=== PATIENT | male | born 1940 | race Caucasian/White ===

== ENCOUNTER 2018-09-23 03:11 | Emergency (ER) | payer MEDICARE, BC, SELFPAY ==
[2018-09-23 03:12] VITALS: BP 170/86; BP 198/80; PULSE 71; RESP 16; TEMP 36.6; O2SAT 97; BMI 26.3
--- NOTE | 2018-09-23 03:28 | ED.DCSUM_ITS ---
- ER Visit Summary Date of Service: 09/23/18 Chief Complaint: [] Right lower rib injury History of Present Illness: The patient is a 78 M stated he injured his right lower ribs 5 days ago when he fell and he tripped on a rug. He is having some pain in his right lower ribs. He is using Aleve. Comes in for further evaluation. Current severity is moderate Physical Examination: [] Vital signs reviewed General: Well-nourished well-developed Head: Normocephalic atraumatic Eyes: Pupils equal round and reactive to light extraocular movements intact ENT: TMs clear no hemotympanum no trauma Neck: Nontender full range of motion Cardiovascular: Regular rate rhythm no murmurs normal S1-S2 Respiratory: No distress clear to auscultation bilaterally chest nontender Abdomen: Soft nontender nondistended normal bowel sounds no masses Back: Spinal tenderness. No CVA tenderness. Tenderness in his right posterior lateral rib. No crepitus or deformity. Positive right flank contusion Extremities: Nontender active range of motion ?4 extremities no trauma Skin: Normal color no trauma Neuro alert oriented cranial nerves II through XII intact normal strength sensation reflexes Test Results: [] Emergency Department Course and Treatment: [] Patient does not want to x-ray. 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 He may have a bruised or broken rib. Given a dose of morphine. Will be given Vicodin for home. Treatment Plan: [] Disposition: [] Impression: [] Right posterior rib injury status post fall This note was generated with [employer] dictation software. It may contain incorrect words, spelling, and punctuation that were not noted in review of the chart prior to signing ED Disposition - Plan for ED Patient: Chief Complaint: Fall Referrals: Alan Ruth MD [Primary Care Provider] -
--- NOTE | 2018-09-23 03:28 | ED.DEP ---
ED Disposition - Plan for ED Patient: Disposition: Home or Assisted Living Chief Complaint: Fall Instructions: ED Contusion Vs Minor Fx Rib Prescriptions: Hydrocodone Bitart/Apap 5-325 [[place] 5MG-325MG] 1 tab PO Q4H PRN PRN 2 Days #10 tab PRN Reason: Pain Referrals: Alan Ruth MD [Primary Care Provider] -
[2018-09-23] MEDS: Morphine 4 MG/ML Syringe IM (03:36)
[2018-09-23 04:18] VITALS: RESP 16
== END 2018-09-23 04:18 | disposition home or self-care (01) ==
LOC: ED 03:37
PROVIDERS: Emergency Provider Emergency Medicine; Family Provider Family Medicine; PCP Family Medicine
DX: S29.9XXA Unspecified injury of thorax, initial encounter (principal); W01.0XXA Fall on same level from slipping, tripping and stumbling without subsequent striking against object, initial encounter
CPT/HCPCS: 99282

== ENCOUNTER 2020-12-03 11:58 | Outpatient (RCR) | payer MEDICARE, BC, SELFPAY | END 2020-12-03 23:59 | LOC: IMMUN 11:58 | PROVIDERS: PCP Family Medicine; Referring Provider Family Medicine; Visit Provider Family Medicine | DX: Z23 Encounter for immunization (principal) | CPT/HCPCS: 0011A; 0012A ==

== ENCOUNTER 2021-10-11 05:59 | Emergency (ER) | payer MEDICARE, BC, SELFPAY ==
[2021-10-11 05:59] VITALS: BP 163/100; PULSE 81; RESP 20; TEMP 36.3; O2SAT 93; BMI 27.3
[2021-10-11 06:02] VITALS: BP 163/100; PULSE 78; RESP 20; TEMP 36.3; O2SAT 94
--- NOTE | 2021-10-11 06:07 | EKG12_ITS ---
Test Reason : WEAKNESS Blood Pressure : / mmHG Vent. Rate : 076 BPM Atrial Rate : 076 BPM P-R Int : 216 ms QRS Dur : 140 ms QT Int : 418 ms P-R-T Axes : 038 -82 -01 degrees QTc Int : 470 ms Sinus rhythm with 1st degree A-V block Left axis deviation Right bundle branch block Inferior infarct , age undetermined Abnormal ECG Confirmed by SUSAN WYNN, JOEL ([id number]), acquisition editor ANGEL NGUYỄN ([id number]) on 10/12/2021 12:15:34 PM Referred By: PANFILO Confirmed By:JOEL DAVIS MD
--- NOTE | 2021-10-11 06:07 | RAD_ITS ---
STUDY: X-RAY CHEST REASON FOR EXAM: Male, 81 years old. Cough TECHNIQUE: Single AP portable view of the chest. COMPARISON: None. FINDINGS: There is minimal lower lobe atelectasis. There is no demonstrated pleural abnormality. There is mild cardiac enlargement. Normal mediastinum and filipe. Normal visualized pulmonary arteries. There is atherosclerotic calcification of the aortic arch with tortuosity. There are diffuse degenerative changes of the visualized thoracic spine. There is degenerative osteoarthritis of the bilateral shoulders. There is no demonstrated abnormality of the visualized soft tissue structures of the upper abdomen. RAD/Chest 1 View (Portable) IMPRESSION: Degenerative changes, as described above. No demonstrated acute cardiopulmonary process. Electronically Signed: Mandi Correa MD at 6:38 EST Tel , Service support ,
--- NOTE | 2021-10-11 06:20 | ED.VIS.DYS ---
HPI History of Present Illness Chief Complaint: Weakness Narrative Narrative: 81-year-old male presenting with cough and he admits to some shortness of breath. Patient states he feels like he has a fever but has not had 1. He does complain of body aches and chills. No loss of taste or smell. Patient states he has been sick for about a week and a half. He states he had a test last week which was positive for COVID-19. He states he was vaccinated. He states he was not referred for monoclonal antibody treatment. He denies any chest pain. [facility] Medical History Benign essential tremor Drug-induced erectile dysfunction Gout Hyperlipidemia Hypertension Pseudophakia PVD (peripheral vascular disease) Tremor Type II diabetes mellitus Home Medications atorvastatin 20 mg PO QHS 10/11/14 [History Last Taken Unknown] lisinopril 40 mg PO DAILY 10/11/14 [History Last Taken Unknown] Levemir FlexTouch U-100 Insuln 10 units SQ QHS 09/23/18 [History Last Taken Unknown] allopurinol 300 mg PO DAILY 09/23/18 [History Last Taken Unknown] metformin 2 tab PO DAILY 09/23/18 [History Last Taken Unknown] propranolol 120 mg PO DAILY 09/23/18 [History Last Taken Unknown] cetirizine 10 mg PO DAILY 10/11/21 [History Last Taken Unknown] colchicine 0.6 mg PO PRN PRN 10/11/21 [History Last Taken Unknown] dexamethasone 6 mg PO DAILY #7 tab 10/11/21 [Rx Last Taken Unknown] hydrochlorothiazide 12.5 mg PO DAILY 10/11/21 [History Last Taken Unknown] naproxen sodium [Aleve] 220 mg PO DAILY 10/11/21 [History Last Taken Unknown] promethazine-DM 5 ml PO Q6H PRN #118 ml 10/11/21 [Rx Last Taken Unknown] propranolol 20 mg PO DAILY PRN PRN 10/11/21 [History Last Taken Unknown] sildenafil (pulm.hypertension) 30 mg PO PRN PRN 10/11/21 [History Last Taken Unknown] Allergy/AdvReac Type Severity Reaction Status Date / Time No Known Allergies Allergy Verified 10/11/21 06:08 Surgical History History of back surgery History of hip surgery Hx of knee surgery Social History Smoking Status: Never smoker ROS ROS ED Constitutional Constitutional ED: Reports chills and other Details: Subjective fevers Eyes Eyes: Denies blurry vision or diplopia ENT ENT ED: Denies rhinorrhea or sore throat Cardiovascular Cardiovascular: Denies chest pain or palpitations Respiratory/Chest Respiratory/Chest: Reports cough and dyspnea Gastrointestinal Gastrointestinal: Denies abdominal pain, nausea or vomiting Genitourinary Genitourinary ED: Denies dysuria or hematuria Musculoskeletal Musculoskeletal: Reports myalgias; Denies arthralgias or neck pain Integumentary Denies Abrasions or rash Neurologic Neurologic: Denies headache(s) or paresthesias EXAM Physical Exam Const Vital Signs: 10/11/21 05:59 10/11/21 06:02 10/11/21 06:23 Temperature 97.4 F L 97.4 F L Temperature Source Oral Oral Pulse Rate 81 78 Respiratory Rate 20 H 20 H Respiratory Effort Short of Breath Blood Pressure 163/100 H 163/100 H Blood Pressure Mean 121 121 Pulse Ox 93 94 Oxygen Delivery Method Room Air Room Air 10/11/21 07:10 Temperature 97 F L Temperature Source Temporal Pulse Rate 68 Respiratory Rate 20 H Respiratory Effort Blood Pressure 156/75 H Blood Pressure Mean 102 Pulse Ox 98 Oxygen Delivery Method Room Air Positive well nourished General Appearance ED: NAD; Negative for pallor HEENT Reports moist mucous membranes atraumatic Eyes PERRL and EOMs intact bilaterally General Eye ED: Negative for pale conjunctiva or scleral icterus Resp normal respiratory effort and clear to auscultation bilaterally Cardio regular rate and regular rhythm Neuro oriented x3 and CN's II-XII intact bilaterally Sensorium / Orientation: alert Psych mental status grossly normal Skin General Skin Exam: Negative for jaundice or pallor Lesions: no lesions Rashes: no rashes MDM MDM MDM Narrative Medical decision making narrative: Community physician. Feel patient likely will be discharged either way because he does not have significant pain and is not hypoxic.Patient presenting with cough and shortness of breath. He states he has not had a fever at home that he could tell when he has been checking with the monitor. He states he was tested for Covid and had been sick for about a week and a half. He states he was tested at his primary care's office. I reviewed the medical record and he was tested positive on the eighth. Per the note from the nurse practitioner his symptoms started 3 days prior to that which would be the fifth. That would make patient day 9 of COVID-19. Patient is denying any chest pain. He does not have nausea, vomiting, diarrhea. His pulse ox is currently 94% his respiratory rate is 20 but he is nonlabored and speaking in full sentences. He has clear lungs bilaterally. EKG on my interpretation is a sinus rhythm with a ventricular rate of 76 bpm with a first-degree AV block. Right bundle branch block noted. On his CBC his white blood cell count is 9.1, hemoglobin 12.9, platelets 263. CMP shows a creatinine of 1.56 and his creatinine from 05/13/2021 was 1.63 so it is actually improved. Alkaline phosphatase is slightly elevated at 133. His other LFTs are normal. Electrolytes normal. Chest x-ray on my interpretation shows no acute cardiopulmonary process and the radiologist does agree. High-sensitivity troponin is 6. Patient was ambulated with out oxygen and is starting pulse ox was 94% and is finishing pulse ox was 98%. Patient's D-dimer was elevated at greater than 7. He will have a CTA of the chest. Impression: 1. COVID-19 pneumonitis Lab Data Labs: Laboratory Results - last 24 hr 10/11/21 10/11/21 10/11/21 06:15 06:15 06:15 WBC 9.1 RBC 4.20 L Hgb 12.9 L Hct 39.8 L MCV 94.8 H MCH 30.7 MCHC 32.4 RDW Std Deviation 46.0 H RDW Coeff of Sakina 13.4 Plt Count 263 MPV 10.6 Immature Gran % (Auto) 0.400 Neut % (Auto) 71.3 H Lymph % (Auto) 15.1 L [place] % (Auto) 11.6 H Eos % (Auto) 1.3 Baso % (Auto) 0.3 Absolute Neuts (auto) 6.5 Absolute Lymphs (auto) 1.38 Nucleated RBC % 0 D-Dimer Quant (PE/DVT) 7.64 H* Sodium 142 Potassium 3.9 Chloride 106 Carbon Dioxide 31.0 Anion Gap 5 BUN 44 H Creatinine 1.56 H Estim Creat Clear Calc 40.76 Est GFR (MDRD) Af Amer 55 L Est GFR (MDRD) Non-Af 46 L BUN/Creatinine Ratio 28.2 H Glucose 165 H Calcium 9.7 Total Bilirubin 0.70 AST 21 ALT 57 Alkaline Phosphatase 133 H Troponin I High Sens 6 B-Natriuretic Peptide Total Protein 7.4 Albumin 3.0 L Globulin 4.4 H Albumin/Globulin Ratio 0.7 L 10/11/21 06:15 WBC RBC Hgb Hct MCV MCH MCHC RDW Std Deviation RDW Coeff of Sakina Plt Count MPV Immature Gran % (Auto) Neut % (Auto) Lymph % (Auto) [place] % (Auto) Eos % (Auto) Baso % (Auto) Absolute Neuts (auto) Absolute Lymphs (auto) Nucleated RBC % D-Dimer Quant (PE/DVT) Sodium Potassium Chloride Carbon Dioxide Anion Gap BUN Creatinine Estim Creat Clear Calc Est GFR (MDRD) Af Amer Est GFR (MDRD) Non-Af BUN/Creatinine Ratio Glucose Calcium Total Bilirubin AST ALT Alkaline Phosphatase Troponin I High Sens B-Natriuretic Peptide 55.4 Total Protein Albumin Globulin Albumin/Globulin Ratio Radiography Diagnostic Testing: Clinical Impression(s) from Imaging Studies Chest X-Ray 10/11/21 06:07 IMPRESSION: Degenerative changes, as described above. No demonstrated acute cardiopulmonary process. Electronically Signed: Mandi Correa MD at 6:38 EST Tel , Service support , Discharge Plan Triage Chief Complaint: Weakness ED Provider: Flakito Doran Dx/Rx/DC Orders Instructions: Coronavirus Disease 2019 (COVID-19): Caring for Yourself or Others Prescriptions: New promethazine-DM 6.25-15 mg/5 mL syrup 5 ml PO Q6H PRN (Reason: cough) Qty: 118 RF: 0 dexamethasone 6 mg tablet 6 mg PO DAILY Qty: 7 RF: 0 No Action atorvastatin 10 MG tablet 20 mg PO QHS RF: 0 lisinopril 10 MG tablet 40 mg PO DAILY RF: 0 propranolol 60 MG capsule,extended release 24 hr 120 mg PO DAILY RF: 0 allopurinol 300 MG tablet 300 mg PO DAILY RF: 0 metformin 500 MG tablet 2 tab PO DAILY RF: 0 Levemir FlexTouch U-100 Insuln 100 UNITS/ML insulin pen 10 units SQ QHS RF: 0 cetirizine 10 mg Tablet 10 mg PO DAILY RF: 0 hydrochlorothiazide 12.5 mg Capsule 12.5 mg PO DAILY RF: 0 propranolol 20 mg Tablet 20 mg PO DAILY PRN PRN (Reason: Tremor(S)) RF: 0 sildenafil (pulm.hypertension) 20 mg Tablet 30 mg PO PRN PRN (Reason: Erectile Dysfunction) RF: 0 naproxen sodium [Aleve] 220 mg Capsule 220 mg PO DAILY RF: 0 colchicine 0.6 mg Capsule 0.6 mg PO PRN PRN (Reason: gout) RF: 0 Other Ambulatory Orders: COVID Outpatient Monoclonal Antibody Referral (Routine) Timeframe: 1 Day Facility: [facility] - Location: [facility] Ordered By: Dr. Flakito Doran Primary Care Provider: Alan Ruth Referrals: Alan Ruth MD [Primary Care Provider] - Disposition Disposition: Home, Self Care
[2021-10-11 06:27] LABS: Absolute Lymphocyte Count 1.38 X10^3/uL (0.83-4.51); Absolute Neutrophil Count 6.5 X10^3/uL (2.0-7.7); Basophil# 0.03 X10^3/uL; Basophil% 0.3 % (0-1); Eosinophil# 0.12 X10^3/uL; Eosinophils% 1.3 % (0-5); Hematocrit 39.8 % (40-54); Hemoglobin 12.9 g/dL (13.0-16.5); Lymphocyte # 1.38 X10^3/ul (0.83-4.51); Lymphocyte % 15.1 % (19-41); Mean Corp Hgb Conc 32.4 g/dL (32-36); Mean Corpuscular Hgb 30.7 pg (27.0-32.0); Mean Corpuscular Volume 94.8 fL (80-94); Mean Platelet Vol. 10.6 fl (6.2-12.0); Monocyte# 1.06 X10^3/uL; Monocyte% 11.6 % (0-10); NRBC Flagged by Analyzer 0 % (0-5); Neutrophil # 6.49 X10^3/uL (2.7-7.7); Neutrophil % 71.3 % (47-70); Platelet Count 263 K/mm3 (150-450); RBC Distribution Width CV 13.4 % (11.6-14.6); White Blood Count 9.1 K/mm3 (4.4-11.0)
[2021-10-11 06:44] LABS: ALB/GLOB Ratio 0.7 RATIO (0.9-2.4); AST(SGOT) 21 U/L (15-37); Alanine Aminotransfer ALT/SGPT 57 U/L (16-61); Alkaline Phosphatase 133 U/L (45-117); Anion Gap 5 (5-15); BUN 44 mg/dL (7-18); BUN/Creat Ratio 28.2 RATIO (10-20); Calcium,Total 9.7 mg/dL (8.5-10.1); Chloride 106 mmol/L (98-107); Creatinine, Serum 1.56 mg/dL (0.70-1.30); EST Glomerular Filtration Rate 46 mL/min (>60); Est Glom Filt Rate - Afr Amer 55 mL/min (>60); Estimated Creatinine Clearance 40.76 ml/min; Globulin 4.4 g/dL (2.2-4.2); Glucose 165 mg/dL (74-106); Potassium 3.9 mmol/L (3.5-5.1); Protein, Total 7.4 g/dL (6.4-8.2); Sodium Level 142 mmol/L (136-145); Troponin-I HS 6 pg/mL (3.0-78.0)
[2021-10-11 07:10] VITALS: BP 156/75; PULSE 68; RESP 20; TEMP 36.1; O2SAT 94; O2SAT 98
[2021-10-11 07:11] LABS: D-Dimer Quantitative (DVT/PE) 7.64 FEU/ug/m (0.27-0.49)
--- NOTE | 2021-10-11 07:12 | CT_ITS ---
STUDY: CTA CHEST REASON FOR EXAM: Male, 81 years old. Dyspnea RADIATION DOSAGE (If Supplied By Facility): CTDIvol = ( 13.04 ) mGy, DLP = ( 449.82 ) mGycm TECHNIQUE: The examination was performed with the intravenous administration of IV 100mL Isovue-370. Post-processing of the angiographic images was performed, with multiplanar reformation and 3D reconstruction. Individualized dose optimization techniques were used for this CT. COMPARISON: October 11, 2021 chest x-ray FINDINGS: Normal enhancement of the main pulmonary artery and right and left pulmonary arteries. Normal enhancement of the bilateral peripheral pulmonary arteries. There is no demonstrated pulmonary embolism. There is atherosclerotic calcification of the aortic arch with tortuosity. There is no demonstrated aortic dissection. There is mild cardiac enlargement there are coronary calcifications. Normal mediastinum. Normal hilar regions. Normal visualized trachea and bronchi. There is no focal consolidation pleural effusion or pulmonary edema. There is minimal left lingular lower lobe atelectasis. Normal pulmonary parenchyma. Normal pleura. Normal chest wall structures. There are degenerative changes of thoracic spine. The liver is fatty infiltrated. There is moderate stool in the colon. There is a minimal hiatal hernia. CT/CTA Chest W/WO Contrast IMPRESSION: Minimal left lower lobe and lingular atelectasis. Mild cardiac enlargement coronary artery calcification. No pulmonary embolism or aortic dissection. Electronically Signed: Mandi Correa MD at 7:54 EST Tel , Service support ,
[2021-10-11 07:28] LABS: BNP,B-Type NATRIURETIC PEPTIDE 55.4 pg/mL (0-100)
[2021-10-11 08:17] VITALS: BP 142/82; PULSE 78; RESP 16; O2SAT 98
== END 2021-10-11 08:18 | disposition home or self-care (01) ==
PROVIDERS: Emergency Provider Student in an Organized Health Care Education/Training Program; PCP Family Medicine
DX: U07.1 COVID-19 (principal); J12.82 Pneumonia due to coronavirus disease 2019; E11.51 Type 2 diabetes mellitus with diabetic peripheral angiopathy without gangrene; I10 Essential (primary) hypertension; R06.02 Shortness of breath; E78.5 Hyperlipidemia, unspecified; R25.1 Tremor, unspecified; M10.9 Gout, unspecified; Z79.4 Long term (current) use of insulin; Z79.52 Long term (current) use of systemic steroids; Z79.899 Other long term (current) drug therapy; Z96.1 Presence of intraocular lens
CPT/HCPCS: 71045; 71275; 80053; 83880; 84484; 85025; 85379; 93005; 99285; J7050; M0243; Q9967; A4216; Q0244

== ENCOUNTER 2021-10-11 15:15 | Outpatient (CLI) | payer MEDICARE, BC, SELFPAY ==
[2021-10-11 15:42] VITALS: BP 133/78; PULSE 80; RESP 18; TEMP 37.1; O2SAT 99; BMI 26.2
[2021-10-11] MEDS: 0.9% Saline Lock 10 ML Syringe IV (15:44)
[2021-10-11 16:06] VITALS: BP 116/73; PULSE 88; RESP 16; TEMP 36.7; O2SAT 96
[2021-10-11 16:53] VITALS: BP 113/57; PULSE 75; RESP 16; TEMP 36.7; O2SAT 94
== END 2021-10-11 17:06 | disposition home or self-care (01) ==
LOC: MS3OUT 15:15 → MS3 15:16
PROVIDERS: PCP Family Medicine; Referring Provider Nurse Practitioner Adult Health; Visit Provider Nurse Practitioner Adult Health
DX: Z23 Encounter for immunization (principal); U07.1 COVID-19
CPT/HCPCS: J7050; M0243; A4216; Q0244

== ENCOUNTER 2021-10-20 08:31 | Emergency (ER) | payer MEDICARE, BC, SELFPAY ==
[2021-10-20 08:32] VITALS: BP 109/85; PULSE 81; RESP 16; TEMP 36.4; O2SAT 97; BMI 26.5
--- NOTE | 2021-10-20 08:46 | EKG12_ITS ---
Test Reason : SOB Blood Pressure : / mmHG Vent. Rate : 079 BPM Atrial Rate : 079 BPM P-R Int : 208 ms QRS Dur : 138 ms QT Int : 412 ms P-R-T Axes : 040 265 019 degrees QTc Int : 472 ms Normal sinus rhythm Right bundle branch block Inferior infarct , age undetermined Abnormal ECG Confirmed by JON WYNN, JENNIFER ([id number]), online editor ANGEL NGUYỄN ([id number]) on 10/25/2021 9:31:09 AM Referred By: PAWEL Confirmed By:JENNIFER WEBB MD
--- NOTE | 2021-10-20 08:46 | RAD_ITS ---
STUDY: X-RAY CHEST REASON FOR EXAM: Male, 81 years old. Cough. History of recent Covid positive. TECHNIQUE: Single AP portable view of the chest. COMPARISON: Comparison is made with prior study dated 10/11/2021. FINDINGS: EKG electrodes are seen. The lungs are clear and expanded. There is no demonstrated pleural abnormality. Normal size heart. Normal mediastinum and filipe. Normal visualized pulmonary arteries. Normal visualized aortic arch and descending thoracic aorta. There are diffuse degenerative changes of the visualized thoracic spine. There is degenerative osteoarthritis of the bilateral shoulders. There is no demonstrated abnormality of the visualized soft tissue structures of the upper abdomen. RAD/Chest 1 View (Portable) IMPRESSION: No acute abnormality is seen. Electronically Signed: Dave Whitt MD at 9:32 EST , Service support ,
--- NOTE | 2021-10-20 08:47 | EDS_ITS ---
HPI History of Present Illness Chief Complaint: Cough Informant: patient Onset/Context/Timing Onset: Weeks Context: Gradual Onset Timing: Waxes and wanes Current Severity: Mild Maximum Severity: Moderate Narrative Narrative: Patient presents with continued cough and wheezing. He reports feeling lightheaded and weak. He developed symptoms of Covid on October 02 and tested positive on the . He did receive monoclonal antibodies last week. Patient states in spite of this he still feels quite ill. He has not had fever or chills. He is coughing up dark yellow sputum and feels like he is wheezing. He denies underlying lung disease. [facility] Medical History Benign essential tremor Drug-induced erectile dysfunction Gout Hyperlipidemia Hypertension Pseudophakia PVD (peripheral vascular disease) Tremor Type II diabetes mellitus Home Medications atorvastatin 20 mg PO QHS 10/11/14 [History Last Taken Unknown] lisinopril 40 mg PO DAILY 10/11/14 [History Last Taken Unknown] Levemir FlexTouch U-100 Insuln 10 units SQ QHS 09/23/18 [History Last Taken Unknown] allopurinol 300 mg PO DAILY 09/23/18 [History Last Taken Unknown] metformin 2 tab PO DAILY 09/23/18 [History Last Taken Unknown] propranolol 120 mg PO DAILY 09/23/18 [History Last Taken Unknown] cetirizine 10 mg PO DAILY 10/11/21 [History Last Taken Unknown] colchicine 0.6 mg PO PRN PRN 10/11/21 [History Last Taken Unknown] dexamethasone 6 mg PO DAILY #7 tab 10/11/21 [Rx Last Taken Unknown] hydrochlorothiazide 12.5 mg PO DAILY 10/11/21 [History Last Taken Unknown] naproxen sodium [Aleve] 220 mg PO DAILY 10/11/21 [History Last Taken Unknown] promethazine-DM 5 ml PO Q6H PRN #118 ml 10/11/21 [Rx Last Taken Unknown] propranolol 20 mg PO DAILY PRN PRN 10/11/21 [History Last Taken Unknown] sildenafil (pulm.hypertension) 30 mg PO PRN PRN 10/11/21 [History Last Taken Unknown] albuterol sulfate [Ventolin HFA] 1 - 2 puff INHALATION Q4H PRN PRN #1 inhaler 10/20/21 [Rx Last Taken Unknown] guaifenesin [Mucinex] 600 mg PO Q12H PRN #10 tab 10/20/21 [Rx Last Taken Unknown] levofloxacin 750 mg PO DAILY #4 tab 10/20/21 [Rx Last Taken Unknown] Allergy/AdvReac Type Severity Reaction Status Date / Time No Known Allergies Allergy Verified 10/20/21 08:34 Surgical History History of back surgery History of hip surgery Hx of knee surgery Social History Smoking Status: Never smoker ROS ROS ED Constitutional Constitutional ED: Denies chills or fever(s) Eyes Eyes: Denies change in vision ENT ENT ED: Denies sore throat Cardiovascular Cardiovascular: Denies chest pain Respiratory/Chest Respiratory/Chest: Reports cough, dyspnea and sputum Gastrointestinal Gastrointestinal: Denies abdominal pain, diarrhea, nausea or vomiting Genitourinary Genitourinary ED: Denies dysuria Musculoskeletal Musculoskeletal: Denies back pain Integumentary Denies rash Neurologic Neurologic: Reports weakness; Denies headache(s) Allergic/Immunologic Allergic/Immunologic ED: Denies urticaria EXAM Physical Exam Const Vital Signs: 10/20/21 08:32 10/20/21 08:58 10/20/21 09:01 Temperature 97.5 F L Temperature Source Temporal Pulse Rate 81 76 Respiratory Rate 16 20 H Respiratory Effort Normal Respiratory Depth Normal Respiratory Pattern Normal Blood Pressure 109/85 H 114/68 Blood Pressure Mean 93 83 Pulse Ox 97 96 Oxygen Delivery Method Room Air Room Air Room Air 10/20/21 09:19 Temperature Temperature Source Pulse Rate 83 Respiratory Rate 18 Respiratory Effort Respiratory Depth Respiratory Pattern Blood Pressure Blood Pressure Mean Pulse Ox Oxygen Delivery Method Positive well nourished and well developed General Appearance ED: well developed HEENT Reports moist mucous membranes Eyes PERRL and EOMs intact bilaterally Neck supple Chest Wall inspection of chest normal and palpation of chest normal Resp normal respiratory effort Resp Narrative: Mildly diminished lung sounds right base. GI normal to inspection, nondistended, normoactive bowel sounds and non-tender Palpation: soft Extremity normal to inspection Neuro oriented x3 Sensorium / Orientation: alert Psych mental status grossly normal Skin no rashes or lesions noted MDM MDM MDM Narrative Medical decision making narrative: Patient given a DuoNeb treatment. EKG, chest x-ray, lab work obtained. Lab Data Attestation: I reviewed the patient's lab results. Labs: Laboratory Results - last 24 hr 10/20/21 10/20/21 09:00 09:00 WBC 13.8 H RBC 4.66 Hgb 14.3 Hct 44.0 MCV 94.4 H MCH 30.7 MCHC 32.5 RDW Std Deviation 46.4 H RDW Coeff of Sakina 13.5 Plt Count 306 MPV 11.0 Immature Gran % (Auto) 1.200 H Neut % (Auto) 77.1 H Lymph % (Auto) 13.4 L [place] % (Auto) 7.0 Eos % (Auto) 1.0 Baso % (Auto) 0.3 Absolute Neuts (auto) 10.7 H Absolute Lymphs (auto) 1.85 Nucleated RBC % 0 Sodium 136 Potassium 4.0 Chloride 100 Carbon Dioxide 30.0 Anion Gap 6 BUN 48 H Creatinine 1.65 H Estim Creat Clear Calc 36.25 Est GFR (MDRD) Af Amer 52 L Est GFR (MDRD) Non-Af 43 L BUN/Creatinine Ratio 29.1 H Glucose 214 H Calcium 9.5 Radiography Chest X-Ray - ED: 1 View, Read by ED Physician and Chronic Changes Diagnostic Testing: Clinical Impression(s) from Imaging Studies Chest X-Ray 10/20/21 08:46 IMPRESSION: No acute abnormality is seen. Electronically Signed: Dave Whitt MD at 9:32 EST , Service support , EKG Initial EKG: Attestation: I personally reviewed and interpreted this EKG as follows: Interpretation: Sinus Rhythm (Sinus at 79 bpm. Right bundle branch block noted. No acute ischemia.) Treatment and Re-Evaluation Comments:: Is breathing better after DuoNeb treatment. Chest x-ray reveals no infiltrate, however white count is not elevated at 13.8. I am concerned that he is getting a secondary bacterial infection. We will treat him with Levaquin, Mucinex, albuterol inhaler. Discharge Plan Triage Chief Complaint: Cough ED Provider: Shae Moya Dx/Rx/DC Orders Clinical Impression: Bronchitis Instructions: ED Bronchitis with Wheezing (Adult) Prescriptions: New levofloxacin 750 mg tablet 750 mg PO DAILY Qty: 4 RF: 0 guaifenesin [Mucinex] 600 mg tablet extended release 12hr 600 mg PO Q12H PRN (Reason: congestion) Qty: 10 RF: 0 albuterol sulfate [Ventolin HFA] 1 INHALER inhaler 1 - 2 puff inhalation Q4H PRN PRN (Reason: Wheezing) Qty: 1 RF: 0 No Action atorvastatin 10 MG tablet 20 mg PO QHS RF: 0 lisinopril 10 MG tablet 40 mg PO DAILY RF: 0 propranolol 60 MG capsule,extended release 24 hr 120 mg PO DAILY RF: 0 allopurinol 300 MG tablet 300 mg PO DAILY RF: 0 metformin 500 MG tablet 2 tab PO DAILY RF: 0 Levemir FlexTouch U-100 Insuln 100 UNITS/ML insulin pen 10 units SQ QHS RF: 0 cetirizine 10 mg Tablet 10 mg PO DAILY RF: 0 hydrochlorothiazide 12.5 mg Capsule 12.5 mg PO DAILY RF: 0 propranolol 20 mg Tablet 20 mg PO DAILY PRN PRN (Reason: Tremor(S)) RF: 0 sildenafil (pulm.hypertension) 20 mg Tablet 30 mg PO PRN PRN (Reason: Erectile Dysfunction) RF: 0 naproxen sodium [Aleve] 220 mg Capsule 220 mg PO DAILY RF: 0 colchicine 0.6 mg Capsule 0.6 mg PO PRN PRN (Reason: gout) RF: 0 promethazine-DM 6.25-15 mg/5 mL syrup 5 ml PO Q6H PRN (Reason: cough) Qty: 118 RF: 0 dexamethasone 6 mg tablet 6 mg PO DAILY Qty: 7 RF: 0 Primary Care Provider: Alan Ruth Referrals: Alan Ruth MD [Primary Care Provider] - 1 Week if not improving Disposition Disposition: Home, Self Care
[2021-10-20 08:58] VITALS: BP 114/68; PULSE 76; RESP 20; O2SAT 96
[2021-10-20 09:13] LABS: Absolute Lymphocyte Count 1.85 X10^3/uL (0.83-4.51); Absolute Neutrophil Count 10.7 X10^3/uL (2.0-7.7); Basophil# 0.04 X10^3/uL; Basophil% 0.3 % (0-1); Eosinophil# 0.14 X10^3/uL; Hemoglobin 14.3 g/dL (13.0-16.5); Lymphocyte # 1.85 X10^3/ul (0.83-4.51); Lymphocyte % 13.4 % (19-41); Mean Corp Hgb Conc 32.5 g/dL (32-36); Mean Corpuscular Hgb 30.7 pg (27.0-32.0); Mean Corpuscular Volume 94.4 fL (80-94); Monocyte# 0.96 X10^3/uL; NRBC Flagged by Analyzer 0 % (0-5); Neutrophil # 10.66 X10^3/uL (2.7-7.7); Neutrophil % 77.1 % (47-70); Platelet Count 306 K/mm3 (150-450); RBC Distribution Width CV 13.5 % (11.6-14.6); RBC Distribution Width SD 46.4 fl (35.1-43.9); Red Blood Count 4.66 M/mm3 (4.6-6.2); White Blood Count 13.8 K/mm3 (4.4-11.0)
[2021-10-20] MEDS: Ipratropium/Albuterol Sulfate 3 ML AMPUL.NEB INHALATION (09:15)
[2021-10-20 09:19] VITALS: PULSE 83; RESP 18
[2021-10-20 09:27] LABS: Anion Gap 6 (5-15); BUN 48 mg/dL (7-18); BUN/Creat Ratio 29.1 RATIO (10-20); Calcium,Total 9.5 mg/dL (8.5-10.1); Chloride 100 mmol/L (98-107); Creatinine, Serum 1.65 mg/dL (0.70-1.30); EST Glomerular Filtration Rate 43 mL/min (>60); Est Glom Filt Rate - Afr Amer 52 mL/min (>60); Estimated Creatinine Clearance 36.25 ml/min; Glucose 214 mg/dL (74-106); Sodium Level 136 mmol/L (136-145)
[2021-10-20 10:42] VITALS: BP 121/71; PULSE 76; RESP 21; O2SAT 95
== END 2021-10-20 10:45 | disposition home or self-care (01) ==
PROVIDERS: Emergency Provider Emergency Medicine; PCP Family Medicine
DX: J40 Bronchitis, not specified as acute or chronic (principal); I10 Essential (primary) hypertension; E78.5 Hyperlipidemia, unspecified; E11.51 Type 2 diabetes mellitus with diabetic peripheral angiopathy without gangrene; M10.9 Gout, unspecified; Z79.4 Long term (current) use of insulin; Z79.84 Long term (current) use of oral hypoglycemic drugs; Z79.52 Long term (current) use of systemic steroids; Z79.899 Other long term (current) drug therapy; Z86.16 Personal history of COVID-19
CPT/HCPCS: 36415; 71045; 80048; 85025; 87040; 93005; 94640; 99285; A4216

== ENCOUNTER 2022-07-28 08:56 | Observation (INO) | payer MEDICARE, SELFPAY ==
[2022-07-28] VITALS (11 sets, daily range): BP systolic 119–181; BP diastolic 69–96; PULSE 70–109; RESP 15–18; TEMP 36.6–36.9; O2SAT 96–98; BMI 27.6; BMI 25.4
--- NOTE | 2022-07-28 09:21 | RAD_ITS ---
EXAM: XR CHEST, 1 VIEW CLINICAL INDICATION: chest pain TECHNIQUE: Frontal view of the chest. This report was created using [employer] report generation technology. COMPARISON: XR Chest dated 10/20/2021 FINDINGS: LUNGS AND PLEURAL SPACES: Normal. No consolidation or edema. No pneumothorax. No effusion. HEART: Normal heart size. MEDIASTINUM: No mediastinal or hilar mass. BONES/JOINTS: Degenerative changes of the shoulders again seen. SOFT TISSUES: Normal. RAD/Chest 1 View (Portable) IMPRESSION: No acute cardiopulmonary abnormality. No interval change. Electronically Signed: Timothy Torres MD at 9:39 EDT ,
--- NOTE | 2022-07-28 09:21 | EKG12_ITS ---
Test Reason : CP Blood Pressure : / mmHG Vent. Rate : 070 BPM Atrial Rate : 070 BPM P-R Int : 230 ms QRS Dur : 144 ms QT Int : 404 ms P-R-T Axes : 041 268 009 degrees QTc Int : 436 ms Sinus rhythm with 1st degree A-V block Right bundle branch block Abnormal ECG Confirmed by JON WYNN, JENNIFER ([id number]), greeting card editor ANGEL NGUYỄN ([id number]) on 07/31/2022 9:43:20 AM Referred By: CHIARA Confirmed By:JENNIFER WEBB MD
[2022-07-28 09:27] LABS: Absolute Lymphocyte Count 1.23 X10^3/uL (0.83-4.51); Absolute Neutrophil Count 5.1 X10^3/uL (2.0-7.7); Basophil# 0.03 X10^3/uL; Basophil% 0.4 % (0-1); Eosinophil# 0.12 X10^3/uL; Eosinophils% 1.7 % (0-5); Hematocrit 41.1 % (40-54); Hemoglobin 13.3 g/dL (13.0-16.5); Lymphocyte # 1.23 X10^3/ul (0.83-4.51); Lymphocyte % 17.3 % (19-41); Mean Corp Hgb Conc 32.4 g/dL (32-36); Mean Corpuscular Hgb 31.5 pg (27.0-32.0); Mean Corpuscular Volume 97.4 fL (80-94); Mean Platelet Vol. 10.8 fl (6.2-12.0); Monocyte# 0.59 X10^3/uL; Monocyte% 8.3 % (0-10); NRBC Flagged by Analyzer 0 % (0-5); Neutrophil % 71.9 % (47-70); Platelet Count 198 K/mm3 (150-450); RBC Distribution Width CV 13.5 % (11.6-14.6); RBC Distribution Width SD 48.9 fl (35.1-43.9); Red Blood Count 4.22 M/mm3 (4.6-6.2); White Blood Count 7.1 K/mm3 (4.4-11.0)
[2022-07-28] MEDS: Aspirin 81 MG TAB.CHEW 324 MG PO (09:27)
--- NOTE | 2022-07-28 09:28 | EDS_ITS ---
HPI History of Present Illness Chief Complaint: Chest Pain Detail of Chief Complaint: Left-sided chest pain for his left shoulder and down his left arm. Informant: patient Onset/Context/Timing Onset: Today and Hours Activity at onset: gradual Timing: Continuous Quality: Positive for Aching and Heaviness Location: Left Chest Current Severity: Moderate Maximum Severity: Moderate Worsened By: Nothing Relieved By: Nothing Associated Symptoms: Positive for Nausea; Negative for Vomiting, Diaphoresis, Dyspnea, Cough, Fever, Lightheadedness, Acid Reflux or Palpitations Narrative Narrative: 82-year-old male history of hypertension diabetes. States this morning around 630 while getting up and getting around this morning he developed left-sided chest discomfort radiating to his left shoulder down his left arm. Denies any shortness of breath. Mild nausea. No vomiting or diarrhea. No fever or chills. No recent falls or chest trauma. States he typically does not get c hest pain. He has had no recent exertional chest pain or exertional dyspnea. He has had no history of cardiac disease. No history of DVT or PE. No recent travel, surgery or immobilization. No leg pain or swelling. No hemoptysis. The pain is not pleuritic. Prior Similar Symptoms: No Recent Illness/Hospitalization: No CVD Risk Factors: Positive for Hypertension and Diabetes; Negative for Family History 1' </=55 or Smoking PE Risk Factors: Negative for Recent Travel/Surgery, Recent Immobilization, Prior DVT or PE, Cancer or OCP + Smoking + >/=35 TAD Risk Factors: Negative for Marfan's Syndrome [facility] Medical History Benign essential tremor Drug-induced erectile dysfunction Gout Hyperlipidemia Hypertension Pseudophakia PVD (peripheral vascular disease) Tremor Type II diabetes mellitus Home Medications atorvastatin 10 mg tablet 20 mg PO QHS 10/11/14 [History Last Taken Unknown] lisinopril 10 mg tablet 40 mg PO DAILY 10/11/14 [History Last Taken Unknown] allopurinol 300 mg tablet 300 mg PO DAILY 09/23/18 [History Last Taken Unknown] insulin detemir U-100 100 unit/mL (3 mL) subcutaneous pen (Levemir FlexTouch U- 100 Insulin) 10 units SQ QHS 09/23/18 [History Last Taken Unknown] metformin 500 mg tablet,extended release 24 hr 2 tab PO DAILY 09/23/18 [History Last Taken Unknown] propranolol 60 mg capsule,24 hr,extended release 120 mg PO DAILY 09/23/18 [History Last Taken Unknown] cetirizine 10 mg tablet 10 mg PO DAILY 10/11/21 [History Last Taken Unknown] colchicine 0.6 mg capsule 0.6 mg PO PRN PRN gout 10/11/21 [History Last Taken Unknown] dexamethasone 6 mg tablet 6 mg PO DAILY #7 tabs 10/11/21 [Rx Last Taken Unknown] hydrochlorothiazide 12.5 mg capsule 12.5 mg PO DAILY 10/11/21 [History Last Taken Unknown] naproxen sodium 220 mg capsule (Aleve) 220 mg PO DAILY 10/11/21 [History Last Taken Unknown] promethazine-DM 6.25 mg-15 mg/5 mL oral syrup 5 ml PO Q6H PRN cough #118 mL 10/11/21 [Rx Last Taken Unknown] propranolol 20 mg tablet 20 mg PO DAILY PRN PRN Tremor(S) 10/11/21 [History Last Taken Unknown] sildenafil (pulm.hypertension) 20 mg tablet 30 mg PO PRN PRN Erectile Dysfunction 10/11/21 [History Last Taken Unknown] albuterol sulfate 90 mcg/actuation aerosol inhaler (Ventolin HFA) 1 - 2 puff inhalation Q4H PRN PRN Wheezing ##1 10/20/21 [Rx Last Taken Unknown] guaifenesin 600 mg tablet, extended release 12 hr (Mucinex) 600 mg PO Q12H PRN congestion #10 tabs 10/20/21 [Rx Last Taken Unknown] levofloxacin 750 mg tablet 750 mg PO DAILY #4 tabs 10/20/21 [Rx Last Taken Unknown] Allergy/AdvReac Type Severity Reaction Status Date / Time No Known Allergies Allergy Verified 07/28/22 08:59 Surgical History History of back surgery History of hip surgery Hx of knee surgery Social History Smoking Status: Never smoker ROS ROS ED ROS Narrative Denies recent illness. Review of Systems ROS Unobtainable: Denies due to encephalopathy Constitutional Constitutional ED: Denies chills or fever(s) Eyes Eyes: Reports none ENT ENT ED: Denies ear pain Cardiovascular Cardiovascular: Reports as per HPI and chest pain; Denies palpitations or racing heartbeat Respiratory/Chest Respiratory/Chest: Denies cough or dyspnea Gastrointestinal Gastrointestinal: Reports nausea; Denies abdominal pain, constipation, diarrhea, melena or vomiting Genitourinary Genitourinary ED: Denies dysuria Musculoskeletal Musculoskeletal: Denies arthralgias Integumentary Denies abscess Neurologic Neurologic: Denies headache(s) Psychiatric Psychiatric: Denies anxiety Endocrine Endocrinology: Denies cold intolerance Hematologic/Lymphatic Hematologic/Lymphatic: Denies easy bleeding Allergic/Immunologic Allergic/Immunologic ED: Denies mouth swelling or tongue swelling EXAM Physical Exam Narrative Exam Narrative: 8-year-old male no acute distress. Sitting upright in bed. at bedside. Pulse ox 90% on room air no signs hypoxia. H EENT exam unremarkable. Neck nontender no JVD no lymphadenopathy. Lungs clear to auscultation bilaterally. Heart regular rate and rhythm rate about 70 no murmur. Chest wall nontender. Abdomen soft nontender normal bowel sounds no peritoneal signs. Moving all 4 extremities. Neurovascular intact. Calves nontender without edema or cords. Equal symmetrical water regulator and valve repairer strength. Bilateral equal symmetrical radial pulses. Plantarflexion intact. Back nontender. Neurologically is awake alert with no focal motor deficits. Const Vital Signs: 07/28/22 08:59 07/28/22 09:06 07/28/22 09:21 Temperature 97.8 F Temperature Source Temporal Pulse Rate 71 Respiratory Rate 18 Respiratory Effort Normal Non-Labored Blood Pressure 179/83 H Blood Pressure Mean 115 Pulse Ox 98 Oxygen Delivery Method Room Air Room Air 07/28/22 09:35 07/28/22 10:00 Temperature Temperature Source Pulse Rate 71 70 Respiratory Rate 17 Respiratory Effort Blood Pressure 170/83 H 160/69 H Blood Pressure Mean 99 Pulse Ox 98 Oxygen Delivery Method Room Air Positive well nourished and well developed; Negative for obese, cachectic, contractures or unkempt General Appearance ED: well developed and NAD; Negative for unkempt, cachectic, contractures or pallor Nutritional Appearance: Negative for cachectic or obese HEENT Reports moist mucous membranes normocephalic and atraumatic; Negative for trauma or tenderness Eyes PERRL and EOMs intact bilaterally General Eye ED: Negative for pale conjunctiva or scleral icterus Neck no lymphadenopathy, supple and no JVD General: Negative for tenderness Chest Wall inspection of chest normal and palpation of chest normal Resp normal respiratory effort and clear to auscultation bilaterally Effort and Inspection: Negative for respiratory distress or pain with movement Auscultation: Negative for rales, rhonchi or wheezes Cardio regular rate, regular rhythm, S1 normal heart sound, S2 normal heart sound and no murmurs Rate: Negative for bradycardia Rhythm: Negative for abnormal rhythm Peripheral Pulses: pulses 2+ throughout GI normal to inspection, nondistended, normoactive bowel sounds, soft to palpation, non-tender, non-distended and no masses; Negative for hepatosplenomegaly Auscultation: Negative for hyperactive bowel sounds Palpation: Negative for splenomegaly Back/Spine no CVA tenderness and no thoracic nor lumbar tenderness General Back: Negative for CVA tenderness Cervical Spine: Negative for cervical spine tenderness Extremity normal to inspection General Extremety ED: Negative for edema, pulses abnormal or tenderness General Extremity: Negative for edema or pulses abnormal Neuro oriented x3, CN's II-XII intact bilaterally and no sensory deficits noted Sensorium / Orientation: awake, alert, oriented to person, oriented to place and oriented to time; Negative for confused, lethargic or stuporous Motor Exam: strength 5/5 throughout Psych mental status grossly normal Appearance: Negative for unkempt Attitude: No agitated Mood & Affect: Negative for depressed Skin no rashes or lesions noted and no wounds General Skin Exam: Negative for jaundice or pallor Rashes: No rashes noted Trauma: Negative for abrasion or laceration MDM MDM MDM Narrative Medical decision making narrative: 82-year-old male with left chest pain radiating down right shoulder and left arm. Not reproducible. He has no known cardiac history and has never had a cardiac work-up that he can remember. Exam benign. No ongoing cardiac work-up. Received aspirin. Topical nitroglycerin reassess. Most likely he will need to be admitted for evaluation for chest pain. He has no DVT or PE history or risk factors. Repeat exam at 10:17 AM. Patient doing well. Chest pain resolving with nitro paste. I will speak to the hospitalist to have been admitted. He will be given some Tylenol for the headache most likely caused by his Nitropaste. Lab Data Attestation: I reviewed the patient's lab results. Lab results narrative: CBC normal white count of 7.1. H&H 13.3 and 41. Electrolytes unremarkable gap of 5. BUN and creatinine 27 1.39. Glucose 156. First troponin is 5. Chest x-ray unremarkable. Labs: Laboratory Results - last 24 hr 07/28/22 07/28/22 09:05 09:05 WBC 7.1 RBC 4.22 L Hgb 13.3 Hct 41.1 MCV 97.4 H MCH 31.5 MCHC 32.4 RDW Std Deviation 48.9 H RDW Coeff of Sakina 13.5 Plt Count 198 MPV 10.8 Immature Gran % (Auto) 0.400 Neut % (Auto) 71.9 H Lymph % (Auto) 17.3 L Clarke % (Auto) 8.3 Eos % (Auto) 1.7 Baso % (Auto) 0.4 Absolute Neuts (auto) 5.1 Absolute Lymphs (auto) 1.23 Nucleated RBC % 0 Sodium 142 Potassium 4.3 Chloride 107 Carbon Dioxide 30.0 Anion Gap 5 BUN 27 H Creatinine 1.39 H Estim Creat Clear Calc 42.31 Est GFR (MDRD) Af Amer 63 Est GFR (MDRD) Non-Af 52 L BUN/Creatinine Ratio 19.4 Glucose 156 H Calcium 10.1 Troponin I High Sens 5 Radiography Chest X-Ray - ED: 1 View, Read by ED Physician, Heart, Lungs, Mediastinum, Bony Structures, No Acute Disease and Chronic Changes Diagnostic Testing: Clinical Impression(s) from Imaging Studies Chest X-Ray 07/28/22 09:21 IMPRESSION: No acute cardiopulmonary abnormality. No interval change. Electronically Signed: Timothy Torres MD at 9:39 EDT , Chest x-ray, portable, single view interpreted by myself shows no acute abnormality. Normal cardiac silhouette. Normal mediastinum. No infiltrates. No pneumothoraces. Rhythm Strip Rhythm Strip: Sinus Rhythm Rate: 70 Ectopy: None EKG Initial EKG: Attestation: I personally reviewed and interpreted this EKG as follows: Interpretation: Sinus Rhythm, No Acute Injury Pattern and RBBB Comments: Normal sinus rhythm rate of 70 no acute signs of DE or ischemia. First-degree AV block with MN interval 230. Right bundle branch block. Discharge Plan Triage Chief Complaint: Chest Pain ED Provider: Ryan Vieyra Dx/Rx/DC Orders Clinical Impression: Chest pain, History of hypertension, History of diabetes mellitus Prescriptions: No Action atorvastatin 10 MG tablet 20 mg PO QHS lisinopril 10 MG tablet 40 mg PO DAILY propranolol 60 MG capsule,extended release 24 hr 120 mg PO DAILY allopurinol 300 MG tablet 300 mg PO DAILY metformin 500 MG tablet 2 tab PO DAILY Levemir FlexTouch U-100 Insuln 100 UNITS/ML insulin pen 10 units SQ QHS cetirizine 10 mg Tablet 10 mg PO DAILY hydrochlorothiazide 12.5 mg Capsule 12.5 mg PO DAILY propranolol 20 mg Tablet 20 mg PO DAILY PRN PRN (Reason: Tremor(S)) Rx Instructions: ADD TO DAILY FOR BREAKTHROUGH TREMOR sildenafil (pulm.hypertension) 20 mg Tablet 30 mg PO PRN PRN (Reason: Erectile Dysfunction) naproxen sodium [Aleve] 220 mg Capsule 220 mg PO DAILY colchicine 0.6 mg Capsule 0.6 mg PO PRN PRN (Reason: gout) promethazine-DM 6.25-15 mg/5 mL syrup 5 ml PO Q6H PRN (Reason: cough) Qty: 118 0RF dexamethasone 6 mg tablet 6 mg PO DAILY Qty: 7 0RF levofloxacin 750 mg tablet 750 mg PO DAILY Qty: 4 0RF guaifenesin [Mucinex] 600 mg tablet extended release 12hr 600 mg PO Q12H PRN (Reason: congestion) Qty: 10 0RF albuterol sulfate [Ventolin HFA] 1 INHALER inhaler 1 - 2 puff inhalation Q4H PRN PRN (Reason: Wheezing) Qty: 1 0RF Primary Care Provider: Alan Ruth Referrals: Alan Ruth MD [Primary Care Provider] - Disposition Disposition: Acute Care Hospital [facility]
[2022-07-28] MEDS: Nitroglycerin Oint 1 INCH PACKET TD (09:35)
[2022-07-28 09:43] LABS: Anion Gap 5 (5-15); BUN 27 mg/dL (7-18); BUN/Creat Ratio 19.4 RATIO (10-20); Calcium,Total 10.1 mg/dL (8.5-10.1); Chloride 107 mmol/L (98-107); Creatinine, Serum 1.39 mg/dL (0.70-1.30); EST Glomerular Filtration Rate 52 mL/min (>60); Est Glom Filt Rate - Afr Amer 63 mL/min (>60); Estimated Creatinine Clearance 42.31 ml/min; Glucose 156 mg/dL (74-106); Potassium 4.3 mmol/L (3.5-5.1); Sodium Level 142 mmol/L (136-145); Troponin-I HS (w/2H Reflex) 5 pg/mL (3.0-78.0)
--- NOTE | 2022-07-28 10:58 | EKG12_ITS ---
Test Reason : REPEAT Blood Pressure : / mmHG Vent. Rate : 074 BPM Atrial Rate : 074 BPM P-R Int : 240 ms QRS Dur : 142 ms QT Int : 422 ms P-R-T Axes : 031 168 008 degrees QTc Int : 468 ms Sinus rhythm with 1st degree A-V block with Premature supraventricular complexes Indeterminate axis Right bundle branch block Abnormal ECG Confirmed by JON WYNN, JENNIFER ([id number]), material expeditor ANGEL NGUYỄN ([id number]) on 07/31/2022 9:43:45 AM Referred By: SARAI Confirmed By:JENNIFER WEBB MD
[2022-07-28 11:25] LABS: Reflex Troponin-HS? (from REC) Y
[2022-07-28 11:58] LABS: Troponin-I HS 5 pg/mL (3.0-78.0)
--- NOTE | 2022-07-28 14:53 | EKG12_ITS ---
Test Reason : CP Blood Pressure : / mmHG Vent. Rate : 089 BPM Atrial Rate : 089 BPM P-R Int : 250 ms QRS Dur : 144 ms QT Int : 398 ms P-R-T Axes : 044 139 033 degrees QTc Int : 484 ms Sinus rhythm with 1st degree A-V block with Premature atrial complexes Right bundle branch block Left posterior fascicular block Bifascicular block Abnormal ECG When compared with ECG of 28-JUL-2022 14:44, MANUAL COMPARISON REQUIRED, DATA IS UNCONFIRMED Confirmed by JON WYNN, JENNIFER ([id number]), editor trade journal ANGEL NGUYỄN ([id number]) on 08/01/2022 12:44:45 PM Referred By: Confirmed By:JENNIFER WEBB MD
[2022-07-28 15:35] LABS: Troponin-I HS 8 pg/mL (3.0-78.0)
[2022-07-28] MEDS: Insulin Lispro 100 UNIT/ML INSULN.PEN SC ×2 (16:05→21:54)
[2022-07-28] MEDS: Lisinopril 40 MG Tablet PO (16:21)
[2022-07-28] MEDS: Propranolol LA 60 MG Capsule PO (16:21)
[2022-07-28] MEDS: LINAGLIPTIN 5 MG TABLET PO (16:21)
[2022-07-28] MEDS: hydroCHLOROthiazide 12.5mg 12.5 MG PO (16:22)
[2022-07-28 16:35] LABS: Bedside Glucose 216 mg/dL (74-106)
--- NOTE | 2022-07-28 18:56 | HP.PCM.HOS_ITS ---
HPI - General General Date of Admission: 07/28/22 Date of Service: 07/28/22 Chief Complaint: Chest pain HPI Narrative HAILEY LUJAN, is a 82 M who presents to the emergency room at [facility] with a chief complaint of substernal chest pain, he states that his dull in nature and radiates into his mid upper back area, he is also had some radiation down his left arm to his elbow. Patient states the chest pain began this morning, it started in the left upper chest area and spread across the chest. Patient states that at the time of my examination after his placement into observation status on PCU, patient still has chest pain but it is only a 2 out of 10 in severity. Patient was given nitroglycerin in the emergency room which helped with his chest discomfort. Work-up in the emergency room included chest x-ray which showed no active chest disease, EKG showed right bundle branch block with no acute ischemic changes, patient's troponin was unremarkable. Patient was placed in observation status on PCU for chest pain, rule out acute coronary syndrome, cardiac enzymes will be cycled, patient will undergo resting nuclear stress test tomorrow-patient has severe arthritis in the left knee and is unable to walk on a treadmill. [facility] Medical History Benign essential tremor Drug-induced erectile dysfunction Gout Hyperlipidemia Hypertension Pseudophakia PVD (peripheral vascular disease) Tremor Type II diabetes mellitus Home Medications atorvastatin 10 mg tablet 20 mg PO QHS 10/11/14 [History Last Taken Unknown] lisinopril 10 mg tablet 40 mg PO DAILY 10/11/14 [History Last Taken Unknown] allopurinol 300 mg tablet 300 mg PO DAILY 09/23/18 [History Last Taken Unknown] insulin detemir U-100 100 unit/mL (3 mL) subcutaneous pen (Levemir FlexTouch U- 100 Insulin) 10 units SQ QHS 09/23/18 [History Last Taken Unknown] propranolol 60 mg capsule,24 hr,extended release 60 mg PO DAILY 09/23/18 [History Last Taken Unknown] hydrochlorothiazide 12.5 mg capsule 12.5 mg PO DAILY 10/11/21 [History Last Taken Unknown] propranolol 20 mg tablet 20 mg PO DAILY PRN PRN Tremor(S) 10/11/21 [History Last Taken Unknown] sitagliptin 50 mg tablet (Januvia) 50 mg PO DAILY 07/28/22 [History Last Taken Unknown] Allergy/AdvReac Type Severity Reaction Status Date / Time No Known Allergies Allergy Verified 07/28/22 08:59 Surgical History History of back surgery History of hip surgery Hx of knee surgery Social History Smoking Status: Never smoker ROS Constitutional Constitutional: Denies anorexia, change in weight, fever(s), night sweats or weakness Eyes Eyes: Denies blurry vision, change in vision, discharge from eye(s) or eye pain Cardiovascular Cardiovascular: Reports chest pain; Denies claudication, edema or palpitations Respiratory/Chest Respiratory/Chest: Denies cough, dyspnea, excessive phlegm production, hemoptysis, productive cough, shortness of breath at rest or shortness of breath with exertion Gastrointestinal Gastrointestinal: Denies abdominal pain, constipation, diarrhea, hematemesis, hematochezia, melena, nausea or vomiting Genitourinary Genitourinary: Denies dysuria, hematuria, urinary frequency, urinary hesitancy, urinary incontinence or urinary urgency Musculoskeletal Musculoskeletal: Reports arthralgias, joint pain and joint swelling; Denies back pain, joint stiffness, myalgias or neck pain Neurologic Neurologic: Denies abnormal gait, abnormal speech, dizziness, focal weakness, headache(s), loss of vision, numbness, other visual disturbances, paresthesias, syncope or tingling Psychiatric Psychiatric: Denies anxiety, cognitive impairment, depression, irritability, mood swings or suicidal ideation Endocrine Endocrinology: Denies change in body appearance, cold intolerance, excessive sweating, heat intolerance, polydipsia or polyuria Hematologic/Lymphatic Hematologic/Lymphatic: Denies none, anemia, easy bleeding, easy bruising or lymphadenopathy Allergic/Immunologic Allergic/Immunologic: Denies rhinitis, urticaria, eczemia or asthma Vital Signs Vital Signs Vital Signs: 07/28/22 08:59 07/28/22 09:06 07/28/22 09:21 Temperature 97.8 F Temperature Source Temporal Pulse Rate 71 Pulse Strength Respiratory Rate 18 Respiratory Effort Normal Non-Labored Respiratory Depth Respiratory Pattern Blood Pressure 179/83 H Blood Pressure [BP] Blood Pressure Mean 115 Blood Pressure Mean [BP] Blood Pressure Source Blood Pressure Source [BP] Blood Pressure Position Blood Pressure Position [BP] Blood Pressure Location Blood Pressure Location [BP] Pulse Ox 98 Oxygen Delivery Method Room Air Room Air 07/28/22 09:35 07/28/22 10:00 07/28/22 11:03 Temperature Temperature Source Pulse Rate 71 70 71 Pulse Strength Respiratory Rate 17 15 Respiratory Effort Respiratory Depth Respiratory Pattern Blood Pressure 170/83 H 160/69 H 154/78 H Blood Pressure [BP] Blood Pressure Mean 99 103 Blood Pressure Mean [BP] Blood Pressure Source Blood Pressure Source [BP] Blood Pressure Position Blood Pressure Position [BP] Blood Pressure Location Blood Pressure Location [BP] Pulse Ox 98 98 Oxygen Delivery Method Room Air Room Air 07/28/22 12:16 07/28/22 12:16 07/28/22 13:12 Temperature 98.5 F Temperature Source Temporal Pulse Rate 79 79 88 Pulse Strength Respiratory Rate 16 16 16 Respiratory Effort Respiratory Depth Respiratory Pattern Blood Pressure 165/93 H 165/93 H 176/96 H Blood Pressure [BP] Blood Pressure Mean 117 117 122 Blood Pressure Mean [BP] Blood Pressure Source Blood Pressure Source [BP] Blood Pressure Position Blood Pressure Position [BP] Blood Pressure Location Blood Pressure Location [BP] Pulse Ox 98 98 97 Oxygen Delivery Method Room Air Room Air Room Air 07/28/22 13:51 07/28/22 13:51 07/28/22 13:51 Temperature 97.9 F Temperature Source Oral Pulse Rate 93 96 Pulse Strength Normal (2+) Respiratory Rate 16 Respiratory Effort Respiratory Depth Respiratory Pattern Blood Pressure 181/78 H Blood Pressure [BP] Blood Pressure Mean 112 Blood Pressure Mean [BP] Blood Pressure Source Monitor Blood Pressure Source [BP] Blood Pressure Position Semi-Fowlers Blood Pressure Position [BP] Blood Pressure Location Right Arm Blood Pressure Location [BP] Pulse Ox 98 Oxygen Delivery Method Room Air 07/28/22 14:00 07/28/22 14:58 07/28/22 18:28 Temperature Temperature Source Pulse Rate Pulse Strength Respiratory Rate Respiratory Effort Normal Non-Labored Respiratory Depth Normal Respiratory Pattern Normal Blood Pressure Blood Pressure [BP] 133/74 H Blood Pressure Mean Blood Pressure Mean [BP] 93 Blood Pressure Source Blood Pressure Source [BP] Monitor Blood Pressure Position Blood Pressure Position [BP] Semi-Fowlers Blood Pressure Location Blood Pressure Location [BP] Right Arm Pulse Ox 96 Oxygen Delivery Method Room Air Room Air Weight Weight: 85.275 kg Body Mass Index (BMI) 25.4 Physical Exam Const alert, oriented x3, no apparent distress and healthy appearing General Appearance: cooperative, well kempt and well developed Orientation / Consciousness: awake, oriented to person, oriented to place and oriented to time HEENT normocephalic, head/scalp atraumatic, hearing grossly normal bilaterally and moist oral mucous membranes Eyes PERRL, EOMs intact bilaterally and conjunctivae normal Neck supple, no JVD, thyroid normal and no carotid bruits General: trachea midline Resp normal respiratory effort, no retractions, no use of accessory muscles and clear to auscultation bilaterally Auscultation: Negative for rales, rhonchi or wheezes Cardio regular rate, regular rhythm, S1 normal heart sound, S2 normal heart sound, no murmurs, no rub and no gallops GI normal to inspection, nondistended, normoactive bowel sounds, soft to palpation, non-tender and non-distended Extremity no clubbing, cyanosis or edema Skin no rashes or lesions noted General Skin Exam: no breakdown Neuro oriented x3, CN's II-XII intact bilaterally, no focal motor deficits and no sensory deficits noted Sensorium / Orientation: awake and alert Speech: speech normal Psych affect normal Results Lab / Micro Data Result Diagrams: 07/28/22 09:05 07/28/22 09:05 Labs: Laboratory Results - last 24 hr 07/28/22 09:05: WBC 7.1, RBC 4.22 L, Hgb 13.3, Hct 41.1, MCV 97.4 H, MCH 31.5, MCHC 32.4, RDW Std Deviation 48.9 H, RDW Coeff of Sakina 13.5, Plt Count 198, MPV 10.8, Immature Gran % (Auto) 0.400, Neut % (Auto) 71.9 H, Lymph % (Auto) 17.3 L, [place] % (Auto) 8.3, Eos % (Auto) 1.7, Baso % (Auto) 0.4, Absolute Neuts (auto) 5.1, Absolute Lymphs (auto) 1.23, Nucleated RBC % 0 07/28/22 09:05: Sodium 142, Potassium 4.3, Chloride 107, Carbon Dioxide 30.0, Anion Gap 5, BUN 27 H, Creatinine 1.39 H, Estim Creat Clear Calc 42.31, Est GFR (MDRD) Af Amer 63, Est GFR (MDRD) Non-Af 52 L, BUN/Creatinine Ratio 19.4, Glucose 156 H, Calcium 10.1, Troponin I High Sens 5 07/28/22 11:06: Troponin I High Sens 5 07/28/22 15:10: Troponin I High Sens 8 07/28/22 15:59: POC Glucose 216 H Rhythm Strip Rhythm Strip: Sinus Rhythm Rate: 70 Ectopy: None Radiology Impression Chest X-Ray 07/28/22 09:21 IMPRESSION: No acute cardiopulmonary abnormality. No interval change. Electronically Signed: Timothy Torres MD at 9:39 EDT , Assessment & Plan Assessment/Plan (1) History of hypertension: PLAN: Plan 1. Chest pain-etiology unclear, patient was placed in observation status on PCU, serial enzymes will be obtained, patient will undergo nuclear stress test tomorrow if the enzymes remain normal. #2 type 2 diabetes-blood sugars will be monitored, sliding scale insulin will be used #3 hyperlipidemia-patient is on a statin at bedtime #4 osteoarthritis-complicates care, management, recovery, and prognosis Charges/Coding Visit Charges OBSV E&M: [id number] Initial observation care L3
[2022-07-28] MEDS: Atorvastatin Calcium 20 MG Tablet PO (21:54)
[2022-07-28] MEDS: Insulin Glargine-YFGN 100 UNIT/ML Pen 10 UNIT SC (21:55)
[2022-07-28 22:30] LABS: Bedside Glucose 163 mg/dL (74-106)
[2022-07-29 03:00] VITALS: PULSE 86
[2022-07-29 04:00] VITALS: BP 122/85; PULSE 95; RESP 17; TEMP 36.6; O2SAT 98
--- NOTE | 2022-07-29 05:55 | EKG12_ITS ---
Test Reason : cp Blood Pressure : / mmHG Vent. Rate : 096 BPM Atrial Rate : 096 BPM P-R Int : 232 ms QRS Dur : 132 ms QT Int : 358 ms P-R-T Axes : 046 240 038 degrees QTc Int : 452 ms Sinus rhythm with 1st degree A-V block Right bundle branch block Abnormal ECG When compared with ECG of 28-JUL-2022 11:12, MANUAL COMPARISON REQUIRED, DATA IS UNCONFIRMED Confirmed by JON WYNN, JENNIFER ([id number]), staff editor ANGEL NGUYỄN ([id number]) on 08/01/2022 12:47:02 PM Referred By: Jesica Confirmed By:JENNIFER WEBB MD
[2022-07-29 07:00] VITALS: PULSE 90
[2022-07-29 07:20] LABS: Bedside Glucose 146 mg/dL (74-106)
[2022-07-29 07:30] VITALS: BP 106/63; PULSE 90; RESP 16; TEMP 36.6; O2SAT 93; O2SAT 95
[2022-07-29] MEDS: Lisinopril 40 MG Tablet PO (07:31)
--- NOTE | 2022-07-29 09:26 | STRESSREP_ITS ---
Stress Test Report Date: 07/29/2022 Procedure: Pharmacologic stress nuclear imaging study Indications: Chest pain Consent: Per the patient Procedure: The patient underwent pharmacologic (Regadenoson 0.4mg ) evaluation with a peak heart rate of 100 beats per minute (70 to %predicted maximal heart rate) and a peak blood pressure of 118/64 mmHg. The baseline ECG demonstrated normal sinus rhythm, first-degree AV block, right bundle branch block and frequent PACs. The peak pharmacologic ECG demonstrated no significant change. The patient was injected with 12.0 millicuries of technetium 99m Cardiolite and subsequently rest SPECT Cardiolite nuclear imaging was obtained in the horizontal long, vertical long, and short axis views. The patient underwent pharmacologic (Regadenoson) evaluation. The patient was injected with 36 point millicuries of technetium 99m Cardiolite and subsequently stress SPECT Cardiolite nuclear imaging was obtained in the horizontal long, vertical long, and short axis views. A gated Cardiolite study at peak stress was obtained. The examination was stopped secondary to completion of protocol. Rest and stress SPECT Cardiolite nuclear imaging status post realignment, normalization, and attenuation correction demonstrate uniform tracer uptake. There is end systolic thickening and brightening. The gated Cardiolite study demonstrates myocardial thickening and inward wall motion. The reported LVEF is 64%. Impression: 1. Pharmacologic (Regadenoson) evaluation 2. Peak pharmacologic ECG with no ischemic changes. 3. PACs noted at rest as well as post Lexiscan.. 5. No fixed or reversible defects suggestive of infarct and/or ischemia. 6. The gated Cardiolite study reports an LVEF of 64 per %. This note was generated with [employer] software. It may contain incorrect words, spelling, and punctuation that were not noted in checking the note before signing.
[2022-07-29 10:12] VITALS: BP 112/65; PULSE 84; RESP 16; TEMP 37.1; O2SAT 95
[2022-07-29] MEDS: hydroCHLOROthiazide 12.5mg 12.5 MG PO (10:19)
[2022-07-29] MEDS: Propranolol LA 60 MG Capsule PO (10:20)
[2022-07-29] MEDS: LINAGLIPTIN 5 MG TABLET PO (10:20)
--- NOTE | 2022-07-29 10:41 | DCINST_ITS ---
Discharge Instructions Diet Discharge Diet: 1800 Calorie Control Diet Activity Discharge Activity: No Restrictions Weight Bearing Status: Full weight bearing Follow Up Care Test Results: Test results from this visit will be discussed in further detail at your follow- up appointment, if applicable. Discharge Plan Admission Admit Date/Time: 07/28/22 11:59 Primary Reason for Your Visit: chest pain Attending Provider: Grant Mooney Primary Care Provider: Alan Ruth Discharge Orders/Prescriptions Prescriptions: Continued atorvastatin 10 MG tablet 20 mg PO QHS lisinopril 10 MG tablet 40 mg PO DAILY propranolol 60 MG capsule,extended release 24 hr 60 mg PO DAILY allopurinol 300 MG tablet 300 mg PO DAILY Levemir FlexTouch U-100 Insuln 100 UNITS/ML insulin pen 10 units SQ QHS hydrochlorothiazide 12.5 mg Capsule 12.5 mg PO DAILY propranolol 20 mg Tablet 20 mg PO DAILY PRN PRN (Reason: Tremor(S)) Rx Instructions: ADD TO DAILY FOR BREAKTHROUGH TREMOR Januvia 50 mg Tablet 50 mg PO DAILY Referrals / Follow Up: Alan Ruth MD [Primary Care Provider] - See Referral Note (at your next visit) Disposition Disposition (needs filled in before D/C Order can be placed): Home, Self Care
--- NOTE | 2022-07-29 10:45 | DS.PCM_ITS ---
Providers Date of Admission: 07/28/22 Date of Discharge: 07/29/22 Primary Care Physician: Dr. Alan Ruth MD Reason For Visit: chest pain Diagnosis Discharge Diagnosis (1) History of hypertension: Status: Acute Code(s): Z86.79 - Personal history of other diseases of the circulatory system Plan 1. Chest pain-musculoskeletal in nature #2 type 2 diabetes-blood sugars will be monitored, sliding scale insulin will be used #3 hyperlipidemia-patient is on a statin at bedtime #4 osteoarthritis-complicates care, management, recovery, and prognosis Medications at Discharge Home Medications atorvastatin 10 mg tablet 20 mg PO QHS cholesterol 10/11/14 lisinopril 10 mg tablet 40 mg PO DAILY blood pressure 10/11/14 allopurinol 300 mg tablet 300 mg PO DAILY gout 09/23/18 insulin detemir U-100 100 unit/mL (3 mL) subcutaneous pen (Levemir FlexTouch U- 100 Insulin) 10 units SQ QHS diabetes 09/23/18 propranolol 60 mg capsule,24 hr,extended release 60 mg PO DAILY blood pressure 09/23/18 hydrochlorothiazide 12.5 mg capsule 12.5 mg PO DAILY diuretic 10/11/21 propranolol 20 mg tablet 20 mg PO DAILY PRN PRN Tremor(S) 10/11/21 sitagliptin 50 mg tablet (Januvia) 50 mg PO DAILY diabetes 07/28/22 Hospital Course Operations None Procedures Nuclear stress test Summary of Care Provided Minutes Spent on Discharge: 31 Hospital Course: This 82-year-old white male was seen in the emergency room at [facility] with complaints of left upper chest pain radiating into his mid chest area and into his mid back area and also down his proximal left arm. EKG was obtained which showed no evidence of acute ischemic changes, patient was noted to be in normal sinus rhythm. Chest x-ray showed no abnormality, patient's cardiac enzymes were unremarkable. Patient was placed in observation status on PCU, cardiac enzymes were cycled and these remain normal. Patient underwent a resting nuclear stress test on 07/29/2022 which showed no evidence of reversible ischemia. On 07/29/2022, patient was seen and examined: On examination he appeared in good health and spirits. Vital signs as documented. Skin warm and dry and without overt rashes. Neck without JVD, neck was supple, trachea midline, thyroid was normal. Lungs clear bilaterally, normal air movement was noted. Heart exam notable for regular rhythm, normal sounds and absence of murmurs, rubs or gallops. Abdomen unremarkable and without evidence of organomegaly, masses, or abdominal aortic enlargement. Bowel sounds are present, abdomen is not distended. Extremities nonedematous, no cyanosis was noted, no clubbing was noted. Neuro: Cranial nerves II through XII are grossly intact, no focal motor deficits were noted, sensation to light touch and pinprick intact, motor exam 5/5 throughout. Psych: Patient is alert and oriented x3, he does not appear anxious or depressed, he does not appear agitated. Patient appears stable for discharge on 07/29/2022. Weight / BMI Weight Weight: 85.275 kg Body Mass Index (BMI) 25.4 ABG / Lab / Microbiology Data Result Diagrams: 07/28/22 09:05 07/28/22 09:05 Laboratory: Laboratory Results - last 24 hr 07/28/22 11:06: Troponin I High Sens 5 07/28/22 15:10: Troponin I High Sens 8 07/28/22 15:59: POC Glucose 216 H 07/28/22 21:50: POC Glucose 163 H 07/29/22 06:57: POC Glucose 146 H D/C Instructions Discharge Diet: 1800 Calorie Control Diet Weight Bearing Status: Full weight bearing Meaningful Use Info Meaningful Use Diagnoses (Choose all that apply): None applicable Discharge Plan Admission Admit Date/Time: 07/28/22 11:59 Primary Reason for Your Visit: chest pain Attending Provider: Grant Mooney Primary Care Provider: Alan Ruth Discharge Orders/Prescriptions Prescriptions: Continued atorvastatin 10 MG tablet 20 mg PO QHS lisinopril 10 MG tablet 40 mg PO DAILY propranolol 60 MG capsule,extended release 24 hr 60 mg PO DAILY allopurinol 300 MG tablet 300 mg PO DAILY Levemir FlexTouch U-100 Insuln 100 UNITS/ML insulin pen 10 units SQ QHS hydrochlorothiazide 12.5 mg Capsule 12.5 mg PO DAILY propranolol 20 mg Tablet 20 mg PO DAILY PRN PRN (Reason: Tremor(S)) Rx Instructions: ADD TO DAILY FOR BREAKTHROUGH TREMOR Januvia 50 mg Tablet 50 mg PO DAILY Referrals / Follow Up: Alan Ruth MD [Primary Care Provider] - See Referral Note (at your next visit) Disposition Disposition (needs filled in before D/C Order can be placed): Home, Self Care Charges/Coding Visit Charges OBSV E&M: 37877 Observation care discharge
--- NOTE | 2022-07-29 12:25 | NURSING ---
Charting reviewed with Jasiel Shaw RN
== END 2022-07-29 10:44 | disposition home or self-care (01) ==
LOC: ED 10:58 → PCU 12:30
PROVIDERS: Admitting Provider Internal Medicine; Emergency Provider Emergency Medicine; PCP Family Medicine; Visit Provider Internal Medicine
DX: R07.89 Other chest pain (principal); E11.51 Type 2 diabetes mellitus with diabetic peripheral angiopathy without gangrene; Z79.4 Long term (current) use of insulin; R11.0 Nausea; E78.5 Hyperlipidemia, unspecified; I45.10 Unspecified right bundle-branch block; I10 Essential (primary) hypertension; M25.512 Pain in left shoulder; Z79.899 Other long term (current) drug therapy; I44.0 Atrioventricular block, first degree; G25.0 Essential tremor; M10.9 Gout, unspecified; Z79.84 Long term (current) use of oral hypoglycemic drugs
CPT/HCPCS: 36415; 71045; 78452; 80048; 82962; 84484; 85025; 93005; 93017; 99218; 99285; A9500; A4216; G0378; J2785

== ENCOUNTER → 2023-05-08 | Outpatient (CLI) | payer MEDICARE, SELFPAY ==
[2023-05-08 17:43] LABS: Absolute Lymphocyte Count 1.29 X10^3/uL (0.83-4.51); Absolute Neutrophil Count 4.9 X10^3/uL (2.0-7.7); Basophil# 0.04 X10^3/uL; Basophil% 0.6 % (0-1); Eosinophil# 0.12 X10^3/uL; Eosinophils% 1.7 % (0-5); Hematocrit 40.9 % (40-54); Hemoglobin 13.4 g/dL (13.0-16.5); Lymphocyte # 1.29 X10^3/ul (0.83-4.51); Lymphocyte % 18.2 % (19-41); Mean Corp Hgb Conc 32.8 g/dL (32-36); Mean Corpuscular Hgb 31.1 pg (27.0-32.0); Mean Corpuscular Volume 94.9 fL (80-94); Mean Platelet Vol. 10.9 fl (6.2-12.0); Monocyte# 0.74 X10^3/uL; Monocyte% 10.4 % (0-10); NRBC Flagged by Analyzer 0 % (0-5); Neutrophil # 4.88 X10^3/uL (2.7-7.7); Neutrophil % 68.7 % (47-70); Platelet Count 230 K/mm3 (150-450); RBC Distribution Width CV 13.9 % (11.6-14.6); RBC Distribution Width SD 48.6 fl (35.1-43.9); Red Blood Count 4.31 M/mm3 (4.6-6.2); White Blood Count 7.1 K/mm3 (4.4-11.0)
[2023-05-08 18:26] LABS: Hepatitis C Antibody Non-Reactive (Nonreactive)
[2023-05-08 18:46] LABS: ALB/GLOB Ratio 0.9 RATIO (0.9-2.4); AST(SGOT) 13 U/L (15-37); Albumin, Serum 3.7 g/dL (3.2-5.0); Alkaline Phosphatase 91 U/L (45-117); Anion Gap 5 (5-15); BUN 38 mg/dL (7-18); BUN/Creat Ratio 22.5 RATIO (10-20); Calcium,Total 10.1 mg/dL (8.5-10.1); Chloride 109 mmol/L (98-107); Creatinine, Serum 1.69 mg/dL (0.70-1.30); EST Glomerular Filtration Rate 41 mL/min (>60); Est Glom Filt Rate - Afr Amer 50 mL/min (>60); Globulin 3.9 g/dL (2.2-4.2); Glucose 143 mg/dL (74-106); Potassium 4.5 mmol/L (3.5-5.1); Protein, Total 7.6 g/dL (6.4-8.2); Sodium Level 141 mmol/L (136-145); Thyroid Stim Hormone (TSH) 1.77 uIU/mL (0.358-3.74); Uric Acid 4.8 mg/dL (3.5-7.2)
[2023-05-08 19:18] LABS: Alanine Aminotransfer ALT/SGPT 22 U/L (16-61)
== END | disposition home or self-care (01) ==
PROVIDERS: PCP Family Medicine; Visit Provider Family Medicine Geriatric Medicine
DX: Z00.00 Encounter for general adult medical examination without abnormal findings (principal); E11.65 Type 2 diabetes mellitus with hyperglycemia; Z13.89 Encounter for screening for other disorder; E78.5 Hyperlipidemia, unspecified
CPT/HCPCS: 36415; 80053; 82306; 84443; 84550; 85025; 86803

== ENCOUNTER → 2023-05-23 | Outpatient (CLI) | payer MEDICARE, SELFPAY ==
--- NOTE | 2023-05-23 07:19 | US_ITS ---
STUDY: ABDOMINAL ULTRASOUND - RIGHT UPPER QUADRANT REASON FOR VISIT: Male, 83 years old . 7 with history of generalized abdominal pain. TECHNIQUE: Ultrasound evaluation of the right upper quadrant was performed with real-time and static hansen-scale imaging. TECHNICAL QUALITY: Limited. Examination limited by bowel gas. COMPARISON: None. FINDINGS: Liver: The liver measures 17.4 cm. There is increased echogenicity consistent with fatty infiltration. The bile ducts are within normal limits. There is hepatic color flow. The direction of portal flow is hepatopetal. There is no demonstrated mass lesion. Gallbladder: Normal distended gallbladder. The gallbladder wall measures 2.9 mm. There is a negative sonographic Barton''s sign. There is no pericholecystic fluid. There are no gallstones. Common Bile Duct (C.B.D.): The common bile duct measures 3.5 mm. Pancreas: There is nonvisualization of the pancreas due to overlying bowel gas. Right Kidney: Normal size of the right kidney. The right kidney measures 9.8 cm x 4.8 cm x 5.6 cm. Normal renal cortex. The right cortex measures 1.3 cm. There is no demonstrated renal mass or cyst. There is no right hydronephrosis. US/Abdomen Limited IMPRESSION: Borderline hepatomegaly. Fatty infiltration of the liver. Electronically Signed: Dave Whitt MD at 14:38 EDT ,
== END | disposition home or self-care (01) ==
LOC: US 07:18
PROVIDERS: PCP Family Medicine Geriatric Medicine; Referring Provider Family Medicine Geriatric Medicine; Visit Provider Family Medicine Geriatric Medicine
DX: R10.9 Unspecified abdominal pain (principal)
CPT/HCPCS: 76705

== ENCOUNTER → 2023-06-19 | Outpatient (CLI) | payer MEDICARE, SELFPAY ==
--- NOTE | 2023-06-19 07:27 | US_ITS ---
STUDY: ABDOMINAL ULTRASOUND - ELASTOGRAPHY REASON FOR VISIT: Male, 83 years old. Fatty infiltration of the liver. TECHNIQUE: Liver stiffness measurements were obtained on a [employer] RS 85 ultrasound machine using a CA 1-7 probe following the SRU guidelines. 3 measurements were obtained using a 2-D-SWE method. TheIQR/M was 23% suggesting a quality data set. TECHNICAL QUALITY: Adequate. COMPARISON: Comparison is made with prior study dated May 23, 2023. FINDINGS: Liver: There is no demonstrated mass lesion. Median liver stiffness measured 8.2 kPa. Abdomen: There is no demonstrated mass lesion. US/Elastography Parenchyma/Organ IMPRESSION: Liver stiffness measures 8.2 kPa compatible with F2-F3 (Mild to moderate liver fibrosis) Metavir score. Electronically Signed: Dave Whitt MD at 15:15 EDT ,
== END | disposition home or self-care (01) ==
LOC: US 07:25
PROVIDERS: PCP Family Medicine Geriatric Medicine; Referring Provider Family Medicine Geriatric Medicine; Visit Provider Family Medicine Geriatric Medicine
DX: K76.0 Fatty (change of) liver, not elsewhere classified (principal)
CPT/HCPCS: 76981

== ENCOUNTER → 2023-08-13 | Outpatient (CLI) | payer MEDICARE, SELFPAY ==
[2023-08-13 10:35] LABS: Absolute Lymphocyte Count 1.16 X10^3/uL (0.83-4.51); Absolute Neutrophil Count 5.9 X10^3/uL (2.0-7.7); Basophil# 0.04 X10^3/uL; Basophil% 0.5 % (0-1); Eosinophil# 0.14 X10^3/uL; Eosinophils% 1.8 % (0-5); Hematocrit 43.2 % (40-54); Hemoglobin 13.3 g/dL (13.0-16.5); Lymphocyte # 1.16 X10^3/ul (0.83-4.51); Lymphocyte % 14.6 % (19-41); Mean Corp Hgb Conc 30.8 g/dL (32-36); Mean Corpuscular Hgb 30.4 pg (27.0-32.0); Mean Corpuscular Volume 98.6 fL (80-94); Mean Platelet Vol. 10.5 fl (6.2-12.0); Monocyte# 0.63 X10^3/uL; Monocyte% 7.9 % (0-10); NRBC Flagged by Analyzer 0 % (0-5); Neutrophil # 5.93 X10^3/uL (2.7-7.7); Neutrophil % 74.7 % (47-70); Platelet Count 281 K/mm3 (150-450); RBC Distribution Width SD 50.5 fl (35.1-43.9); Red Blood Count 4.38 M/mm3 (4.6-6.2); White Blood Count 7.9 K/mm3 (4.4-11.0)
[2023-08-13 11:07] LABS: Vitamin D,25 Hydroxy 36.8 ng/mL
[2023-08-13 11:14] LABS: ALB/GLOB Ratio 0.9 RATIO (0.9-2.4); AST(SGOT) 20 U/L (15-37); Alanine Aminotransfer ALT/SGPT 32 U/L (16-61); Albumin, Serum 3.7 g/dL (3.2-5.0); Alkaline Phosphatase 148 U/L (45-117); Anion Gap 5 (5-15); BUN 23 mg/dL (7-18); BUN/Creat Ratio 17.4 RATIO (10-20); Calcium,Total 9.7 mg/dL (8.5-10.1); Chloride 108 mmol/L (98-107); Creatinine, Serum 1.32 mg/dL (0.70-1.30); EST Glomerular Filtration Rate 55 mL/min (>60); Est Glom Filt Rate - Afr Amer 67 mL/min (>60); Glucose 136 mg/dL (74-106); Potassium 4.8 mmol/L (3.5-5.1); Protein, Total 7.7 g/dL (6.4-8.2); Sodium Level 142 mmol/L (136-145); Thyroid Stim Hormone (TSH) 2.03 uIU/mL (0.358-3.74); Uric Acid 4.6 mg/dL (3.5-7.2)
== END | disposition home or self-care (01) ==
LOC: POLAB3 10:12
PROVIDERS: PCP Family Medicine Geriatric Medicine; Visit Provider Family Medicine Geriatric Medicine
DX: I10 Essential (primary) hypertension (principal); E11.65 Type 2 diabetes mellitus with hyperglycemia; M10.9 Gout, unspecified; E55.9 Vitamin D deficiency, unspecified
CPT/HCPCS: 36415; 80053; 82306; 84443; 84550; 85025

== ENCOUNTER → 2023-11-12 | Outpatient (CLI) | payer MEDICARE, SELFPAY ==
--- OUTSIDE RECORDS SUMMARY | 2023-11-12 11:04 | XMS RPT_ITS | CCD ---
Author Name Unknown Address [address] [place] [address] Organization [facility] Care Team Providers Care Business Development Officer Name Role Phone Ra Marte PA-C Unavailable Flory WYNN, Ab Elder Primary Care Provider Flory WYNN, Ab Elder Primary Care Provider Flory WYNN, Ab Elder Primary Care Provider Johny Pineda Unavailable Unavailable PROVIDER, UNKNOWN Referring Unavailable AB DUNHAM Primary Care Unavailable PROVIDER, UNKNOWN Attending Unavailable AB DUNHAM Primary Care Unavailable ROBERTH VICTOR Consulting Unavailable PROVIDER, UNKNOWN Admitting Unavailable Flory WYNN, Ab Elder Primary Care Provider RODGER ELENA Referring Unavailable RODGER ELENA Attending Unavailable AB DUNHAM R Primary Care Unavailable RODGER ELENA Referring Unavailable ZAIDTAAB Garza R Primary Care Unavailable JJ AVILA Attending Unavailable RODGER ELENA Referring Unavailable AB DUNHAM R Primary Care Unavailable AB DUNHAM R Primary Care Unavailable JJ AVILA Attending Unavailable RODGER ELENA Referring Unavailable ZAIDTAAB Garza R Primary Care Unavailable JJ AVILA Attending Unavailable RODGER ELENA Referring Unavailable RODGER ELENA Referring Unavailable ZAIDTAAB Garza R Primary Care Unavailable JJ AVILA Attending Unavailable RODGER ELENA Referring Unavailable ZAIDTAAB Garza R Primary Care Unavailable VETOVIEBONY, ROSIO Referring Unavailable ZAIDTAKayla, AB R Primary Care Unavailable VETOVITZ, ROSIO Referring Unavailable ZAIDTAKayla, AB R Primary Care Unavailable JJ AVILA Attending Unavailable VETOVITZ, ROSIO Referring Unavailable ZAIDTAAB Garza R Primary Care Unavailable VETOVITZ, ROSIO Referring Unavailable AB DUNHAM Primary Care Unavailable RODGER ELENA Referring Unavailable JJ AVILA Attending Unavailable AB DUNHAM Primary Care Unavailable AB DUNHAM Attending Unavailable AB DUNHAM Primary Care Unavailable Medications Current Medications Medication Drug Class(es) Dates Sig (Normalized) Sig (Original) cetirizine hydrochloride 10 mg oral tablet (11 sources) Histamine-1 Receptor Antagonist Start: 10-05-2021 End: 08-09-2022 take 1 tablet by mouth once daily cetirizine (ZYRTEC) 10 mg tablet Indications: Cough Take 1 tablet by mouth once daily. 30 tablet 0 10/05/2021 08/09/2022 Discontinued Completed/Discontinued Medications Medication Drug Class(es) Dates Sig (Normalized) Sig (Original) acetaminophen 500 mg oral tablet (20 sources) Start: 09-02-2022 take 2 tablets by mouth every eight hours as needed acetaminophen (TYLENOL) 500 mg tablet Take 2 tablets by mouth every 8 hours as needed for pain. 0 09/02/2022 Active Problems Active Problems Problem Classification Problem Date Documented Date Episodic/Chronic Cataract (20 sources) Bilateral pseudophakia; Translations: [Presence of intraocular lens] Onset: 06-25-2013 06-25-2013 Chronic Chronic kidney disease (20 sources) Chronic kidney disease; Translations: [Chronic kidney disease, unspecified] Onset: 08-09-2022 Chronic Complications of surgical procedures or medical care (1 source) Drug therapy finding; Translations: [Unspecified adverse effect of drug or medicament, initial encounter] Episodic Deficiency and other anemia (1 source) Anemia co-occurrent and due to chronic kidney disease stage 3; Translations: [Anemia, chronic renal failure, stage 3 (moderate) ([facility])] Chronic Diabetes mellitus with complications (6 sources) Type II diabetes mellitus uncontrolled; Translations: [Type 2 diabetes mellitus with hyperglycemia] Onset: 07-18-2017 09-04-2017 Chronic Diabetes mellitus without complication (20 sources) Type 2 diabetes mellitus without complication; Translations: [Type 2 diabetes mellitus without complications] Onset: 07-18-2017 Chronic Disorders of lipid metabolism (20 sources) Mixed hyperlipidemia; Translations: [Mixed hyperlipidemia] 02-14-2016 Chronic Essential hypertension (20 sources) Essential hypertension; Translations: [Essential (primary) hypertension] 02-14-2016 Chronic Gout and other crystal arthropathies (20 sources) Gout; Translations: [Gout, unspecified] Onset: 04-05-2011 04-05-2011 Chronic Nausea and vomiting (1 source) Nausea; Translations: [Nausea] Episodic Nonspecific chest pain (1 source) Chest wall pain; Translations: [Other chest pain] Episodic Osteoarthritis (20 sources) Osteoarthritis of hip; Translations: [Osteoarthritis of left knee joint] Onset: 07-23-2017 07-23-2017 Chronic Osteoarthritis (1 source) Osteoarthritis of left knee joint; Translations: [Unilateral primary osteoarthritis, left knee] Onset: 12-20-2017 12-20-2017 Other connective tissue disease (20 sources) History of total hip arthroplasty; Translations: [Presence of artificial hip joint, bilateral] Onset: 01-17-2018 01-17-2018 Chronic Other connective tissue disease (20 sources) History of right total knee replacement; Translations: [Presence of right artificial knee joint] Onset: 08-09-2022 Chronic Other connective tissue disease (2 sources) History of total knee arthroplasty; Translations: [Presence of left artificial knee joint] Chronic Other connective tissue disease (1 source) Presence of right artificial knee joint; Translations: [History of total right knee replacement] Onset: 08-09-2022 Chronic Other connective tissue disease (3 sources) History of total replacement of bilateral hip joints; Translations: [Presence of artificial hip joint, bilateral] Onset: 08-09-2022 08-09-2022 Chronic Other diseases of kidney and ureters (1 source) Renal impairment; Translations: [Disorder of kidney and ureter, unspecified] Episodic Other eye disorders (20 sources) Posterior vitreous detachment of right eye; Translations: [Vitreous degeneration, right eye] Onset: 06-25-2013 06-25-2013 Chronic Other eye disorders (20 sources) Bilateral posterior vitreous detachment; Translations: [Vitreous degeneration, bilateral] Onset: 07-18-2017 07-18-2017 Chronic Other hereditary and degenerative nervous system conditions (20 sources) Tremor; Translations: [Essential tremor] 01-18-2009 Chronic Other hereditary and degenerative nervous system conditions (20 sources) Essential tremor; Translations: [Essential tremor] Onset: 02-16-2011 02-16-2011 Chronic Other infections; including parasitic (1 source) Personal history of other infectious and parasitic diseases; Translations: [History of 2019 novel coronavirus disease (COVID-19)] Episodic Other male genital disorders (20 sources) Drug-induced erectile dysfunction; Translations: [Impotence of organic origin] Chronic Other nervous system disorders (1 source) Other chronic pain; Translations: [Chronic pain of left knee] Onset: 08-01-2022 Chronic Other non-traumatic joint disorders (2 sources) Pain in left knee; Translations: [Pain in joint, lower leg] Onset: 08-01-2022 Episodic Other nutritional; endocrine; and metabolic disorders (1 source) Hypercalcemia; Translations: [Hypercalcemia] Chronic Other screening for suspected conditions (not mental disorders or infectious disease) (1 source) Patient encounter status; Translations: [Encounter for screening for malignant neoplasm of prostate] Episodic Unclassified (1 source) History of repair of hip joint; Translations: [Presence of right artificial hip joint] Onset: 08-06-2017 08-06-2017 Past or Other Problems Problem Classification Problem Date Documented Da te Episodic/Chronic Unclassified (1 source) Problem Results Test Name Value Interpretation Reference Range Facil ity Vital Signs Date Time Vital Sign Value Performing Clinician Facility 02-09-2023 10:44-0400 Body height 182.9 cm bA Dunham MD Work Phone: [facility] 02-09-2023 10:44-0400 Body temperature 97 [degF] Ab Dunham MD Work Phone: [facility] 02-09-2023 10:44-0400 Body weight 87.05 kg Ab Dunham MD Work Phone: [facility] 02-09-2023 10:44-0400 Diastolic blood pressure 74 mm[Hg] Ab Dunham MD Work Phone: [facility] 02-09-2023 10:44-0400 Heart rate 74 /min Ab Dunham MD Work Phone: [facility] 02-09-2023 10:44-0400 Respiratory rate 16 /min Ab Dunham MD Work Phone: [facility] 02-09-2023 10:44-0400 SaO2% (BldA) [Mass fraction] 98 % Ab Dunham MD Work Phone: [facility] 02-09-2023 10:44-0400 Systolic blood pressure 139 mm[Hg] Ab Dunham MD Work Phone: [facility] 08-09-2022 07:59-0400 Body height 182.9 cm Pacc 1 Work Phone: [facility] 08-09-2022 07:59-0400 Body temperature 98.01 [degF] Pacc 1 Work Phone: [facility] 08-09-2022 07:59-0400 Body weight 85.28 kg Pacc 1 Work Phone: [facility] 08-09-2022 07:59-0400 Diastolic blood pressure 72 mm[Hg] Pacc 1 Work Phone: [facility] 08-09-2022 07:59-0400 Heart rate 69 /min Pacc 1 Work Phone: [facility] 08-09-2022 07:59-0400 Respiratory rate 16 /min Pacc 1 Work Phone: [facility] 08-09-2022 07:59-0400 SaO2% (BldA) [Mass fraction] 99 % Pacc 1 Work Phone: [facility] 08-09-2022 07:59-0400 Systolic blood pressure 126 mm[Hg] Pacc 1 Work Phone: [facility] 06-08-2022 09:43-0400 Diastolic blood pressure 72 mm[Hg] Ab Dunham MD Work Phone: [facility] 06-08-2022 09:43-0400 Systolic blood pressure 142 mm[Hg] Ab Dunham MD Work Phone: [facility] 06-08-2022 09:28-0400 Body height 182.9 cm Ab Dunham MD Work Phone: [facility] 06-08-2022 09:28-0400 Body weight 86.18 kg Ab Dunham MD Work Phone: [facility] 06-08-2022 09:28-0400 Heart rate 63 /min Ab Dunham MD Work Phone: [facility] 06-08-2022 09:28-0400 SaO2% (BldA) [Mass fraction] 99 % Ab Dunham MD Work Phone: [facility] NEGATED: Highlighted [id number] 17:55-0400 BMI (Body Mass Index) 28.39 kg/m2 Shanice Pablo AT [facility] Work Phone: NEGATED: Highlighted [id number] 17:55-0400 Body weight 90.72 kg Shanice Pablo AT [facility] Work Phone: NEGATED: Highlighted [id number] 17:55-0400 Body weight 91 kg Shancie Pablo AT [facility] Work Phone: NEGATED: Highlighted [id number] 17:55-0400 Height 179.07 cm Shanice Pablo AT [facility] Work Phone: NEGATED: Highlighted [id number] 17:55-0400 Height 179 cm Shanice Pablo AT [facility] Work Phone: Encounters Encounter Date Encounter Type Care Provider Facility Start: 10-10-2023 ambulatory Jeannette Rodrigues MA [facility] Procedures Date Procedure Procedure Detail Performing Clinician Start: 02-09-2023 Blood count complete automated Ab Dunham MD Work Phone: Start: 02-09-2023 Lipid panel Ab Dunham MD Work Phone: Start: 04-28-2020 End: 04-28-2020 Arthrocentesis aspir&/inj major jt/bursa w/o Ra Marte PA-C Work Phone: Start: 04-28-2020 End: 04-30-2020 Blood pressure screening not performed - reason not given Ra Dumontzina PA-C Work Phone: Start: 04-28-2020 End: 04-30-2020 BMI documented as above normal parameters - follow-up documented Ra Liang Sudzina PA-C Work Phone: Start: 04-28-2020 End: 04-30-2020 Documentation of current medications Ra Garth Sudzina PA-C Work Phone: Start: 04-28-2020 End: 04-30-2020 Fall plan of care docd Ra Gordonn a PA-C Work Phone: Start: 04-28-2020 End: 04-30-2020 Fall risk assessment docd Ra Liang Julia soy PA-C Work Phone: Start: 04-28-2020 End: 04-28-2020 Injection - triamcinolone acetonide 10 mg Ra Garth Sudzina PA-C Work Phone: Start: 04-28-2020 End: 04-30-2020 Osteoarthritis assess Ra Garth Sudzina PA-C Work Phone: Start: 04-28-2020 End: 04-30-2020 Pain assessment documented as positive - no follow-up/reason not given Ra Liang Sudzina PA-C Work Phone: Start: 04-28-2020 End: 04-30-2020 Ptfalls assess-docd ge2>/yr Ra Garth Sudzina PA-C Work Phone: Start: 04-28-2020 End: 04-28-2020 Radiologic exam knee complete 4/more views Ra Garth Sudzina PA-C Work Phone: Start: 04-28-2020 End: 04-30-2020 Tobacco non-user Ra Garth Sudzina PA-C Work Phone: NEGATED: Highlighted rowStart: 04-28-2020 End: 04-28-2020 Documentation of current medications Shanice Pablo AT Plan of Treatment Date Care Activity Detail Author Start: 05-23-2033 Urine microalbumin profile DTa P,Tdap,Td Vaccine (2 - Td or Tdap) [facility] Start: 02-10-2024 Hepatitis B surface antibody level LDL CHOLESTEROL [facility] Start: 09-26-2023 Glaucoma screening Dilated Retinal E xam [facility] Start: 09-26-2023 Hepatitis C antibody , confirmatory test DILATED RETINAL EXAM [facility] Start: 06-29-2023 Covid-19 Vaccine () Covid-19 Vaccine () [facility] Start: 06-29-2023 Influenza vaccination C [facility] Start: 06-08-2023 Urine microalbumin profile DTAP,TDAP ,TD (1 - Tdap) [facility] Immunizations Immunization Date Immunization Notes Care Provider Jasmin wang 07-10-2023 respiratory syncytia l virus (RSV) vaccine, adjuvanted (AREXVY) Jeannette Rodrigues MA [facility] 05-23-2023 pneumococcal (PCV20) vaccine, 20 valent (PREVNAR 20) Jeannette Rodrigues MA [facility] 05-23-2023 tetanus toxoid, redu mickie diphtheria toxoid, and acellular pertussis vaccine, adsorbed Jeannette Rodrigues MA [facility] 08-11-2022 influenza, high-dose , quadrivalent vaccine (FLUZONE HIGH DOSE QUADRIVALENT) Rodger VIRGEN Work Phone: [facility] 08-11-2022 influenza virus vacc ine, unspecified formulation Jeannette Rodrigues MA [facility] 09-07-2021 influenza, high-dose , quadrivalent vaccine (FLUZONE HIGH DOSE QUADRIVALENT) Ab Dunham MD Work Phone: [facility] 02-03-2021 zoster vaccine recombinant Ab Dunham MD Work Phone: [facility] 12-31-2020 COVID-19 vaccine, fu ll dose (MODERNA) Ab Dunham MD Work Phone: [facility] 12-03-2020 COVID-19 vaccine, fu ll dose (MODERNA) Ab Dunham MD Work Phone: [facility] 10-07-2020 zoster vaccine recombinant Ab Dunham MD Work Phone: [facility] 08-09-2020 influenza, high-dose , quadrivalent vaccine (FLUZONE HIGH DOSE QUADRIVALENT) Ab Dunham MD Work Phone: [facility] 08-13-2019 influenza, high dose seasonal, preservative-free Ab Dunham MD Work Phone: [facility] 07-18-2018 influenza, high dose seasonal, preservative-free Ab Dunham MD Work Phone: [facility] 07-27-2017 influenza, high dose seasonal, preservative-free Ab Dunham MD Work Phone: [facility] 08-23-2016 influenza, high dose seasonal, preservative-free Ab Dunham MD Work Phone: [facility] 11-02-2015 pneumococcal conjuga te vaccine, 13 valent Ab Dunham MD Work Phone: [facility] Work Phone: 09-11-2015 influenza, high dose seasonal, preservative-free Ab Dunham MD Work Phone: [facility] 08-19-2013 influenza virus vacc ine, unspecified formulation Ab Dunham MD Work Phone: [facility] 08-30-2012 influenza virus vacc ine, whole virus Ab Dunham MD Work Phone: [facility] 07-10-2011 influenza virus vacc ine, unspecified formulation Ab Dunham MD Work Phone: [facility] Work Phone: 01-18-2009 zoster vaccine, live Ab Dunham MD Work Phone: [facility] 01-27-2007 pneumococcal polysaccharide vaccine, 23 valent Ab Dunham MD Work Phone: [facility] Payers Date Payer Category Payer Unknown [facility] AQUILINO RAZA O [id number] 2021-[facility] [phone] [address] [place] [address] O [id number] 2021 Unknown ANTHEM BLUE CROS S AND BLUE SHIELD ANTHEM MEDIBLUE HMO [id number] 2021-Present [phone] [address] [place] [address] O [id number] 2021 Unknown [id number] 2016 Unknown ANTHEM ROMAEM ME DICARE SUPPLEMENT [id number] 2016-Present [phone] [address] [place] [address] Indemnity [id number] 2005 Medicare MEDICARE MEDICAR E A AND B [id number] 2005-Present [phone] [place] [address] Medicare [id number] Social History Date Type Detail Facility Start: 04-30-2020 End: 04-30-2020 Assertion Unknown if ever smoked [facility] Work Phone: Start: 02-09-2015 End: 06-08-2022 Tobacco smoking status NHIS Never smoked tobacco [facility] Work Phone: Start: 10-05-2021 End: 02-09-2023 Alcohol intake Current drinker of alcohol (finding) [facility] Start: 1940 Sex Assigned At Not on file C [facility] Start: 02-09-2015 End: 06-08-2022 Tobacco use and exposure Smokeless tobacco non-user [facility] Start: 05-29-2022 End: 09-11-2022 Exposure to SARS-CoV-2 (event) Not sure [facility] Start: 11-14-2022 End: 02-09-2023 History of Social function [facility] Work Phone: Start: 11-14-2022 End: 02-09-2023 Tobacco use panel [facility] Work Phone: Adult Depression Screening Assessment 0 [facility] Work Phone: NEGATED: Highlighted rowStart: 04-28-2020 End: 04-28-2020 Employment detail Employment detail [facility] Work Phone: Medical Equipment Procedure Code Equipment Code Equipment Origin al Text Equipment Identifier Dates Start: 09-06-2017 End: 04-12-2022 Clinical Notes 02-09-2015 to 10-10-2023 Evelyn Lazo - 10/10/2023 3:40 PM Jeannette Romano MA - 10/10/2023 9:56 AM Jeannette Romano MA - 08/09/2023 8:42 AM EDTTelephone Encounter - [facility] - 02/12/2023 3:24 PM EDT Note Date & Type Note Facility 10-10-2023 Note HNO ID: [id number] Author: Evelyn Lazo Service: ? Author Type: ? Type: Progress Notes Filed: 10/10/2023 3:40 PM Note Text: POPULATION HEALTH NAVIGATION OUTREACH Action/FYI Letter received and sent to be mailed Evelyn Lazo October 10, 2023 3:40 PM [facility] 10-10-2023 History of Present illness Narrative POPULATION HEALTH NAVIGATION OUTREACH Action/FYI Letter received and sent to be mailed Evelyn Lazo October 10, 2023 3:40 PM POPULATION HEALTH NAVIGATION OUTREACH Action/FYI NO ANSWER NO MYCHART LETTER MAILED ANNUAL MEDICARE WELLNESS Advance Directive Discussion Never done HbA1C due on 05/11/2023 Influenza Vaccine(1) due on 06/29/2023 Patient Identified by Name and : NO Outreach Outcome/Action Unable to reach patient: Phone number not valid / voicemail full Letter mailed Did you use a PCP flex slot to schedule this appointment? N/A Reason for Outreach Care Gap or Scheduling/Wellness visits Payer: Payor: AQUILINO [employer] [facility] / Plan: AQUILINO RAZA HMO / Product Type: HMO / Care Gap Reviewed:: Annual Wellness visit HBA1C Flu Vaccine Reminder: Reminder note to check Health Maintenance for items below Health Maintenance items due: Diabetic Foot Exam due on 08/13/2020 Advance Directive Discussion Never done Depression Assessment due on 10/29/2022 HbA1C due on 05/11/2023 Urine Albumin:Creatinine Ratio due on 05/24/2023 Influenza Vaccine(1) due on 06/29/2023 Covid-19 Vaccine( season) due on 06/29/2023 Dilated Retinal Exam due on 09/26/2023 Navigation Signature: Jeannette Rodrigues MA October 10, 2023 9:56 AM documented in this encounter [facility] 10-10-2023 Note Patient Outreach (NE TNAV) BRENDAN FLORES ([id number]) 1940 [facility] Date Time Provider Department 10/10/23 JEANNETTE RODRIGUES NETNAV During your visit today, we recorded the following information about you: Jeannette Rodrigues MA 10/10/2023 2:46 PM Signed POPULATION HEALTH NAVIGATION OUTREACH Action/ NO ANSWER NO MYCHART LETTER MAILED ANNUAL MEDICARE WELLNESS Advance Directive Discussion Never done HbA1C due on 05/11/2023 Influenza Vaccine(1) due on 06/29/2023 Patient Identified by Name and : NO Outreach Outcome/Action Unable to reach patient: Phone number not valid / voicemail full Letter mailed Did you use a PCP flex slot to schedule this appointment? N/A Reason for Outreach Care Gap or Scheduling/Wellness visits Payer: Payor: AQUILINO [employer] [facility] / Plan: AQUILINO RAZA HMO / Product Type: HMO / Care Gap Reviewed:: Annual Wellness visit HBA1C Flu Vaccine Reminder: Reminder note to check Health Maintenance for items below Health Maintenance items due: Diabetic Foot Exam due on 08/13/2020 Advance Directive Discussion Never done Depression Assessment due on 10/29/2022 HbA1C due on 05/11/2023 Urine Albumin:Creatinine Ratio due on 05/24/2023 Influenza Vaccine(1) due on 06/29/2023 Covid-19 Vaccine( season) due on 06/29/2023 Dilated Retinal Exam due on 09/26/2023 Navigation Signature: Jeannette Rodrigues MA October 10, 2023 9:56 AM Evelyn Lazo 10/10/2023 3:40 PM Signed POPULATION HEALTH NAVIGATION OUTREACH Action/FYI Letter received and sent to be mailed Evelyn Lazo October 10, 2023 3:40 PM Allergies As of Date: 10/10/2023 (No Known Allergies) Date Reviewed: 02/09/2023 Reviewed by: Luke Wray - Fully Assessed Reason for Visit: Population Health Navigation Outreach [3910] Cmt: ACO CARE GAP Prescriptions as of 10/10/2023 - atorvastatin (LIPITOR) 20 mg tablet take 1 tablet by mouth once daily at bedtime - metFORMIN (GLUCOPHAGE) 500 mg tablet Take 1 tablet by mouth daily with breakfast. - insulin detemir U-100 (LEVEMIR FLEXTOUCH U-100 INSULIN) 100 unit/mL (3 mL) injection pen Inject 14 Units subcutaneously daily at bedtime. - lisinopril (ZESTRIL) 40 mg tablet Take 1 tablet by mouth once daily. - propranolol (INDERAL) 20 mg tablet Take 1 tablet by mouth once daily as needed. Breakthrough tremor - propranolol ER (INDERAL LA) 120 mg 24 hr capsule Take 1 capsule by mouth once daily. - ascorbic acid, vitamin C, (VITAMIN C) 500 mg tablet Take 1 tablet by mouth twice daily with meals for 27 doses. - aspirin, enteric coated (ASPIRIN, ENTERIC COATED) 81 mg EC tablet Take 1 tablet by mouth twice daily for 28 days. - acetaminophen (TYLENOL) 500 mg tablet Take 2 tablets by mouth every 8 hours as needed for pain. - allopurinol (ZYLOPRIM) 300 mg tablet Take 1 tablet by mouth once daily. For gout. - amLODIPine (NORVASC) 5 mg tablet Take 1 tablet by mouth once daily. For blood pressure - Insulin Waddy, Disposable, (BD ULTRA-FINE VIMAL PEN NEEDLE) 32 gauge x 5/32 USE ONCE DAILY - blood sugar diagnostic (ONETOUCH ULTRA TEST) test strip Test blood sugar(s) 3 times daily. Dx: Type 2 DM - Uncontrolled E11.65 Insulin: Yes - Blood-Glucose Meter (ONETOUCH ULTRA2) monitoring kit 1 Each as needed. One Touch Meter Kit Diagnosis: Type 2 DM - Uncontrolled E11.65 - Lancets (ONETOUCH ULTRASOFT LANCETS) lancets Test blood sugar(s) 3 times daily. Dx: Type 2 DM - Uncontrolled E11.65 , Insulin: Yes Problem List As Of Date 10/10/2023 Noted Resolved Essential hypertension [I10] Mixed hyperlipidemia [E78.2] Drug-induced erectile dysfunction [N52.2] TREMOR NEC [G25.0, G25.2] Patient Left without Being Seen 10/09/2009 02/16/2011 Benign essential tremor [G25.0] 02/16/2011 Gout [M10.9] 04/05/2011 PVD (posterior vitreous detachment), right eye *06/25/2013 Pseudophakia, both eyes [Z96.1] 06/25/2013 DM2 (diabetes mellitus, type 2) (HCC) [E11.9] 02/09/2015 09/05/2021 Type 2 diabetes mellitus without complication, *07/18/2017 PVD (posterior vitreous detachment), both eyes *07/18/2017 CKD (chronic kidney disease) [N18.9] 08/09/2022 History of total replacement of both hip joints*08/09/2022 History of total right knee replacement [Z96.65*08/09/2022 Primary osteoarthritis of left knee [M17.12] 09/28/2022 Letter Text Encounter Status:Closed by JEANNETTE RODRIGUES on 10/10/23 [facility] 10-10-2023 Note HNO ID: [id number] Author: Jeannette Rodrigues MA Service: ? Author Type: Artificial Candy Maker Type: Progress Notes Filed: 10/10/2023 2:46 PM Note Text: POPULATION HEALTH NAVIGATION OUTREACH Action/FYI NO ANSWER NO MYCHART LETTER MAILED ANNUAL MEDICARE WELLNESS Advance Directive Discussion Never done HbA1C due on 05/11/2023 Influenza Vaccine(1) due on 06/29/2023 Patient Identified by Name and : NO Outreach Outcome/Action Unable to reach patient: Phone number not valid / voicemail full Letter mailed Did you use a PCP flex slot to schedule this appointment? N/A Reason for Outreach Care Gap or Scheduling/Wellness visits Payer: Payor: [id number] / Plan: [employer] HMO / Product Type: HMO / Care Gap Reviewed:: Annual Wellness visit HBA1C Flu Vaccine Reminder: Reminder note to check Health Maintenance for items below Health Maintenance items due: Diabetic Foot Exam due on 08/13/2020 Advance Directive Discussion Never done Depression Assessment due on 10/29/2022 HbA1C due on 05/11/2023 Urine Albumin:Creatinine Ratio due on 05/24/2023 Influenza Vaccine(1) due on 06/29/2023 Covid-19 Vaccine(2022- season) due on 06/29/2023 Dilated Retinal Exam due on 09/26/2023 Navigation Signature: Jeannette Rodrigues MA October 10, 2023 9:56 AM [facility] 08-09-2023 Note Patient Outreach (DIDIER TNAV) BRENDAN FLORES ([id number]) [address] [place] [address] Date Time Provider Department 08/09/23 JEANNETTE RODRIGUES During your visit today, we recorded the following information about you: Jeannette Rodrigues MA 08/09/2023 1:44 PM Signed POPULATION HEALTH NAVIGATION OUTREACH Action/FYI LVM NO MYCHART [facility] Annual medicare wellness Advance Directive Discussion Never done HbA1C due on 05/11/2023 Influenza Vaccine(1) due on 06/29/2023 Patient Identified by Name and : NO Outreach Outcome/Action Unable to reach patient: Left message Did you use a PCP flex slot to schedule this appointment? No Reason for Outreach Care Gap or Scheduling/Wellness visits Payer: Payor: AQUILINO Share0 AND [employer]ist / Plan: AQUILINO YANIQUEGILMA HMO / Product Type: HMO / Care Gap Reviewed:: HBA1C Flu Vaccine Reminder: Reminder note to check Health Maintenance for items below Health Maintenance items due: Hepatitis B Vaccine(1 of 3 - Risk 3-dose series) Never done Diabetic Foot Exam due on 08/13/2020 Advance Directive Discussion Never done Depression Assessment due on 10/29/2022 HbA1C due on 05/11/2023 Urine Albumin:Creatinine Ratio due on 05/24/2023 Influenza Vaccine(1) due on 06/29/2023 Covid-19 Vaccine( season) due on 06/29/2023 Navigation Signature: Jeannette Rodrigues MA August 09, 2023 8:42 AM Allergies As of Date: 08/09/2023 (No Known Allergies) Date Reviewed: 02/09/2023 Reviewed by: Luke Wray - Fully Assessed Reason for Visit: Population Health Navigation Outreach [3910] Cmt: ACO CARE GAP Prescriptions as of 08/09/2023 - acetaminophen (TYLENOL) 500 mg tablet Take 2 tablets by mouth every 8 hours as needed for pain. - allopurinol (ZYLOPRIM) 300 mg tablet Take 1 tablet by mouth once daily. For gout. - amLODIPine (NORVASC) 5 mg tablet Take 1 tablet by mouth once daily. For blood pressure - ascorbic acid, vitamin C, (VITAMIN C) 500 mg tablet Take 1 tablet by mouth twice daily with meals for 27 doses. - aspirin, enteric coated (ASPIRIN, ENTERIC COATED) 81 mg EC tablet Take 1 tablet by mouth twice daily for 28 days. - atorvastatin (LIPITOR) 20 mg tablet Take 1 tablet by mouth daily at bedtime. - blood sugar diagnostic (ONETOUCH ULTRA TEST) test strip Test blood sugar(s) 3 times daily. Dx: Type 2 DM - Uncontrolled E11.65 Insulin: Yes - Blood-Glucose Meter (ONETOUCH ULTRA2) monitoring kit 1 Each as needed. One Touch Meter Kit Diagnosis: Type 2 DM - Uncontrolled E11.65 - insulin detemir U-100 (LEVEMIR FLEXTOUCH U-100 INSULIN) 100 unit/mL (3 mL) injection pen Inject 14 Units subcutaneously daily at bedtime. - Insulin Waddy, Disposable, (BD ULTRA-FINE VIMAL PEN NEEDLE) 32 gauge x 5/32 USE ONCE DAILY - Lancets (OpenSignalTOUCH ULTRASOFT LANCETS) lancets Test blood sugar(s) 3 times daily. Dx: Type 2 DM - Uncontrolled E11.65 , Insulin: Yes - lisinopril (ZESTRIL) 40 mg tablet Take 1 tablet by mouth once daily. - metFORMIN (GLUCOPHAGE) 500 mg tablet Take 1 tablet by mouth daily with breakfast. - propranolol (INDERAL) 20 mg tablet Take 1 tablet by mouth once daily as needed. Breakthrough tremor - propranolol ER (INDERAL LA) 120 mg 24 hr capsule Take 1 capsule by mouth once daily. 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] TREMOR NEC [G25.0, G25.2] Patient Left without Being Seen 10/09/2009 02/16/2011 Benign essential tremor [G25.0] 02/16/2011 Gout [M10.9] 04/05/2011 PVD (posterior vitreous detachment), right eye *06/25/2013 Pseudophakia, both eyes [Z96.1] 06/25/2013 DM2 (diabetes mellitus, type 2) (HCC) [E11.9] 02/09/2015 09/05/2021 Type 2 diabetes mellitus without complication, *07/18/2017 PVD (posterior vitreous detachment), both eyes *07/18/2017 CKD (chronic kidney disease) [N18.9] 08/09/2022 History of total replacement of both hip joints*08/09/2022 History of total right knee replacement [Z96.65*08/09/2022 Primary osteoarthritis of left knee [M17.12] 09/28/2022 Encounter Status:Closed by JEANNETTE RODRIGUES on 08/09/23 [facility] 08-09-2023 Note HNO ID: [id number] Author: Jeannette Rodrigues MA Service: ? Author Type: Artificial Candy Maker Type: Progress Notes Filed: 08/09/2023 1:44 PM Note Text: POPULATION HEALTH NAVIGATION OUTREACH Action/FYI LVM NO MYCHART [facility] Annual medicare wellness Advance Directive Discussion Never done HbA1C due on 05/11/2023 Influenza Vaccine(1) due on 06/29/2023 Patient Identified by Name and : NO Outreach Outcome/Action Unable to reach patient: Left message Did you use a PCP flex slot to schedule this appointment? No Reason for Outreach Care Gap or Scheduling/Wellness visits Payer: Payor: AQUILINO Share0 AND [employer]ist / Plan: ANTHEM MEDIBLUE HMO / Product Type: HMO / Care Gap Reviewed:: HBA1C Flu Vaccine Reminder: Reminder note to check Health Maintenance for items below Health Maintenance items due: Hepatitis B Vaccine(1 of 3 - Risk 3-dose series) Never done Diabetic Foot Exam due on 08/13/2020 Advance Directive Discussion Never done Depression Assessment due on 10/29/2022 HbA1C due on 05/11/2023 Urine Albumin:Creatinine Ratio due on 05/24/2023 Influenza Vaccine(1) due on 06/29/2023 Covid-19 Vaccine( season) due on 06/29/2023 Navigation Signature: Jeannette Rodrigues MA August 09, 2023 8:42 AM [facility] 08-09-2023 History of Present illness Narrative POPULATION HEALTH NAVIGATION OUTREACH Action/FYI LVM NO MYCKANGT [facility] Annual medicare wellness Advance Directive Discussion Never done HbA1C due on 05/11/2023 Influenza Vaccine(1) due on 06/29/2023 Patient Identified by Name and : NO Outreach Outcome/Action Unable to reach patient: Left message Did you use a PCP flex slot to schedule this appointment? No Reason for Outreach Care Gap or Scheduling/Wellness visits Payer: Payor: AQUILINO DILLARD [employer]ELD / Plan: ANTHEM MEDIBLUE HMO / Product Type: HMO / Care Gap Reviewed:: HBA1C Flu Vaccine Reminder: Reminder note to check Health Maintenance for items below Health Maintenance items due: Hepatitis B Vaccine(1 of 3 - Risk 3-dose series) Never done Diabetic Foot Exam due on 08/13/2020 Advance Directive Discussion Never done Depression Assessment due on 10/29/2022 HbA1C due on 05/11/2023 Urine Albumin:Creatinine Ratio due on 05/24/2023 Influenza Vaccine(1) due on 06/29/2023 Covid-19 Vaccine( season) due on 06/29/2023 Navigation Signature: Jeannette Rodrigues MA August 09, 2023 8:42 AM documented in this encounter [facility] 05-09-2023 Miscellaneous Notes Received cbc, vit d, hep c results from [facility]. Placed in provider's inbox for review. Route to [place] scanning. documented in this encounter [facility] 02-12-2023 Miscellaneous Notes Called and informed pt of lab results and pcp recommendation. Pt indicated understandable and is agreeable to plan. Diabetes control much worse. We could try metformin 500 mg just 1 pill a day and report glucose readings. Kidney function got worse on 2 pills a day. Kidney function stable Blood count is normal. Lipid well controlled. Increase the insulin up to 14 units daily Report glucose readings after a few weeks. The following approved medication requests have been transmitted electronically. Requested Prescriptions Signed Prescriptions Disp Refills metFORMIN (GLUCOPHAGE) 500 mg tablet 30 tablet 5 Sig: Take 1 tablet by mouth daily with breakfast. Authorizing Provider: AB DUNHAM insulin detemir U-100 (LEVEMIR FLEXTOUCH U-100 INSULIN) 100 unit/mL (3 mL) injection pen Sig: Inject 14 Units subcutaneously daily at bedtime. Authorizing Provider: AB DUNHAM MD documented in this encounter [facility] 02-09-2023 Note HNO ID: [id number] Author: Ab Dunham MD Service: ? Author Type: Physician Type: Progress Notes Filed: 02/09/2023 5:33 PM Note Text: CHIEF COMPLAINT Patient presents with: Diabetes HISTORY OF PRESENT ILLNESS Brendan Flores is a 82 year old male who presents here today for diabetes. I last saw this patient on 08/11/2022. Chest wall pain - Oxycodone caused constipation. He is moving his bowels fine now - The pain is now above the rib Diabetes Mellitus - Insulin one shot daily - Pt notes he checks his sugars at home receiving readings around 150. He did not tolerate Januvia due to nausea Tremor - Pt is on propranolol 20 mg BP - Pt is on lisinopril 40 mg Cholesterol - Pt is on atorvastatin 20 mg Health Maintenance Labs reviewed. Past medical history, appointments, medications, allergies reviewed. REVIEW OF SYSTEMS Pertinent positives/ negatives: General: Feels well, no fever, no chills, +weight 189 lbs. HEENT: No sinus congestion, earache, sore throat. Cardiac: No chest pain, palpitations Resp: No cough, wheeze, shortness of breath GI: No reflux symptoms, food intolerance, bowel changes. : No urinary frequency, dysuria. MS: No pain or joint complaints. 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 General: Alert, well developed, well nourished, no distress, pleasant and cooperative. Obese. Heart: Regular rate and rhythm. Normal S1 and S2. No murmurs, rubs, or gallops. Lungs: Clear to auscultation bilaterally. No respiratory distress. No wheezes, rales, or rhonchi. Abdomen: Soft, non-tender, no distention. Extremities: Feet/ankles without edema, posterior tibial pulses full and symmetrical. Data Reviewed Component Latest Ref Rng AND Units 06/22/2014 09/01/2021 08/04/2022 08/09/2022 09/02/2022 WBC 3.70 - 11.00 k/uL 8.38 7.22 RBC 4.20 - 6.00 m/uL 4.21 3.38 (L) Hemoglobin 13.0 - 17.0 g/dL 13.2 10.4 (L) Hematocrit 39.0 - 51.0 % 40.7 32.2 (L) MCV 80.0 - 100.0 fL 96.7 95.3 MCH 26.0 - 34.0 pg 31.4 30.8 MCHC 30.5 - 36.0 g/dL 32.4 32.3 RDW-CV 11.5 - 15.0 % 13.2 13.0 Platelet Count 150 - 400 k/uL 278 234 MPV 9.0 - 12.7 fL 10.6 10.6 Neut% % 73.8 Abs Neut (ANC) 1.45 - 7.50 k/uL 6.18 Lymph% % 15.0 Abs Lymph 1.00 - 4.00 k/uL 1.26 Grundy% % 7.6 Abs Grundy <0.87 k/uL 0.64 Eosin% % 2.7 Abs Eosin <0.46 k/uL 0.23 Baso% % 0.5 Abs Baso <0.11 k/uL 0.04 Immature Gran % % 0.4 IMMATURE GRANS (ABS) <0.10 k/uL 0.03 NRBC /100 WBC 0.0 Absolute nRBC <0.01 k/uL <0.01 <0.01 DTYPE Auto Protein, Total 6.3 - 8.0 g/dL 7.2 Albumin 3.9 - 4.9 g/dL 4.4 Calcium 8.5 - 10.2 mg/dL 10.6 (H) 8.9 Bilirubin, Total 0.2 - 1.3 mg/dL 0.5 Alkaline Phosphatase 38 - 113 U/L 75 AST 14 - 40 U/L 20 Glucose 74 - 99 mg/dL 122 (H) 153 (H) BUN 9 - 24 mg/dL 26 (H) 24 Creatinine 0.73 - 1.22 mg/dL 1.24 (H) 1.35 (H) Sodium 136 - 144 mmol/L 143 140 Potassium 3.7 - 5.1 mmol/L 4.2 4.0 Chloride 97 - 105 mmol/L 103 104 CO2 22 - 30 mmol/L 29 29 Anion Gap 9 - 18 mmol/L 11 7 (L) ALT 10 - 54 U/L 17 eGFR- >60 eGFR-All Other Races . 56 eGFR >=60 mL/min/1.73mA? 52 (L) Cholesterol, Total <200 mg/dL 179 Triglyceride <150 mg/dL 111 HDL Cholesterol >39 mg/dL 49 LDL Cholesterol <100 mg/dL 108 (H) Non HDL Cholesterol <130 mg/dL 130 (H) Fasting Time hrs 12 VLDL Cholesterol <30 mg/dL 22 TC:HDL Ratio <5.10 3.65 LDL:HDL Ratio <2.54 2.20 Hemoglobin A1C 4.3 - 5.6 % 7.3 (H) Estimated Average Glucose mg/dL 163 TSH 0.400 - 5.500 uU/mL 1.720 Glucose, Point of Care 74 - 99 mg/dL 287 (A) Assessment/Plan (R11.0) Nausea (T88.7XXA) Medication side effect (primary encounter diagnosis) Comment: he stopped Januvia Check lab and will advise. (E11.21, Z79.4) Type 2 diabetes mellitus with diabetic nephropathy, with long-term current use of insulin ([facility]) Comment: Patient does one insulin shot daily Plan: continue the insuilin, consider dose change/ addition of other med. (N18.31) Stage 3a chronic kidney disease ([facility]) Comment: Creatinine: 1.35 Plan: Continue to monitor (N18.30, D63.1) Anemia, chronic renal failure, stage 3 (moderate) ([facility]) Comment: RBC: 3.38 Plan:Continue to monitor (R07.89) Chest wall pain Comment: relates to abd straining some weeks back. Plan: observe this. (I10) Essential hypertension Comment: BP: repeat bp better. Plan: continue o (more content not included)... [facility] 02-09-2023 History of Present illness Narrative CHIEF COMPLAINT Patient presents with: Diabetes HISTORY OF PRESENT ILLNESS Brendan Flores is a 82 year old male who presents here today for diabetes. I last saw this patient on 08/11/2022. Chest wall pain - Oxycodone caused constipation. He is moving his bowels fine now - The pain is now above the rib Diabetes Mellitus - Insulin one shot daily - Pt notes he checks his sugars at home receiving readings around 150. He did not tolerate Januvia due to nausea Tremor - Pt is on propranolol 20 mg BP - Pt is on lisinopril 40 mg Cholesterol - Pt is on atorvastatin 20 mg Health Maintenance Labs reviewed. Past medical history, appointments, medications, allergies reviewed. REVIEW OF SYSTEMS Pertinent positives/ negatives: General: Feels well, no fever, no chills, +weight 189 lbs. HEENT: No sinus congestion, earache, sore throat. Cardiac: No chest pain, palpitations Resp: No cough, wheeze, shortness of breath GI: No reflux symptoms, food intolerance, bowel changes. : No urinary frequency, dysuria. MS: No pain or joint complaints. 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 Obese. Heart: Regular rate and rhythm. Normal S1 and S2. No murmurs, rubs, or gallops. Lungs: Clear to auscultation bilaterally. No respiratory distress. No wheezes, rales, or rhonchi. Abdomen: Soft, non-tender, no distention. Extremities: Feet/ankles without edema, posterior tibial pulses full and symmetrical. Data Reviewed Component Latest Ref Rng & Units 06/22/2014 09/01/2021 08/04/2022 08/09/2022 09/02/2022 WBC 3.70 - 11.00 k/uL 8.38 7.22 RBC 4.20 - 6.00 m/uL 4.21 3.38 (L) Hemoglobin 13.0 - 17.0 g/dL 13.2 10.4 (L) Hematocrit 39.0 - 51.0 % 40.7 32.2 (L) MCV 80.0 - 100.0 fL 96.7 95.3 MCH 26.0 - 34.0 pg 31.4 30.8 MCHC 30.5 - 36.0 g/dL 32.4 32.3 RDW-CV 11.5 - 15.0 % 13.2 13.0 Platelet Count 150 - 400 k/uL 278 234 MPV 9.0 - 12.7 fL 10.6 10.6 Neut% % 73.8 Abs Neut (ANC) 1.45 - 7.50 k/uL 6.18 Lymph% % 15.0 Abs Lymph 1.00 - 4.00 k/uL 1.26 Grundy% % 7.6 Abs Grundy <0.87 k/uL 0.64 Eosin% % 2.7 Abs Eosin <0.46 k/uL 0.23 Baso% % 0.5 Abs Baso <0.11 k/uL 0.04 Immature Gran % % 0.4 IMMATURE GRANS (ABS) <0.10 k/uL 0.03 NRBC /100 WBC 0.0 Absolute nRBC <0.01 k/uL <0.01 <0.01 DTYPE Auto Protein, Total 6.3 - 8.0 g/dL 7.2 Albumin 3.9 - 4.9 g/dL 4.4 Calcium 8.5 - 10.2 mg/dL 10.6 (H) 8.9 Bilirubin, Total 0.2 - 1.3 mg/dL 0.5 Alkaline Phosphatase 38 - 113 U/L 75 AST 14 - 40 U/L 20 Glucose 74 - 99 mg/dL 122 (H) 153 (H) BUN 9 - 24 mg/dL 26 (H) 24 Creatinine 0.73 - 1.22 mg/dL 1.24 (H) 1.35 (H) Sodium 136 - 144 mmol/L 143 140 Potassium 3.7 - 5.1 mmol/L 4.2 4.0 Chloride 97 - 105 mmol/L 103 104 CO2 22 - 30 mmol/L 29 29 Anion Gap 9 - 18 mmol/L 11 7 (L) ALT 10 - 54 U/L 17 eGFR- >60 eGFR-All Other Races . 56 eGFR >=60 mL/min/1.73m 52 (L) Cholesterol, Total <200 mg/dL 179 Triglyceride <150 mg/dL 111 HDL Cholesterol >39 mg/dL 49 LDL Cholesterol <100 mg/dL 108 (H) Non HDL Cholesterol <130 mg/dL 130 (H) Fasting Time hrs 12 VLDL Cholesterol <30 mg/dL 22 TC:HDL Ratio <5.10 3.65 LDL:HDL Ratio <2.54 2.20 Hemoglobin A1C 4.3 - 5.6 % 7.3 (H) Estimated Average Glucose mg/dL 163 TSH 0.400 - 5.500 uU/mL 1.720 Glucose, Point of Care 74 - 99 mg/dL 287 (A) Assessment/Plan (R11.0) Nausea (T88.7XXA) Medication side effect (primary encounter diagnosis) Comment: he stopped Januvia Check lab and will advise. (E11.21, Z79.4) Type 2 diabetes mellitus with diabetic nephropathy, with long-term current use of insulin ([facility]) Comment: Patient does one insulin shot daily Plan: continue the insuilin, consider dose change/ addition of other med. (N18.31) Stage 3a chronic kidney disease ([facility]) Comment: Creatinine: 1.35 Plan: Continue to monitor (N18.30, D63.1) Anemia, chronic renal failure, stage 3 (moderate) ([facility]) Comment: RBC: 3.38 Plan:Continue to monitor (R07.89) Chest wall pain Comment: relates to abd straining some weeks back. Plan: observe this. (I10) Essential hypertension Comment: BP: repeat bp better. Plan: continue on current regimen (G25.0) Essential tremor Comment: Pt is on propranolol 20 mg Plan: continue on current regimen RTO: 6 mos if feeling well. Scribe Attestation: By signing my name below, IDebbi, attest that this documentation has been prepared under the direction and in the presence of Alan Dunham M.D. Electronically Signed: Fuentes Byrd. February 09, 2023 10:33 AM Provider Attestation: Ab Watson MD, personally performed the services described in this documentation. All medical record entries made by the scribe were at my direction and in my presence. I have reviewed the chart and discharge instructions (if applicable) and agree that the record reflects my personal performance and is accurate and complete. Electronically Signed: Ab Dunham MD February 09, 2023 5:31 PM documented in this encounter [facility] 02-01-2023 Miscellaneous Notes The following approved medication requests have been transmitted electronically. Requested Prescriptions Signed Prescriptions Disp Refills lisinopril (ZESTRIL) 40 mg tablet 90 tablet 2 Sig: Take 1 tablet by mouth once daily. Authorizing Provider: AB DUNHAM propranolol (INDERAL) 20 mg tablet 30 tablet 5 Sig: Take 1 tablet by mouth once daily as needed. Breakthrough tremor Authorizing Provider: AB DUNHAM propranolol ER (INDERAL LA) 120 mg 24 hr capsule 90 capsule 2 Sig: Take 1 capsule by mouth once daily. Authorizing Provider: AB DUNHAM MD Pharmacy verified in Epic Requested Prescriptions Pending Prescriptions Disp Refills lisinopril (ZESTRIL) 40 mg tablet 90 tablet 3 Sig: Take 1 tablet by mouth once daily. propranolol (INDERAL) 20 mg tablet 30 tablet 5 Sig: Take 1 tablet by mouth once daily as needed. Breakthrough tremor propranolol ER (INDERAL LA) 120 mg 24 hr capsule 90 capsule 3 Sig: Take 1 capsule by mouth once daily. Date of last office visit : 08/11/22 Date of next office visit : 02/09/23 Last 2 Encounter Wt Readings: Date: Wt: 08/11/2022 85.7 kg (189 lb) 08/09/2022 85.3 kg (188 lb) Blood Pressure: BUN (mg/dL) Date Value 09/02/2022 24 09/01/2021 26 Creatinine (mg/dL) Date Value 09/02/2022 1.35 09/01/2021 1.24 Sodium (mmol/L) Date Value 09/02/2022 140 09/01/2021 143 Potassium (mmol/L) Date Value 09/02/2022 4.0 09/01/2021 4.2 Last 1 Encounter BP Readings: Date: BP: 09/01/2022 120/68 Please advise. Ninoska Hensley RN Patient has been identified by name and date of : Yes Requested Prescriptions Pending Prescriptions Disp Refills lisinopril (ZESTRIL) 40 mg tablet 90 tablet 3 Sig: Take 1 tablet by mouth once daily. propranolol (INDERAL) 20 mg tablet 30 tablet 5 Sig: Take 1 tablet by mouth once daily as needed. Breakthrough tremor propranolol ER (INDERAL LA) 120 mg 24 hr capsule 90 capsule 3 Sig: Take 1 capsule by mouth once daily. RX INSTRUCTIONS: Patient aware RX will be sent to pharmacy. No need to notify patient. Shanel Dale Pss documented in this encounter [facility] 11-21-2022 Note HNO ID: [id number] Author: Jj Avila PT Service: ? Author Type: Physical Therapist Type: Progress Notes Filed: 11/21/2022 10:42 AM Note Text: Episode Visit Count: 16 Therapist That Will Accept/Oversee The Plan Of Care: Jj Avila Start of Care Date: 09/27/22 Onset Date: 09/01/22 Plan of Care Certification Date: 09/27/22 Next Certification Due Date: 12/26/22 REHABILITATION AND SPORTS THERAPY PHYSICAL THERAPY TREATMENT NOTE ASSESSMENT: Brendan Flores tolerated the session with decreased symptoms and no issues. He demonstrated improvements in knee range of motion following manual therapy. The patient will continue to benefit from ongoing skilled physical therapy to progress toward set goals and to continue with post-operative protocol . PLAN FOR NEXT VISIT: Continue exercise progression per tolerance SUBJECTIVE: Patient Reason for Visit: Pt doing well today. 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 Pain: Pain Pain Level: 0 Pain Location: Knee - Left OBJECTIVE MEASURES WITH LEVEL OF FUNCTION: LE AROM L Knee Extension: 0 Degrees L Knee Flexion: 115 Degrees (112 AROM, 115 with strap) TREATMENT: Therapeutic Exercise: 1: SciFit seat 14 x5 min 2: Heel slides with strap 2x10 3: Quad sets 2x10 Skilled Intervention: Patient was educated in proper exercise technique and purpose for exercises. Skilled judgment was provided in selection of appropriate interventions. Provided written instruction for home exercise program to facilitate proper performance and compliance. Correct performance of therapeutic exercises was facilitated with verbal cuing. Manual Therapy: 1: Superficial effleurage x10 min with legs elevated on 2 bolsters 2: STM and CFM to L rectus femoris with push to tolerance Skilled Intervention: Manual skills to improve joint mobility, ROM, and decrease pain. Utilized anatomy knowledge of the therapist, and assessment of patient's response to intervention. Billing Therapeutic Exercise Treatment Minutes: 15 Manual TherapyTreatment Minutes: 25 Total Treatment Time Minutes (timed/untimed): 40 Jj Avila, PT [facility] 11-21-2022 History of Present illness Narrative Episode Visit Count: 16 Therapist That Will Accept/Oversee The Plan Of Care: Jj Avila Start of Care Date: 09/27/22 Onset Date: 09/01/22 Plan of Care Certification Date: 09/27/22 Next Certification Due Date: 12/26/22 REHABILITATION AND SPORTS THERAPY PHYSICAL THERAPY TREATMENT NOTE ASSESSMENT: Brendan Flores tolerated the session with decreased symptoms and no issues. He demonstrated improvements in knee range of motion following manual therapy. The patient will continue to benefit from ongoing skilled physical therapy to progress toward set goals and to continue with post-operative protocol . PLAN FOR NEXT VISIT: Continue exercise progression per tolerance SUBJECTIVE: Patient Reason for Visit: Pt doing well today. 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 Pain: Pain Pain Level: 0 Pain Location: Knee - Left OBJECTIVE MEASURES WITH LEVEL OF FUNCTION: LE AROM L Knee Extension: 0 Degrees L Knee Flexion: 115 Degrees (112 AROM, 115 with strap) TREATMENT: Therapeutic Exercise: 1: SciFit seat 14 x5 min 2: Heel slides with strap 2x10 3: Quad sets 2x10 Skilled Intervention: Patient was educated in proper exercise technique and purpose for exercises. Skilled judgment was provided in selection of appropriate interventions. Provided written instruction for home exercise program to facilitate proper performance and compliance. Correct performance of therapeutic exercises was facilitated with verbal cuing. Manual Therapy: 1: Superficial effleurage x10 min with legs elevated on 2 bolsters 2: STM and CFM to L rectus femoris with push to tolerance Skilled Intervention: Manual skills to improve joint mobility, ROM, and decrease pain. Utilized anatomy knowledge of the therapist, and assessment of patient's response to intervention. Billing Therapeutic Exercise Treatment Minutes: 15 Manual TherapyTreatment Minutes: 25 Total Treatment Time Minutes (timed/untimed): 40 Jj Avila PT documented in this encounter [facility] 11-20-2022 Note HNO ID: [id number] Author: Rodger Elena MD Service: ? Author Type: Physician Type: Progress Notes Filed: 11/20/2022 9:49 AM Note Text: Ortho Knee Follow Up Note Narrative Referring Provider: Rodger Elena [address] [facility] [address] PCP: Ab Dunham MD IMPRESSION/PLAN: 82 year old s/p Left Total Knee Replacement completed on 09/01/2022. Patient presents with: Left Knee - Established Patient, Follow Up, Post Op 11 weeks 3 days s/p L knee Robotic TKA. Patient does not complain of any pain at this time. Carissa Crystal LPN Orthopaedic Surgeries 09/01/2022 (11w, 3d) ROBOTIC ASSISTED TOTAL KNEE ARTHROPLASTY; COMPUTER ASSIST MUSCULOSKETAL SURG NAVIGATION ORTHO PROCED W/IMAGE GUIDANCE BASED ON CT/MRI IMAGES (Left; Left) Rogder Elena MD - Posted PAIN EVALUATION No data found in the last 1 encounters. IMPRESSION: Excellent early outcome No complaints or limitations At normal post-operative stage of recovery. PLAN: Continue current conservative treatment. Patient Reassurance: Normal post-operative course discussed with patient. Progress appears to be with the normal speed of recovery. Patient reassured and supported. All questions answered. 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 Post-operative recovery was complicated by uneventful/none. Readmission(s) since surgery (90 days post)? No ED Visits AND Hospitalizations - Last 180 days 09/01/22 Rodger Elena MD, ME2E History of total right knee replacement ..., Admission (Discharged) Patient rates their condition as improving. Does the patient still experience pain? No Post Op discharge patient location: in home. Functional Assessment is as follows: completed home PT. Functional difficulties: Stair climbing and Walking. Pain Medication: None Current Opioids Analgesic Opioid Agonists Start End oxyCODONE IR (ROXICODONE) 5 mg immediate release tablet 09/02/2022 Sig - Route: Take 1 tablet by mouth every 6 hours as needed for pain. for pain. - ORAL Patient not taking: Reported on 11/20/2022 Earliest Fill Date: 09/02/2022 Currently Ambulating with: a cane Physical Therapy Data 11/09/2022 11/14/2022 11/16/2022 Surgical procedure - - - Surgical procedure date - - - AROM R knee extension - - - AROM R knee flexion - - - AROM L knee extension -1 0 0 AROM L knee flexion 109 112 115 Therapist that will oversee plan of care - - - Prognosis - - - Frequency - - - Duration - - - Total number of visits - - - Planned treatment interventions - - - Plan for next visit - - - EXAM: POST OP KNEE Left Post-Operative Knee Ambulates with a: limp favoring the left. SKIN: Incision well healed. Range of motion is 5 degrees in extension and 120 degrees of flexion. Extension La degrees Pain with ROM:No There is None effusion. Mal-alignment: No Tender to the palpation of None Neurovascular Status: Sensation Intact, Moves foot and ankle up AND down, and 2+ dorsalis pedis Stability:Anterior/Posterior- Yes, stable and Varus/Valgus- Yes, stable Quad strength: improving Imagin. Implants are well aligned. Implants are well fixed. Provider: Rodger Elena MD Completed by: Rodger Elena MD [facility] 11-20-2022 History of Present illness Narrative Images from the original note were not included. Ortho Knee Follow Up Note Narrative Referring Provider: Rodger Elena [address] [facility] [address] PCP: Ab Dunham MD IMPRESSION/PLAN: 82 year old s/p Left Total Knee Replacement completed on 09/01/2022. Patient presents with: Left Knee - Established Patient, Follow Up, Post Op 11 weeks 3 days s/p L knee Robotic TKA. Patient does not complain of any pain at this time. Carissa Crystal LPN Orthopaedic Surgeries 09/01/2022 (11w, 3d) ROBOTIC ASSISTED TOTAL KNEE ARTHROPLASTY; COMPUTER ASSIST MUSCULOSKETAL SURG NAVIGATION ORTHO PROCED W/IMAGE GUIDANCE BASED ON CT/MRI IMAGES (Left; Left) Rodger Elena MD - Posted PAIN EVALUATION No data found in the last 1 encounters. IMPRESSION: Excellent early outcome No complaints or limitations At normal post-operative stage of recovery. PLAN: Continue current conservative treatment. Patient Reassurance: Normal post-operative course discussed with patient. Progress appears to be with the normal speed of recovery. Patient reassured and supported. All questions answered. 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 Post-operative recovery was complicated by uneventful/none. Readmission(s) since surgery (90 days post)? No ED Visits & Hospitalizations - Last 180 days 09/01/22 Rodger Elena MD, ME2E History of total right knee replacement ..., Admission (Discharged) Patient rates their condition as improving. Does the patient still experience pain? No Post Op discharge patient location: in home. Functional Assessment is as follows: completed home PT. Functional difficulties: Stair climbing and Walking. Pain Medication: None Current Opioids Analgesic Opioid Agonists Start End oxyCODONE IR (ROXICODONE) 5 mg immediate release tablet 09/02/2022 Sig - Route: Take 1 tablet by mouth every 6 hours as needed for pain. for pain. - ORAL Patient not taking: Reported on 11/20/2022 Earliest Fill Date: 09/02/2022 Currently Ambulating with: a cane Physical Therapy Data 11/09/2022 11/14/2022 11/16/2022 Surgical procedure - - - Surgical procedure date - - - AROM R knee extension - - - AROM R knee flexion - - - AROM L knee extension -1 0 0 AROM L knee flexion 109 112 115 Therapist that will oversee plan of care - - - Prognosis - - - Frequency - - - Duration - - - Total number of visits - - - Planned treatment interventions - - - Plan for next visit - - - EXAM: POST OP KNEE Left Post-Operative Knee Ambulates with a: limp favoring the left. SKIN: Incision well healed. Range of motion is 5 degrees in extension and 120 degrees of flexion. Extension La degrees Pain with ROM:No There is None effusion. Mal-alignment: No Tender to the palpation of None Neurovascular Status: Sensation Intact, Moves foot and ankle up & down, and 2+ dorsalis pedis Stability:Anterior/Posterior- Yes, stable and Varus/Valgus- Yes, stable Quad strength: improving Imagin. Implants are well aligned. Implants are well fixed. Provider: Rodger Elena MD Completed by: Rodger Elena MD documented in this encounter [facility] 11-16-2022 Note HNO ID: [id number] Author: Jj Avila PT Service: ? Author Type: Physical Therapist Type: Progress Notes Filed: 11/16/2022 3:43 PM Note Text: Episode Visit Count: 15 Therapist That Will Accept/Oversee The Plan Of Care: Jj Avila Start of Care Date: 09/27/22 Onset Date: 09/01/22 Plan of Care Certification Date: 09/27/22 Next Certification Due Date: 12/26/22 Patient Identified by Name and Date of : Yes REHABILITATION AND SPORTS THERAPY PHYSICAL THERAPY TREATMENT NOTE ASSESSMENT: Brendan Flores tolerated the session with fatigue and no issues. He demonstrated improvements in L knee ROM. The patient will continue to benefit from ongoing skilled physical therapy to progress toward set goals. PLAN FOR NEXT VISIT: Continue per protocol SUBJECTIVE: Patient Reason for Visit: Pt states that his knee is feeling good today. Pt denies any soreness or pain in his left knee. Pain: Pain Pain Level: 0 Pain Location: Knee - Left Post Treatment Pain Post Treatment Pain Level: No Change Post Treatment Pain Location: Knee - Left OBJECTIVE MEASURES WITH LEVEL OF FUNCTION: LE AROM L Knee Extension: 0 Degrees L Knee Flexion: 115 Degrees (with strap, 112 AROM) TREATMENT: Therapeutic Exercise: 1: SciFit seat 14 x5 min (subjective collected) 2: Heel slides with strap 2x10 3: Quad sets 2x10 5: Standing HS curls 2x10 LLE 7: Standing hip abdcution 2x10 B 8: Lateral step ups on 1 blue step plus 1 green step 2x10 LLE 9: Step downs on blue step 2x10 LLE 10: Step ups on 1 blue plus 1 green step 2x10 LLE Skilled Intervention: Patient was educated in proper exercise technique and purpose for exercises. Skilled judgment was provided in selection of appropriate interventions. Correct performance of therapeutic exercises was facilitated with verbal and visual cuing. Billing Therapeutic Exercise Treatment Minutes: 41 Total Treatment Time Minutes (timed/untimed): 41 Maeve Gallegos, JORGE Avila PT [facility] 11-14-2022 Note HNO ID: [id number] Author: Jj Avila PT Service: ? Author Type: Physical Therapist Type: Progress Notes Filed: 11/14/2022 2:43 PM Note Text: Episode Visit Count: 14 Therapist That Will Accept/Oversee The Plan Of Care: Jj Avila Start of Care Date: 09/27/22 Onset Date: 09/01/22 Plan of Care Certification Date: 09/27/22 Next Certification Due Date: 12/26/22 Patient Identified by Name and Date of : Yes REHABILITATION AND SPORTS THERAPY PHYSICAL THERAPY TREATMENT NOTE ASSESSMENT: Brendan Flores tolerated the session with fatigue. He demonstrated improvements in L knee AROM flexion and extension. The patient will continue to benefit from ongoing skilled physical therapy to progress toward set goals. PLAN FOR NEXT VISIT: Continue per protocol SUBJECTIVE: Patient Reason for Visit: Pt states that he is doing well today, no complaints. Pain: Pain Pain Level: 0 Pain Location: Knee - Left Post Treatment Pain Post Treatment Pain Level: No Change Post Treatment Pain Location: Knee - Left OBJECTIVE MEASURES WITH LEVEL OF FUNCTION: LE AROM L Knee Extension: 0 Degrees L Knee Flexion: 112 Degrees TREATMENT: Therapeutic Exercise: 1: SciFit seat 14 x5 min 2: Quad sets 2x10 3: LLLD extension stretch 10# x5 min 4: heel slides with strap 3x10 with hold at end range, then try another slight pull 5: Standing HS curls 2x10 LLE 6: PROM with manual over pressure for extension from therapist [id number]: Standing hip abdcution x10 B 8: Standing hip extension x10 B 9: Step downs on blue step 2x10 LLE 10: Step ups on 1 blue plus 1 green step 2x10 LLE Skilled Intervention: Patient was educated in proper exercise technique and purpose for exercises. Skilled judgment was provided in selection of appropriate interventions. Correct performance of therapeutic exercises was facilitated with verbal and visual cuing. Billing Therapeutic Exercise Treatment Minutes: 45 Total Treatment Time Minutes (timed/untimed): 45 Maeve Gallegos, OFFICE MACHINE [employer] SUPER[employer] Jj Avila, PT [facility] 11-14-2022 History of Present illness Narrative Episode Visit Count: 14 Therapist That Will Accept/Oversee The Plan Of Care: Jj Avila Start of Care Date: 09/27/22 Onset Date: 09/01/22 Plan of Care Certification Date: 09/27/22 Next Certification Due Date: 12/26/22 Patient Identified by Name and Date of : Yes REHABILITATION AND SPORTS THERAPY PHYSICAL THERAPY TREATMENT NOTE ASSESSMENT: Brendan Flores tolerated the session with fatigue. He demonstrated improvements in L knee AROM flexion and extension. The patient will continue to benefit from ongoing skilled physical therapy to progress toward set goals. PLAN FOR NEXT VISIT: Continue per protocol SUBJECTIVE: Patient Reason for Visit: Pt states that he is doing well today, no complaints. Pain: Pain Pain Level: 0 Pain Location: Knee - Left Post Treatment Pain Post Treatment Pain Level: No Change Post Treatment Pain Location: Knee - Left OBJECTIVE MEASURES WITH LEVEL OF FUNCTION: LE AROM L Knee Extension: 0 Degrees L Knee Flexion: 112 Degrees TREATMENT: Therapeutic Exercise: 1: SciFit seat 14 x5 min 2: Quad sets 2x10 3: LLLD extension stretch 10# x5 min 4: heel slides with strap 3x10 with hold at end range, then try another slight pull 5: Standing HS curls 2x10 LLE 6: PROM with manual over pressure for extension from therapist [id number]: Standing hip abdcution x10 B 8: Standing hip extension x10 B 9: Step downs on blue step 2x10 LLE 10: Step ups on 1 blue plus 1 green step 2x10 LLE Skilled Intervention: Patient was educated in proper exercise technique and purpose for exercises. Skilled judgment was provided in selection of appropriate interventions. Correct performance of therapeutic exercises was facilitated with verbal and visual cuing. Billing Therapeutic Exercise Treatment Minutes: 45 Total Treatment Time Minutes (timed/untimed): 45 Maeve Gallegos, JORGE Avila PT documented in this encounter [facility] 11-09-2022 Note HNO ID: [id number] Author: Jj Avila PT Service: ? Author Type: Physical Therapist Type: Progress Notes Filed: 11/09/2022 12:55 PM Note Text: Episode Visit Count: 13 Therapist That Will Accept/Oversee The Plan Of Care: Jj Avila Start of Care Date: 09/27/22 Onset Date: 09/01/22 Plan of Care Certification Date: 09/27/22 Next Certification Due Date: 12/26/22 REHABILITATION AND SPORTS THERAPY PHYSICAL THERAPY TREATMENT NOTE ASSESSMENT: Brendan Flores tolerated the session with decreased symptoms and no issues. He demonstrated improvements in knee range of motion today. The patient will continue to benefit from ongoing skilled physical therapy to progress toward set goals and to continue with post-operative protocol . PLAN FOR NEXT VISIT: Continue aggressive stretching, progress strengthening per tolerance SUBJECTIVE: Patient Reason for Visit: Pt doing well today, notes a little stiffness, but not bad. He has been rolling out his thigh and this seems to help Pain: Pain Pain Level: 0 Pain Location: Knee - Left OBJECTIVE MEASURES WITH LEVEL OF FUNCTION: LE AROM L Knee Extension: -1 Degrees L Knee Flexion: 109 Degrees TREATMENT: Therapeutic Exercise: 1: SciFit seat 14 x5 min 2: Quad sets 2x10 3: LLLD extension stretch 10# x5 min 4: heel slides with strap 3x10 wiht hold at end range, then try another slight pull 5: Flexion step stretch 3x30 seconds 6: PROM with manual over pressure from therapist 3x1 min 7: Long sitting gastroc stretch with strap 3x30 sec Skilled Intervention: Patient was educated in proper exercise technique and purpose for exercises. Skilled judgment was provided in selection of appropriate interventions. Correct performance of therapeutic exercises was facilitated with verbal, visual, and tactile cuing. Manual Therapy: 1: STM and CFM manually to L biceps femoris and lateral gastroc with push to tolerance Skilled Intervention: Manual skills to improve joint mobility, ROM, and decrease pain. Utilized anatomy knowledge of the therapist, and assessment of patient's response to intervention. Billing Therapeutic Exercise Treatment Minutes: 30 Manual TherapyTreatment Minutes: 10 Total Treatment Time Minutes (timed/untimed): 40 Jj Avila, PT [facility] 11-09-2022 History of Present illness Narrative Episode Visit Count: 13 Therapist That Will Accept/Oversee The Plan Of Care: Jj Avila Start of Care Date: 09/27/22 Onset Date: 09/01/22 Plan of Care Certification Date: 09/27/22 Next Certification Due Date: 12/26/22 REHABILITATION AND SPORTS THERAPY PHYSICAL THERAPY TREATMENT NOTE ASSESSMENT: Brendan Flores tolerated the session with decreased symptoms and no issues. He demonstrated improvements in knee range of motion today. The patient will continue to benefit from ongoing skilled physical therapy to progress toward set goals and to continue with post-operative protocol . PLAN FOR NEXT VISIT: Continue aggressive stretching, progress strengthening per tolerance SUBJECTIVE: Patient Reason for Visit: Pt doing well today, notes a little stiffness, but not bad. He has been rolling out his thigh and this seems to help Pain: Pain Pain Level: 0 Pain Location: Knee - Left OBJECTIVE MEASURES WITH LEVEL OF FUNCTION: LE AROM L Knee Extension: -1 Degrees L Knee Flexion: 109 Degrees TREATMENT: Therapeutic Exercise: 1: SciFit seat 14 x5 min 2: Quad sets 2x10 3: LLLD extension stretch 10# x5 min 4: heel slides with strap 3x10 wiht hold at end range, then try another slight pull 5: Flexion step stretch 3x30 seconds 6: PROM with manual over pressure from therapist 3x1 min 7: Long sitting gastroc stretch with strap 3x30 sec Skilled Intervention: Patient was educated in proper exercise technique and purpose for exercises. Skilled judgment was provided in selection of appropriate interventions. Correct performance of therapeutic exercises was facilitated with verbal, visual, and tactile cuing. Manual Therapy: 1: STM and CFM manually to L biceps femoris and lateral gastroc with push to tolerance Skilled Intervention: Manual skills to improve joint mobility, ROM, and decrease pain. Utilized anatomy knowledge of the therapist, and assessment of patient's response to intervention. Billing Therapeutic Exercise Treatment Minutes: 30 Manual TherapyTreatment Minutes: 10 Total Treatment Time Minutes (timed/untimed): 40 Jj Avila PT documented in this encounter [facility] 11-07-2022 Note HNO ID: [id number] Author: Jj Avila PT Service: ? Author Type: Physical Therapist Type: Progress Notes Filed: 11/07/2022 10:38 AM Note Text: Episode Visit Count: 12 Therapist That Will Accept/Oversee The Plan Of Care: Jj Avila Start of Care Date: 09/27/22 Onset Date: 09/01/22 Plan of Care Certification Date: 09/27/22 Next Certification Due Date: 12/26/22 REHABILITATION AND SPORTS THERAPY PHYSICAL THERAPY TREATMENT NOTE ASSESSMENT: Brendan Flores tolerated the session with no issues. He demonstrated improvements in knee extension range of motion, with tightness in L HS and gastroc limiting further improvements. The patient will continue to benefit from ongoing skilled physical therapy to progress toward set goals and to continue with post-operative protocol . PLAN FOR NEXT VISIT: Continue with manual as needed to loosen up HS and gastroc, possibly therapist assisted stretching SUBJECTIVE: Patient Reason for Visit: Pt doing well, no issues. Finds he is using the cane less and less around the house. Pain: Pain Pain Level: 0 Pain Location: Knee - Left OBJECTIVE MEASURES WITH LEVEL OF FUNCTION: LE AROM L Knee Extension: -1 Degrees (after LLLD stretch plus manual) Tenderness and tightness noted at L gastroc and biceps femoris TREATMENT: Therapeutic Exercise: 1: SciFit seat 14 x5 min 2: Quad sets 2x10 3: LLLD extension stretch 10# x5 min 4: heel slides with strap 3x10 wiht hold at end range, then try another slight pull 5: Flexion step stretch 3x30 seconds 6: *Long sitting gastroc stretch with strap 3x30 sec 7: *Supine HS stretch 3x30 sec (showed pt how to better target biceps femoris) Skilled Intervention: Patient was educated in proper exercise technique and purpose for exercises. Skilled judgment was provided in selection of appropriate interventions. Provided written instruction for home exercise program to facilitate proper performance and compliance. Correct performance of therapeutic exercises was facilitated with verbal, visual, and tactile cuing. Manual Therapy: 1: STM and CFM manually to L biceps femoris and lateral gastroc with push to tolerance (showed pt how to roll out with a rolling pin at home) Skilled Intervention: Manual skills to improve joint mobility, ROM, and decrease pain. Utilized anatomy knowledge of the therapist, and assessment of patient's response to intervention. Billing Therapeutic Exercise Treatment Minutes: 25 Manual TherapyTreatment Minutes: 15 Total Treatment Time Minutes (timed/untimed): 40 Jj Avila PT [facility] 11-02-2022 Note HNO ID: [id number] Author: Jj Avila PT Service: ? Author Type: Physical Therapist Type: Progress Notes Filed: 11/02/2022 9:51 AM Note Text: Episode Visit Count: 11 Therapist That Will Accept/Oversee The Plan Of Care: Jj Avila Start of Care Date: 09/27/22 Onset Date: 09/01/22 Plan of Care Certification Date: 09/27/22 Next Certification Due Date: 12/26/22 Patient Identified by Name and Date of : Yes REHABILITATION AND SPORTS THERAPY PHYSICAL THERAPY TREATMENT NOTE ASSESSMENT: Brendan Flores tolerated the session with fatigue and expected muscle soreness. He demonstrated improvements in ROM of L knee. The patient will continue to benefit from ongoing skilled physical therapy to progress toward set goals. PLAN FOR NEXT VISIT: Continue working on ROM per tolerance, quad strengthening SUBJECTIVE: Patient Reason for Visit: Pt reports that his L knee is a little stiff this morning, but not bad. Pain: Pain Pain Level: 0 Pain Location: Knee - Left Post Treatment Pain Post Treatment Symptoms: Pt denied any pain throughout entire session or at the end, stated fatigue in quads. OBJECTIVE MEASURES WITH LEVEL OF FUNCTION: LE AROM L Knee Extension: -1 Degrees (after LLLD) L Knee Flexion: 109 Degrees (with strap, and after step stretch) TREATMENT: Therapeutic Exercise: 1: SciFit seat 14 x5 min 2: heel slides with strap 3x10 wiht hold at end range, then try another slight pull 3: LLLD extension stretch 6# x5 min 4: Flexion step stretch 3x30 seconds 5: Quad sets 2x10 6: SAQ 3 x10 7: Forward step ups on blue step 2x10 LLE 8: Lateral step ups on blue step 2x10 LLE 9: Step downs on blue step 2x10 LLE 10: Squats at parallel bars 2x10 11: Standing HS culrs x 10 LLE 12: Standing TKE with ball at wall 2x10 13: LAQ 2x10 LLE Skilled Intervention: Patient was educated in proper exercise technique and purpose for exercises. Reviewed and educated patient on additions/changes for home exercise program as above (*). Skilled judgment was provided in selection of appropriate interventions. Correct performance of therapeutic exercises was facilitated with verbal and visual cuing. Billing Therapeutic Exercise Treatment Minutes: 45 Total Treatment Time Minutes (timed/untimed): 45 Maeve Gallegos, OFFICE MACHINE REPA[employer] SUPERVISOR Jj Avila, PT [facility] 11-02-2022 History of Present illness Narrative Episode Visit Count: 11 Therapist That Will Accept/Oversee The Plan Of Care: Jj Avila Start of Care Date: 09/27/22 Onset Date: 09/01/22 Plan of Care Certification Date: 09/27/22 Next Certification Due Date: 12/26/22 Patient Identified by Name and Date of : Yes REHABILITATION AND SPORTS THERAPY PHYSICAL THERAPY TREATMENT NOTE ASSESSMENT: Brendan Flores tolerated the session with fatigue and expected muscle soreness. He demonstrated improvements in ROM of L knee. The patient will continue to benefit from ongoing skilled physical therapy to progress toward set goals. PLAN FOR NEXT VISIT: Continue working on ROM per tolerance, quad strengthening SUBJECTIVE: Patient Reason for Visit: Pt reports that his L knee is a little stiff this morning, but not bad. Pain: Pain Pain Level: 0 Pain Location: Knee - Left Post Treatment Pain Post Treatment Symptoms: Pt denied any pain throughout entire session or at the end, stated fatigue in quads. OBJECTIVE MEASURES WITH LEVEL OF FUNCTION: LE AROM L Knee Extension: -1 Degrees (after LLLD) L Knee Flexion: 109 Degrees (with strap, and after step stretch) TREATMENT: Therapeutic Exercise: 1: SciFit seat 14 x5 min 2: heel slides with strap 3x10 wiht hold at end range, then try another slight pull 3: LLLD extension stretch 6# x5 min 4: Flexion step stretch 3x30 seconds 5: Quad sets 2x10 6: SAQ 3 x10 7: Forward step ups on blue step 2x10 LLE 8: Lateral step ups on blue step 2x10 LLE 9: Step downs on blue step 2x10 LLE 10: Squats at parallel bars 2x10 11: Standing HS culrs x 10 LLE 12: Standing TKE with ball at wall 2x10 13: LAQ 2x10 LLE Skilled Intervention: Patient was educated in proper exercise technique and purpose for exercises. Reviewed and educated patient on additions/changes for home exercise program as above (*). Skilled judgment was provided in selection of appropriate interventions. Correct performance of therapeutic exercises was facilitated with verbal and visual cuing. Billing Therapeutic Exercise Treatment Minutes: 45 Total Treatment Time Minutes (timed/untimed): 45 Maeve Gallegos, JORGE Avila PT documented in this encounter [facility] 10-31-2022 Note HNO ID: [id number] Author: Jj Avila PT Service: ? Author Type: Physical Therapist Type: Progress Notes Filed: 10/31/2022 3:49 PM Note Text: Episode Visit Count: 10 Therapist That Will Accept/Oversee The Plan Of Care: Jj Avila Start of Care Date: 09/27/22 Onset Date: 09/01/22 Plan of Care Certification Date: 09/27/22 Next Certification Due Date: 12/26/22 REHABILITATION AND SPORTS THERAPY PHYSICAL THERAPY PROGRESS REPORT PLAN OF CARE UPDATE: Assessment: Brendan Flores demonstrates significant improvement in rising from a chair, standing, walking, and stair negotiation . He hasprogressed toward goals. Patient continues to present with impairments in ADL's, overall function, range of motion, strength , and symptom management that interfere with walking in the community;stair negotiation;bending;heavy exertion;working . Current prognosis is Excellent due to: current objective clinical presentation;good overall health status;acuteness of condition;positive past response to therapy;within-session changes . He will benefit from continued skilled therapy services to meet the updated goals for this plan of care as noted below. Goals updated on 10/31/2022. Goals for Episode of Care: created on 09/27/22 through 12/26/22 [place] in home exercise program. Met, continuing Patient will decrease pain rating by 2 points to meet minimal clinical important difference for numeric pain rating scale. Met Patient will increase active ROM of L knee to 0-110 degrees to allow pt to to improve postural alignment, to improve performance of ADLs, and to decrease falls risks . Progressing towards Patient will demonstrate increase in LLE strength to 4+ to 5/5 during manual muscle testing in order to improve function for basic self-care tasks, home management tasks, leisure / recreation skills, light functional tasks, moderate to heavy functional tasks, and prior functional Tasks. Progressing towards Perform standing, walking, and ADLs with decreased report of symptoms/pain in 6-8 weeks. Partially met Perform self care without pain. Met Patient will Improve Timed Up and Go to 11 seconds to demonstrate decreased risk of falling. Partially met Normal gait. Not met Reciprocal stair negotiation. Not met Planned Interventions, Frequency, and Duration: 2x/week, 8 weeks Total Number of Visits Planned: 12 Patient to be seen for Therapeutic exercise (33949);Neuromuscular re-education (76335);Manual therapy (65453);Therapeutic activities (77242);Self-fci management ([id number]);Patient/Family/Caregiver Education;Body Mechanics Training PLAN FOR NEXT VISIT: Continue working on ROM per tolerance, quad strengthening SUBJECTIVE: Patient Reason for Visit: Pt doing well overall. At home he does not use the cane and feels safe getting around. Stairs, walking around his home all going well. feels a catch every once in awhile, but doesn't linger. 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 Functional Limitations: walking in the community;stair negotiation;bending;heavy exertion;working Pain: Pain Pain Level: 0 Pain Location: Knee - Left PROMIS Scales T-scores: mean of general population = 50. 5 points is clinically meaningfully difference Percentiles provide an indication of how the patient's score ranks in relation to the general population. Higher percentile rankings indicate better function/quality of life. 50th percentile is the average of the general population and indicates half of respondents had a worse score. T-scores: mean of general population = 50. 5 points is clinically meaningfully difference Percentiles provide an indication of how the patient's score ranks in relation to the general population. Higher percentile rankings indicate better function/quality of life. 50th percentile is the average of the general population and indicates half of respondents had a worse score. OBJECTIVE MEASURES WITH LEVEL OF FUNCTION: LE AROM L Knee Extension: -3 Degrees L Knee Flexion: 105 Degrees Dynamometer Strength Right Quadriceps Strength (lbs): 58 Left Quadriceps Strength (lbs): 49.7 Quad Strength Limb Symmetry Index (%): 85.69 Right Hamstring Strength (lbs): 43 Left Hamstring Strength (lbs): 45.1 Hamstring Strength Limb Symmetry Index(%): 104.88 Functional Performance Test Results 30 Second Chair Stand Test: 8 reps Timed Up and Go (sec): 10.03 sec TREATMENT: Therapeutic Exercise: 1: SciFit seat 14 x5 min 2: heel slides with strap 3: LLLD extension stretch 5# x5 min 4: Quad sets 2x10 5: STS x10 6: Objective measures obtained 7: Reviewed HEP Skilled Intervention: Patient was educated in proper exercise technique and purpose for exercises. Skilled judgment was provided in selection of appropriate interventions. Provided written instruction for home exercise program (more content not included)... [facility] 10-31-2022 History of Present illness Narrative Episode Visit Count: 10 Therapist That Will Accept/Oversee The Plan Of Care: Jj Avila Start of Care Date: 09/27/22 Onset Date: 09/01/22 Plan of Care Certification Date: 09/27/22 Next Certification Due Date: 12/26/22 REHABILITATION AND SPORTS THERAPY PHYSICAL THERAPY PROGRESS REPORT PLAN OF CARE UPDATE: Assessment: Brendan Rasheed Flores demonstrates significant improvement in rising from a chair, standing, walking, and stair negotiation . He hasprogressed toward goals. Patient continues to present with impairments in ADL's, overall function, range of motion, strength , and symptom management that interfere with walking in the community;stair negotiation;bending;heavy exertion;working . Current prognosis is Excellent due to: current objective clinical presentation;good overall health status;acuteness of condition;positive past response to therapy;within-session changes . He will benefit from continued skilled therapy services to meet the updated goals for this plan of care as noted below. Goals updated on 10/31/2022. Goals for Episode of Care: created on 09/27/22 through 12/26/22 [place] in home exercise program. Met, continuing Patient will decrease pain rating by 2 points to meet minimal clinical important difference for numeric pain rating scale. Met Patient will increase active ROM of L knee to 0-110 degrees to allow pt to to improve postural alignment, to improve performance of ADLs, and to decrease falls risks . Progressing towards Patient will demonstrate increase in LLE strength to 4+ to 5/5 during manual muscle testing in order to improve function for basic self-care tasks, home management tasks, leisure / recreation skills, light functional tasks, moderate to heavy functional tasks, and prior functional Tasks. Progressing towards Perform standing, walking, and ADLs with decreased report of symptoms/pain in 6-8 weeks. Partially met Perform self care without pain. Met Patient will Improve Timed Up and Go to 11 seconds to demonstrate decreased risk of falling. Partially met Normal gait. Not met Reciprocal stair negotiation. Not met Planned Interventions, Frequency, and Duration: 2x/week, 8 weeks Total Number of Visits Planned: 12 Patient to be seen for Therapeutic exercise ([id number]);Neuromuscular re-education (30993);Manual therapy (32525);Therapeutic activities (99729);Self-fci management (58019);Patient/Family/Caregiver Education;Body Mechanics Training PLAN FOR NEXT VISIT: Continue working on ROM per tolerance, quad strengthening SUBJECTIVE: Patient Reason for Visit: Pt doing well overall. At home he does not use the cane and feels safe getting around. Stairs, walking around his home all going well. feels a catch every once in awhile, but doesn't linger. 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 Functional Limitations: walking in the community;stair negotiation;bending;heavy exertion;working Pain: Pain Pain Level: 0 Pain Location: Knee - Left PROMIS Scales T-scores: mean of general population = 50. 5 points is clinically meaningfully difference Percentiles provide an indication of how the patient's score ranks in relation to the general population. Higher percentile rankings indicate better function/quality of life. 50th percentile is the average of the general population and indicates half of respondents had a worse score. T-scores: mean of general population = 50. 5 points is clinically meaningfully difference Percentiles provide an indication of how the patient's score ranks in relation to the general population. Higher percentile rankings indicate better function/quality of life. 50th percentile is the average of the general population and indicates half of respondents had a worse score. OBJECTIVE MEASURES WITH LEVEL OF FUNCTION: LE AROM L Knee Extension: -3 Degrees L Knee Flexion: 105 Degrees Dynamometer Strength Right Quadriceps Strength (lbs): 58 Left Quadriceps Strength (lbs): 49.7 Quad Strength Limb Symmetry Index (%): 85.69 Right Hamstring Strength (lbs): 43 Left Hamstring Strength (lbs): 45.1 Hamstring Strength Limb Symmetry Index(%): 104.88 Functional Performance Test Results 30 Second Chair Stand Test: 8 reps Timed Up and Go (sec): 10.03 sec TREATMENT: Therapeutic Exercise: 1: SciFit seat 14 x5 min 2: heel slides with strap 3: LLLD extension stretch 5# x5 min 4: Quad sets 2x10 5: STS x10 6: Objective measures obtained 7: Reviewed HEP Skilled Intervention: Patient was educated in proper exercise technique and purpose for exercises. Skilled judgment was provided in selection of appropriate interventions. Provided written instruction for home exercise program to facilitate proper performance and compliance. Correct performance of therapeutic exercises was facilitated with verbal, visual, and tactile cuing. Billing Therapeutic Exercise Treatment Minutes: 39 Total Treatment Time Minutes (timed/untimed): 39 Jj Avila PT documented in this encounter [facility] 10-27-2022 Note HNO ID: [id number] Author: Reinaldo Ash PT Service: ? Author Type: Physical Therapist Type: Progress Notes Filed: 10/27/2022 2:53 PM Note Text: Episode Visit Count: 9 Therapist That Will Accept/Oversee The Plan Of Care: Jj Avila Start of Care Date: 09/27/22 Onset Date: 09/01/22 Plan of Care Certification Date: 09/27/22 Next Certification Due Date: 12/26/22 Patient Identified by Name and Date of : Yes REHABILITATION AND SPORTS THERAPY PHYSICAL THERAPY TREATMENT NOTE ASSESSMENT: Brendan Flores tolerated the session with fatigue and expected muscle soreness. He demonstrated improvements in technique with step ups. The patient will continue to benefit from ongoing skilled physical therapy to progress toward set goals. PLAN FOR NEXT VISIT: contine progressing strengthening as tolerated. SUBJECTIVE: Patient Reason for Visit: Pt states that his L knee was really sore after last session. Pt reports increased ease of getting into and ot of car. Pt states that his knee is no longer bothering him at night. Pain: Pain Pain Level: 0 Pain Location: Knee - Left Post Treatment Pain Post Treatment Pain Level: No Change Post Treatment Pain Location: Knee - Left OBJECTIVE MEASURES WITH LEVEL OF FUNCTION: LE AROM L Knee Extension: -3 Degrees L Knee Flexion: 108 Degrees (with strap) TREATMENT: Therapeutic Exercise: 1: SciFit seat 14 x5 min (subjective taken) 2: heel slides with strap 3: LLLD extension stretch 5# x5 min 4: Quad sets 2x10 5: LAQ 3x12 6: Standing TKE with GTB 2x10 7: *Step ups on blue step forward 2x10 L 8: Step downs on blue step 2x10 L 9: lateral step ups on blue step 2x10 L Skilled Intervention: Patient was educated in proper exercise technique and purpose for exercises. Skilled judgment was provided in selection of appropriate interventions. Correct performance of therapeutic exercises was facilitated with verbal and visual cuing. Billing Therapeutic Exercise Treatment Minutes: 40 Total Treatment Time Minutes (timed/untimed): 40 Maeve Gallegos, OFFICE MACHINE [employer] SUPERVISOR Reinaldo Ash, PT [facility] 10-27-2022 History of Present illness Narrative Episode Visit Count: 9 Therapist That Will Accept/Oversee The Plan Of Care: Jj Avila Start of Care Date: 09/27/22 Onset Date: 09/01/22 Plan of Care Certification Date: 09/27/22 Next Certification Due Date: 12/26/22 Patient Identified by Name and Date of : Yes REHABILITATION AND SPORTS THERAPY PHYSICAL THERAPY TREATMENT NOTE ASSESSMENT: Brendan Flores tolerated the session with fatigue and expected muscle soreness. He demonstrated improvements in technique with step ups. The patient will continue to benefit from ongoing skilled physical therapy to progress toward set goals. PLAN FOR NEXT VISIT: contine progressing strengthening as tolerated. SUBJECTIVE: Patient Reason for Visit: Pt states that his L knee was really sore after last session. Pt reports increased ease of getting into and ot of car. Pt states that his knee is no longer bothering him at night. Pain: Pain Pain Level: 0 Pain Location: Knee - Left Post Treatment Pain Post Treatment Pain Level: No Change Post Treatment Pain Location: Knee - Left OBJECTIVE MEASURES WITH LEVEL OF FUNCTION: LE AROM L Knee Extension: -3 Degrees L Knee Flexion: 108 Degrees (with strap) TREATMENT: Therapeutic Exercise: 1: SciFit seat 14 x5 min (subjective taken) 2: heel slides with strap 3: LLLD extension stretch 5# x5 min 4: Quad sets 2x10 5: LAQ 3x12 6: Standing TKE with GTB 2x10 7: *Step ups on blue step forward 2x10 L 8: Step downs on blue step 2x10 L 9: lateral step ups on blue step 2x10 L Skilled Intervention: Patient was educated in proper exercise technique and purpose for exercises. Skilled judgment was provided in selection of appropriate interventions. Correct performance of therapeutic exercises was facilitated with verbal and visual cuing. Billing Therapeutic Exercise Treatment Minutes: 40 Total Treatment Time Minutes (timed/untimed): 40 Maeve Gallegos, OFFICE MACHINE REPA[employer] SUPERVISOR Reinaldo Ash PT documented in this encounter [facility] 10-24-2022 Note HNO ID: [id number] Author: Reinaldo Ash PT Service: ? Author Type: Physical Therapist Type: Progress Notes Filed: 10/24/2022 12:13 PM Note Text: Episode Visit Count: 8 Therapist That Will Accept/Oversee The Plan Of Care: Jj Avila Start of Care Date: 09/27/22 Onset Date: 09/01/22 Plan of Care Certification Date: 09/27/22 Next Certification Due Date: 12/26/22 Patient Identified by Name and Date of : Yes REHABILITATION AND SPORTS THERAPY PHYSICAL THERAPY TREATMENT NOTE ASSESSMENT: Brendan Flores tolerated the session with fatigue and expected muscle soreness. He demonstrated improvements in standing tolerance with exercise. The patient will continue to benefit from ongoing skilled physical therapy to progress toward set goals. PLAN FOR NEXT VISIT: continue to progress extension, pissibly try standing exercise at next visit SUBJECTIVE: Patient Reason for Visit: Pt states his knee is stiff today. Pt reports using a bag of sugar at home to put across his knee to help with extension. Pain: Pain Pain Level: 0 Pain Location: Knee - Left Post Treatment Pain Post Treatment Pain Level: No Change Post Treatment Pain Location: Knee - Left OBJECTIVE MEASURES WITH LEVEL OF FUNCTION: LE AROM L Knee Extension: -3 Degrees TREATMENT: Therapeutic Exercise: 1: SciFit seat 14 x5 min (subjective taken) 2: Quad sets 3x10, 5 sec holds 3: LLLD extension stretch 5# x5 min 4: LAQ 2x12 5: SL hip abduction 3x10 6: Clamshells 3x20 7: Step ups on blue step forward 2x10 L 8: Step downs on blue step 2x10 L 9: lateral step ups on blue step 2x10 L Skilled Intervention: Patient was educated in proper exercise technique and purpose for exercises. Skilled judgment was provided in selection of appropriate interventions. Correct performance of therapeutic exercises was facilitated with verbal and visual cuing. Billing Therapeutic Exercise Treatment Minutes: 43 Total Treatment Time Minutes (timed/untimed): 43 Maeve Gallegos, JORGE Ash, PT [facility] 10-18-2022 Note HNO ID: [id number] Author: Jj Avila PT Service: ? Author Type: Physical Therapist Type: Progress Notes Filed: 10/18/2022 1:33 PM Note Text: Episode Visit Count: 7 Therapist That Will Accept/Oversee The Plan Of Care: Jj Avila Start of Care Date: 09/27/22 Onset Date: 09/01/22 Plan of Care Certification Date: 09/27/22 Next Certification Due Date: 12/26/22 REHABILITATION AND SPORTS THERAPY PHYSICAL THERAPY TREATMENT NOTE ASSESSMENT: Brendan Flores tolerated the session with fatigue and no issues. He demonstrated improvements in left quad tightness with foam roller STM today, which also improved his knee ROM. The patient will continue to benefit from ongoing skilled physical therapy to progress toward set goals and to continue with post-operative protocol . PLAN FOR NEXT VISIT: Continue with step ups, hip strengthening, maybe mini squats at // bars. Keep up with STM SUBJECTIVE: Patient Reason for Visit: Pt doing well today, walks in with a cane and a slight limp. Notes he doesn't use the cane inside his home, just out and about right now. Pain: Pain Pain Level: 0 Pain Location: Knee - Left OBJECTIVE MEASURES WITH LEVEL OF FUNCTION: LE AROM L Knee Extension: -4 Degrees L Knee Flexion: 105 Degrees TREATMENT: Therapeutic Exercise: 1: SciFit seat 14 x5 min 2: Quad sets 3x10, 5 sec holds 3: LLLD extension stretch 5# x5 min 4: SLR x20 (pt states easy, progressed) 5: *SL hip abduction 3x10 6: *Clamshells 3x20 Skilled Intervention: Patient was educated in proper exercise technique and purpose for exercises. Skilled judgment was provided in selection of appropriate interventions. Provided written instruction for home exercise program to facilitate proper performance and compliance. Correct performance of therapeutic exercises was facilitated with verbal, visual, and tactile cuing. Manual Therapy: 1: STM with foam roller to L quads with push to tolerance Skilled Intervention: Manual skills to improve joint mobility, ROM, and decrease pain. Utilized anatomy knowledge of the therapist, and assessment of patient's response to intervention. Billing Therapeutic Exercise Treatment Minutes: 34 Manual TherapyTreatment Minutes: 6 Total Treatment Time Minutes (timed/untimed): 40 Jj Avila, PT [facility] 10-18-2022 History of Present illness Narrative Episode Visit Count: 7 Therapist That Will Accept/Oversee The Plan Of Care: Jj Avila Start of Care Date: 09/27/22 Onset Date: 09/01/22 Plan of Care Certification Date: 09/27/22 Next Certification Due Date: 12/26/22 REHABILITATION AND SPORTS THERAPY PHYSICAL THERAPY TREATMENT NOTE ASSESSMENT: Brnedan Flores tolerated the session with fatigue and no issues. He demonstrated improvements in left quad tightness with foam roller STM today, which also improved his knee ROM. The patient will continue to benefit from ongoing skilled physical therapy to progress toward set goals and to continue with post-operative protocol . PLAN FOR NEXT VISIT: Continue with step ups, hip strengthening, maybe mini squats at // bars. Keep up with STM SUBJECTIVE: Patient Reason for Visit: Pt doing well today, walks in with a cane and a slight limp. Notes he doesn't use the cane inside his home, just out and about right now. Pain: Pain Pain Level: 0 Pain Location: Knee - Left OBJECTIVE MEASURES WITH LEVEL OF FUNCTION: LE AROM L Knee Extension: -4 Degrees L Knee Flexion: 105 Degrees TREATMENT: Therapeutic Exercise: 1: SciFit seat 14 x5 min 2: Quad sets 3x10, 5 sec holds 3: LLLD extension stretch 5# x5 min 4: SLR x20 (pt states easy, progressed) 5: *SL hip abduction 3x10 6: *Clamshells 3x20 Skilled Intervention: Patient was educated in proper exercise technique and purpose for exercises. Skilled judgment was provided in selection of appropriate interventions. Provided written instruction for home exercise program to facilitate proper performance and compliance. Correct performance of therapeutic exercises was facilitated with verbal, visual, and tactile cuing. Manual Therapy: 1: STM with foam roller to L quads with push to tolerance Skilled Intervention: Manual skills to improve joint mobility, ROM, and decrease pain. Utilized anatomy knowledge of the therapist, and assessment of patient's response to intervention. Billing Therapeutic Exercise Treatment Minutes: 34 Manual TherapyTreatment Minutes: 6 Total Treatment Time Minutes (timed/untimed): 40 Jj Avila PT documented in this encounter [facility] 10-16-2022 Note HNO ID: [id number] Author: Jj Avila PT Service: ? Author Type: Physical Therapist Type: Progress Notes Filed: 10/16/2022 3:13 PM Note Text: Episode Visit Count: 6 Therapist That Will Accept/Oversee The Plan Of Care: Jj Avila Start of Care Date: 09/27/22 Onset Date: 09/01/22 Plan of Care Certification Date: 09/27/22 Next Certification Due Date: 12/26/22 Patient Identified by Name and Date of : Yes REHABILITATION AND SPORTS THERAPY PHYSICAL THERAPY TREATMENT NOTE ASSESSMENT: Brendan Flores tolerated the session with fatigue and expected muscle soreness. He demonstrated improvements in L knee AROM. The patient will continue to benefit from ongoing skilled physical therapy to progress toward set goals. PLAN FOR NEXT VISIT: continue to progress extension, pissibly try standing exercise at next visit SUBJECTIVE: Patient Reason for Visit: Pt reports that he is no longer using his walker. Uses the cane mostly out in [facility] community, not using the cane at home. Pain: Pain Pain Level: 0 Pain Location: Knee - Left Post Treatment Pain Post Treatment Pain Level: 0 Post Treatment Pain Location: Knee - Left OBJECTIVE MEASURES WITH LEVEL OF FUNCTION: LE AROM L Knee Extension: -5 Degrees L Knee Flexion: 108 Degrees TREATMENT: Therapeutic Exercise: 1: SciFit seat 14 x5 min (subjective taken) 2: Prone hang x 4 minutes with 3# 3: Quad sets 1x10 4: Heel slides 1x12 5: Standing calf raises x10 6: Standing TKE 2x10 LLE 7: Step ups on blue step x 10 LLE (Verabl and visual cueing to allow knee ot go through entire motion when steppin up versus having retro lean and using hip and back to propel himself forward onto step.) 8: Seated hamstring curls with OTB 2x10 Skilled Intervention: Patient was educated in proper exercise technique and purpose for exercises. Skilled judgment was provided in selection of appropriate interventions. Correct performance of therapeutic exercises was facilitated with verbal and visual cuing. Billing Therapeutic Exercise Treatment Minutes: 43 Total Treatment Time Minutes (timed/untimed): 43 Maeve El, OFFICE MACHINE REPAIR [employer]OP SUPERVISOR Jj Austin, PT [facility] 10-16-2022 History of Present illness Narrative Episode Visit Count: 6 Therapist That Will Accept/Oversee The Plan Of Care: Jj Avila Start of Care Date: 09/27/22 Onset Date: 09/01/22 Plan of Care Certification Date: 09/27/22 Next Certification Due Date: 12/26/22 Patient Identified by Name and Date of : Yes REHABILITATION AND SPORTS THERAPY PHYSICAL THERAPY TREATMENT NOTE ASSESSMENT: Brendan Flores tolerated the session with fatigue and expected muscle soreness. He demonstrated improvements in L knee AROM. The patient will continue to benefit from ongoing skilled physical therapy to progress toward set goals. PLAN FOR NEXT VISIT: continue to progress extension, pissibly try standing exercise at next visit SUBJECTIVE: Patient Reason for Visit: Pt reports that he is no longer using his walker. Uses the cane mostly out in [facility], not using the cane at home. Pain: Pain Pain Level: 0 Pain Location: Knee - Left Post Treatment Pain Post Treatment Pain Level: 0 Post Treatment Pain Location: Knee - Left OBJECTIVE MEASURES WITH LEVEL OF FUNCTION: LE AROM L Knee Extension: -5 Degrees L Knee Flexion: 108 Degrees TREATMENT: Therapeutic Exercise: 1: SciFit seat 14 x5 min (subjective taken) 2: Prone hang x 4 minutes with 3# 3: Quad sets 1x10 4: Heel slides 1x12 5: Standing calf raises x10 6: Standing TKE 2x10 LLE 7: Step ups on blue step x 10 LLE (Verabl and visual cueing to allow knee ot go through entire motion when steppin up versus having retro lean and using hip and back to propel himself forward onto step.) 8: Seated hamstring curls with OTB 2x10 Skilled Intervention: Patient was educated in proper exercise technique and purpose for exercises. Skilled judgment was provided in selection of appropriate interventions. Correct performance of therapeutic exercises was facilitated with verbal and visual cuing. Billing Therapeutic Exercise Treatment Minutes: 43 Total Treatment Time Minutes (timed/untimed): 43 JORGE De Leon PT documented in this encounter [facility] 10-09-2022 History of Present illness Narrative Episode Visit Count: 5 Therapist That Will Accept/Oversee The Plan Of Care: Jj Avila Start of Care Date: 09/27/22 Onset Date: 09/01/22 Plan of Care Certification Date: 09/27/22 Next Certification Due Date: 12/26/22 Patient Identified by Name and Date of : Yes REHABILITATION AND SPORTS THERAPY PHYSICAL THERAPY TREATMENT NOTE ASSESSMENT: Brendan Flores tolerated the session with expected muscle soreness. He demonstrated difficulty with L knee extension. The patient will continue to benefit from ongoing skilled physical therapy to progress toward set goals. PLAN FOR NEXT VISIT: continue to progress extension, pissibly try standing exercise at next visit SUBJECTIVE: Patient Reason for Visit: Pt reports sitting down on the sabianist pew and put all of his weight on the L leg and he felt alot of pain. pt reports his knee is feeling better today. Pt would like to transistion away from using the walker. He had been advised that he could go without any device but would feel more comfortable with a cane. Pain: Pain Pain Level: 0 Pain Location: Knee - Left Post Treatment Pain Post Treatment Pain Level: 0 Post Treatment Pain Location: Knee - Left OBJECTIVE MEASURES WITH LEVEL OF FUNCTION: LE AROM L Knee Extension: -7 Degrees (after prone hang, LLLD with weight, and facilitating at quad muscle belly) L Knee Flexion: 105 Degrees TREATMENT: Therapeutic Exercise: 1: SciFit seat 14 x5 min (performed today to try to improve knee ROM) 2: *Prone hang x 3 minutes without weight 3: Supine with heel prop 5# x 5 minutes 4: Quad sets 3x10 (with tactile and verbal cueing to push therapist hand into table and tapping at muscle belly of quads to help initiate activation.) 5: Overpressure to L knee to facilitate extension x5 with 10 second holds 6: Heel slides x 10 with strap, x 5 AROM 7: LAQ x15 L Skilled Intervention: Patient was educated in proper exercise technique and purpose for exercises. Skilled judgment was provided in selection of appropriate interventions. Correct performance of therapeutic exercises was facilitated with verbal, visual, and tactile cuing. Gait Trainin: Gait training with cane with CGA at gait belt x 200 ft. Emphasis on increased heel strike on LLE. (Minimal imp noted due to limited knee extension.) Skilled Intervention: Patient was provided contact guard assistance during pre-gait/gait training to prevent falls and insure safety. Gait belt utilized during session for safety. Billing Therapeutic Exercise Treatment Minutes: 32 Gait Training Treatment Minutes: 8 Total Treatment Time Minutes (timed/untimed): 40 JORGE De Leon PT documented in this encounter [facility] 10-05-2022 History of Present illness Narrative Episode Visit Count: 4 Therapist That Will Accept/Oversee The Plan Of Care: Jj Avila Start of Care Date: 09/27/22 Onset Date: 09/01/22 Plan of Care Certification Date: 09/27/22 Next Certification Due Date: 12/26/22 Patient Identified by Name and Date of : Yes REHABILITATION AND SPORTS THERAPY PHYSICAL THERAPY TREATMENT NOTE ASSESSMENT: Brendan Flores tolerated the session with fatigue and expected muscle soreness. He demonstrated difficulty with knee extension. The patient will continue to benefit from ongoing skilled physical therapy to progress toward set goals. PLAN FOR NEXT VISIT: try prone hang to facilitate knee extension SUBJECTIVE: Patient Reason for Visit: Pt still frustrated that he can't just stand up from a chair. Pt used rolling pin in thigh and that seemed to help with the knot and soreness. Pain: Pain Pain Level: 0 Pain Location: Knee - Left Post Treatment Pain Post Treatment Pain Level: 0 Post Treatment Pain Location: Knee - Left OBJECTIVE MEASURES WITH LEVEL OF FUNCTION: LE AROM L Knee Extension: -10 Degrees L Knee Flexion: 104 Degrees (108 with strap) TREATMENT: Therapeutic Exercise: 1: SciFit seat 14 x5 min (performed today to try to improve knee ROM) 2: Heel slides x10 without and x10 with strap. 5 sec holds 3: Quad sets 3x10, 5 sec holds 4: LLLD knee extension stretch 5# x5 min 5: LAQ 2x10 L 6: STS x10 without use of UE 7: Overpressure to L knee to facilitate extension x5 with 10 second holds Skilled Intervention: Patient was educated in proper exercise technique and purpose for exercises. Skilled judgment was provided in selection of appropriate interventions. Correct performance of therapeutic exercises was facilitated with verbal, visual, and tactile cuing. Billing Therapeutic Exercise Treatment Minutes: 43 Total Treatment Time Minutes (timed/untimed): 43 Maeve Gallegos, JORGE Avila PT documented in this encounter [facility] 10-03-2022 History of Present illness Narrative Episode Visit Count: 3 Therapist That Will Accept/Oversee The Plan Of Care: Jj Avila Start of Care Date: 09/27/22 Onset Date: 09/01/22 Plan of Care Certification Date: 09/27/22 Next Certification Due Date: 12/26/22 REHABILITATION AND SPORTS THERAPY PHYSICAL THERAPY TREATMENT NOTE ASSESSMENT: Brendan Flores tolerated the session with fatigue and no issues. He demonstrated improvements in STS, as he was able to perform 6 reps without upper extremity assistance today. The patient will continue to benefit from ongoing skilled physical therapy to progress toward set goals. PLAN FOR NEXT VISIT: Continue exercise progression. May continue practicing ambulation in // bars without walker, around gym once he feels confident SUBJECTIVE: Patient Reason for Visit: Knee still doing well, has some quad soreness, but no actual knee pain. HEP going well, feels he's making progress with his bending ROM Pain: Pain Pain Level: 2 Pain Location: Thigh - Left Description: Sore Frequency: Intermittent OBJECTIVE MEASURES WITH LEVEL OF FUNCTION: LE AROM L Knee Extension: -10 Degrees (-8 after LLLD) L Knee Flexion: 101 Degrees (104 with strap) TREATMENT: Therapeutic Exercise: 1: SciFit seat 14 x5 min (performed today to try to improve knee ROM) 2: Heel slides x10 without and x10 with strap. 5 sec holds 3: Quad sets 3x10, 5 sec holds 4: LLLD knee extension stretch 5# x5 min 5: SLR 1x10, 1x20 (easy, progressed) 6: STS x10 (min-mod use of hands) 7: *STS x6 (no use of hands, crossed arms; HEP pt told to perform to failure or 10 repetitions.) Skilled Intervention: Patient was educated in proper exercise technique and purpose for exercises. Skilled judgment was provided in selection of appropriate interventions. Provided written instruction for home exercise program to facilitate proper performance and compliance. Correct performance of therapeutic exercises was facilitated with verbal, visual, and tactile cuing. Gait Trainin: No AD ambulation in // bars with cuing for proper sequence, no limp, and upright trunk. Discussed how to safely practice at home in his kitching with counter on one side and island on the other Skilled Intervention: Patient was provided stand by assist during pre-gait/gait training to prevent falls and insure safety. Facilitated proper gait cycle with the use of verbal, visual cues for correction of gait deviations identified in the objective section above. Billing Therapeutic Exercise Treatment Minutes: 35 Gait Training Treatment Minutes: 6 Total Treatment Time Minutes (timed/untimed): 41 Jj Avila PT documented in this encounter [facility] 09-29-2022 History of Present illness Narrative Episode Visit Count: 2 Therapist That Will Accept/Oversee The Plan Of Care: Jj Avila Start of Care Date: 09/27/22 Onset Date: 09/01/22 Plan of Care Certification Date: 09/27/22 Next Certification Due Date: 12/26/22 Patient Identified by Name and Date of : Yes REHABILITATION AND SPORTS THERAPY PHYSICAL THERAPY TREATMENT NOTE ASSESSMENT: Brendan Flores tolerated the session with fatigue. He demonstrated improvements in ROM of L knee. The patient will continue to benefit from ongoing skilled physical therapy to progress toward set goals. PLAN FOR NEXT VISIT: May add in step ups. continue with L knee ROM SUBJECTIVE: Patient Reason for Visit: Pt reports that he has no pain in his knee, just soreness in his L quad muscles. Pt reports completing seated extension with weight 4 times a day for 5 minute durations. Pain: Pain Pain Level: 0 Pain Location: Knee - Left Post Treatment Pain Post Treatment Pain Level: No Change OBJECTIVE MEASURES WITH LEVEL OF FUNCTION: LE AROM L Knee Extension: -10 Degrees L Knee Flexion: 98 Degrees TREATMENT: Therapeutic Exercise: 1: SciFit seat 12 x5 min (subjective taken and HEP discussed) 2: heel slides x10 with strap 3: quad sets 3x10 4: SLR 3x10 5: SAQ 2x10 6: Seated heel slides 1x10 (for functional use while at gathering this weekend) 7: Quad sets sitting x10 8: Seated hamstring stretch 3x30 seconds L Skilled Intervention: Patient was educated in proper exercise technique and purpose for exercises. Skilled judgment was provided in selection of appropriate interventions. Correct performance of therapeutic exercises was facilitated with verbal and visual cuing. [facility] Management: 1: *Discussed use of Vitamin E oil or lotion once incision is healed. 2: *Discussed exercises for long car ride pt has this wekeend and tips to keep knee from stiffening up. Skilled Intervention: Skilled judgment in the selection of proper modification for activity of daily living/home management based on clinical presentation, deficits, and needs. Activity progression based on professional judgement. Billing Therapeutic Exercise Treatment Minutes: 40 Self-Care/Home Management Treatment Minutes: 10 Total Treatment Time Minutes (timed/untimed): 50 JORGE De Leon PT documented in this encounter [facility] 09-28-2022 History of Present illness Narrative Episode Visit Count: 1 Therapist That Will Accept/Oversee The Plan Of Care: Jj Avila Start of Care Date: 09/27/22 Onset Date: 09/01/22 Plan of Care Certification Date: 09/27/22 Next Certification Due Date: 12/26/22 Patient Identified by Name and Date of : Yes REHABILITATION AND SPORTS THERAPY PHYSICAL THERAPY EVALUATION PLAN OF CARE: Assessment: Brendan Flores presents with diagnosis of L TKA that interferes with rising from a chair;walking;stair negotiation;bending;heavy exertion . He presents with impairments in ADL's, gait, overall function, range of motion, and strength. Prognosis for therapy is Excellent due to: current objective clinical presentation;good overall health status;acuteness of condition;within-session changes;good support system/ coping skills . He will benefit from skilled therapy services to meet the goals established for this plan of care as noted below. Goals for Episode of Care: created on 09/27/22 through 12/26/22 [place] in home exercise program. Patient will decrease pain rating by 2 points to meet minimal clinical important difference for numeric pain rating scale. Patient will increase active ROM of L knee to 0-110 degrees to allow pt to to improve postural alignment, to improve performance of ADLs, and to decrease falls risks . Patient will demonstrate increase in LLE strength to 4+ to 5/5 during manual muscle testing in order to improve function for basic self-care tasks, home management tasks, leisure / recreation skills, light functional tasks, moderate to heavy functional tasks, and prior functional tasks. Perform standing, walking, and ADLs with decreased report of symptoms/pain in 6-8 weeks. Perform self care without pain. Patient will Improve Timed Up and Go to 11 seconds to demonstrate decreased risk of falling. Normal gait. Reciprocal stair negotiation. Planned Interventions, Frequency, and Duration: Current Frequency: 2x/week Duration: 12 weeks Total Number of Visits Planned: 20 Planned Treatment Interventions: Therapeutic exercise (06281);Neuromuscular re-education (26624);Manual therapy (77397);Therapeutic activities (20134);Self-fci management (10458);Gait Training ([id number]);Patient/Family/Caregiver Education;Body Mechanics Training PLAN FOR NEXT VISIT: May add in step ups Patient demonstrates good understanding of plan of care and treatment. The above goals and plan of care were discussed and agreed upon by patient/family. SUBJECTIVE: Brendan Flores is a 82 year old male seen today for TKA 09/01. Had the right one done 24 years ago without issue, been doing great since. Was using a cane prior to replacement. Currently using walker. Feels more pain in the quad mm than the knee itself. Wants to get back to walking his property and caring for it. Functional Limitations: rising from a chair;walking;stair negotiation;bending;heavy exertion Prior Level of Function: Independent without limitations Intake Information: Prescription present Pain: Pain Pain Level: 4 Pain Location: Knee - Left Description: Sore Frequency: Continuous Post Treatment Pain Post Treatment Pain Level: No Change PROMIS Scales T-scores: mean of general population = 50. 5 points is clinically meaningfully difference Percentiles provide an indication of how the patient's score ranks in relation to the general population. Higher percentile rankings indicate better function/quality of life. 50th percentile is the average of the general population and indicates half of respondents had a worse score. T-scores: mean of general population = 50. 5 points is clinically meaningfully difference Percentiles provide an indication of how the patient's score ranks in relation to the general population. Higher percentile rankings indicate better function/quality of life. 50th percentile is the average of the general population and indicates half of respondents had a worse score. OBJECTIVE MEASURES WITH LEVEL OF FUNCTION: LE AROM R Knee Extension: 0 Degrees R Knee Flexion: 110 Degrees L Knee Extension: -15 Degrees L Knee Flexion: 95 Degrees LE Strength R LE Strength: 5/5 L LE Strength: 3+ to 4-/5 Lower Extremity Dynamometer Testing : Yes Dynamometer Strength Right Quadriceps Strength (lbs): 57.1 Left Quadriceps Strength (lbs): 26.6 Quad Strength Limb Symmetry Index (%): 46.58 Right Hamstring Strength (lbs): 40.6 Left Hamstring Strength (lbs): 36.6 Hamstring Strength Limb Symmetry Index(%): 90.15 Functional Performance Test Results 30 Second Chair Stand Test: 5 reps (with use of arms) Timed Up and Go (sec): 16 sec Education: Education Learning/educational needs: Home exercise program;Plan of Care;Changes in Plan of Care;Posture;Gait Training;Body Mechanics TREATMENT: PT Treatment Interventions: Therapeutic Exercise;[facility] Management Evaluation Therapeutic Exercise: 1: *Heel slides 3x10, 5 sec holds 2: *Quad sets 3x10, 5 sec holds 3: *LLLD knee extension stretch x2 min, 5# weight (educated on 2-5 min at home) 4: *SLR 3x20 5: *SL hip abduction 3x20 6: *STS 3x10 7: SciFit seat 12 x5 min (educated on purpose and progression of exercise. Used to promote knee flexion today) Skilled Intervention: Patient was educated in proper exercise technique and purpose for exercises. Skilled judgment was provided in selection of appropriate interventions. Provided written instruction for home exercise program to facilitate proper performance and compliance. Correct performance of therapeutic exercises was facilitated with verbal, visual, and tactile cuing. [facility] Management: 1: Discussed contraindications and precautions due to TKA. Discussed home set up and safety. Skilled Intervention: Skilled judgment in the selection of proper modification for activity of daily living/home management based on clinical presentation, deficits, and needs. Reviewed patient specific diagnosis in relation to activities of daily living/home management. Activity progression based on professional judgement. Billing * Evaluation Low Complexity: 1 Unit Therapeutic Exercise Treatment Minutes: 30 Self-Care/Home Management Treatment Minutes: 10 Total Treatment Time Minutes (timed/untimed): 60 Jj Avila PT documented in this encounter [facility] 09-27-2022 History of Present illness Narrative POPULATION HEALTH NAVIGATION OUTREACH Action/FYI Spoke to Brendan, Patient declined ANNUAL MEDICARE WELLNESS EXAM FECAL OCCULT BLOOD due on 02/07/2020 ADVANCE DIRECTIVE DISCUSSION Never done Pt identified by name and : NO Outreach Outcome/Action Spoke to patient or caregiver: Patient declined Did you use a PCP flex slot to schedule this appointment? N/A Reason for Outreach Care Gap or Scheduling/Wellness visits Payer: Payor: [facility] Share0 AND [employer] [facility] / Plan: [employer] HMO / Product Type: HMO / Care Gap Reviewed:: Annual Wellness visit Colorectal Cancer Screening Reminder: Reminder note to check Health Maintenance for items below Health Maintenance items due: FECAL OCCULT BLOOD due on 02/07/2020 DIABETIC FOOT EXAM due on 08/13/2020 COVID-19 VACCINE(3 - Booster for Moderna series) due on 02/25/2021 ADVANCE DIRECTIVE DISCUSSION Never done LDL CHOLESTEROL due on 09/01/2022 Message Sent to Practice: No Navigation Signature: Jeannette Rodrigues MA September 27, 2022 8:15 AM documented in this encounter [facility] 09-26-2022 History of Present illness Narrative ASSESSMENT/PLAN: 1. Type 2 diabetes mellitus without complication, with long-term current use of insulin (HCC) - ICD9: 250.00, V58.67, ICD10: E11.9, Z79.4 On insulin now Hemoglobin A1C (%) Date Value 08/04/2022 7.3 05/24/2022 8.4 09/01/2021 7.9 05/13/2021 7.7 03/30/2020 7.9 02/04/2019 7.0 09/17/2018 6.6 Hemoglobin A1C (POCT) (%) Date Value 08/09/2020 8.1 Pt told to improve control 2. Pseudophakia, both eyes - ICD9: V43.1, ICD10: Z96.1 restor Both eyes Opened pc Right eye 3. PVD (posterior vitreous detachment), both eyes - ICD9: 379.21, ICD10: H43.813 old otc 1.50 prn for reading Pt ok with distance Visual acuity 1 year Complete I have confirmed and edited as necessary the relevant ophthalmic history, ROS, and the neuro exam findings as obtained by others. I have seen and examined Brendan Flores. I have discussed the case and the management of this patient's care with the Resident/Fellow, if applicable. I also have reviewed and agree with the assessment and plan as stated above and agree with all of its relevant components. Zak Diaz M.D. September 26, 2022 2:28 PM documented in this encounter [facility] 09-11-2022 History of Present illness Narrative Images from the original note were not included. Ortho Knee Follow Up Note Narrative Referring Provider: Rodger Elena [address] [facility] [address] PCP: Ab Dunham MD IMPRESSION/PLAN: 82 year old s/p Left Total Knee Replacement completed on 09/01/2022. Orthopaedic Surgeries 09/01/2022 (1w, 3d) ROBOTIC ASSISTED TOTAL KNEE ARTHROPLASTY; COMPUTER ASSIST MUSCULOSKETAL SURG NAVIGATION ORTHO PROCED W/IMAGE GUIDANCE BASED ON CT/MRI IMAGES (Left; Left) Rodger Elena MD - Posted PAIN EVALUATION 09/11/2022 1021 Pain Level: 6 Pain Location: Knee-Left Description: Dull;Aching Duration Amount of Time: -- postop Frequency: Continuous Intervention/Comfort measure: Medication IMPRESSION: At normal post-operative stage of recovery. PLAN: Continue current conservative treatment. Patient Reassurance: Progress appears to be with the normal speed of recovery. Patient reassured and supported. All questions answered. 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 Post-operative recovery was complicated by uneventful/none. Readmission(s) since surgery (90 days post)? No ED Visits & Hospitalizations - Last 180 days 09/01/22 Rodger Elena MD, ME2E History of total right knee replacement ..., Admission (Discharged) Patient rates their condition as improving. Does the patient still experience pain? Onset: activity. Location: Left knee. Frequency: intermittently. Pain scale: 6. Pain character: ache. Relieving factors: Rest, Ice, and Walker. Aggravating factors: Increased activity Post Op discharge patient location: in home. Functional Assessment is as follows: is ready to begin outpatient PT. Functional difficulties: Interferes with sleep. Pain Medication: Narcotic Current Opioids Analgesic Opioid Agonists Start End oxyCODONE IR (ROXICODONE) 5 mg immediate release tablet 09/02/2022 Sig - Route: Take 1 tablet by mouth every 6 hours as needed for pain. for pain. - ORAL Earliest Fill Date: 09/02/2022 Currently Ambulating with: a walker EXAM: POST OP KNEE Left Post-Operative Knee Ambulates with a: shuffling gait. SKIN: Appropriate postop appearance and No evidence of erythema, warmth, discharge or drainage. Range of motion is 10 degrees in extension and 100 degrees of flexion. Extension La degrees Pain with ROM:No There is Mild effusion. Mal-alignment: No Tender to the palpation of None Neurovascular Status: Sensation Intact, Moves foot and ankle up & down, and 2+ dorsalis pedis Stability:Anterior/Posterior- Yes, stable and Varus/Valgus- Yes, stable Quad strength: improving Imagin. Implants are well aligned. Provider: Rosio Lechuga PA-C Completed by: Rosio Lechuga PA-C Patient presents with: Left Knee - Established Patient, Post Op AMB ROOMING INTAKE FLOWSHEET DATA Pain Pain Level: 6 Pain Location: Knee-Left Description: Dull, Aching Duration Amount of Time: (postop) Frequency: Continuous Intervention/Comfort measure: Medication Patient is here today for 1 week 3 days postop left knee robotic TKA - RUPERT. Patient states he is doing well. Walking with assistance of walker. Taking tylenol for pain along with icing and elevating. Patient c/o dull ache, nothing more. Xray 09/08/22. documented in this encounter [facility] 09-02-2022 Note HNO ID: [id number] Author: Paula Wiseman RN Service: Care Management Author Type: Registered Nurse Type: Care Mgt Progress Note Filed: 09/02/2022 1:07 PM Note Text: CARE MANAGEMENT DISCHARGE NOTE SERVICE DATE: 09/02/2022 SERVICE TIME: 1:03 PM LOS: 0 days Admission Date: 09/01/2022 DISCHARGE ARRANGEMENT (list agency and phone number) Discharge Arrangement: Home with Home Health [place] [facility] [place] [facility] CAREGIVER ASSESSMENT: Caregiver is ready, willing and able to meet the patient's needs as recommended by the inter-professional team:: Yes HANDOFF COMMUNICATION: Handoff to: Primary Care Physician Primary Care Physician Name/Phone: Luis Dunham MD, Rodger Elena MD TRANSPORTATION ARRANGEMENTS: Transportation Arrangements: Car ADDITIONAL CONTACT RESOURCES: Pt. unsure D/C Home vs SNF. Pts. son, Bruce will stay with Pt. at Home first week at Home. [facility] [phone] can do Home PT. TCC spoke with Jen Blind Hanger for [facility] and they will accept Pt. Sunday after his benefits are checked Discharge Information Row Name Admission (Current) from 09/01/[address] [facility] [place] [facility] Start of Care -- As Per Policy SIGNATURE: Paula Wiseman RN,BSN, ACM PATIENT NAME: Brendan Flores DATE: September 02, 2022 TIME: 1:03 PM PAGER/CONTACT #: [phone] [facility] 09-02-2022 Note HNO ID: [id number] Author: Roberth Victor MD Service: General Internal Medicine Author Type: Physician Type: Progress Notes Filed: 09/02/2022 9:46 AM Note Text: INPATIENT CONSULT PROGRESS NOTES Patient Name: Brendan Flores DATE of SERVICE: 09/02/22 TIME of SERVICE: 9:10 CONSULTING SERVICE: Medicine Plan of care discussed with: Provider, RN, Patient. INTERVAL HPI: uneventful night pain is fairly control Patient seen and examined: Discussed with RN. Vitals/Meds/Labs/U/O reviewed Alert AND Oriented NO nausea, vomiting NOlight headedness NOshortness of breathe Moist oral mucosa CVS - RRR Lungs - Clear to auscultation Abdomen - soft,NT, + BS LLE - Ankle No edema RLE - Ankle No edema MEDICATIONS: Current Facility-Administered Medications Medication Dose Route Frequency scopolamine - VERIFY patch OTHER q 8 H scopolamine - REMOVE PATCH OTHER ONCE SITagliptin 50 mg tablet (JANUVIA) 50 mg ORAL DAILY atorvastatin 20 mg tab(s) (LIPITOR) 20 mg ORAL AT BEDTIME lisinopril 40 mg tab(s) (ZESTRIL, PRINIVIL) 40 mg ORAL DAILY propranolol 20 mg tab(s) (INDERAL) 20 mg ORAL DAILY PRN propranolol ER 120 mg cap(s) (INDERAL LA) 120 mg ORAL DAILY amLODIPine 5 mg tab(s) (NORVASC) 5 mg ORAL DAILY morphine 2 mg injection 2 mg INTRAVENOUS q 2 H PRN acetaminophen 1,000 mg tab(s) (TYLENOL) 1,000 mg ORAL q 8 H ondansetron orally disintegrating 4 mg tab(s) (ZOFRAN ODT) 4 mg ORAL q 6 H PRN Or ondansetron (PF) 4 mg injection (ZOFRAN) 4 mg INTRAVENOUS q 6 H PRN magnesium hydroxide 400 mg/5 mL 30 mL (MOM) 30 mL ORAL DAILY PRN [START ON 09/03/2022] bisacodyl EC 10 mg tab(s) (DULCOLAX) 10 mg ORAL DAILY aluminum-magnesium hydroxide-simethicone 200-200-20 mg/5 mL 30 mL (MAALOX,MYLANTA,MAG-AL PLUS) 30 mL ORAL q 2 H PRN ascorbic acid (vitamin C) 500 mg tab(s) (VITAMIN C) 500 mg ORAL BID w MEALS docusate sodium 100 mg cap(s) (COLACE) 100 mg ORAL BID senna 17.2 mg tab(s) (SENOKOT) 17.2 mg ORAL AT BEDTIME aspirin, enteric coated 81 mg tab(s) 81 mg ORAL BID NaCl 0.9% iv flush bag 20 mL INTRAVENOUS PRN sodium chloride 0.9 % (flush) 3-5 mL (BD POSIFLUSH) 3-5 mL INTRAVENOUS q 12 H dextrose 40 % 15 g 15 g ORAL PRN Or glucagon 1 mg injection 1 mg INTRAMUSCULAR PRN Or dextrose 10% iv bolus 12.5 g INTRAVENOUS PRN insulin glargine 10 Units pen (long acting) (LANTUS SOLOSTAR, BASAGLAR KWIKPEN) 10 Units SUBCUTANEOUS AT BEDTIME lactated ringers iv infusion 75 mL/hr INTRAVENOUS CONTINUOUS oxyCODONE IR 5-10 mg tab(s) (ROXICODONE) 5-10 mg ORAL q 4 H PRN PHYSICAL EXAM: Patient Vitals for the past 24 hrs: BP Temp Temp src Pulse Resp SpO2 09/02/22 0733 149/75 36.7 ?C (98.1 ?F) Oral 86 18 96 % 09/02/22 0442 127/65 36.7 ?C (98.1 ?F) Oral 72 14 96 % 09/01/22 2325 134/55 36.5 ?C (97.7 ?F) Oral 69 14 96 % 09/01/222002 120/60 36.4 ?C (97.5 ?F) Oral 70 16 95 % 09/01/22 1643 118/58 36.4 ?C (97.5 ?F) Oral 61 18 94 % 09/01/22 1347 131/63 -- Oral (!) 59 16 100 % 09/01/22 1312 152/84 -- Oral 62 14 100 % 09/01/22 1311 143/71 -- -- 64 -- -- 09/01/22 1240 143/71 -- Oral 64 16 100 % 09/01/22 1226 -- 36.1 ?C (97 ?F) Temporal (!) 59 17 97 % 09/01/22 1215 132/62 -- -- 61 22 97 % 09/01/22 1200 122/62 -- -- (!) 58 13 98 % 09/01/22 1145 136/65 -- -- (!) 59 11 97 % 09/01/22 1130 117/56 -- -- (!) 53 10 96 % 09/01/22 1120 131/61 36 ?C (96.8 ?F) -- -- -- 97 % There is no height or weight on file to calculate BMI. DATA: CBC: Recent Labs 09/02/22 0445 WBC 7.22 RBC 3.38* HB 10.4* HCT 32.2* PLT 234 MCV 95.3 MCH 30.8 MPV 10.6 Coags: No results for input(s): PT, INR, APTT in the last 24 hours. CMP: Recent Labs 09/02/22444 NA 140 K 4.0 CHLOR 104 CO2 29 BUN 24 CREAT 1.35* GLUC 153* CA 8.9 ANION 7* ASSESSMENT AND PLAN: A. OA S/P - Total Knee Unilateral: left Continue PT/OT Discussed with PT DM type 2 continue lantus and Januvia HTN stable Gout continue Zyloprim HPL continue statin CKD avoid nephrotoxic drugs Discharge Med reviewed SIGNATURE: Roberth Victor MD [facility] 09-02-2022 Note HNO ID: [id number] Author: Panchito Gastelum MD Service: Orthopaedic Surgery Author Type: Physician Type: Progress Notes Filed: 09/02/2022 6:40 AM Note Text: ORTHOPAEDIC SURGERY PROGRESS NOTE PATIENT NAME: Brendan Flores A/P: This is a 82 year old year old male s/p Procedure(s) (LRB): ROBOTIC ASSISTED TOTAL KNEE ARTHROPLASTY (Left) on 09/01/2022 - Activity: WBAT LeftLE - Wound: Silver dressing x 7 days - Drain: NA - Antibiotics: Completing 24 hours of perioperative cefazolin then DC - Imaging: NA - Pain - PO and IV breakthrough - DVT prophylaxis - SCDs, Aspirin 81mg BID x 30days - HLIV when tolerating sufficient PO - Rouse: DC if still in * Discharge planning - Await PT recs --> SNF - Case Management --> appreciate assistance with discharge needs - Dispo: anticipate DC to SNF Plan of care discussed with: Provider, RN, Patient. S: Doing well, pain well controlled, denies n/v/cp/sob VITALS: 09/01/22 1643 09/01/22 2003 09/01/22 2325 09/02/22 0442 BP: 118/58 120/60 134/55 127/65 Pulse: 61 70 69 72 Resp: 18 16 14 14 Temp: 36.4 ?C (97.5 ?F) 36.4 ?C (97.5 ?F) 36.5 ?C (97.7 ?F) 36.7 ?C (98.1 ?F) TempSrc: Oral Oral Oral Oral SpO2: 94% 95% 96% 96% Intake/Output Summary (Last 24 hours) at 09/02/2022 0640 Last data filed at 09/02/2022 0613 Gross per 24 hour Intake 3882 ml Output 2227 ml Net 1655 ml Physical Exam: * Gen: awake, alert, converses appropriately, NAD * Resp: Unlabored on RA, no audible wheezing * LLE: - dressing c,d,i - 5/ PF, DF, EHL - SILT L4-S1 - 2+ PT pulse, toes wwp Labs: CBC: Recent Labs 09/02/22444 WBC 7.22 HB 10.4* HCT 32.2* PLT 234 MCV 95.3 RDWCV 13.0 COAG: No results for input(s): APTT, INR in the last 168 hours. BMP: Recent Labs 09/02/22444 GLUC 153* NA 140 K 4.0 CHLOR 104 CO2 29 ANION 7* BUN 24 CREAT 1.35* CHEM: Recent Labs 09/02/22444 CA 8.9 URINALYSIS:No results for input(s): PH, SPGR, UGLUC, UBILI, UKET, UHB, UPROT, UROBIL, UWBC, SSA in the last 168 hours. Invalid input(s): YARIEL Gastelum MD Orthopaedic Surgery Adult reconstruction fellow [phone] [id number] September 02, 2022 6:40 AM Please pardon any typos or grammatical errors as this note was dictated using voice recognition software. Page [phone] after 5pm AND on weekends If [facility] patient, please page [facility] call pager after hours and on weekends. [facility] 09-01-2022 Note HNO ID: [id number] Author: Rafy Powers MD Service: Anesthesiology Author Type: Anesthesiologist Type: Anesthesia Procedure Notes Filed: 09/01/2022 11:17 AM Note Text: ANESTHESIOLOGY PROCEDURE NOTE Peripheral Nerve Block General Information Procedure Start Time/Medication Administration: 09/01/2022 8:10 AM Procedure End time: 09/01/2022 8:13 AM Patient location during procedure: pre-op Timeout Performed Pre-procedure: timeout performed Consent Obtained: Yes Patient identity confirmed: arm band Reason for block: post-op pain management/at surgeon's request Staffing Anesthesiologist: Rafy Powers MD Performed by: anesthesiologist Preparation Sterility Preparation: hand hygiene performed prior to procedure, sterile gloves, drapes, and procedure tray, surgical cap used, mask used, sterile drape used during line insertion, skin prep agent completely dried prior to procedure Site Prep: Chloraprep Pre-Procedure Neuro Exam Location: LLE Sensory: intact Motor: intact Procedure Details Patient Position: supine Monitoring: Pulse OX, EKG and NIBP Block Type Lower Extremity: distal femoral (adductor canal) Laterality: left Injection Technique: single-shot Ultrasound Guided: Yes Image in Chart: yes Local Infiltration: Yes Needle Needle Gauge: 21 G Needle Length: 83 mm Needle Localization: ultrasound Assessment Injection assessment: negative aspiration, no paresthesia on injection, incremental injection and local visualized surrounding nerve on ultrasound Post-Procedure Neuro Exam Expected Regional Anesthesia: Yes Medications Administered ropivacaine (PF) 5 mg/mL (0.5 %) injection (NAROPIN) - peripheral nerve block, Thigh, Left 20 mL - 09/01/2022 8:10:00 AM SIGNATURE: Rafy Powers MD PATIENT NAME: Brendan Flores DATE: September 01, 2022 TIME: 11:15 AM CSN: [id number] [facility] 08-29-2022 Miscellaneous Notes Called and spoke with patient informing him he would receive ice machine during hospital stay. Patient expressed understanding. The ice man machine is given to the patient by the hospital just after his surgery. He will use it during his stay and then he can take it home. Pt. calling in. States he was told by Dr. Elena that he would qualify for an ice machine for his knee post op through Medicare. Pt is scheduled to have surgery this Sep.01 and would like to have the ice machine ready to use when he gets home from surgery. Is this something that he needs a rx for and he can pickler helper at a supply store? Please advise. Columba Nye RN documented in this encounter [facility] 08-09-2022 Miscellaneous Notes TOTAL JOINT COMPLETE CARE PROGRAM PRE-OPERATIVE TEACHING Service Date: 08/09/2022 Service Time: 10:49 AM Date of : 1940 Gender: male Date of Surgery: 08/30/22 Procedure: Left Total Knee Replacement Complete Care Program was discussed with the patient: Bench Inspector Identification: Patient identified a daycare director to help when discharged to home: Home Environment: Home Layout: 2 story, Entry Steps: 2, with rail, Bedroom Location: 1st floor, Bathroom Location: 1st floor, and walk in shower. Pt owns walkers, raised toilet seat, shower chair. Discussed with patient importance of attending joint education class and provided date and times of class: YES paper copy had TKA 25 years ago Patient received Joint Education Binder: Yes Patient plans discharge home with [facility]. SIGNATURE: ADÁN Pierre PATIENT NAME: Brendan Flores DATE: August 09, 2022 TIME: 10:43 AM documented in this encounter [facility] 08-09-2022 Miscellaneous Notes Received EKGs from [facility] medical records. Copy made for Karlene Limon CNP and original sent to casting operator to scan. Nicole Sarmiento LPN Fax sent to [facility] medical records requesting patients EKG on 11/30/21. Nicole Sarmiento LPN documented in this encounter [facility] 08-09-2022 History and physical note HISTORY AND PHYSICAL EXAMINATION SERVICE DATE: 08/09/2022 SERVICE TIME: 8:20 AM PRIMARY CARE PHYSICIAN: Ab Dunham MD REASON FOR VISIT: Brendan Flores is a 82 year old male who is scheduled for Procedure(s): ROBOTIC ASSISTED TOTAL KNEE ARTHROPLASTY (Left) at the request of Dr. Rodger Elena for consultation. My final recommendation will be communicated back to the requesting physician by way of shared medical record or letter. Subjective The patient has the following: ACTIVE PROBLEM LIST Essential Hypertension Mixed Hyperlipidemia Drug-Induced Erectile Dysfunction Essential and Other Specified Forms of Tremor Benign Essential Tremor Gout Pvd (Posterior Vitreous Detachment), Right Eye Pseudophakia, Both Eyes Type 2 Diabetes Mellitus Without Complication, With Long-Term Current Use of Insulin (Hcc) Pvd (Posterior Vitreous Detachment), Both Eyes Ckd (Chronic Kidney Disease) History of Total Replacement of Both Hip Joints History of Total Right Knee Replacement COVID-19 Immunization Status Overdue - COVID-19 VACCINE (3 - Booster for Moderna series) Overdue since 02/25/2021 12/31/2020 Imm Admin: COVID-19 vaccine, full dose (MODERNA) 12/03/2020 Imm Admin: COVID-19 vaccine, full dose (MODERNA) CHIEF COMPLAINT: Pre-op exam HPI: LAZ is a 82 yo seen for PAC due to scheduled above surgery because of OA left knee. 07/17/2022 Dr. Rodger Elena Brendan Flores is a 82 year old patient here for evaluation and management of left knee pain. 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 The problem began limiting activities 7-12 months ago. Currently the pain in the joint is rated at 7 out of 10 with minimal activity. The pain is constant and is located along the inside aspect and in the back. The pain is described as aching, sharp, and stiffness. Relieving factors include rest and repositioning. There is no specific incident that brought about this pain. Brendan Flores has no additional complaints. FUNCTIONAL STATUS: Do moderate work around the house such as vacuuming, sweeping floors, or carrying in groceries (3.50 METs) Total Joint Arthroplasty: Risk Calculator Brnedan Flores has a 28.72% chance of NOT returning home at discharge for a Primary total Knee replacement. Brendan's estimated Length of Stay is 2 days. Brendan's 30 day chance of readmission is 4.95%. Readmission Probability 4.95 % (within 30 days following surgery) Estimated LOS 2 days Discharge Disposition Probability D/C to Home 71.28 % D/C to SNF 28.72 % These calculations are based on the following factors: - 82 years of age - sex is male - BMI of 25.77 kg/m2 - NarxCare score of 0 - 0 hospitalizations in the last 12 months - no history of heart disease - history of diabetes - no history of COPD - no history of anemia - preoperative ambulation: impaired community distances - 2 step(s) to enter home - bed location is on the first floor - bath location is on the first floor - caregiver is consistent - home is not more than 150 miles away - PROMIS-10 Mental Health T score not available - Marital status: PREVIOUS TREATMENTS: Medical Treatments: Intolerant of NSAIDS, Steroid Injections Left Knee, Viscosupplementation Left Knee Physical Therapy: Use of Ambulatory Aid, Shoe Wear, Braces, Orthotics, etc., and Activities Modified REVIEW OF SYSTEMS: General: No weight loss, malaise or fevers. Neurological: +essential tremor. 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 No neurological symptoms or problems. Respiratory: No history of current cough or dyspnea, or pneumonia in the past 6 weeks. No history of respiratory/pulmonary symptoms or problems. Cardiovascular: Positive for: hyperlipidemia (on rx) and hypertension (on rx) Negative for: anticoagulation therapy, arrhythmia, atrial fibrillation, CAD, chest pain, CHF, congenital heart defect, DVT/PE, recent [place], murmur/valvular heart disease, open heart surgery and valve surgery. GI: No history of GI symptoms or problems. No history of esophageal varices, recent ascites, or ETOH greater than 2 drinks per day. : Positive for: renal failure. Patient's renal failure is chronic. Negative for: urinary incontinence, nephrolithiasis and urinary tract infection. Endocrine: Positive for: diabetes mellitus. Patient's diabetes mellitus is controlled by insulin and oral agents. Negative for: hypothyroidism. Hematology: No history of bleeding or clotting disorder. Patient is not taking anti-coagulation or platelet medications. No history of hematological symptoms or problems. Oncology: No history of CA metastasis, chemo within 30 days, or radiotherapy within 90 days. No history of oncological symptoms or problems. Psych: No history of psychiatric symptoms or problems. Musculoskeletal: See HPI. +hx bilateral JANAE +hx right TKA +gout on rx Skin: Negative for lesions, rash and itching. 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 ARTHRP ACETBLR/PROX FEM PROSTC AGRFT/ALGRFT RT 2006 PAST SURGICAL HISTORY OF Right 1998 Right TKA POST-CATARACT LASER SURGERY Right Yag Capsulotomy TOTAL HIP JOINT REPLACEMENT Left 10/30/2017 Dr Palumbo TOTAL KNEE REPLACEMENT RT 1997 FAMILY HISTORY Problem Relation Age of Onset None Father Alzheimer's Disease Mother No Ocular Disease Other Social History Tobacco Use Smoking status: Never Smokeless tobacco: Never Vaping Use Vaping Use: Never used Substance Use Topics Alcohol use: Yes Comment: Very little Drug use: No Prior to Admission medications as of 08/09/22 0759 Medication Sig Last Dose Taking atorvastatin (LIPITOR) 20 mg tablet Take 1 tablet by mouth daily at bedtime. Taking Yes insulin detemir U-100 (LEVEMIR FLEXTOUCH U-100 INSULIN) 100 unit/mL (3 mL) injection pen Inject 12 Units subcutaneously daily at bedtime. Taking Yes SITagliptin (JANUVIA) 50 mg tablet Take 1 tablet by mouth once daily. for diabetes Taking Yes amLODIPine (NORVASC) 5 mg tablet Take 1 tablet by mouth once daily. For blood pressure Taking Yes Insulin Waddy, Disposable, (BD ULTRA-FINE VIMAL PEN NEEDLE) 32 gauge x 5/32 USE ONCE DAILY Taking Yes propranolol ER (INDERAL LA) 120 mg 24 hr capsule Take 1 capsule by mouth once daily. Taking Yes lisinopril (ZESTRIL, PRINIVIL) 40 mg tablet Take 1 tablet by mouth once daily. Taking Yes sildenafil (REVATIO) 20 mg tablet Take 1-5 tablets by mouth as directed. 45-60 minutes prior to anticipated intercourse Taking Yes propranolol (INDERAL) 20 mg tablet Take 1 tablet by mouth once daily as needed. Breakthrough tremor Taking Yes blood sugar diagnostic (ONETOUCH ULTRA TEST) test strip Test blood sugar(s) 3 times daily. Dx: Type 2 DM - Uncontrolled E11.65 Insulin: Yes Taking Yes allopurinol (ZYLOPRIM) 300 mg tablet Take 1 tablet by mouth once daily. For gout. Taking Yes Blood-Glucose Meter (ONETOUCH ULTRA2) monitoring kit 1 Each as needed. One Touch Meter Kit Diagnosis: Type 2 DM - Uncontrolled E11.65 Taking Yes Lancets (ONETOUCH ULTRASOFT LANCETS) lancets Test blood sugar(s) 3 times daily. Dx: Type 2 DM - Uncontrolled E11.65 , Insulin: Yes Taking Yes ALEVE 220 MG TAB Take one(1) tablet daily. Taking Yes mupirocin (BACTROBAN) 2 % ointment Apply 0.5 inch with cotton swab (Q-tip) to each nostril in the morning and evening for 5 days prior to and including day of surgery. No medication comments found. ALLERGIES No Known Allergies Objective PHYSICAL EXAM: General: alert and oriented (x3) and healthy appearance. Pertinent negatives noted - not distressed. Antalgic gait. Skin: normal color, no rash or lesions. HEENT: EOM intact and pupils equal round. Pertinent negatives noted - no carotid bruit. Cardiovascular: regular rate and rhythm, normal S1 and S2, no rub, murmurs, or gallop. Respiratory: normal breath sounds, no wheezes or crackles. No chest wall deformity or tenderness. Abdomen: soft. Pertinent negatives noted - not tender. Extremities: no deformity, no edema or tenderness, no joint swelling or clubbing. Neurological: normal cognition and motor skills. Gait normal. No weakness or sensory deficit. PAIN ASSESSMENT: Pain Pain Level: 4 Pain Location: Knee-Left Description: Sore Duration Amount of Time: 3 Duration Units: Years Frequency: Continuous Intervention/Comfort measure: Medication VITALS: BP 126/72 Pulse 69 Temp (Src) 98 (Temporal) Resp 16 Ht 6' 0 (1.83m) Wt 188 lb (85.3kg) SpO2 99% BMI 25.49 kg/(m^2). Diagnostic tests reviewed for today's visit: Lab Value Units Date High Low HB No results within date range. HCT No results within date range. WBC No results within date range. PLT No results within date range. NA 142 mmol/L 08/04/2022 144 136 K 4.6 mmol/L 08/04/2022 5.1 3.7 GLUC 114 mg/dL 08/04/2022 99 74 BUN 27 mg/dL 08/04/2022 24 9 CREAT 1.27 mg/dL 08/04/2022 1.22 0.73 PTSEC No results within date range. INR No results within date range. APTT No results within date range. ALT No results within date range. AST No results within date range. TBILI No results within date range. TSH No results within date range. Lab Value Units Date High Low HCGQT No results within date range. UHCG No results within date range. HCG, BODY* No results within date range. Lab Value Units Date High Low ABORHD No results within date range. ABSCREEN No results within date range. Hemoglobin A1C (%) Date Value 08/04/2022 7.3 05/24/2022 8.4 09/01/2021 7.9 05/13/2021 7.7 03/30/2020 7.9 02/04/2019 7.0 09/17/2018 6.6 Hemoglobin A1C (POCT) (%) Date Value 08/09/2020 8.1 No results found for this or any previous visit (from the past 8760 hour(s)). No results found for this or any previous visit (from the past 11748 hour(s)). Assessment Benign essential tremor Assessment: hx Essential hypertension Assessment: controlled on rx, recent negative stress test 07/29/2022 to be scanned into epic Last 14 BP Last 14 Encounter BP Readings: Date: BP: 08/09/2022 126/72 06/08/2022 142/72 10/05/2021 140/76 09/07/2021 140/64 02/03/2021 129/59 08/09/2020 144/74 09/30/2019 139/84[BP Ernesto average[ 09/01/2019 141/74[BP Ernesto average[ 08/13/2019 158/76 05/13/2019 128/76 05/06/2019 122/74 03/04/2019 127/70[BP Ernesto average[ 02/11/2019 160/82 07/18/2018 166/80 Gout Assessment: on rx Mixed hyperlipidemia Assessment: c/w statin Type 2 diabetes mellitus without complication, with long-term current use of insulin (HCC) Assessment: controlled on insulin and oral agent Hemoglobin A1C (%) Date Value 08/04/2022 7.3 09/01/2021 7.9 CKD (chronic kidney disease) Assessment: Creatinine Date Value Ref Range Status 08/04/2022 1.27 (H) 0.73 - 1.22 mg/dL Final 05/24/2022 2.07 (H) 0.73 - 1.22 mg/dL Final 09/01/2021 1.24 (H) 0.73 - 1.22 mg/dL Final 05/13/2021 1.63 (H) 0.73 - 1.22 mg/dL Final History of total replacement of both hip joints Assessment: hx History of total right knee replacement Assessment: hx Kyle Activity Status Index: METS: Climb a flight of stairs or walk up a hill (5.50 METs) DASI Score: 5.5 Patient denies any chest pain or undue shortness of breath with the above physical activity. Clinical Frailty Scale: 3. Well, with treated comorbid disease STOP-Bang Score: Has or is being treated for high blood pressure Patient over 50 years old Has a large neck Male patient Denies snoring loudly Denies feeling tired, fatigued, or sleepy during the daytime Has not been observed to stop breathing or choking/gasping during sleep BMI less than or equal to 35 kg/m^2 STOP-Bang Score: 4 [id number] Score: Age: >=75 Sex: male CHF history: No Hypertension history: Yes Stroke/TIA/thromboembolism history: No Vascular disease history: No Diabetes history: Yes [id number] Score: 4 ARISCAT Score: Age: >80 Preoperative SpO2: >=96% Respiratory infection in the last month: No Preoperative anemia: No Surgical incision: peripheral Duration of surgery: 2-3 hrs Emergency procedure: No ARISCAT Score: 32 ASA Class: 3 ANESTHESIA FINDINGS: Intubation History: No history of difficult intubation Significant Anesthesia Considerations: none Airway History: No history of difficult airway I - PHYSICAL EVALUATION AIRWAYTracheostomy tube not present Mallampati: II. TM distance: >3 FB. Neck ROM: full ROM without neurological symptoms. Mouth opening: adequate. Short neck: no. Thick neck: yes DENTAL Dental findings: teeth intact. II - ANESTHESIA PLAN ASA Score: 3 Anesthetic Plan: other Anesthetic plan additional comments: *PACC/TCI - anesthesia choice. Informed Consent Anesthetic risks, benefits, alternatives, personnel and consent discussed: yes. Patient / Responsible Alliance Party agrees to proceed: yes Patient / Surrogate agrees to blood products: Yes Prepared for Surgery: optimally prepared for surgery, pending [see comment]. Labs +recent EKG and stress test to be scanned into [facility] CONSULTS: Patient does not require consults for optimization at this time Planned Anesthetic: other anesthesia choice The Following Tests/Procedures Have Been Initiated: Orders Placed This Encounter >CBC + AUTO DIFF Standing Status: Future Standing Expiration Date: 10/09/2022 IRON + TIBC Standing Status: Future Standing Expiration Date: 10/09/2022 FERRITIN BLD Standing Status: Future Standing Expiration Date: 10/09/2022 Scheduling Instructions: In preparation for this test, do not take multivitamins or dietary supplements containing biotin (vitamin B7) for at least 12 hours. Biotin is commonly found in hair, skin, and nail supplements and multivitamins. Tell your doctor if you take supplements containing biotin as part of your medication history. Type and Screen, 30 day Standing Status: Future Standing Expiration Date: 10/09/2022 Order Specific Question: Hospital of Planned Surgery or Procedure: Answer: [place] Confirm Blood Type Standing Status: Future Standing Expiration Date: 10/09/2022 Order Specific Question: Did Blood Bank direct you to place this order: Answer: No - Presurgical Workflow mupirocin (BACTROBAN) 2 % ointment Sig: Apply 0.5 inch with cotton swab (Q-tip) to each nostril in the morning and evening for 5 days prior to and including day of surgery. Dispense: 22 g Refill: 0 Instructions Given to Patient: Instructions located in the after visit summary. Patient given verbal and written preop instructions and voices comprehension and compliance. SIGNATURE: Karlene Limon APRN.CNP PATIENT NAME: Brendan Flores DATE: August 09, 2022 TIME: 8:20 AM PAGER/CONTACT #: documented in this encounter [facility] 08-09-2022 Instructions Karlene Limon APRN.CNP - 08/09/2022 8:18 AM EDT PATIENT PREOPERATIVE INSTRUCTIONS Rodger Elena MD has scheduled you for your procedure at this surgery center: [facility]: [phone] -- [address] [place] [id number]. Please read below carefully for your personalized instructions. Dietary Restrictions: - No solid food after midnight. - You may have 12 ounces of clear liquids (water, clear juices such as apple juice or gatorade, carbonated beverages, clear tea, black coffee, jello) until 2 hours before scheduled arrival at facility. No red/purple coloring and no creamer/sugar Medications: Unless instructed differently below, stay on all of your medications until your surgery. Approved medications to take the morning of surgery with a sip of water: Amlodipine, Atorvastatin, Propranolol Do not take Lisinopril the morning or evening prior to surgery - No diabetic medication the morning of surgery. - Accucheck day of surgery. - Take half dose of long acting insulin (Lantus, NPH) the day of surgery. If you take any medications for erectile dysfunction-Cialis (Tadalafil), Levitra, Staxyn (Vardenafil) Viagra (Sildenenafil please do not take these for 48 hours before surgery. If you start any new medications after today's visit, please contact the surgeon's office. Blood Thinning Medications: - Stop NSAIDS (Ibuprofen, Advil, Aleve, Motrin, Celebrex, Mobic, etc.) 7 days before surgery, as directed by your surgeon. - Stop Aspirin 7 days before surgery, as directed by your surgeon. - Stop Vitamin E, ALL multi-vitamins, herbals and dietary supplements 7 days before surgery. - You may take Tylenol (Acetaminophen) or any of your pain medications that do not contain aspirin or NSAIDS as needed. Important Reminders: - If you use CPAP/BIPAP, bring the machine with you to the surgery center. - If you are prescribed inhalers for breathing, continue using them. - Candy, mints, and tobacco products are NOT permitted the morning of surgery. - Hearing aids, dentures and glasses may be worn the morning of surgery. - NO jewelry, body piercings, makeup, hairpins or contacts are to be worn the day of surgery. If you develop symptoms such as a fever, cold, or flu, or have other changes to your health within TWO DAYS of scheduled surgery or the morning of surgery, please contact the surgery center above. Personal Belongings: -Please have photo ID and insurance cards. -If you do not have a copy of advance directives on file with us, please bring a copy with you on the day of surgery. - Leave ALL valuables and money at home or with family members. For Outpatient Procedures: - YOU MUST HAVE A RESPONSIBLE FOOD SERVICES DIRECTOR TAKE YOU HOME. A RN PLACEMENT OR SENIOR INSPECTOR CANNOT BE MADE A RESPONSIBLE FOOD SERVICES DIRECTOR. - We recommend that a responsible person stays with you overnight to take care of you. - You cannot stay in a hotel alone after outpatient surgery. You will not be permitted to have your surgery, if you do not have someone to take care of you. Arrival Time for Surgery: - The Surgery Center or hospital where you are having surgery will call the afternoon before surgery (or Sunday for Sunday surgery) with a scheduled arrival time. - If you have not heard by 4 pm, please contact the surgery center above. Please be aware that emergency situations arise, which may delay or change your surgical time. If this happens, we will notify you as soon as possible and regret any inconvenience. If you already have an Advance Directive, please fax a copy to [phone] or email to for it to be added to your chart. If you do not have an Advance Directive, you can find the appropriate form and more information at [email or web address]. We recommend that you complete the Advance Directive form found on the website and bring it with you the day of your surgery. It can be witnessed and scanned into your chart that day. Karlene Limon APRN.CLOTH TRIMMER HAND documented in this encounter [facility] 07-28-2022 Miscellaneous Notes Surgery has been scheduled as requested. Surgical request completed for left robotic assisted total knee arthroplasty at [facility] on 08/30/2022. Post op appointments have been scheduled and mailed to patient. CT scan scheduled for 08/01/2022. Email sent to [facility] [facility] documented in this encounter [facility] 07-17-2022 Miscellaneous Notes Pharmacy verified in Epic Patient has been identified by name and date of : Yes Patient aware RX will be sent to pharmacy. No need to notify patient. Patient phones for refill(s): Requested Prescriptions Pending Prescriptions Disp Refills atorvastatin (LIPITOR) 20 mg tablet 90 tablet 3 Sig: Take 1 tablet by mouth daily at bedtime. Date of last office visit : 09/07/2021 Date of next office visit : 08/11/2022 Last 2 Encounter Wt Readings: Date: Wt: 06/08/2022 86.2 kg (190 lb) 10/05/2021 89.1 kg (196 lb 6.4 oz) Cholesterol: Triglyceride (mg/dL) Date Value 09/01/2021 111 HDL Cholesterol (mg/dL) Date Value 09/01/2021 49 LDL Cholesterol (mg/dL) Date Value 09/01/2021 108 ALT (U/L) Date Value 09/01/2021 17 Non HDL Cholesterol (mg/dL) Date Value 09/01/2021 130 Please advise. Brittney Franks LPN Patient has been identified by name and date of : Yes Requested Prescriptions Pending Prescriptions Disp Refills atorvastatin (LIPITOR) 20 mg tablet 90 tablet 3 Sig: Take 1 tablet by mouth daily at bedtime. RX INSTRUCTIONS: Patient aware RX will be sent to pharmacy. No need to notify patient. Allison Ramos [facility] documented in this encounter [facility] 07-17-2022 History of Present illness Narrative CONSULT ORTHOPAEDIC: KNEE PRIMARY CARE PHYSICIAN: Ab Dunham MD REFERRING PROVIDER: Ab Dunham [address] [place] [address] [place] [id number] ASSESSMENT & PLAN Impression: Left Knee Severe Degenerative Osteoarthritis, Primary Brendan Flores has radiograph and physical exam evidence of degenerative joint disease and wishes to pursue surgery. This patient appears to have sufficient symptoms to warrant surgical intervention and is an appropriate candidate for left Primary Total Knee Arthroplasty as evidenced by six months of unsuccessful non-operative treatment as outlined in the HPI below and progressive symptoms. Progressive Symptoms Include: Pain worsened by weight bearing Pain effecting living situation Unable to ambulate 2 blocks without significant pain and dysfunction . This patient has the following risk factors: DM We had a lengthy discussion regarding the risk and benefit of surgery, the alternatives, limitations and personnel involved. These included but were not limited to infection, persistent pain, instability, nerve injury, blood clots, and medical complications. We also discussed the pre-operative course, surgery itself and rehabilitation. Ana Maria-operative blood management and transfusion issues were discussed, and options clearly outlined. The patient has consented to the use of the banked allogenic blood if medically necessary. The patient has elected to schedule surgery at this time or intends to call the office with a surgical date. Shared decision making occurred while obtaining informed consent. The patient will be scheduled for a pre-operative education class at which time they will have their nasal swab completed and will be given CHG cloths along with the verbal and written instructions for their use. Patient has been instructed and has been scheduled or will call to schedule attendence in one of the total joint perioperative classes offered prior to proceeding with TKA. The patient has been ordered: No orders placed today. CONSULTS: Internal Medicine Consult for preoperative clearance. ACTIVE PROBLEM LIST Essential Hypertension Mixed Hyperlipidemia Drug-Induced Erectile Dysfunction Essential and Other Specified Forms of Tremor Benign Essential Tremor Gout Pvd (Posterior Vitreous Detachment), Right Eye Pseudophakia, Both Eyes Type 2 Diabetes Mellitus Without Complication, With Long-Term Current Use of Insulin (Hcc) Pvd (Posterior Vitreous Detachment), Both Eyes SUBJECTIVE CHIEF COMPLAINT: Knee Pain HPI: Brendan Flores is a 82 year old patient here for evaluation and management of left knee pain. 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 The problem began limiting activities 7-12 months ago. Currently the pain in the joint is rated at 7 out of 10 with minimal activity. The pain is constant and is located along the inside aspect and in the back. The pain is described as aching, sharp, and stiffness. Relieving factors include rest and repositioning. There is no specific incident that brought about this pain. Brendan Flores has no additional complaints. FUNCTIONAL STATUS: Do moderate work around the house such as vacuuming, sweeping floors, or carrying in groceries (3.50 METs) Total Joint Arthroplasty: Risk Calculator Brendan Flores has a 28.72% chance of NOT returning home at discharge for a Primary total Knee replacement. Brendan's estimated Length of Stay is 2 days. Brendan's 30 day chance of readmission is 4.95%. Readmission Probability 4.95 % (within 30 days following surgery) Estimated LOS 2 days Discharge Disposition Probability D/C to Home 71.28 % D/C to SNF 28.72 % These calculations are based on the following factors: - 82 years of age - sex is male - BMI of 25.77 kg/m2 - NarxCare score of 0 - 0 hospitalizations in the last 12 months - no history of heart disease - history of diabetes - no history of COPD - no history of anemia - preoperative ambulation: impaired community distances - 2 step(s) to enter home - bed location is on the first floor - bath location is on the first floor - caregiver is consistent - home is not more than 150 miles away - PROMIS-10 Mental Health T score not available - Marital status: PREVIOUS TREATMENTS: Medical Treatments: Intolerant of NSAIDS, Steroid Injections Left Knee, Viscosupplementation Left Knee Physical Therapy: Use of Ambulatory Aid, Shoe Wear, Braces, Orthotics, etc., and Activities Modified REVIEW OF SYSTEMS: PAIN ASSESSMENT: See HPI. MUSCULOSKELETAL: See HPI. Risk Factors for Total Joint Arthroplasty (TJA) Obesity normal High: BMI > 40 Moderate: BMI 30-40 Normal: BMI < 30 Diabetes High Risk High: A1C > 8 Moderate: A1C 7-8 Normal: A1C < 7 Smoking normal High: Current smoker Normal: Non smoker Anemia normal High: Hgb < 13 (men) N/A: Hgb >= 13 (men) Nutritional Status normal High: Alb<3.4, or prealb<15, or serum transferrin<200, or total lymphocyte count<1500 Normal: normal labs COPD normal High: dx of COPD Normal: no dx of COPD MRSA normal High: dx of MRSA or positive lab test Normal: no MRSA CKD normal High: eGFR<60 Moderate: eGFR 60-89 Normal: eGFR>90 Hx of DVT / PE normal High: dx of DVT / PE Normal: no dx of DVT / PE Narcotics Use normal High:NarxCare >=300 Moderate: 100-299 Normal: 0-99 YANNICK normal High: dx of YANNICK N/A: no dx of YANNICK Coagulation normal High:PT Sec>13, or PT INR>1.3, or APTT>32.4, or Plt ct<150k Moderate: on anticoag but none of the above Normal: none Diabetes: Consult to the Endocrinology and Metabolic [place] (MAURICE) recommended prior to surgery. 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 ARTHRP ACETBLR/PROX FEM PROSTC AGRFT/ALGRFT RT 2006 PAST SURGICAL HISTORY OF Right 1997 Right TKA POST-CATARACT LASER SURGERY Right Yag Capsulotomy TOTAL HIP JOINT REPLACEMENT Left 10/30/2017 Dr Palumbo TOTAL KNEE REPLACEMENT RT 1997 FAMILY HISTORY Problem Relation Age of Onset None Father Alzheimer's Disease Mother No Ocular Disease Other Social History Tobacco Use Smoking status: Never Smokeless tobacco: Never Vaping Use Vaping Use: Never used Substance Use Topics Alcohol use: Yes Comment: Very little Drug use: No ALLERGIES: Patient has no known allergies. MEDICATIONS: insulin detemir U-100 (LEVEMIR FLEXTOUCH U-100 INSULIN) 100 unit/mL (3 mL) injection pen Inject 12 Units subcutaneously daily at bedtime. SITagliptin (JANUVIA) 50 mg tablet Take 1 tablet by mouth once daily. for diabetes amLODIPine (NORVASC) 5 mg tablet Take 1 tablet by mouth once daily. For blood pressure propranolol ER (INDERAL LA) 120 mg 24 hr capsule Take 1 capsule by mouth once daily. lisinopril (ZESTRIL, PRINIVIL) 40 mg tablet Take 1 tablet by mouth once daily. sildenafil (REVATIO) 20 mg tablet Take 1-5 tablets by mouth as directed. 45-60 minutes prior to anticipated intercourse propranolol (INDERAL) 20 mg tablet Take 1 tablet by mouth once daily as needed. Breakthrough tremor allopurinol (ZYLOPRIM) 300 mg tablet Take 1 tablet by mouth once daily. For gout. atorvastatin (LIPITOR) 20 mg tablet Take 1 tablet by mouth daily at bedtime. colchicine 0.6 mg tablet Take 1 tablet by mouth at onset of attack and repeat every 4 hours until relief or nausea. ALEVE 220 MG TAB Take one(1) tablet daily. Insulin Waddy, Disposable, (BD ULTRA-FINE VIMAL PEN NEEDLE) 32 gauge x 5/32 USE ONCE DAILY cetirizine (ZYRTEC) 10 mg tablet Take 1 tablet by mouth once daily. (Patient not taking: Reported on 06/08/2022) blood sugar diagnostic (ONETOUCH ULTRA TEST) test strip Test blood sugar(s) 3 times daily. Dx: Type 2 DM - Uncontrolled E11.65 Insulin: Yes Blood-Glucose Meter (ONETOUCH ULTRA2) monitoring kit 1 Each as needed. One Touch Meter Kit Diagnosis: Type 2 DM - Uncontrolled E11.65 Lancets (ONETOUCH ULTRASOFT LANCETS) lancets Test blood sugar(s) 3 times daily. Dx: Type 2 DM - Uncontrolled E11.65 , Insulin: Yes PHYSICAL EXAM: There were no vitals taken for this visit. All other systems deferred. GENERAL: Appears healthy, well-nourished, no deformities. HABITUS: Normal GAIT: Antalgic to the left KNEE EXAM: Left: Alignment: Varus deformity, Partially Correctable Range of motion is 10 degrees in extension and 110 degrees of flexion. Extension La degrees Pain with ROM: Yes Effusion: Mild Tender to the palpation of Posterior Knee, Medial femoral condyle, and Medial joint line Pain with patellar compression: No Stability: Anterior/Posterior stable and Varus/Valgus stable Hip Exam: flexion to 100+ degrees, full extension, internal/external rotation adequate, and no pain with log roll Neurovascular Status: Sensation Intact, Moves foot and ankle up & down, and 2+ dorsalis pedis 5-120 DATA: Diagnostic tests reviewed for today's visit: Most recent labs Left knee X-Ray: Medial joint space noted to have severe degenerative changes The following conditions were addressed during the office visit today: Diabetes - HgbA1C optimization SIGNATURE: Rodger Elena MD PATIENT NAME: Brendan Flores DATE: July 17, 2022 TIME: 9:07 AM documented in this encounter [facility] 06-08-2022 Instructions Ab Dunham MD - 06/08/2022 9:48 AM EDT Kidney function suddenly worse. StOP hydrochlorothiazide STOP Metformin ADD: Januvia 50 mg daily for sugar Amlodipine 5 mg daily for blood pressure. Increase insulin to 12 units daily Check bloodwork in 6 weeks. Ab Dunham MD documented in this encounter [facility] 06-08-2022 History of Present illness Narrative CHIEF COMPLAINT Patient presents with: 6 Month Exam HISTORY OF PRESENT ILLNESS Brendan Flores is a 82 year old male who presents here today for follow up management of multiple medical issues. I last saw this patient on 09/07/21. Diabetes Mellitus Patient is managed on insulin and metformin adherent to current regimen without side effects from medication. No current symptoms. Hypertension Patient is managed on propranolol, lisinopril and HCTZ He says that his blood pressure tends to be in the 130's. His kidney labs have been high Knee Pain Patient needs a knee replacement He takes Aleve a few times a week for his knee pain Health Maintenance Due for TDAP. Due for routine colon cancer screening. Due for diabetic foot exam. Due for COVID booster Due for advance directive discussion. Due for dilated retinal exam. Labs reviewed. Past medical history, appointments, medications, allergies reviewed. REVIEW OF SYSTEMS Pertinent positives/ negatives: General: Feels well, no fever, no chills HEENT: No sinus congestion, earache, sore throat. Cardiac: No chest pain, palpitations +elevated BP Resp: No cough, wheeze, shortness of breath GI: No reflux symptoms, food intolerance, bowel changes. : No urinary frequency, dysuria. MS: No pain or joint complaints. 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 Heart: Regular rate and rhythm. Normal S1 and S2. No murmurs, rubs, or gallops. Lungs: Clear to auscultation bilaterally. No respiratory distress. No wheezes, rales, or rhonchi. Abdomen: Soft, non-tender, no distention. Extremities: Feet/ankles without edema, posterior tibial pulses full and symmetrical. Data Reviewed Latest Reference Range & Units 05/24/22 07:06 Sodium 136 - 144 mmol/L 139 Potassium 3.7 - 5.1 mmol/L 4.1 Chloride 97 - 105 mmol/L 101 CO2 22 - 30 mmol/L 24 BUN 9 - 24 mg/dL 39 (H) Creatinine 0.73 - 1.22 mg/dL 2.07 (H) Glucose 74 - 99 mg/dL 97 Calcium 8.5 - 10.2 mg/dL 10.3 (H) Anion Gap 9 - 18 mmol/L 14 eGFR >=60 mL/min/1.73m 31 (L) Creatinine, Ur Random (UCRR) 20.0 - 300.0 mg/dL 241.3 Hemoglobin A1C 4.3 - 5.6 % 8.4 (H) Estimated Average Glucose mg/dL 194 Albumin/Creat Ratio <30 mg/g 6 Albumin, Urine Random mg/L 14.7 (H): Data is abnormally high (L): Data is abnormally low Assessment/Plan (E11.9) Type 2 diabetes mellitus without complication, without long-term current use of insulin (HCC) (primary encounter diagnosis) (N28.9) Renal insufficiency Comment: Kidney function labs poor Plan: HGB A1C, BASIC METABOLIC PNL -discontinue metformin use (I10) Essential hypertension Comment: blood pressure elevated Plan: discontinue HCTZ due to kidney labs (Z86.16) History of 2019 novel coronavirus disease (COVID-19) Comment: PMHx Plan: resolved (E78.2) Mixed hyperlipidemia Comment: well controlled Plan: continue on current regimen (E83.52) Hypercalcemia Comment: due for labs Plan: BASIC METABOLIC PNL (M17.12) Primary osteoarthritis of left knee Comment: in need of consult Plan: CONSULT TO ORTHOPAEDICS (Z12.5) Screening for prostate cancer Comment: Due for prostate cancer screening. Plan: PSA/PROSTSPECAG SCRN Requested Prescriptions Signed Prescriptions Disp Refills insulin detemir U-100 (LEVEMIR FLEXTOUCH U-100 INSULIN) 100 unit/mL (3 mL) injection pen 15 Pen 3 Sig: Inject 12 Units subcutaneously daily at bedtime. SITagliptin (JANUVIA) 50 mg tablet 90 tablet 3 Sig: Take 1 tablet by mouth once daily. for diabetes amLODIPine (NORVASC) 5 mg tablet 30 tablet 11 Sig: Take 1 tablet by mouth once daily. For blood pressure RTO: 2 months Scribe Attestation: By signing my name below, I, Wendie Gutiérrez, attest that this documentation has been prepared under the direction and in the presence of Alan Dunham M.D. Electronically Signed: Fuentes Dejesus. June 08, 2022 7:57 AM Provider Attestation: I, Ab Dunham MD, personally performed the services described in this documentation. All medical record entries made by the scribe were at my direction and in my presence. I have reviewed the chart and discharge instructions (if applicable) and agree that the record reflects my personal performance and is accurate and complete. Electronically Signed: Ab Dunham MD. June 08, 2022 3:22 PM documented in this encounter [facility] 05-25-2022 Miscellaneous Notes Called and informed pt. Pt confirmed his 06/08/22 appt with PCP. Please let patient know that his recent labs show worsening kidney function and diabetes. Please keep appointment coming up with Dr. Dunham in a couple weeks to discuss further. Cinthia Alcantar APRN.RACHEL documented in this encounter [facility] 05-15-2022 History of Present illness Narrative Spoke to patient's who requests that scheduling call them tomorrow to assist with scheduling with PCP for follow up. Lab orders placed, also due for a visit, please schedule. May get the labs done at the visit if he prefers, nonfasting. Cinthia Alcantar APRN.RACHEL Patient Brendan called back his BS readings 125-130. Please advise if need to have lab orders, . The patient has been identified by name and date of : YES I have scheduled the patient for an appointment on Visit date not found. The patient will report to the lab prior to the visit. I have pended the following lab orders: Pended Orders None PHMA Documentation 09/24/2017 01/13/2019 04/19/2022 Opts out of [facility] No No No Appointments Scheduled - Scheduled PCP Appt - DM2 with No SUMAN Record Requested Confirmed Complete - Opthy Appt - Yes - Appt Date - 12/17/2018 - DM2 with No Urine Alb Lab Ordered Lab Ordered - DM2 with No DFE Record Requested Record Requested - A1C > 8.9 CP Referral - - CRCS - FOBT mailed - Lita Flaherty Care Gap Reviewed: Follow-up appointment HBA1C Phone call placed to patient. Pt identified by name and : NO Outreach Outcome/Action: Unable to reach patient: Left message If patient deferred or declined to schedule appointment, please indicate the reason(s): Other Lita Flaherty documented in this encounter [facility] 04-12-2022 Miscellaneous Notes Patient has been identified by name and date of : Yes Pending Prescriptions Disp Refills PEN NEEDLE, DIABETIC 32 GAUGE X 100 Each 5 Sig: USE ONCE DAILY GARY: No RX INSTRUCTIONS: Patient aware RX will be sent to pharmacy. No need to notify patient. Shanel Dale Pss documented in this encounter [facility] 02-15-2022 Miscellaneous Notes Pharmacy verified in [facility] Patient has been identified by name and date of : Yes Patient aware RX will be sent to pharmacy. No need to notify patient. Patient phones for refill(s): Pending Prescriptions Disp Refills PROPRANOLOL ER 120 MG CAPSULE,24 HR,EXTENDED RELEASE 90 capsule 3 Sig: Take 1 capsule by mouth once daily. GARY: No Date of last office visit : 09/07/2021 Date of next office visit : Visit date not found Last 2 Encounter Wt Readings: Date: Wt: 10/05/2021 89.1 kg (196 lb 6.4 oz) 09/07/2021 89.1 kg (196 lb 8 oz) Please advise. Shae Suárez Pss documented in this encounter [facility] 01-30-2022 Miscellaneous Notes Last appointment: 10/05/21 Next appointment: n/a Pharmacy verified in [facility]. Refill(s) requested: Pending Prescriptions Disp Refills LISINOPRIL 40 MG TABLET 90 tablet 3 Sig: Take 1 tablet by mouth once daily. GARY: No Order(s) pended. Please advise. Ijeoma Allen LPN documented in this encounter [facility] 12-30-2021 Miscellaneous Notes The following approved medication requests have been transmitted electronically. Signed Prescriptions Disp Refills hydroCHLOROthiazide 12.5 mg capsule 90 capsule 2 Sig: Take 1 capsule by mouth once daily. GARY: No Authorizing Provider: AB DUNHAM MD Pharmacy verified in [facility] Patient has been identified by name and date of : Yes Patient aware RX will be sent to pharmacy. No need to notify patient. Patient phones for refill(s): Pending Prescriptions Disp Refills HYDROCHLOROTHIAZIDE 12.5 MG CAPSULE 90 capsule 0 Sig: Take 1 capsule by mouth once daily. GARY: No Date of last office visit : 09/07/2021 Date of next office visit : Visit date not found Last 2 Encounter Wt Readings: Date: Wt: 10/05/2021 89.1 kg (196 lb 6.4 oz) 09/07/2021 89.1 kg (196 lb 8 oz) Blood Pressure: BUN (mg/dL) Date Value 09/01/2021 26 Creatinine (mg/dL) Date Value 09/01/2021 1.24 Sodium (mmol/L) Date Value 09/01/2021 143 Potassium (mmol/L) Date Value 09/01/2021 4.2 Last 1 Encounter BP Readings: Date: BP: 10/05/2021 140/76 Please advise. Brittney Franks LPN Pharmacy verified in [facility] Patient has been identified by name and date of : Yes Patient aware RX will be sent to pharmacy. No need to notify patient. Patient phones for refill(s): Pending Prescriptions Disp Refills HYDROCHLOROTHIAZIDE 12.5 MG CAPSULE 90 capsule 0 Sig: Take 1 capsule by mouth once daily. GARY: No SILDENAFIL (PULMONARY HYPERTENSION) 20 MG TABLET 60 tablet 11 Sig: Take 1-5 tablets by mouth as directed. 45-60 minutes prior to anticipated intercourse GARY: No Date of last office visit : Visit date not found Date of next office visit : Visit date not found Last 2 Encounter Wt Readings: Date: Wt: 10/05/2021 89.1 kg (196 lb 6.4 oz) 09/07/2021 89.1 kg (196 lb 8 oz) Please advise. Shae Suárez Pss documented in this encounter [facility] documented as of this encounter (statuses as of 12/30/2021) [address] History of Past illness Narrative* Problem Noted Date Resolved Date DM2 (diabetes mellitus, type 2) 02/09/2015 09/05/2021 Patient Left without Being Seen 10/09/2009 02/16/2011 documented as of this encounter (statuses as of 01/30/2022) [address] History of Past illness Narrative* Problem Noted Date Resolved Date DM2 (diabetes mellitus, type 2) 02/09/2015 09/05/2021 Patient Left without Being Seen 10/09/2009 02/16/2011 documented as of this encounter (statuses as of 02/15/2022) [address] History of Past illness Narrative* Problem Noted Date Resolved Date DM2 (diabetes mellitus, type 2) 02/09/2015 09/05/2021 Patient Left without Being Seen 10/09/2009 02/16/2011 documented as of this encounter (statuses as of 04/12/2022) [address] History of Past illness Narrative* Problem Noted Date Resolved Date DM2 (diabetes mellitus, type 2) 02/09/2015 09/05/2021 Patient Left without Being Seen 10/09/2009 02/16/2011 documented as of this encounter (statuses as of 05/25/2022) [address] History of Past illness Narrative* Problem Noted Date Resolved Date DM2 (diabetes mellitus, type 2) 02/09/2015 09/05/2021 Patient Left without Being Seen 10/09/2009 02/16/2011 documented as of this encounter (statuses as of 06/08/2022) [address] History of Past illness Narrative* Problem Noted Date Resolved Date DM2 (diabetes mellitus, type 2) 02/09/2015 09/05/2021 Patient Left without Being Seen 10/09/2009 02/16/2011 documented as of this encounter (statuses as of 06/08/2022) [address] History of Past illness Narrative* Problem Noted Date Resolved Date DM2 (diabetes mellitus, type 2) 02/09/2015 09/05/2021 Patient Left without Being Seen 10/09/2009 02/16/2011 documented as of this encounter (statuses as of 07/17/2022) [address] History of Past illness Narrative* Problem Noted Date Resolved Date DM2 (diabetes mellitus, type 2) 02/09/2015 09/05/2021 Patient Left without Being Seen 10/09/2009 02/16/2011 documented as of this encounter (statuses as of 07/17/2022) [address] History of Past illness Narrative* Problem Noted Date Resolved Date DM2 (diabetes mellitus, type 2) 02/09/2015 09/05/2021 Patient Left without Being Seen 10/09/2009 02/16/2011 documented as of this encounter (statuses as of 07/28/2022) [address] History of Past illness Narrative* Problem Noted Date Resolved Date DM2 (diabetes mellitus, type 2) 02/09/2015 09/05/2021 Patient Left without Being Seen 10/09/2009 02/16/2011 documented as of this encounter (statuses as of 08/09/2022) [place] [address] History of Past illness Narrative* Problem Noted Date Resolved Date DM2 (diabetes mellitus, type 2) 02/09/2015 09/05/2021 Patient Left without Being Seen 10/09/2009 02/16/2011 documented as of this encounter (statuses as of 08/09/2022) [address] History of Past illness Narrative* Problem Noted Date Resolved Date DM2 (diabetes mellitus, type 2) 02/09/2015 09/05/2021 Patient Left without Being Seen 10/09/2009 02/16/2011 documented as of this encounter (statuses as of 08/29/2022) [address] History of Past illness Narrative* Problem Noted Date Resolved Date DM2 (diabetes mellitus, type 2) 02/09/2015 09/05/2021 Patient Left without Being Seen 10/09/2009 02/16/2011 documented as of this encounter (statuses as of 09/04/2022) [address] History of Past illness Narrative* Problem Noted Date Resolved Date DM2 (diabetes mellitus, type 2) 02/09/2015 09/05/2021 Patient Left without Being Seen 10/09/2009 02/16/2011 documented as of this encounter (statuses as of 09/11/2022) [address] History of Past illness Narrative* Problem Noted Date Resolved Date DM2 (diabetes mellitus, type 2) 02/09/2015 09/05/2021 Patient Left without Being Seen 10/09/2009 02/16/2011 documented as of this encounter (statuses as of 09/27/2022) [address] History of Past illness Narrative* Problem Noted Date Resolved Date DM2 (diabetes mellitus, type 2) 02/09/2015 09/05/2021 Patient Left without Being Seen 10/09/2009 02/16/2011 documented as of this encounter (statuses as of 09/27/2022) [address] History of Past illness Narrative* Problem Noted Date Resolved Date DM2 (diabetes mellitus, type 2) 02/09/2015 09/05/2021 Patient Left without Being Seen 10/09/2009 02/16/2011 documented as of this encounter (statuses as of 09/28/2022) [address] History of Past illness Narrative* Problem Noted Date Resolved Date DM2 (diabetes mellitus, type 2) 02/09/2015 09/05/2021 Patient Left without Being Seen 10/09/2009 02/16/2011 documented as of this encounter (statuses as of 09/29/2022) [address] History of Past illness Narrative* Problem Noted Date Resolved Date DM2 (diabetes mellitus, type 2) 02/09/2015 09/05/2021 Patient Left without Being Seen 10/09/2009 02/16/2011 documented as of this encounter (statuses as of 10/03/2022) [address] History of Past illness Narrative* Problem Noted Date Resolved Date DM2 (diabetes mellitus, type 2) 02/09/2015 09/05/2021 Patient Left without Being Seen 10/09/2009 02/16/2011 documented as of this encounter (statuses as of 10/05/2022) [address] History of Past illness Narrative* Problem Noted Date Resolved Date DM2 (diabetes mellitus, type 2) 02/09/2015 09/05/2021 Patient Left without Being Seen 10/09/2009 02/16/2011 documented as of this encounter (statuses as of 10/09/2022) [address] History of Past illness Narrative* Problem Noted Date Resolved Date DM2 (diabetes mellitus, type 2) 02/09/2015 09/05/2021 Patient Left without Being Seen 10/09/2009 02/16/2011 documented as of this encounter (statuses as of 10/16/2022) [address]2015 History of Past illness Narrative* Problem Noted Date Resolved Date DM2 (diabetes mellitus, type 2) 02/09/2015 09/05/2021 Patient Left without Being Seen 10/09/2009 02/16/2011 documented as of this encounter (statuses as of 10/18/2022) [address] History of Past illness Narrative* Problem Noted Date Resolved Date DM2 (diabetes mellitus, type 2) 02/09/2015 09/05/2021 Patient Left without Being Seen 10/09/2009 02/16/2011 documented as of this encounter (statuses as of 10/29/2022) [address] History of Past illness Narrative* Problem Noted Date Resolved Date DM2 (diabetes mellitus, type 2) 02/09/2015 09/05/2021 Patient Left without Being Seen 10/09/2009 02/16/2011 documented as of this encounter (statuses as of 11/01/2022) [address] History of Past illness Narrative* Problem Noted Date Resolved Date DM2 (diabetes mellitus, type 2) 02/09/2015 09/05/2021 Patient Left without Being Seen 10/09/2009 02/16/2011 documented as of this encounter (statuses as of 11/02/2022) [address] History of Past illness Narrative* Problem Noted Date Resolved Date DM2 (diabetes mellitus, type 2) 02/09/2015 09/05/2021 Patient Left without Being Seen 10/09/2009 02/16/2011 documented as of this encounter (statuses as of 11/03/2022) [address] History of Past illness Narrative* Problem Noted Date Resolved Date DM2 (diabetes mellitus, type 2) 02/09/2015 09/05/2021 Patient Left without Being Seen 10/09/2009 02/16/2011 documented as of this encounter (statuses as of 11/09/2022) [address] History of Past illness Narrative* Problem Noted Date Resolved Date DM2 (diabetes mellitus, type 2) 02/09/2015 09/05/2021 Patient Left without Being Seen 10/09/2009 02/16/2011 documented as of this encounter (statuses as of 11/14/2022) [address] History of Past illness Narrative* Problem Noted Date Resolved Date DM2 (diabetes mellitus, type 2) 02/09/2015 09/05/2021 Patient Left without Being Seen 10/09/2009 02/16/2011 documented as of this encounter (statuses as of 11/20/2022) [address] History of Past illness Narrative* Problem Noted Date Resolved Date DM2 (diabetes mellitus, type 2) 02/09/2015 09/05/2021 Patient Left without Being Seen 10/09/2009 02/16/2011 documented as of this encounter (statuses as of 11/21/2022) [address] History of Past illness Narrative* Problem Noted Date Resolved Date DM2 (diabetes mellitus, type 2) 02/09/2015 09/05/2021 Patient Left without Being Seen 10/09/2009 02/16/2011 documented as of this encounter (statuses as of 02/01/2023) [address] History of Past illness Narrative* Problem Noted Date Resolved Date DM2 (diabetes mellitus, type 2) 02/09/2015 09/05/2021 Patient Left without Being Seen 10/09/2009 02/16/2011 documented as of this encounter (statuses as of 02/10/2023) [address] History of Past illness Narrative* Problem Noted Date Resolved Date DM2 (diabetes mellitus, type 2) 02/09/2015 09/05/2021 Patient Left without Being Seen 10/09/2009 02/16/2011 documented as of this encounter (statuses as of 02/13/2023) [address] History of Past illness Narrative* Problem Noted Date Diagnosed Date Resolved Date DM2 (diabetes mellitus, type 2) 02/09/2015 09/05/2021 Patient Left without Being Seen 10/09/2009 02/16/2011 documented as of this encounter (statuses as of 05/09/2023) [facility]2015 History of Past illness Narrative* Problem Noted Date Diagnosed Date Resolved Date DM2 (diabetes mellitus, type 2) 02/09/2015 09/05/2021 Patient Left without Being Seen 10/09/2009 02/16/2011 documented as of this encounter (statuses as of 08/09/2023) [facility]2015 History of Past illness Narrative* Problem Noted Date Diagnosed Date Resolved Date DM2 (diabetes mellitus, type 2) 02/09/2015 09/05/2021 Patient Left without Being Seen 10/09/2009 02/16/2011 documented as of this encounter (statuses as of 10/11/2023) [facility] Diagnosis 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 [facility] Diagnosis Essential hypertension Unspecified essential hypertension [facility] Diagnosis Type 2 diabetes mellitus without complication, without long-term current use of insulin (HCC)- Primary Essential hypertension Unspecified essential hypertension [facility] Diagnosis Type 2 diabetes mellitus without complication, without long-term current use of insulin (HCC)- Primary Essential hypertension Unspecified essential hypertension History of 2019 novel coronavirus disease (COVID-19) Mixed hyperlipidemia Renal insufficiency Unspecified disorder of kidney and ureter Hypercalcemia Primary osteoarthritis of left knee Primary localized osteoarthrosis, lower leg Screening for prostate cancer Special screening for malignant neoplasm of prostate [facility] Diagnosis Mixed hyperlipidemia [facility] Diagnosis Primary osteoarthritis of left knee- Primary Primary localized osteoarthrosis, lower leg Chronic pain of left knee Pain in joint, lower leg [facility] Diagnosis Primary osteoarthritis of left knee- Primary Primary localized osteoarthrosis, lower leg Primary osteoarthritis of left knee Primary localized osteoarthrosis, lower leg [facility] Diagnosis Pre-operative examination- Primary Preoperative examination, unspecified Essential hypertension Unspecified essential hypertension Mixed hyperlipidemia Type 2 diabetes mellitus without complication, with long-term current use of insulin (HCC) Chronic kidney disease, unspecified CKD stage Gout, unspecified cause, unspecified chronicity, unspecified site Benign essential tremor Essential and other specified forms of tremor 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 Primary osteoarthritis of left knee Primary localized osteoarthrosis, lower leg [facility] Diagnosis Primary osteoarthritis of left knee- Primary Primary localized osteoarthrosis, lower leg Status post total left knee replacement [facility] Diagnosis Primary osteoarthritis of left knee- Primary Primary localized osteoarthrosis, lower leg [facility] Diagnosis Type 2 diabetes mellitus without complication, with long-term current use of insulin ([facility])- Primary [facility] Diagnosis Primary osteoarthritis of left knee- Primary Primary localized osteoarthrosis, lower leg [facility] Diagnosis Primary osteoarthritis of left knee- Primary Primary localized osteoarthrosis, lower leg [facility] Primary osteoarthritis of left knee- Primary Primary localized osteoarthrosis, lower leg [facility] Diagnosis Primary osteoarthritis of left knee- Primary Primary localized osteoarthrosis, lower leg [facility] Diagnosis Primary osteoarthritis of left knee- Primary Primary localized osteoarthrosis, lower leg [facility] Diagnosis Primary osteoarthritis of left knee- Primary Primary localized osteoarthrosis, lower leg [facility] Diagnosis Primary osteoarthritis of left knee- Primary Primary localized osteoarthrosis, lower leg [facility] Diagnosis Primary osteoarthritis of left knee- Primary Primary localized osteoarthrosis, lower leg [facility] Diagnosis Status post total left knee replacement- Primary [facility] Diagnosis Primary osteoarthritis of left knee- Primary Primary localized osteoarthrosis, lower leg [facility] Diagnosis Essential hypertension Unspecified essential hypertension [facility] Diagnosis Medication side effect- Primary Unspecified adverse effect of unspecified drug, medicinal and biological substance Nausea Nausea alone Type 2 diabetes mellitus with diabetic nephropathy, with long-term current use of insulin ([facility]) Stage 3a chronic kidney disease (HCC) Anemia, chronic renal failure, stage 3 (moderate) ([facility]) Chest wall pain Painful respiration Essential hypertension Unspecified essential hypertension Essential tremor Essential and other specified forms of tremor [facility] Diagnosis Type 2 diabetes mellitus without complication, without long-term current use of insulin (HCC) documented in this encounter [facility] for referral (narrative)* Diagnostic Procedure Only (Routine) - Pending Review Specialty Diagnoses / Procedures [facility] Referred To Contact XR IMAGING Diagnoses Primary osteoarthritis of left knee Status post total left knee replacement Procedures XR KNEE GENERAL 4V AP BOTH/PA BOTH/LAT/MERC LEFT RADIOLOGIC EXAM KNEE COMPLETE 4/MORE VIEWS Rodger Elena MD [address] [place] [address] Xr Imaging Referral ID Status Reason Start Date Expiration Date Visits Requested Visits Authorized [id number] Pending Review Auto-Generat ed Referral 09/04/2022 10/04/2023 1 1 [facility] for referral (narrative)* - Pending Review Specialty Diagnoses / Procedures Referred By Contac Referred To Contact Physical Therapy Diagnoses Primary osteoarthritis of left knee Procedures CONSULT TO PHYSICAL THERAPY Rosio Lechuga PA-C [address] [place] [address] Referral ID Status Reason Start Date Expiration Date V isits Requested Visits Authorized [id number] Pending Review 09/11/2022 12/10/2022 1 1 [facility] Chief Complaint Chief Complaint Description Start Date left knee pain Preliminary chief co mplaint data, not yet signed by the author as of Instructions Instruction Description Start Date CompletedPatient advised to follow-up with Primary Care Physician for BMI management. 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 Review of System There may be information available, but it has not been provided by the sender. Family History There may be information available, but it has not been provided by the sender.No Family History Records FoundNo Family History Records Found History of Present Illness There may be information available, but it has not been provided by the sender. Reason for Referral Specialty Diagnoses / Procedures Referred By Contac t Referred To Contact Orthopedics Diagnoses Primary osteoarthritis of left knee Procedures CONSULT TO ORTHOPAEDICS OFFICE/OUTPATIENT [facility] 60-74 MINUTES Ab Dunham MD [address] [place] [address] [place] [address] Referral ID Status Reason Start Date Expiration Date Visits Requested Visits Authorized [id number] Pending Review PCP Requested Referral 06/08/2022 06/08/2023 1 1 Specialty Diagnoses / Procedures Referred By Contac t Referred To Contact CT IMAGING Diagnoses Primary osteoarthritis of left knee Chronic pain of left knee Procedures CT KNEE WO IVCON LT CT LOWER EXTREMITY W/O CONTRAST MATERIAL Rodger Elena MD [address] [place] [address] Ct Imaging Referral ID Status Reason Start Date Expiration Date Visits Requested Visits Authorized [id number] Authorized Auto-Generat ed Referral 07/17/2022 08/16/2023 1 1 Summary Purpose Additional Source Comments Reason for Visit (unrecogniz ed section and content) Specialty Diagnoses / Procedures Referred By Contac t Referred To Contact Physical Therapy Diagnoses Primary osteoarthritis of left knee Procedures CONSULT TO PHYSICAL THERAPY Rosio Lechuga PA-C [address] [place] [address] [facility] [address] [address] Referral ID Status Reason Start Date Expiration Date V isits Requested Visits Authorized [id number] Authorized 10/29/2021 10/28/2022 20 20 Reason For Visit Description Start Date New/Est - 1st visit with physician 04/28 Preliminary reason f or visit data, not yet signed by the author as of left knee pain Reason Onset Date Comments Refill Request 12/30/2021 Reason Comments Prescription Refills Reason Onset Date Comments Refill Request 02/15/2022 Reason Onset Date Comments Refill Request 04/12/2022 Reason Comments Results Reason Onset Date Comments Appointment 05/08/2022 diabetes Reason Comments 6 Month Exam Reason Comments Refill Request Reason Comments Established Patient 10 month post visit OA left knee with gel-One injection given Follow Up 10 month post visit OA left knee with gel-One injection given Reason Comments Schedule Surgery Reason Comments Consult Reason Comments Request for outside medical records EKG 11/30/21 Reason Comments Pre-Op Teaching Reason Comments Patient Question Reason Comments Established Patient Post Op Reason Comments Blurred Vision Both Eyes Diabetic Eye Exam Reason Onset Date Comments Population Health Navigation Outreach 09/27/2022 [facility] Reason Comments PT Eval Referral ID Status Reason Start Date Expiration Date Visits Re quested Visits Authorized [id number] Closed 10/29/2021 10/28/2022 20 20 Reason Comments PT Progress Note Specialty Diagnoses / Procedures Referred By Jay t Referred To Contact PHYSICAL THERAPY Diagnoses Primary osteoarthritis of left knee [M17.12] Procedures EST PATIENT VISIT LEVEL 1 Rodger Elena MD [address] [place] [address] Pt [facility] [address] [place] [address] Referral ID Status Reason Start Date Expiration Date V isits Requested Visits Authorized [id number] Authorized 10/31/2022 10/27/2023 20 20 Reason Comments Established Patient Follow Up Post Op Reason Onset Date Comments Refill Request 02/01/2023 Reason Comments Diabetes Pain in rib cage and abdomen 03/07, not taking januvia due to nausea. Reason Comments Outside Lab Results [facility] Reason Onset Date Comments Population Health Navigation Outreach 08/09/2023 [facility] Reason Onset Date Comments Population Health Navigation Outreach 10/10/2023 [facility] Source Comments (unrecognize d section and content) In the event this informatio n is protected by the Federal Confidentiality of Alcohol and Drug Abuse Patient Records regulations: The Federal rules restrict any use of the information to criminally investigate or prosecute any alcohol or drug abuse patient.[facility] the event this information is protected by the Federal Confidentiality of Alcohol and Drug Abuse Patient Records regulations: The Federal rules restrict any use of the information to criminally investigate or prosecute any alcohol or drug abuse patient.[facility]In the event this information is protected by the Federal Confidentiality of Alcohol and Drug Abuse Patient Records regulations: The Federal rules restrict any use of the information to criminally investigate or prosecute any alcohol or drug abuse patient.[facility] HospitalIn the event this information is protected by the Federal Confidentiality of Alcohol and Drug Abuse Patient Records regulations: The Federal rules restrict any use of the information to criminally investigate or prosecute any alcohol or drug abuse patient.[facility] HospitalIn the event this information is protected by the Federal Confidentiality of Alcohol and Drug Abuse Patient Records regulations: The Federal rules restrict any use of the information to criminally investigate or prosecute any alcohol or drug abuse patient.[facility] HospitalIn the event this information is protected by the Federal Confidentiality of Alcohol and Drug Abuse Patient Records regulations: The Federal rules restrict any use of the information to criminally investigate or prosecute any alcohol or drug abuse patient.[facility] HospitalIn the event this information is protected by the Federal Confidentiality of Alcohol and Drug Abuse Patient Records regulations: The Federal rules restrict any use of the information to criminally investigate or prosecute any alcohol or drug abuse patient.[facility]In the event this information is protected by the Federal Confidentiality of Alcohol and Drug Abuse Patient Records regulations: The Federal rules restrict any use of the information to criminally investigate or prosecute any alcohol or drug abuse patient.[facility]In the event this information is protected by the Federal Confidentiality of Alcohol and Drug Abuse Patient Records regulations: The Federal rules restrict any use of the information to criminally investigate or prosecute any alcohol or drug abuse patient.[facility] HospitalIn the event this information is protected by the Federal Confidentiality of Alcohol and Drug Abuse Patient Records regulations: The Federal rules restrict any use of the information to criminally investigate or prosecute any alcohol or drug abuse patient.[facility] HospitalIn the event this information is protected by the Federal Confidentiality of Alcohol and Drug Abuse Patient Records regulations: The Federal rules restrict any use of the information to criminally investigate or prosecute any alcohol or drug abuse patient.[facility] HospitalIn the event this information is protected by the Federal Confidentiality of Alcohol and Drug Abuse Patient Records regulations: The Federal rules restrict any use of the information to criminally investigate or prosecute any alcohol or drug abuse patient.[facility] HospitalIn the event this information is protected by the Federal Confidentiality of Alcohol and Drug Abuse Patient Records regulations: The Federal rules restrict any use of the information to criminally investigate or prosecute any alcohol or drug abuse patient.[facility] HospitalIn the event this information is protected by the Federal Confidentiality of Alcohol and Drug Abuse Patient Records regulations: The Federal rules restrict any use of the information to criminally investigate or prosecute any alcohol or drug abuse patient.[facility] HospitalIn the event this information is protected by the Federal Confidentiality of Alcohol and Drug Abuse Patient Records regulations: The Federal rules restrict any use of the information to criminally investigate or prosecute any alcohol or drug abuse patient.[facility] HospitalIn the event this information is protected by the Federal Confidentiality of Alcohol and Drug Abuse Patient Records regulations: The Federal rules restrict any use of the information to criminally investigate or prosecute any alcohol or drug abuse patient.[facility] HospitalIn the event this information is protected by the Federal Confidentiality of Alcohol and Drug Abuse Patient Records regulations: The Federal rules restrict any use of the information to criminally investigate or prosecute any alcohol or drug abuse patient.[facility] HospitalIn the event this information is protected by the Federal Confidentiality of Alcohol and Drug Abuse Patient Records regulations: The Federal rules restrict any use of the information to criminally investigate or prosecute any alcohol or drug abuse patient.[facility] HospitalIn the event this information is protected by the Federal Confidentiality of Alcohol and Drug Abuse Patient Records regulations: The Federal rules restrict any use of the information to criminally investigate or prosecute any alcohol or drug abuse patient.[facility] HospitalIn the event this information is protected by the Federal Confidentiality of Alcohol and Drug Abuse Patient Records regulations: The Federal rules restrict any use of the information to criminally investigate or prosecute any alcohol or drug abuse patient.[facility] HospitalIn the event this information is protected by the Federal Confidentiality of Alcohol and Drug Abuse Patient Records regulations: The Federal rules restrict any use of the information to criminally investigate or prosecute any alcohol or drug abuse patient.[facility] HospitalIn the event this information is protected by the Federal Confidentiality of Alcohol and Drug Abuse Patient Records regulations: The Federal rules restrict any use of the information to criminally investigate or prosecute any alcohol or drug abuse patient.[facility] HospitalIn the event this information is protected by the Federal Confidentiality of Alcohol and Drug Abuse Patient Records regulations: The Federal rules restrict any use of the information to criminally investigate or prosecute any alcohol or drug abuse patient.[facility] HospitalIn the event this information is protected by the Federal Confidentiality of Alcohol and Drug Abuse Patient Records regulations: The Federal rules restrict any use of the information to criminally investigate or prosecute any alcohol or drug abuse patient.[facility] HospitalIn the event this information is protected by the Federal Confidentiality of Alcohol and Drug Abuse Patient Records regulations: The Federal rules restrict any use of the information to criminally investigate or prosecute any alcohol or drug abuse patient.[facility] HospitalIn the event this information is protected by the Federal Confidentiality of Alcohol and Drug Abuse Patient Records regulations: The Federal rules restrict any use of the information to criminally investigate or prosecute any alcohol or drug abuse patient.[facility] HospitalIn the event this information is protected by the Federal Confidentiality of Alcohol and Drug Abuse Patient Records regulations: The Federal rules restrict any use of the information to criminally investigate or prosecute any alcohol or drug abuse patient.[facility] HospitalIn the event this information is protected by the Federal Confidentiality of Alcohol and Drug Abuse Patient Records regulations: The Federal rules restrict any use of the information to criminally investigate or prosecute any alcohol or drug abuse patient.[facility] HospitalIn the event this information is protected by the Federal Confidentiality of Alcohol and Drug Abuse Patient Records regulations: The Federal rules restrict any use of the information to criminally investigate or prosecute any alcohol or drug abuse patient.[facility]In the event this information is protected by the Federal Confidentiality of Alcohol and Drug Abuse Patient Records regulations: The Federal rules restrict any use of the information to criminally investigate or prosecute any alcohol or drug abuse patient.[facility] HospitalIn the event this information is protected by the Federal Confidentiality of Alcohol and Drug Abuse Patient Records regulations: The Federal rules restrict any use of the information to criminally investigate or prosecute any alcohol or drug abuse patient.[facility] HospitalIn the event this information is protected by the Federal Confidentiality of Alcohol and Drug Abuse Patient Records regulations: The Federal rules restrict any use of the information to criminally investigate or prosecute any alcohol or drug abuse patient.[facility]In the event this information is protected by the Federal Confidentiality of Alcohol and Drug Abuse Patient Records regulations: The Federal rules restrict any use of the information to criminally investigate or prosecute any alcohol or drug abuse patient.[facility] HospitalIn the event this information is protected by the Federal Confidentiality of Alcohol and Drug Abuse Patient Records regulations: The Federal rules restrict any use of the information to criminally investigate or prosecute any alcohol or drug abuse patient.[facility] HospitalIn the event this information is protected by the Federal Confidentiality of Alcohol and Drug Abuse Patient Records regulations: The Federal rules restrict any use of the information to criminally investigate or prosecute any alcohol or drug abuse patient.[facility]In the event this information is protected by the Federal Confidentiality of Alcohol and Drug Abuse Patient Records regulations: The Federal rules restrict any use of the information to criminally investigate or prosecute any alcohol or drug abuse patient.[facility] HospitalIn the event this information is protected by the Federal Confidentiality of Alcohol and Drug Abuse Patient Records regulations: The Federal rules restrict any use of the information to criminally investigate or prosecute any alcohol or drug abuse patient.[facility] HospitalIn the event this information is protected by the Federal Confidentiality of Alcohol and Drug Abuse Patient Records regulations: The Federal rules restrict any use of the information to criminally investigate or prosecute any alcohol or drug abuse patient.[facility] HospitalIn the event this information is protected by the Federal Confidentiality of Alcohol and Drug Abuse Patient Records regulations: The Federal rules restrict any use of the information to criminally investigate or prosecute any alcohol or drug abuse patient.[facility] Care Teams (unrecognized sec tion and content) Business Development Officer Relationship Specialty Start Date End Date Ab Dunham MD [address] [place] [address] PCP - General Family Practice 08/03/11 Business Development Officer Relationship Specialty Start Date End Date Ab Dunham MD [address] [place] [address] PCP - General Family Practice 08/03/11 Business Development Officer Relationship Specialty Start Date End Date Ab Dunham MD [facility] [place] [address] PCP - General Family Practice 08/03/11 Business Development Officer Relationship Specialty Start Date End Date Ab Dunham MD [facility] [place] [address] PCP - General Family Practice 08/03/11 Business Development Officer Relationship Specialty Start Date End Date Ab Dunham MD [facility] [place] [address] PCP - General Family Practice 08/03/11 Business Development Officer Relationship Specialty Start Date End Date Ab Dunham MD [facility] [place] [address] PCP - General Family Medicine 08/03/11 Johny Lawrence, [facility] [address] [place] [address] Specialty Consumer Loan Underwriter Orthopedics 07/26/22 10/12/22 Business Development Officer Relationship Specialty Start Date End Date Ab Dunham MD [address] [place] [address] PCP - General Family Medicine 08/03/11 Sissen, Johny, [facility] [address] [place] [address] Specialty Consumer Loan Underwriter Orthopedics 07/26/22 10/12/22 Business Development Officer Relationship Specialty Start Date End Date Ab Dunham MD [address] [place] [address] PCP - General Family Medicine 08/03/11 Sissen, Johny, [facility] [address] [place] [address] Specialty Consumer Loan Underwriter Orthopedics 07/26/22 10/12/22 Business Development Officer Relationship Specialty Start Date End Date Ab Dunham MD [address] [place] [address] PCP - General Family Medicine 08/03/11 Sissen, Johny, [facility] [address] [place] [address] Specialty Consumer Loan Underwriter Orthopedics 07/26/22 10/12/22 Business Development Officer Relationship Specialty Start Date End Date Ab Dunham MD [address] [place] [address] PCP - General Family Medicine 08/03/11 Sissen, Johny, [facility] [address] [place] [address] Specialty Consumer Loan Underwriter Orthopedics 07/26/22 10/12/22 Business Development Officer Relationship Specialty Start Date End Date Ab Dunham MD [address] [place] [address] PCP - General Family Medicine 08/03/11 Sissen, Johny, [facility] [address] [place] [address] Specialty Consumer Loan Underwriter Orthopedics 07/26/22 10/12/22 Business Development Officer Relationship Specialty Start Date End Date Ab Dunham MD [address] [place] [address] PCP - General Family Medicine 08/03/11 Sissen, Johny, [facility] [address] [place] [address] Specialty Consumer Loan Underwriter Orthopedics 07/26/22 10/12/22 Business Development Officer Relationship Specialty Start Date End Date Ab Dunham MD [address] [place] [address] PCP - General Family Medicine 08/03/11 Sissen, Johny, [facility] [address] [place] [address] Specialty Consumer Loan Underwriter Orthopedics 07/26/22 10/12/22 Business Development Officer Relationship Specialty Start Date End Date Ab Dunham MD [address] [place] [address] PCP - General Family Medicine 08/03/11 Sissen, Johny, [facility] [address] [place] [address] Specialty Consumer Loan Underwriter Orthopedics 07/26/22 10/12/22 Business Development Officer Relationship Specialty Start Date End Date Ab Dunham MD [address] [place] [address] PCP - General Family Medicine 08/03/11 Sissen, Johny, [facility] [address] [place] [address] Specialty Consumer Loan Underwriter Orthopedics 07/26/22 10/12/22 Business Development Officer Relationship Specialty Start Date End Date Ab Dunham MD [address] [place] [address] PCP - General Family Medicine 08/03/11 Business Development Officer Relationship Specialty Start Date End Date Ab Dunham MD [address] [place] [address] PCP - General Family Medicine 08/03/11 Business Development Officer Relationship Specialty Start Date End Date Ab Dunham MD [address] [place] [address] PCP - General Family Medicine 08/03/11 Business Development Officer Relationship Specialty Start Date End Date Ab Dunham MD [address] [place] [address] PCP - General Family Medicine 08/03/11 Business Development Officer Relationship Specialty Start Date End Date Ab Dunham MD [address] [place] [address] PCP - General Family Medicine 08/03/11 Business Development Officer Relationship Specialty Start Date End Date Ab Dunham MD [address] [place], [place] [address] PCP - General Family Medicine 08/03/11 Business Development Officer Relationship Specialty Start Date End Date Ab Dunham MD [address] [place], [place] [address] PCP - General Family Medicine 08/03/11 Business Development Officer Relationship Specialty Start Date End Date Ab Dunham MD [address] [place], [place] [address] PCP - General Family Medicine 08/03/11 Business Development Officer Relationship Specialty Start Date End Date Ab Dunham MD [address] [place], [place] [address] PCP - General Family Medicine 08/03/11 Business Development Officer Relationship Specialty Start Date End Date Ab Dunham MD [address] [place] [address] PCP - General Family Medicine 08/03/11 (unrecognized sect ion and content) No Status Records FoundNo Status Records Found INFORMATION SOURCE (unrecogn ized section and content) DATE CREATED AUTHOR AUTHOR'S ORGANIZ ATION 10/13/2023 [facility] FOR RECORDS PERTAINING TO PATIENTS WHO ARE OR HAVE BEEN ENROLLED IN A CHEMICAL DEPENDENCY/SUBSTANCEABUSE PROGRAM, SOME INFORMATION MAY BE OMITTED. This clinical summary was aggregated from multiple sources. Caution should be exercised in using it in the provision of clinical care. This summary normalizes information from multiple sources, and as a consequence, information in this document may materially change the coding, format and clinical context of patient data. In addition, data may be omitted in some cases. CLINICAL DECISIONS SHOULD BE BASED ON THE PRIMARY CLINICAL RECORDS. [facility] [facility]. provides no warranty or guarantee of the accuracy or completeness of information in this document.
[2023-11-12 11:43] LABS: Absolute Lymphocyte Count 1.12 X10^3/uL (0.83-4.51); Absolute Neutrophil Count 5.3 X10^3/uL (2.0-7.7); Basophil# 0.03 X10^3/uL; Basophil% 0.4 % (0-1); Eosinophil# 0.11 X10^3/uL; Eosinophils% 1.5 % (0-5); Hematocrit 42.2 % (40-54); Hemoglobin 13.3 g/dL (13.0-16.5); Lymphocyte # 1.12 X10^3/ul (0.83-4.51); Lymphocyte % 15.7 % (19-41); Mean Corp Hgb Conc 31.5 g/dL (32-36); Mean Corpuscular Hgb 30.4 pg (27.0-32.0); Mean Corpuscular Volume 96.6 fL (80-94); Mean Platelet Vol. 11.1 fl (6.2-12.0); Monocyte# 0.61 X10^3/uL; Monocyte% 8.5 % (0-10); NRBC Flagged by Analyzer 0 % (0-5); Neutrophil # 5.25 X10^3/uL (2.7-7.7); Neutrophil % 73.6 % (47-70); Platelet Count 218 K/mm3 (150-450); RBC Distribution Width CV 14.4 % (11.6-14.6); RBC Distribution Width SD 50.8 fl (35.1-43.9); Red Blood Count 4.37 M/mm3 (4.6-6.2); White Blood Count 7.1 K/mm3 (4.4-11.0)
[2023-11-12 12:04] LABS: Vitamin D,25 Hydroxy 43.9 ng/mL
[2023-11-12 12:23] LABS: ALB/GLOB Ratio 0.9 RATIO (0.9-2.4); AST(SGOT) 17 U/L (15-37); Alanine Aminotransfer ALT/SGPT 22 U/L (16-61); Albumin, Serum 3.6 g/dL (3.2-5.0); Alkaline Phosphatase 155 U/L (45-117); Anion Gap 7 (5-15); BUN 26 mg/dL (7-18); Calcium,Total 9.4 mg/dL (8.5-10.1); Chloride 107 mmol/L (98-107); Creatinine, Serum 1.37 mg/dL (0.70-1.30); EST Glomerular Filtration Rate 53 mL/min (>60); Est Glom Filt Rate - Afr Amer 64 mL/min (>60); Globulin 3.8 g/dL (2.2-4.2); Glucose 278 mg/dL (74-106); Potassium 4.2 mmol/L (3.5-5.1); Protein, Total 7.4 g/dL (6.4-8.2); Sodium Level 140 mmol/L (136-145); Thyroid Stim Hormone (TSH) 1.62 uIU/mL (0.358-3.74); Uric Acid 3.6 mg/dL (3.5-7.2)
== END | disposition home or self-care (01) ==
LOC: POLAB3 10:37
PROVIDERS: PCP Family Medicine Geriatric Medicine; Visit Provider Family Medicine Geriatric Medicine
DX: I10 Essential (primary) hypertension (principal); E11.65 Type 2 diabetes mellitus with hyperglycemia; E55.9 Vitamin D deficiency, unspecified; M10.9 Gout, unspecified
CPT/HCPCS: 36415; 80053; 82306; 84443; 84550; 85025

== ENCOUNTER → 2023-11-27 | Outpatient (CLI) | payer MEDICARE, SELFPAY ==
--- NOTE | 2023-11-27 07:19 | US_ITS ---
STUDY: ABDOMINAL ULTRASOUND - LEFT UPPER QUADRANT REASON FOR EXAM: Male, 83 years old. Left side abdominal pain TECHNIQUE: Transabdominal ultrasound was performed with real-time and static hansen scale imaging. TECHNICAL QUALITY: Adequate. COMPARISON: None. FINDINGS: Spleen: Normal size of the spleen. The spleen measures 11 cm x 3.8 cm x 3.2 cm. Left Kidney: Normal size of the left kidney. The left kidney measures 10.8 cm x 5.3 cm x 4.9 cm. Normal renal cortex. The left cortex measures 1.0 cm. There is no demonstrated renal mass or cyst. There is no left hydronephrosis. US/Abdomen Limited IMPRESSION: Normal left upper quadrant abdominal ultrasound examination. Electronically Signed: Dave Whitt MD at 14:54 EST ,
--- OUTSIDE RECORDS SUMMARY | 2023-11-27 07:22 | XMS RPT_ITS | CCD ---
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) [...] Facility 02-09-2023 10:44-0400 Body height 182.9 cm Ab Dunham MD Work Phone: [facility] 02-09-2023 10:44-0400 Body temperature 97 [degF] Ab Dunham MD Work Phone: [facility] 02-09-2023 10:44-0400 Body weight 87.05 kg Ab Dunham MD Work Phone: [facility] 02-09-2023 10:44-0400 Diastolic blood pressure 74 mm[Hg] Ab Dunham MD Work Phone: [facility] 02-09-2023 10:44-0400 Heart rate 74 /min Ab Dunham MD Work Phone: [facility] 02-09-2023 10:44-0400 Respiratory rate 16 /min Ab Dunham MD Work Phone: [facility] 02-09-2023 10:44-0400 SaO2% (BldA) [Mass fraction] 98 % Ab Dunham MD Work Phone: [facility] 02-09-2023 10:44-0400 Systolic blood pressure 139 mm[Hg] Ab Dunham MD Work Phone: [facility] 08-09-2022 07:59-0400 Body height 182.9 cm Pacc 1 Work Phone: [facility] 08-09-2022 07:59-0400 Body temperature 98.01 [degF] Pacc 1 Work Phone: [facility] 08-09-2022 07:59-0400 Body weight 85.28 kg Pacc 1 Work Phone: [facility] 08-09-2022 07:59-0400 Diastolic blood pressure 72 mm[Hg] Pacc 1 Work Phone: [facility] 08-09-2022 07:59-0400 Heart rate 69 /min Pacc 1 Work Phone: [facility] 08-09-2022 07:59-0400 Respiratory rate 16 /min Pacc 1 Work Phone: [facility] 08-09-2022 07:59-0400 SaO2% (BldA) [Mass fraction] 99 % Pacc 1 Work Phone: [facility] 08-09-2022 07:59-0400 Systolic blood pressure 126 mm[Hg] Pacc 1 Work Phone: [facility] 06-08-2022 09:43-0400 Diastolic blood pressure 72 mm[Hg] Ab Dunham MD Work Phone: [facility] 06-08-2022 09:43-0400 Systolic blood pressure 142 mm[Hg] Ab Dunham MD Work Phone: [facility] 06-08-2022 09:28-0400 Body height 182.9 cm Ab Dunham MD Work Phone: [facility] 06-08-2022 09:28-0400 Body weight 86.18 kg Ab Dunham MD Work Phone: [facility] 06-08-2022 09:28-0400 Heart rate 63 /min Ab Dunham MD Work Phone: [facility] 06-08-2022 09:28-0400 SaO2% (BldA) [Mass fraction] 99 % Ab Dunham MD Work Phone: [facility] NEGATED: Highlighted [id number] 17:55-0400 BMI (Body Mass Index) 28.39 kg/m2 Shanice Pablo AT [facility] Work Phone: NEGATED: Highlighted [id number] 17:55-0400 Body weight 90.72 kg Shanice Pablo AT [facility] Work Phone: NEGATED: Highlighted [id number] 17:55-0400 Body weight 91 kg Shanice Pablo AT [facility] Work Phone: NEGATED: Highlighted [id number] 17:55-0400 Height 179.07 cm Shanice Pablo AT [facility] Work Phone: NEGATED: Highlighted [id number] 17:55-0400 Height 179 cm Shanice Pablo AT [facility] Work Phone: Encounters Encounter Date Encounter Type Care Provider Facility Start: 10-10-2023 ambulatory Jeannette Rodrigues MA [facility] [place] Procedures Date Procedure Procedure Detail Performing Clinician [...] P,Tdap,Td Vaccine (2 - Td or Tdap) [facility] Start: 02-10-2024 Hepatitis B surface antibody level LDL CHOLESTEROL [facility] Start: 09-26-2023 Glaucoma screening Dilated Retinal E xam [facility] Start: 09-26-2023 Hepatitis C antibody , confirmatory test DILATED RETINAL EXAM [facility] Start: 06-29-2023 Covid-19 Vaccine () Covid-19 Vaccine () [facility] Start: 06-29-2023 Influenza vaccination [facility] Start: 06-08-2023 Urine microalbumin profile DTAP,TDAP ,TD (1 - Tdap) [facility] Immunizations Immunization Date Immunization Notes Care Provider Jasmin wang 07-10-2023 respiratory syncytia l virus (RSV) vaccine, adjuvanted (AREXVY) Jeannette Rodrigues MA [facility] 05-23-2023 pneumococcal (PCV20) vaccine, 20 valent (PREVNAR 20) Jeannette Rodrigues MA [facility] 05-23-2023 tetanus toxoid, redu mikcie diphtheria toxoid, and acellular pertussis vaccine, adsorbed Jeannette Rodrigues MA [facility] 08-11-2022 influenza, high-dose , quadrivalent vaccine (FLUZONE HIGH DOSE QUADRIVALENT) Rodger VIRGEN Work Phone: [facility] 08-11-2022 influenza virus vacc ine, unspecified formulation Jeannette Rodrigues MA [facility] 09-07-2021 influenza, high-dose , quadrivalent vaccine (FLUZONE HIGH DOSE QUADRIVALENT) Ab Dunham MD Work Phone: [facility] 02-03-2021 zoster vaccine recombinant Ab Dunham MD Work Phone: [facility] 12-31-2020 COVID-19 vaccine, fu ll dose (MODERNA) Ab Dunham MD Work Phone: [facility] 12-03-2020 COVID-19 vaccine, fu ll dose (MODERNA) Ab Dunham MD Work Phone: [facility] 10-07-2020 zoster vaccine recombinant Ab Dunham MD Work Phone: [facility] 08-09-2020 influenza, high-dose , quadrivalent vaccine (FLUZONE HIGH DOSE QUADRIVALENT) Ab Dunham MD Work Phone: [facility] 08-13-2019 influenza, high dose seasonal, preservative-free Ab Dunham MD Work Phone: [facility] 07-18-2018 influenza, high dose seasonal, preservative-free Ab Dunham MD Work Phone: [facility] 07-27-2017 influenza, high dose seasonal, preservative-free Ab Dunham MD Work Phone: [facility] 08-23-2016 influenza, high dose seasonal, preservative-free Ab Dunham MD Work Phone: [facility] 11-02-2015 pneumococcal conjuga te vaccine, 13 valent Ab Dunham MD Work Phone: [facility] Work Phone: 09-11-2015 influenza, high dose seasonal, preservative-free Ab Dunham MD Work Phone: [facility] 08-19-2013 influenza virus vacc ine, unspecified formulation Ab Dunham MD Work Phone: [facility] 08-30-2012 influenza virus vacc ine, whole virus Ab Dunham MD Work Phone: [facility] 07-10-2011 influenza virus vacc ine, unspecified formulation Ab Dunham MD Work Phone: [facility] Work Phone: 01-18-2009 zoster vaccine, live Ab Dunham MD Work Phone: [facility] 01-27-2007 pneumococcal polysaccharide vaccine, 23 valent Ab Dunham MD Work Phone: [facility] Payers Date Payer Category Payer Unknown [employer] [facility] AND BLUE [facility] AQUILINO RAZA O [id number] 2021-[facility] [phone] [address] [place] [address] O [id number] 2021 Unknown ANTHEM BLUE CROS S AND BLUE SHIELD ANTHEM MEDIBLUE HMO [id number] 2021-Present [phone] [address] [place] [address] O [id number] 2021 Unknown [id number] 2016 Unknown ANTHEM ROMAEM ME DICARE SUPPLEMENT [id number] 2016-Present [phone] [address] [place] [address] Indemnity [id number] 2005 Medicare MEDICARE MEDICAR E A AND B [id number] 2005-Present [phone] [place] [address] Medicare [id number] Social History Date Type Detail Facility Start: 04-30-2020 End: 04-30-2020 Assertion Unknown if ever smoked [facility] Work Phone: Start: 02-09-2015 End: 06-08-2022 Tobacco smoking status NHIS Never smoked tobacco [facility] Work Phone: Start: 10-05-2021 End: 02-09-2023 Alcohol intake Current drinker of alcohol (finding) [facility] Start: 1940 Sex Assigned At Not on file [facility] Start: 02-09-2015 End: 06-08-2022 Tobacco use and exposure Smokeless tobacco non-user [facility] Start: 05-29-2022 End: 09-11-2022 Exposure to SARS-CoV-2 (event) Not sure [facility] Start: 11-14-2022 End: 02-09-2023 History of Social function [facility] Work Phone: Start: 11-14-2022 End: 02-09-2023 Tobacco use panel [facility] Work Phone: Adult Depression Screening Assessment 0 [facility] Work Phone: NEGATED: Highlighted rowStart: 04-28-2020 End: 04-28-2020 Employment detail Employment detail [facility] Work Phone: Medical Equipment Procedure Code Equipment Code Equipment Origin al Text Equipment Identifier Dates Start: 09-06-2017 End: 04-12-2022 Clinical Notes 02-09-2015 to 10-10-2023 Evelyn Lazo - 10/10/2023 3:40 PM Jeannette Romano MA - 10/10/2023 9:56 AM Jeannette Romano MA - 08/09/2023 8:42 AM EDTTelephone Encounter - Brayan [facility] - 02/12/2023 3:24 PM EDT Note Date & Type Note Facility 10-10-2023 Note HNO ID: [id number] Author: Evelyn Lazo Service: ? Author Type: ? Type: Progress Notes Filed: 10/10/2023 3:40 PM Note Text: POPULATION HEALTH NAVIGATION OUTREACH Action/FYI Letter received and sent to be mailed Evelyn Lazo October 10, 2023 3:[address] [facility] 10-10-2023 History of Present illness Narrative [...] Gap or Scheduling/Wellness visits Payer: Payor: AQUILINO [employer] [facility] / Plan: AQUILINO RAZA HMO / Product [...] 2023 9:56 AM documented in this encounter [facility] 10-10-2023 Note Patient Outreach (NE TNAV) BRENDAN FLORES ([id number]) 1940 [facility] Date Time Provider Department 10/10/23 JEANNETTE [...] Gap or Scheduling/Wellness visits Payer: Payor: AQUILINO [employer] AND BLUE [employer] / Plan: AQUILINO RAZA HMO / Product [...] once daily. For blood pressure - Insulin Newcastle, Disposable, (BD ULTRA-FINE VIMAL PEN NEEDLE) 32 [...] Encounter Status:Closed by JEANNETTE RODRIGUES on 10/10/23 [facility] 10-10-2023 Note HNO ID: [id number] Author: Jeannette Rodrigues MA Service: ? Author Type: Platform Worker Type: Progress Notes Filed: 10/10/2023 2:46 PM [...] Care Gap or Scheduling/Wellness visits Payer: Payor: Contact[employer] / Plan: [employer] HMO / Product Type: HMO / Care [...] Rodrigues MA October 10, 2023 9:[address] [facility] 08-09-2023 Note Patient Outreach (DIDIER TNAV) BRENDAN FLORES ([id number]) 1940 [address] [employer] Date Time Provider Department 08/09/23 JEANNETTE [...] Gap or Scheduling/Wellness visits Payer: Payor: AQUILINO [employer] AND [employer] / Plan: AQUILINO YANIQUEGILMA HMO / Product [...] Units subcutaneously daily at bedtime. - Insulin Newcastle, Disposable, (BD ULTRA-FINE VIMAL PEN NEEDLE) 32 gauge x 5/32 USE ONCE DAILY - Lancets (Impact EngineTOUCH ULTRASOFT LANCETS) lancets Test blood sugar(s) 3 [...] Encounter Status:Closed by JEANNETTE RODRIGUES on 08/09/23 [facility] 08-09-2023 Note HNO ID: [id number] Author: Jeannette Rodrigues MA Service: ? Author Type: Platform Worker Type: Progress Notes Filed: 08/09/2023 1:44 PM Note Text: POPULATION HEALTH NAVIGATION OUTREACH Action/FYI LVM NO MYCHART [facility] Annual medicare wellness Advance Directive Discussion Never done HbA1C due on 05/11/2023 Influenza Vaccine(1) due on 06/29/2023 Patient Identified by Name and : NO Outreach Outcome/Action Unable to reach patient: Left message Did you use a PCP flex slot to schedule this appointment? No Reason for Outreach Care Gap or Scheduling/Wellness visits Payer: Payor: QAUILINO [employer] AND [employer] / Plan: ANTHEM MEDIBLUE HMO / Product [...] Rodrigues MA August 09, 2023 8:[address] [facility] 08-09-2023 History of Present illness Narrative POPULATION HEALTH NAVIGATION OUTREACH Action/FYI LVM NO MYCKANGT [facility] Annual medicare wellness Advance Directive Discussion Never done HbA1C due on 05/11/2023 Influenza Vaccine(1) due on 06/29/2023 Patient Identified by Name and : NO Outreach Outcome/Action Unable to reach patient: Left message Did you use a PCP flex slot to schedule this appointment? No Reason for Outreach Care Gap or Scheduling/Wellness visits Payer: Payor: AQUILINO DILLARD [employer] AND [employer]IELD / Plan: ANTHEM MEDIBLUE HMO / [...] 2023 8:42 AM documented in this encounter [facility] 05-09-2023 Miscellaneous Notes Received cbc, vit d, hep c results from [facility]. Placed in provider's inbox for review. Route to MA scanning. documented in this encounter [facility] 02-12-2023 Miscellaneous Notes Called and informed [...] AB DUNHAM MD documented in this encounter [facility] 02-09-2023 Note HNO ID: [id number] Author: Ab Dunham MD Service: ? Author [...] Abs Lymph 1.00 - 4.00 k/uL 1.26 Hutchinson% % 7.6 Abs Hutchinson <0.87 k/uL 0.64 Eosin% % 2.7 Abs [...] nephropathy, with long-term current use of insulin ([facility]) Comment: Patient does one insulin shot daily Plan: continue the insuilin, consider dose change/ addition of other med. (N18.31) Stage 3a chronic kidney disease ([facility]) Comment: Creatinine: 1.35 Plan: Continue to monitor (N18.30, D63.1) Anemia, chronic renal failure, stage 3 (moderate) ([facility]) Comment: RBC: 3.38 Plan:Continue to monitor (R07.89) Chest wall pain Comment: relates to abd straining some weeks back. Plan: observe this. (I10) Essential hypertension Comment: BP: repeat bp better. Plan: continue o (more content not included)... [facility] 02-09-2023 History of Present illness Narrative [...] Abs Lymph 1.00 - 4.00 k/uL 1.26 Hutchinson% % 7.6 Abs Hutchinson <0.87 k/uL 0.64 Eosin% % 2.7 Abs [...] nephropathy, with long-term current use of insulin ([facility]) Comment: Patient does one insulin shot daily Plan: continue the insuilin, consider dose change/ addition of other med. (N18.31) Stage 3a chronic kidney disease ([facility]) Comment: Creatinine: 1.35 Plan: Continue to monitor (N18.30, D63.1) Anemia, chronic renal failure, stage 3 (moderate) ([facility]) Comment: RBC: 3.38 Plan:Continue to monitor (R07.89) [...] 2023 5:31 PM documented in this encounter [facility] 02-01-2023 Miscellaneous Notes The following approved [...] Shanel Dale Pss documented in this encounter [facility] 11-21-2022 Note HNO ID: [id number] Author: Jj Avila PT Service: ? Author [...] Time Minutes (timed/untimed): 40 Jj Avila, PT [facility] 11-21-2022 History of Present illness Narrative [...] Jj Avila PT documented in this encounter [facility] 11-20-2022 Note HNO ID: [id number] Author: Rodger Elena MD Service: ? Author Type: Physician Type: Progress Notes Filed: 11/20/2022 9:49 AM Note Text: Ortho Knee Follow Up Note Narrative Referring Provider: Rodger Elena [address] [facility] [address] PCP: Ab Dunham MD IMPRESSION/PLAN: 82 year [...] Elena MD Completed by: Rodger Elena MD [facility] 11-20-2022 History of Present illness Narrative Images from the original note were not included. Ortho Knee Follow Up Note Narrative Referring Provider: Rodger Elena [address] [facility] [address] PCP: Ab Dunham MD IMPRESSION/PLAN: 82 year [...] Rodger Elena MD documented in this encounter [facility] 11-16-2022 Note HNO ID: [id number] Author: Jj Avila PT Service: ? Author [...] (timed/untimed): 41 Maeve Gallegos, JORGE Avila PT [facility] 11-14-2022 Note HNO ID: [id number] Author: Jj Avila PT Service: ? Author [...] manual over pressure for extension from therapist [id number]: Standing hip abdcution x10 B 8: [...] Treatment Time Minutes (timed/untimed): 45 Maeve Gallegos, COMMUNITY AIDE Jj Avila, PT [facility] 11-14-2022 History of Present illness Narrative [...] manual over pressure for extension from therapist [id number]: Standing hip abdcution x10 B 8: [...] JORGE Avila PT documented in this encounter [facility] 11-09-2022 Note HNO ID: [id number] Author: Jj Avila PT Service: ? Author [...] Time Minutes (timed/untimed): 40 Jj Avila, PT [facility] 11-09-2022 History of Present illness Narrative [...] Jj Avila PT documented in this encounter [facility] 11-07-2022 Note HNO ID: [id number] Author: Jj Avila PT Service: ? Author [...] Time Minutes (timed/untimed): [address] [facility] 11-02-2022 Note HNO ID: [id number] Author: Jj Avila PT Service: ? Author [...] 45 Total Treatment Time Minutes (timed/untimed): 45 Mavee Gallegos, COMMUNITY AIDE Jj Avila, PT [facility] 11-02-2022 History of Present illness Narrative [...] JORGE Avila PT documented in this encounter [facility] 10-31-2022 Note HNO ID: [id number] Author: Jj Avila PT Service: ? Author [...] of Care: created on 09/27/22 through 12/26/22 [place] in home exercise program. Met, continuing Patient [...] Patient to be seen for Therapeutic exercise (55600);Neuromuscular re-education (56940);Manual therapy (07622);Therapeutic activities (17983);Self-halfway management (64081);Patient/Family/Caregiver Education;Body Mechanics Training PLAN FOR NEXT VISIT: [...] home exercise program (more content not included)... [facility] 10-31-2022 History of Present illness Narrative [...] of Care: created on 09/27/22 through 12/26/22 [place] in home exercise program. Met, continuing Patient [...] Patient to be seen for Therapeutic exercise (20071);Neuromuscular re-education (57933);Manual therapy (90316);Therapeutic activities (38346);Self-halfway management (27908);Patient/Family/Caregiver Education;Body Mechanics Training PLAN FOR NEXT VISIT: [...] Jj Avila PT documented in this encounter [facility] 10-27-2022 Note HNO ID: [id number] Author: Reinaldo Ash PT Service: ? Author [...] Treatment Time Minutes (timed/untimed): 40 Maeve Gallegos, COMMUNITY AIDE Reinaldo Ash, PT [facility] 10-27-2022 History of Present illness Narrative [...] Treatment Time Minutes (timed/untimed): 40 Maeve Gallegos, COMMUNITY AIDE Reinaldo Ash PT documented in this encounter [facility] 10-24-2022 Note HNO ID: [id number] Author: Reinaldo Ash PT Service: ? Author [...] (timed/untimed): 43 Maeve Gallegos, JORGE Ash, PT [facility] 10-18-2022 Note HNO ID: [id number] Author: Jj Avila PT Service: ? Author [...] Time Minutes (timed/untimed): 40 Jj Avila, PT [facility] 10-18-2022 History of Present illness Narrative [...] Jj Avila PT documented in this encounter [facility] 10-16-2022 Note HNO ID: [id number] Author: Jj Avila PT Service: ? Author [...] walker. Uses the cane mostly out in [facility] community, not using the cane at home. [...] Treatment Time Minutes (timed/untimed): 43 Maeve El, COMMUNITY AIDE Jj Austin, PT [facility] 10-16-2022 History of Present illness Narrative [...] walker. Uses the cane mostly out in [facility] community, not using the cane at home. [...] De Leon PT documented in this encounter [facility] 10-09-2022 History of Present illness Narrative [...] Visit: Pt reports sitting down on the confucianism pew and put all of his weight [...] De Leon PT documented in this encounter [facility] 10-05-2022 History of Present illness Narrative [...] JORGE Avila PT documented in this encounter [facility] 10-03-2022 History of Present illness Narrative [...] Jj Avila PT documented in this encounter [facility] 09-29-2022 History of Present illness Narrative [...] was facilitated with verbal and visual cuing. Self-Chcf Management: 1: *Discussed use of Vitamin E [...] De Leon PT documented in this encounter [facility] 09-28-2022 History of Present illness Narrative [...] of Care: created on 09/27/22 through 12/26/22 [place] in home exercise program. Patient will decrease [...] Planned: 20 Planned Treatment Interventions: Therapeutic exercise (50877);Neuromuscular re-education (80858);Manual therapy (62182);Therapeutic activities (74764);Self-halfway management (52575);Gait Training (87735);Patient/Family/Caregiver Education;Body Mechanics Training PLAN FOR NEXT VISIT: [...] Training;Body Mechanics TREATMENT: PT Treatment Interventions: Therapeutic Exercise;Self-Chcf Management Evaluation Therapeutic Exercise: 1: *Heel slides [...] facilitated with verbal, visual, and tactile cuing. Self-Chcf Management: 1: Discussed contraindications and precautions due [...] Jj Avila PT documented in this encounter [facility] 09-27-2022 History of Present illness Narrative [...] Care Gap or Scheduling/Wellness visits Payer: Payor: [facility] [employer] AND [employer] [facility] / Plan: [employer] HMO / Product Type: HMO / Care [...] 2022 8:15 AM documented in this encounter [facility] 09-26-2022 History of Present illness Narrative [...] 2022 2:28 PM documented in this encounter [facility] 09-11-2022 History of Present illness Narrative Images from the original note were not included. Ortho Knee Follow Up Note Narrative Referring Provider: Rodger Elena [address] [facility] [address] PCP: Ab Dunham MD IMPRESSION/PLAN: 82 year [...] more. Xray 09/08/22. documented in this encounter [facility] 09-02-2022 Note HNO ID: [id number] Author: Paula Wiseman RN Service: Care Management Author Type: Registered Nurse Type: Care Mgt Progress Note Filed: 09/02/2022 1:07 PM Note Text: CARE MANAGEMENT DISCHARGE NOTE SERVICE DATE: 09/02/2022 SERVICE TIME: 1:03 PM LOS: 0 days Admission Date: 09/01/2022 DISCHARGE ARRANGEMENT (list agency and phone number) Discharge Arrangement: Home with Home Health Provider Name: [facility] [place] [place] Care CAREGIVER ASSESSMENT: Caregiver is ready, willing [...] Pt. at Home first week at Home. [facility] [phone] can do Home PT. [facility] spoke with Jen Theoretical Physics Teacher for [facility] and they will accept Pt. Sunday after his benefits are checked Discharge Information Row Name Admission (Current) from 09/01/[address] [facility] [place] [place] Care Start of Care -- As Per Policy SIGNATURE: Paula Wiseman RN,BSN, ACM PATIENT NAME: Brendan Flores DATE: September 02, 2022 TIME: 1:03 PM PAGER/CONTACT #: [phone] [facility] 09-02-2022 Note HNO ID: [id number] Author: Roberth Victor MD Service: General Internal [...] Discharge Med reviewed SIGNATURE: Roberth Victor MD [facility] 09-02-2022 Note HNO ID: [id number] Author: Panchito Gastelum MD Service: Orthopaedic Surgery [...] Gastelum MD Orthopaedic Surgery Adult reconstruction fellow [phone] [id number] September 02, 2022 6:40 AM Please pardon any typos or grammatical errors as this note was dictated using voice recognition software. Page [id number] after 5pm AND on weekends If Yazidism patient, please page Yazidism ortho call pager after hours and on weekends. 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 Please advise. Columba Nye RN documented in this encounter [facility] 08-09-2022 Miscellaneous Notes TOTAL JOINT COMPLETE CARE PROGRAM PRE-OPERATIVE TEACHING Service Date: 08/09/2022 Service Time: 10:49 AM Date of : 1940 Gender: male Date of Surgery: 08/30/22 Procedure: Left Total Knee Replacement Complete Care Program was discussed with the patient: Corporate Events Director Identification: Patient identified a pharmacy care coordinator to help when discharged to home: Home [...] Binder: Yes Patient plans discharge home with [facility]. SIGNATURE: ADÁN Pierre PATIENT NAME: Brendan Flores DATE: August 09, 2022 TIME: 10:43 AM documented in this encounter [facility] 08-09-2022 Miscellaneous Notes Received EKGs from [facility] medical records. Copy made for Karlene Limon CNP and original sent to transfer and pumphouse operator to scan. Nicole Sarmiento LPN Fax sent to [facility] medical records requesting patients EKG on 11/30/21. Nicole Sarmiento LPN documented in this encounter [facility] 08-09-2022 History and physical note HISTORY [...] year(s) interfering with activities which include doing finisher brush, participating in family activities, walking, and climbing [...] +essential tremor. No history of TIA's, stroke, PRIVATE SECTOR EXECUTIVE tumor, impaired sensorium, hemiplegia, paraplegia or quadraplegia. No neurological symptoms or problems. Respiratory: No history of current cough or dyspnea, or pneumonia in the past 6 weeks. No history of respiratory/pulmonary symptoms or problems. Cardiovascular: Positive for: hyperlipidemia (on rx) and hypertension (on rx) Negative for: anticoagulation therapy, arrhythmia, atrial fibrillation, CAD, chest pain, CHF, congenital heart defect, DVT/PE, recent CT, murmur/valvular heart disease, open heart surgery and [...] daily. For blood pressure Taking Yes Insulin Newcastle, Disposable, (BD ULTRA-FINE VIMAL PEN NEEDLE) 32 [...] or any previous visit (from the past 95490 hour(s)). Assessment Benign essential tremor Assessment: hx [...] equal to 35 kg/m^2 STOP-Bang Score: 4 [id number] Score: Age: >=75 Sex: male CHF history: No Hypertension history: Yes Stroke/TIA/thromboembolism history: No Vascular disease history: No Diabetes history: Yes [id number] Score: 4 ARISCAT Score: Age: >80 Preoperative [...] and consent discussed: yes. Patient / Responsible Libertarian agrees to proceed: yes Patient / Surrogate agrees to blood products: Yes Prepared for Surgery: optimally prepared for surgery, pending [see comment]. Labs +recent EKG and stress test to be scanned into [facility] CONSULTS: Patient does not require consults for [...] AM PAGER/CONTACT #: documented in this encounter [facility] 08-09-2022 Instructions Karlene Limon APRN.CNP - 08/09/2022 8:18 AM EDT PATIENT PREOPERATIVE INSTRUCTIONS Rodger Eelna MD has scheduled you for your procedure at this surgery center: [facility]: [phone] -- [address] [place] [id number]. Please read below carefully for your personalized [...] Procedures: - YOU MUST HAVE A RESPONSIBLE CREMATORY ATTENDANT TAKE YOU HOME. A INSPECTING MACHINE ADJUSTER OR SEED CLEANING MACHINE OPERATOR CANNOT BE MADE A RESPONSIBLE CREMATORY ATTENDANT. - We recommend that a responsible person [...] Advance Directive, please fax a copy to [phone] or email to for it to be [...] into your chart that day. Karlene Limon APRN.PERSONAL INJURY PARALEGAL documented in this encounter [facility] 07-28-2022 Miscellaneous Notes Surgery has been scheduled as requested. Surgical request completed for left robotic assisted total knee arthroplasty at [facility] on 08/30/2022. Post op appointments have been scheduled and mailed to patient. CT scan scheduled for 08/01/2022. Email sent to [employer] [facility] documented in this encounter [facility] 07-17-2022 Miscellaneous Notes Pharmacy verified in [...] No need to notify patient. Allison Ramos [facility] documented in this encounter [facility] 07-17-2022 History of Present illness Narrative CONSULT ORTHOPAEDIC: KNEE PRIMARY CARE PHYSICIAN: Ab Dunham MD REFERRING PROVIDER: Ab Dunham [address] [place] [address] [place] [address] ASSESSMENT & PLAN Impression: Left Knee Severe [...] year(s) interfering with activities which include doing finisher brush, participating in family activities, walking, and climbing [...] Diabetes: Consult to the Endocrinology and [facility] [place] ([facility]) recommended prior to surgery. Hemoglobin A1C [...] MG TAB Take one(1) tablet daily. Insulin [place], Disposable, (BD ULTRA-FINE VIMAL PEN NEEDLE) 32 [...] TIME: 9:07 AM documented in this encounter [facility] 06-08-2022 Instructions Ab Dunham MD - 06/08/2022 9:48 AM EDT Kidney function suddenly worse. StOP hydrochlorothiazide STOP Metformin ADD: Januvia 50 mg daily for sugar Amlodipine 5 mg daily for blood pressure. Increase insulin to 12 units daily Check bloodwork in 6 weeks. Ab Dunham MD documented in this encounter [facility] 06-08-2022 History of Present illness Narrative [...] 2022 3:22 PM documented in this encounter [facility] 05-25-2022 Miscellaneous Notes Called and informed pt. Pt confirmed his 06/08/22 appt with PCP. Please let patient know that his recent labs show worsening kidney function and diabetes. Please keep appointment coming up with Dr. Dunham in a couple weeks to discuss further. Cinthia Alcantar APRN.RACHEL documented in this encounter [facility] 05-15-2022 History of Present illness Narrative [...] Documentation 09/24/2017 01/13/2019 04/19/2022 Opts out of [facility] No No No Appointments Scheduled - [...] Other Lita Flaherty documented in this encounter [facility] 04-12-2022 Miscellaneous Notes Patient has been identified by name and date of : Yes Pending Prescriptions Disp Refills PEN NEEDLE, DIABETIC 32 GAUGE X 100 Each 5 Sig: USE ONCE DAILY GARY: No RX INSTRUCTIONS: Patient aware RX will be sent to pharmacy. No need to notify patient. Shanel Dale Pss documented in this encounter [facility] 02-15-2022 Miscellaneous Notes Pharmacy verified in [facility] Patient has been identified by name and [...] Shae Suárez Pss documented in this encounter [facility] 01-30-2022 Miscellaneous Notes Last appointment: 10/05/21 Next appointment: n/a Pharmacy verified in [facility]. Refill(s) requested: Pending Prescriptions Disp Refills LISINOPRIL 40 MG TABLET 90 tablet 3 Sig: Take 1 tablet by mouth once daily. GARY: No Order(s) pended. Please advise. Ijeoma Allen LPN documented in this encounter [facility] 12-30-2021 Miscellaneous Notes The following approved medication requests have been transmitted electronically. Signed Prescriptions Disp Refills hydroCHLOROthiazide 12.5 mg capsule 90 capsule 2 Sig: Take 1 capsule by mouth once daily. GARY: No Authorizing Provider: AB DUNHAM MD Pharmacy verified in [facility] Patient has been identified by name and [...] advise. Brittney Franks LPN Pharmacy verified in [facility] Patient has been identified by name and [...] Shae Suárez Pss documented in this encounter [facility] documented as of this encounter (statuses as of 12/30/2021) [address] History of Past illness Narrative* Problem Noted Date Resolved Date DM2 (diabetes mellitus, type 2) 02/09/2015 09/05/2021 Patient Left without Being Seen 10/09/2009 02/16/2011 documented as of this encounter (statuses as of 01/30/2022) [address] History of Past illness Narrative* Problem Noted Date Resolved Date DM2 (diabetes mellitus, type 2) 02/09/2015 09/05/2021 Patient Left without Being Seen 10/09/2009 02/16/2011 documented as of this encounter (statuses as of 02/15/2022) [address] History of Past illness Narrative* Problem Noted Date Resolved Date DM2 (diabetes mellitus, type 2) 02/09/2015 09/05/2021 Patient Left without Being Seen 10/09/2009 02/16/2011 documented as of this encounter (statuses as of 04/12/2022) [address] History of Past illness Narrative* Problem Noted Date Resolved Date DM2 (diabetes mellitus, type 2) 02/09/2015 09/05/2021 Patient Left without Being Seen 10/09/2009 02/16/2011 documented as of this encounter (statuses as of 05/25/2022) [address] History of Past illness Narrative* Problem Noted Date Resolved Date DM2 (diabetes mellitus, type 2) 02/09/2015 09/05/2021 Patient Left without Being Seen 10/09/2009 02/16/2011 documented as of this encounter (statuses as of 06/08/2022) [address] History of Past illness Narrative* Problem Noted Date Resolved Date DM2 (diabetes mellitus, type 2) 02/09/2015 09/05/2021 Patient Left without Being Seen 10/09/2009 02/16/2011 documented as of this encounter (statuses as of 06/08/2022) [address] History of Past illness Narrative* Problem Noted Date Resolved Date DM2 (diabetes mellitus, type 2) 02/09/2015 09/05/2021 Patient Left without Being Seen 10/09/2009 02/16/2011 documented as of this encounter (statuses as of 07/17/2022) [address] History of Past illness Narrative* Problem Noted Date Resolved Date DM2 (diabetes mellitus, type 2) 02/09/2015 09/05/2021 Patient Left without Being Seen 10/09/2009 02/16/2011 documented as of this encounter (statuses as of 07/17/2022) [address] History of Past illness Narrative* Problem Noted Date Resolved Date DM2 (diabetes mellitus, type 2) 02/09/2015 09/05/2021 Patient Left without Being Seen 10/09/2009 02/16/2011 documented as of this encounter (statuses as of 07/28/2022) [address] History of Past illness Narrative* Problem Noted Date Resolved Date DM2 (diabetes mellitus, type 2) 02/09/2015 09/05/2021 Patient Left without Being Seen 10/09/2009 02/16/2011 documented as of this encounter (statuses as of 08/09/2022) [place] [address] History of Past illness Narrative* Problem Noted Date Resolved Date DM2 (diabetes mellitus, type 2) 02/09/2015 09/05/2021 Patient Left without Being Seen 10/09/2009 02/16/2011 documented as of this encounter (statuses as of 08/09/2022) [address] History of Past illness Narrative* Problem Noted Date Resolved Date DM2 (diabetes mellitus, type 2) 02/09/2015 09/05/2021 Patient Left without Being Seen 10/09/2009 02/16/2011 documented as of this encounter (statuses as of 08/29/2022) [address] History of Past illness Narrative* Problem Noted Date Resolved Date DM2 (diabetes mellitus, type 2) 02/09/2015 09/05/2021 Patient Left without Being Seen 10/09/2009 02/16/2011 documented as of this encounter (statuses as of 09/04/2022) [address] History of Past illness Narrative* Problem Noted Date Resolved Date DM2 (diabetes mellitus, type 2) 02/09/2015 09/05/2021 Patient Left without Being Seen 10/09/2009 02/16/2011 documented as of this encounter (statuses as of 09/11/2022) [address] History of Past illness Narrative* Problem Noted Date Resolved Date DM2 (diabetes mellitus, type 2) 02/09/2015 09/05/2021 Patient Left without Being Seen 10/09/2009 02/16/2011 documented as of this encounter (statuses as of 09/27/2022) [address] History of Past illness Narrative* Problem Noted Date Resolved Date DM2 (diabetes mellitus, type 2) 02/09/2015 09/05/2021 Patient Left without Being Seen 10/09/2009 02/16/2011 documented as of this encounter (statuses as of 09/27/2022) [address] History of Past illness Narrative* Problem Noted Date Resolved Date DM2 (diabetes mellitus, type 2) 02/09/2015 09/05/2021 Patient Left without Being Seen 10/09/2009 02/16/2011 documented as of this encounter (statuses as of 09/28/2022) [address] History of Past illness Narrative* Problem Noted Date Resolved Date DM2 (diabetes mellitus, type 2) 02/09/2015 09/05/2021 Patient Left without Being Seen 10/09/2009 02/16/2011 documented as of this encounter (statuses as of 09/29/2022) [address]2015 History of Past illness Narrative* Problem Noted Date Resolved Date DM2 (diabetes mellitus, type 2) 02/09/2015 09/05/2021 Patient Left without Being Seen 10/09/2009 02/16/2011 documented as of this encounter (statuses as of 10/03/2022) [address]2015 History of Past illness Narrative* Problem Noted Date Resolved Date DM2 (diabetes mellitus, type 2) 02/09/2015 09/05/2021 Patient Left without Being Seen 10/09/2009 02/16/2011 documented as of this encounter (statuses as of 10/05/2022) [address]2015 History of Past illness Narrative* Problem Noted Date Resolved Date DM2 (diabetes mellitus, type 2) 02/09/2015 09/05/2021 Patient Left without Being Seen 10/09/2009 02/16/2011 documented as of this encounter (statuses as of 10/09/2022) [address] History of Past illness Narrative* Problem Noted Date Resolved Date DM2 (diabetes mellitus, type 2) 02/09/2015 09/05/2021 Patient Left without Being Seen 10/09/2009 02/16/2011 documented as of this encounter (statuses as of 10/16/2022) [address]2015 History of Past illness Narrative* Problem Noted Date Resolved Date DM2 (diabetes mellitus, type 2) 02/09/2015 09/05/2021 Patient Left without Being Seen 10/09/2009 02/16/2011 documented as of this encounter (statuses as of 10/18/2022) [address]2015 History of Past illness Narrative* Problem Noted Date Resolved Date DM2 (diabetes mellitus, type 2) 02/09/2015 09/05/2021 Patient Left without Being Seen 10/09/2009 02/16/2011 documented as of this encounter (statuses as of 10/29/2022) [address] History of Past illness Narrative* Problem Noted Date Resolved Date DM2 (diabetes mellitus, type 2) 02/09/2015 09/05/2021 Patient Left without Being Seen 10/09/2009 02/16/2011 documented as of this encounter (statuses as of 11/01/2022) [address]2015 History of Past illness Narrative* Problem Noted Date Resolved Date DM2 (diabetes mellitus, type 2) 02/09/2015 09/05/2021 Patient Left without Being Seen 10/09/2009 02/16/2011 documented as of this encounter (statuses as of 11/02/2022) [address]2015 History of Past illness Narrative* Problem Noted Date Resolved Date DM2 (diabetes mellitus, type 2) 02/09/2015 09/05/2021 Patient Left without Being Seen 10/09/2009 02/16/2011 documented as of this encounter (statuses as of 11/03/2022) [address]2015 History of Past illness Narrative* Problem Noted Date Resolved Date DM2 (diabetes mellitus, type 2) 02/09/2015 09/05/2021 Patient Left without Being Seen 10/09/2009 02/16/2011 documented as of this encounter (statuses as of 11/09/2022) [address]2015 History of Past illness Narrative* Problem Noted Date Resolved Date DM2 (diabetes mellitus, type 2) 02/09/2015 09/05/2021 Patient Left without Being Seen 10/09/2009 02/16/2011 documented as of this encounter (statuses as of 11/14/2022) [address]2015 History of Past illness Narrative* Problem Noted Date Resolved Date DM2 (diabetes mellitus, type 2) 02/09/2015 09/05/2021 Patient Left without Being Seen 10/09/2009 02/16/2011 documented as of this encounter (statuses as of 11/20/2022) [address]2015 History of Past illness Narrative* Problem Noted Date Resolved Date DM2 (diabetes mellitus, type 2) 02/09/2015 09/05/2021 Patient Left without Being Seen 10/09/2009 02/16/2011 documented as of this encounter (statuses as of 11/21/2022) [address] History of Past illness Narrative* Problem Noted Date Resolved Date DM2 (diabetes mellitus, type 2) 02/09/2015 09/05/2021 Patient Left without Being Seen 10/09/2009 02/16/2011 documented as of this encounter (statuses as of 02/01/2023) [address]2015 History of Past illness Narrative* Problem Noted Date Resolved Date DM2 (diabetes mellitus, type 2) 02/09/2015 09/05/2021 Patient Left without Being Seen 10/09/2009 02/16/2011 documented as of this encounter (statuses as of 02/10/2023) [address]2015 History of Past illness Narrative* Problem Noted Date Resolved Date DM2 (diabetes mellitus, type 2) 02/09/2015 09/05/2021 Patient Left without Being Seen 10/09/2009 02/16/2011 documented as of this encounter (statuses as of 02/13/2023) [address]2015 History of Past illness Narrative* Problem Noted Date Diagnosed Date Resolved Date DM2 (diabetes mellitus, type 2) 02/09/2015 09/05/2021 Patient Left without Being Seen 10/09/2009 02/16/2011 documented as of this encounter (statuses as of 05/09/2023) [facility] History of Past illness Narrative* Problem Noted Date Diagnosed Date Resolved Date DM2 (diabetes mellitus, type 2) 02/09/2015 09/05/2021 Patient Left without Being Seen 10/09/2009 02/16/2011 documented as of this encounter (statuses as of 08/09/2023) [facility] History of Past illness Narrative* Problem Noted Date Diagnosed Date Resolved Date DM2 (diabetes mellitus, type 2) 02/09/2015 09/05/2021 Patient Left without Being Seen 10/09/2009 02/16/2011 documented as of this encounter (statuses as of 10/11/2023) [facility] Diagnosis 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 [facility] Diagnosis Essential hypertension Unspecified essential hypertension [facility] Diagnosis Type 2 diabetes mellitus without complication, without long-term current use of insulin (HCC)- Primary Essential hypertension Unspecified essential hypertension [facility] Diagnosis Type 2 diabetes mellitus without [...] neoplasm of prostate [facility] Diagnosis Mixed hyperlipidemia [facility] Diagnosis Primary osteoarthritis of left knee- Primary Primary localized osteoarthrosis, lower leg Chronic pain of left knee Pain in joint, lower leg [facility] Diagnosis Primary osteoarthritis of left knee- Primary Primary localized osteoarthrosis, lower leg Primary osteoarthritis of left knee Primary localized osteoarthrosis, lower leg [facility] Diagnosis Pre-operative examination- Primary Preoperative [...] osteoarthrosis, lower leg [facility] Diagnosis Primary osteoarthritis of left knee- Primary Primary localized osteoarthrosis, lower leg Status post total left knee replacement [facility] Diagnosis Primary osteoarthritis of left knee- Primary Primary localized osteoarthrosis, lower leg [facility] Diagnosis Type 2 diabetes mellitus without complication, with long-term current use of insulin ([facility])- Primary [facility] Diagnosis Primary osteoarthritis of left knee- Primary Primary localized osteoarthrosis, lower leg [facility] Diagnosis Primary osteoarthritis of left knee- Primary Primary localized osteoarthrosis, lower leg [facility] Primary osteoarthritis of left knee- Primary Primary localized osteoarthrosis, lower leg [facility] Diagnosis Primary osteoarthritis of left knee- Primary Primary localized osteoarthrosis, lower leg [facility] Diagnosis Primary osteoarthritis of left knee- Primary Primary localized osteoarthrosis, lower leg [facility] Diagnosis Primary osteoarthritis of left knee- Primary Primary localized osteoarthrosis, lower leg [facility] Diagnosis Primary osteoarthritis of left knee- Primary Primary localized osteoarthrosis, lower leg [facility] Diagnosis Primary osteoarthritis of left knee- Primary Primary localized osteoarthrosis, lower leg [facility] Diagnosis Status post total left knee replacement- Primary [facility] Diagnosis Primary osteoarthritis of left knee- Primary Primary localized osteoarthrosis, lower leg [facility] Diagnosis Essential hypertension Unspecified essential hypertension [facility] Diagnosis Medication side effect- Primary Unspecified adverse effect of unspecified drug, medicinal and biological substance Nausea Nausea alone Type 2 diabetes mellitus with diabetic nephropathy, with long-term current use of insulin ([facility]) Stage 3a chronic kidney disease (HCC) Anemia, chronic renal failure, stage 3 (moderate) ([facility]) Chest wall pain Painful respiration Essential hypertension Unspecified essential hypertension Essential tremor Essential and other specified forms of tremor [facility] Diagnosis Type 2 diabetes mellitus without complication, without long-term current use of insulin (HCC) documented in this encounter [facility] for referral (narrative)* Diagnostic Procedure Only (Routine) - Pending Review Specialty Diagnoses / Procedures [facility] Referred To Contact XR IMAGING Diagnoses Primary osteoarthritis of left knee Status post total left knee replacement Procedures XR KNEE GENERAL 4V AP BOTH/PA BOTH/LAT/MERC LEFT RADIOLOGIC EXAM KNEE COMPLETE 4/MORE VIEWS Rodger Elena MD [address] [facility] [place] [address] Xr Imaging Referral ID Status Reason Start Date Expiration Date Visits Requested Visits Authorized [id number] Pending Review Auto-Generat ed Referral 09/04/2022 10/04/2023 1 1 [facility] for referral (narrative)* - Pending Review Specialty Diagnoses / Procedures Referred By Contac Referred To Contact Physical Therapy Diagnoses Primary osteoarthritis of left knee Procedures CONSULT TO PHYSICAL THERAPY Rosio Lechuga PA-C [address] [place] [address] Referral ID Status Reason Start Date Expiration Date V isits Requested Visits Authorized [id number] Pending Review 09/11/2022 12/10/2022 1 1 [facility] Chief Complaint Chief Complaint Description Start Date left knee pain Preliminary chief co mplaint data, not yet signed by the author as of Instructions Instruction Description Start Date CompletedPatient advised to follow-up with Primary Care Physician for BMI management. Advance Directives No Advanced Directives Records FoundDocuments on File Type Date Recorded Patient Slip Box Changer Expl anation Advance Directive(s) Advance Directive(s) 08/10/2020 1:33 PM Documents on File Type Date Recorded Patient Slip Box Changer Expl anation Advance Directive(s) 08/10/2020 1:33 PM Documents on File Type Date Recorded Patient Slip Box Changer Expl anation Advance Directive(s) 08/10/2020 1:33 PM [...] left knee Procedures CONSULT TO ORTHOPAEDICS OFFICE/OUTPATIENT [facility] 60-74 MINUTES Ab Dunham MD [address] [place] [address] [place] [address] Referral ID Status Reason Start Date Expiration Date Visits Requested Visits Authorized [id number] Pending Review PCP Requested Referral 06/08/2022 06/08/2023 1 1 Specialty Diagnoses / Procedures Referred By Contac t Referred To Contact CT IMAGING Diagnoses Primary osteoarthritis of left knee Chronic pain of left knee Procedures CT KNEE WO IVCON LT CT LOWER EXTREMITY W/O CONTRAST MATERIAL Rodger Elena MD [address] [place] [address] Ct Imaging Referral ID Status Reason Start Date Expiration Date Visits Requested Visits Authorized [id number] Authorized Auto-Generat ed Referral 07/17/2022 08/16/2023 1 1 Summary Purpose Additional Source Comments Reason for Visit (unrecogniz ed section and content) Specialty Diagnoses / Procedures Referred By Contac t Referred To Contact Physical Therapy Diagnoses Primary osteoarthritis of left knee Procedures CONSULT TO PHYSICAL THERAPY Rosio Lechuga PA-C [address] [place] [address] [facility] [address] [address] Referral ID Status Reason Start Date Expiration Date V isits Requested Visits Authorized [id number] Authorized 10/29/2021 10/28/2022 20 20 Reason For [...] Expiration Date Visits Re quested Visits Authorized [id number] Closed 10/29/2021 10/28/2022 20 20 Reason Comments PT Progress Note Specialty Diagnoses / Procedures Referred By Jay t Referred To Contact PHYSICAL THERAPY Diagnoses Primary osteoarthritis of left knee [M17.12] Procedures EST PATIENT VISIT LEVEL 1 Rodger Elena MD [address] [place] [address] Pt [facility] [address] [place] [address] Referral ID Status Reason Start Date Expiration Date V isits Requested Visits Authorized [id number] Authorized 10/31/2022 10/27/2023 20 20 Reason Comments Established Patient Follow Up Post Op Reason Onset Date Comments Refill Request 02/01/2023 Reason Comments Diabetes Pain in rib cage and abdomen 03/07, not taking januvia due to nausea. Reason Comments Outside Lab Results [facility] Reason Onset Date Comments Population Health Navigation [...] or prosecute any alcohol or drug abuse patient.[facility] the event this information is protected by the Federal Confidentiality of Alcohol and Drug Abuse Patient Records regulations: The Federal rules restrict any use of the information to criminally investigate or prosecute any alcohol or drug abuse patient.[facility] HospitalIn the event this information is protected by the Federal Confidentiality of Alcohol and Drug Abuse Patient Records regulations: The Federal rules restrict any use of the information to criminally investigate or prosecute any alcohol or drug abuse patient.[facility] HospitalIn the event this information is protected by the Federal Confidentiality of Alcohol and Drug Abuse Patient Records regulations: The Federal rules restrict any use of the information to criminally investigate or prosecute any alcohol or drug abuse patient.[facility] HospitalIn the event this information is protected by the Federal Confidentiality of Alcohol and Drug Abuse Patient Records regulations: The Federal rules restrict any use of the information to criminally investigate or prosecute any alcohol or drug abuse patient.[facility] HospitalIn the event this information is protected by the Federal Confidentiality of Alcohol and Drug Abuse Patient Records regulations: The Federal rules restrict any use of the information to criminally investigate or prosecute any alcohol or drug abuse patient.[facility] HospitalIn the event this information is protected by the Federal Confidentiality of Alcohol and Drug Abuse Patient Records regulations: The Federal rules restrict any use of the information to criminally investigate or prosecute any alcohol or drug abuse patient.[facility] HospitalIn the event this information is protected by the Federal Confidentiality of Alcohol and Drug Abuse Patient Records regulations: The Federal rules restrict any use of the information to criminally investigate or prosecute any alcohol or drug abuse patient.[facility] HospitalIn the event this information is protected by the Federal Confidentiality of Alcohol and Drug Abuse Patient Records regulations: The Federal rules restrict any use of the information to criminally investigate or prosecute any alcohol or drug abuse patient.[facility] HospitalIn the event this information is protected by the Federal Confidentiality of Alcohol and Drug Abuse Patient Records regulations: The Federal rules restrict any use of the information to criminally investigate or prosecute any alcohol or drug abuse patient.[facility] HospitalIn the event this information is protected by the Federal Confidentiality of Alcohol and Drug Abuse Patient Records regulations: The Federal rules restrict any use of the information to criminally investigate or prosecute any alcohol or drug abuse patient.[facility] HospitalIn the event this information is protected by the Federal Confidentiality of Alcohol and Drug Abuse Patient Records regulations: The Federal rules restrict any use of the information to criminally investigate or prosecute any alcohol or drug abuse patient.[facility] HospitalIn the event this information is protected by the Federal Confidentiality of Alcohol and Drug Abuse Patient Records regulations: The Federal rules restrict any use of the information to criminally investigate or prosecute any alcohol or drug abuse patient.[facility] HospitalIn the event this information is protected by the Federal Confidentiality of Alcohol and Drug Abuse Patient Records regulations: The Federal rules restrict any use of the information to criminally investigate or prosecute any alcohol or drug abuse patient.[facility] HospitalIn the event this information is protected by the Federal Confidentiality of Alcohol and Drug Abuse Patient Records regulations: The Federal rules restrict any use of the information to criminally investigate or prosecute any alcohol or drug abuse patient.[facility] HospitalIn the event this information is protected by the Federal Confidentiality of Alcohol and Drug Abuse Patient Records regulations: The Federal rules restrict any use of the information to criminally investigate or prosecute any alcohol or drug abuse patient.[facility] HospitalIn the event this information is protected by the Federal Confidentiality of Alcohol and Drug Abuse Patient Records regulations: The Federal rules restrict any use of the information to criminally investigate or prosecute any alcohol or drug abuse patient.[facility] HospitalIn the event this information is protected by the Federal Confidentiality of Alcohol and Drug Abuse Patient Records regulations: The Federal rules restrict any use of the information to criminally investigate or prosecute any alcohol or drug abuse patient.[facility] HospitalIn the event this information is protected by the Federal Confidentiality of Alcohol and Drug Abuse Patient Records regulations: The Federal rules restrict any use of the information to criminally investigate or prosecute any alcohol or drug abuse patient.[facility] HospitalIn the event this information is protected by the Federal Confidentiality of Alcohol and Drug Abuse Patient Records regulations: The Federal rules restrict any use of the information to criminally investigate or prosecute any alcohol or drug abuse patient.[facility] HospitalIn the event this information is protected by the Federal Confidentiality of Alcohol and Drug Abuse Patient Records regulations: The Federal rules restrict any use of the information to criminally investigate or prosecute any alcohol or drug abuse patient.[facility] HospitalIn the event this information is protected by the Federal Confidentiality of Alcohol and Drug Abuse Patient Records regulations: The Federal rules restrict any use of the information to criminally investigate or prosecute any alcohol or drug abuse patient.[facility] HospitalIn the event this information is protected by the Federal Confidentiality of Alcohol and Drug Abuse Patient Records regulations: The Federal rules restrict any use of the information to criminally investigate or prosecute any alcohol or drug abuse patient.[facility] HospitalIn the event this information is protected by the Federal Confidentiality of Alcohol and Drug Abuse Patient Records regulations: The Federal rules restrict any use of the information to criminally investigate or prosecute any alcohol or drug abuse patient.[facility] HospitalIn the event this information is protected by the Federal Confidentiality of Alcohol and Drug Abuse Patient Records regulations: The Federal rules restrict any use of the information to criminally investigate or prosecute any alcohol or drug abuse patient.[facility] HospitalIn the event this information is protected by the Federal Confidentiality of Alcohol and Drug Abuse Patient Records regulations: The Federal rules restrict any use of the information to criminally investigate or prosecute any alcohol or drug abuse patient.[facility] HospitalIn the event this information is protected by the Federal Confidentiality of Alcohol and Drug Abuse Patient Records regulations: The Federal rules restrict any use of the information to criminally investigate or prosecute any alcohol or drug abuse patient.[facility] HospitalIn the event this information is protected by the Federal Confidentiality of Alcohol and Drug Abuse Patient Records regulations: The Federal rules restrict any use of the information to criminally investigate or prosecute any alcohol or drug abuse patient.[facility] HospitalIn the event this information is protected by the Federal Confidentiality of Alcohol and Drug Abuse Patient Records regulations: The Federal rules restrict any use of the information to criminally investigate or prosecute any alcohol or drug abuse patient.[facility] HospitalIn the event this information is protected by the Federal Confidentiality of Alcohol and Drug Abuse Patient Records regulations: The Federal rules restrict any use of the information to criminally investigate or prosecute any alcohol or drug abuse patient.[facility] HospitalIn the event this information is protected by the Federal Confidentiality of Alcohol and Drug Abuse Patient Records regulations: The Federal rules restrict any use of the information to criminally investigate or prosecute any alcohol or drug abuse patient.[facility] HospitalIn the event this information is protected by the Federal Confidentiality of Alcohol and Drug Abuse Patient Records regulations: The Federal rules restrict any use of the information to criminally investigate or prosecute any alcohol or drug abuse patient.[facility] HospitalIn the event this information is protected by the Federal Confidentiality of Alcohol and Drug Abuse Patient Records regulations: The Federal rules restrict any use of the information to criminally investigate or prosecute any alcohol or drug abuse patient.[facility] HospitalIn the event this information is protected by the Federal Confidentiality of Alcohol and Drug Abuse Patient Records regulations: The Federal rules restrict any use of the information to criminally investigate or prosecute any alcohol or drug abuse patient.[facility] HospitalIn the event this information is protected by the Federal Confidentiality of Alcohol and Drug Abuse Patient Records regulations: The Federal rules restrict any use of the information to criminally investigate or prosecute any alcohol or drug abuse patient.[facility] HospitalIn the event this information is protected by the Federal Confidentiality of Alcohol and Drug Abuse Patient Records regulations: The Federal rules restrict any use of the information to criminally investigate or prosecute any alcohol or drug abuse patient.[facility] HospitalIn the event this information is protected by the Federal Confidentiality of Alcohol and Drug Abuse Patient Records regulations: The Federal rules restrict any use of the information to criminally investigate or prosecute any alcohol or drug abuse patient.[facility] HospitalIn the event this information is protected by the Federal Confidentiality of Alcohol and Drug Abuse Patient Records regulations: The Federal rules restrict any use of the information to criminally investigate or prosecute any alcohol or drug abuse patient.[facility] HospitalIn the event this information is protected by the Federal Confidentiality of Alcohol and Drug Abuse Patient Records regulations: The Federal rules restrict any use of the information to criminally investigate or prosecute any alcohol or drug abuse patient.[facility] Care Teams (unrecognized sec tion and content) Direct Chill Caster Relationship Specialty Start Date End Date Ab Dunham MD [address] [place] [address] PCP - General Family Practice 08/03/11 Direct Chill Caster Relationship Specialty Start Date End Date Ab Dunham MD [address] [place] [address] PCP - General Family Practice 08/03/11 Direct Chill Caster Relationship Specialty Start Date End Date Ab Dunham MD [facility] [place] [address] PCP - General Family Practice 08/03/11 Direct Chill Caster Relationship Specialty Start Date End Date Ab Dunham MD [facility] [place] [address] PCP - General Family Practice 08/03/11 Direct Chill Caster Relationship Specialty Start Date End Date Ab Dunham MD [facility] [place] [address] PCP - General Family Practice 08/03/11 Direct Chill Caster Relationship Specialty Start Date End Date Ab Dunham MD [facility] [place] [address] PCP - General Family Medicine 08/03/11 Johny Lawrence, [facility] [address] [place] [address] Specialty Wildlife Officer Orthopedics 07/26/22 10/12/22 Direct Chill Caster Relationship Specialty Start Date End Date Ab Dunham MD [address] [place] [address] PCP - General Family Medicine 08/03/11 Sissen, Johny, [facility] [address] [place] [address] Specialty Wildlife Officer Orthopedics 07/26/22 10/12/22 Direct Chill Caster Relationship Specialty Start Date End Date Ab Dunham MD [address] [place] [address] PCP - General Family Medicine 08/03/11 Sissen, Johny, [facility] [address] [place] [address] Specialty Wildlife Officer Orthopedics 07/26/22 10/12/22 Direct Chill Caster Relationship Specialty Start Date End Date Ab Dunham MD [address] [place] [address] PCP - General Family Medicine 08/03/11 Sissen, Johny, [facility] [address] [place] [address] Specialty Wildlife Officer Orthopedics 07/26/22 10/12/22 Direct Chill Caster Relationship Specialty Start Date End Date Ab Dunham MD [address] [place] [address] PCP - General Family Medicine 08/03/11 Sissen, Johny, [facility] [address] [place] [address] Specialty Wildlife Officer Orthopedics 07/26/22 10/12/22 Direct Chill Caster Relationship Specialty Start Date End Date Ab Dunham MD [address] [place] [address] PCP - General Family Medicine 08/03/11 Sissen, Johny, [facility] [address] [place] [address] Specialty Wildlife Officer Orthopedics 07/26/22 10/12/22 Direct Chill Caster Relationship Specialty Start Date End Date Ab Dunham MD [address] [place] [address] PCP - General Family Medicine 08/03/11 Sissen, Johny, [facility] [address] [place] [address] Specialty Wildlife Officer Orthopedics 07/26/22 10/12/22 Direct Chill Caster Relationship Specialty Start Date End Date Ab Dunham MD [address] [place] [address] PCP - General Family Medicine 08/03/11 Sissen, Johny, [facility] [address] [place] [address] Specialty Wildlife Officer Orthopedics 07/26/22 10/12/22 Direct Chill Caster Relationship Specialty Start Date End Date Ab Dunham MD [address] [place] [address] PCP - General Family Medicine 08/03/11 Sissen, Johny, [facility] [address] [place] [address] Specialty Wildlife Officer Orthopedics 07/26/22 10/12/22 Direct Chill Caster Relationship Specialty Start Date End Date Ab Dunham MD [address] [place] [address] PCP - General Family Medicine 08/03/11 Sissen, Johny, [facility] [address] [place] [address] Specialty Wildlife Officer Orthopedics 07/26/22 10/12/22 Direct Chill Caster Relationship Specialty Start Date End Date Ab Dunham MD [address] [place] [address] PCP - General Family Medicine 08/03/11 Direct Chill Caster Relationship Specialty Start Date End Date Ab Dunham MD [address] [place] [address] PCP - General Family Medicine 08/03/11 Direct Chill Caster Relationship Specialty Start Date End Date Ab Dunham MD [address] [place] [address] PCP - General Family Medicine 08/03/11 Direct Chill Caster Relationship Specialty Start Date End Date Ab Dunham MD [address] [place] [address] PCP - General Family Medicine 08/03/11 Direct Chill Caster Relationship Specialty Start Date End Date Ab Dunham MD [address] [place] [address] PCP - General Family Medicine 08/03/11 Direct Chill Caster Relationship Specialty Start Date End Date Ab Dunham MD [address] [place], [place] [id number] PCP - General Family Medicine 08/03/11 Direct Chill Caster Relationship Specialty Start Date End Date Ab Dunham MD [address] [place], [place] [address] PCP - General Family Medicine 08/03/11 Direct Chill Caster Relationship Specialty Start Date End Date Ab Dunham MD [address] [place], [place] [id number] PCP - General Family Medicine 08/03/11 Direct Chill Caster Relationship Specialty Start Date End Date Ab Dunham MD [address] [place], [place] [address] PCP - General Family Medicine 08/03/11 Direct Chill Caster Relationship Specialty Start Date End Date Ab Dunham MD [address] [place] [address] PCP - General Family Medicine 08/03/11 (unrecognized sect ion and content) No Status Records FoundNo Status Records Found INFORMATION SOURCE (unrecogn ized section and content) DATE CREATED AUTHOR AUTHOR'S ORGANIZ ATION 10/13/2023 [facility] FOR RECORDS PERTAINING TO PATIENTS WHO [...] BE BASED ON THE PRIMARY CLINICAL RECORDS. [facility]. provides no warranty or guarantee of the accuracy or completeness of information in this document.
== END | disposition home or self-care (01) ==
LOC: US 07:19
PROVIDERS: PCP Family Medicine Geriatric Medicine; Referring Provider Surgery; Visit Provider Surgery
DX: R10.12 Left upper quadrant pain (principal)
CPT/HCPCS: 76705

== ENCOUNTER → 2023-12-12 | Outpatient (CLI) | payer MEDICARE, SELFPAY ==
--- NOTE | 2023-12-12 07:05 | CT_ITS ---
STUDY: CT ABDOMEN AND PELVIS WITH CONTRAST REASON FOR EXAM: Male, 83 years old. Possible hernia -- periprocedural IV fluid d/t chronic kidney disease RADIATION DOSAGE (If Supplied By Facility): CTDIvol = ( 19.00 ) mGy, DLP = ( 1151.65 ) mGycm TECHNIQUE: Transaxial images were obtained from the dome of the diaphragm to the symphysis pubis with oral contrast. Oral and amp;amp; IV Readi-CAT and amp;amp; 100mL Isovue-300 was administered. Sagittal and coronal images were reconstructed. Individualized dose optimization techniques were used for this CT. COMPARISON: None. FINDINGS: The visualized lung bases are unremarkable. Coronary artery calcification. There is decreased attenuation of the liver consistent with steatosis. Normal gallbladder and extrahepatic biliary system. Normal spleen. There is diffuse atrophy of the pancreas. Normal bilateral adrenal glands. Normal right kidney. Normal left kidney. There is a small hiatal hernia. Normal small intestine. Moderate amount of fecal material is seen in the colon. The appendix is visualized and appears normal. There is scattered atherosclerotic calcification of the abdominal aorta, without a demonstrated aneurysm. Normal inferior vena cava. Normal retroperitoneum. Normal urinary bladder. There is a left-sided inguinal hernia containing adipose tissue. Status post bilateral total hip replacements limiting examination of the deep pelvic structures. CT/Abdomen/Pelvis WITH Contrast IMPRESSION: Fatty infiltration of the liver. Sigmoid diverticulosis. Small left inguinal hernia containing fat. Electronically Signed: Dave Whitt MD at 11:21 EST ,
--- OUTSIDE RECORDS SUMMARY | 2023-12-12 07:07 | XMS RPT_ITS | CCD ---
Author Name Unknown Address [address] [place] [address] Organization [facility] Care Team Providers Care Settlement Processor Name Role Phone Ra Marte PA-C Unavailable Flory WYNN, Ab Elder Primary Care Provider Flory WYNN, Ab Elder Primary Care Provider [phone] Flory WYNN, Ab Elder Primary Care Provider [phone] Johny Pineda Unavailable Unavailable PROVIDER, UNKNOWN Referring Unavailable AB DUNHAM Primary Care Unavailable PROVIDER, UNKNOWN Attending Unavailable AB DUNHAM Primary Care Unavailable ROBERTH VICTOR Consulting Unavailable PROVIDER, UNKNOWN Admitting Unavailable Flory WYNN, Ab Elder Primary Care Provider [phone] RODGER ELENA Referring Unavailable RODGER ELENA Attending [...] [Anemia, chronic renal failure, stage 3 (moderate) ([facility])] Chronic Diabetes mellitus with complications (6 sources) [...] 182.9 cm Ab Dunham MD Work Phone: [facility] 02-09-2023 10:44-0400 Body temperature 97 [degF] Ab Dunham MD Work Phone: [facility] 02-09-2023 10:44-0400 Body weight 87.05 kg Ab Dunham MD Work Phone: [facility] 02-09-2023 10:44-0400 Diastolic blood pressure 74 mm[Hg] Ab Dunham MD Work Phone: [facility] 02-09-2023 10:44-0400 Heart rate 74 /min Ab Dunham MD Work Phone: [facility] 02-09-2023 10:44-0400 Respiratory rate 16 /min bA Dunham MD Work Phone: [facility] 02-09-2023 10:44-0400 SaO2% (BldA) [Mass fraction] 98 % Ab Dunham MD Work Phone: [facility] 02-09-2023 10:44-0400 Systolic blood pressure 139 mm[Hg] Ab Dunham MD Work Phone: [facility] 08-09-2022 07:59-0400 Body height 182.9 cm Pacc 1 Work Phone: [facility] 08-09-2022 07:59-0400 Body temperature 98.01 [degF] Pacc 1 Work Phone: [facility] 08-09-2022 07:59-0400 Body weight 85.28 kg Pacc 1 Work Phone: [facility] 08-09-2022 07:59-0400 Diastolic blood pressure 72 mm[Hg] Pacc 1 Work Phone: [facility] 08-09-2022 07:59-0400 Heart rate 69 /min Pacc 1 Work Phone: [facility] 08-09-2022 07:59-0400 Respiratory rate 16 /min Pacc 1 Work Phone: [facility] 08-09-2022 07:59-0400 SaO2% (BldA) [Mass fraction] 99 % Pacc 1 Work Phone: [facility] 08-09-2022 07:59-0400 Systolic blood pressure 126 mm[Hg] Pacc 1 Work Phone: [facility] 06-08-2022 09:43-0400 Diastolic blood pressure 72 mm[Hg] Ab Dunham MD Work Phone: [facility] 06-08-2022 09:43-0400 Systolic blood pressure 142 mm[Hg] Ab Dunham MD Work Phone: [facility] 06-08-2022 09:28-0400 Body height 182.9 cm Ab Dunham MD Work Phone: [facility] 06-08-2022 09:28-0400 Body weight 86.18 kg Ab Dunham MD Work Phone: [facility] 06-08-2022 09:28-0400 Heart rate 63 /min Ab Dunham MD Work Phone: [facility] 06-08-2022 09:28-0400 SaO2% (BldA) [Mass fraction] 99 % Ab Dunham MD Work Phone: [facility] NEGATED: Highlighted [id number] 17:55-0400 BMI (Body Mass Index) 28.39 kg/m2 Shanice Pablo AT [facility] Work Phone: NEGATED: Highlighted [id number] 17:55-0400 Body weight 90.72 kg Shanice Pablo AT [facility] Work Phone: NEGATED: Highlighted [id number] 17:55-0400 Body weight 91 kg Shanice Pablo AT [facility] Work Phone: NEGATED: Highlighted [id number] 17:55-0400 Height 179.07 cm Shanice Pablo AT [facility] Work Phone: NEGATED: Highlighted [id number] 17:55-0400 Height 179 cm Shanice Pablo AT [facility] Work Phone: Encounters Encounter Date Encounter Type Care Provider Facility Start: 10-10-2023 ambulatory Jeannette Rodrigues MA [facility] Effort Procedures Date Procedure Procedure Detail Performing Clinician [...] P,Tdap,Td Vaccine (2 - Td or Tdap) [facility] Start: 02-10-2024 Hepatitis B surface antibody level LDL CHOLESTEROL [facility] Start: 09-26-2023 Glaucoma screening Dilated Retinal E xam [facility] Start: 09-26-2023 Hepatitis C antibody , confirmatory test DILATED RETINAL EXAM [facility] Start: 06-29-2023 Covid-19 Vaccine () Covid-19 Vaccine () [facility] Start: 06-29-[address] [facility] Start: 06-08-2023 Urine microalbumin profile DTAP,TDAP ,TD (1 - Tdap) [facility] Immunizations Immunization Date Immunization Notes Care Provider Jasmin wang 07-10-2023 respiratory syncytia l virus (RSV) vaccine, adjuvanted (AREXVY) Jeannette Rodrigues MA [facility] 05-23-2023 pneumococcal (PCV20) vaccine, 20 valent (PREVNAR 20) Jeannette Rodrigues MA [facility] 05-23-2023 tetanus toxoid, redu mickie diphtheria toxoid, and acellular pertussis vaccine, adsorbed Jeannette Rodrigues MA [facility] 08-11-2022 influenza, high-dose , quadrivalent vaccine (FLUZONE HIGH DOSE QUADRIVALENT) Rodger VIRGEN Work Phone: [facility] 08-11-2022 influenza virus vacc ine, unspecified formulation Jeannette Rodrigues MA [facility] 09-07-2021 influenza, high-dose , quadrivalent vaccine (FLUZONE HIGH DOSE QUADRIVALENT) Ab Dunham MD Work Phone: [facility] 02-03-2021 zoster vaccine recombinant Ab Dunham MD Work Phone: [facility] 12-31-2020 COVID-19 vaccine, fu ll dose (MODERNA) Ab Dunham MD Work Phone: [facility] 12-03-2020 COVID-19 vaccine, fu ll dose (MODERNA) Ab Dunham MD Work Phone: [facility] 10-07-2020 zoster vaccine recombinant Ab Dunham MD Work Phone: [facility] 08-09-2020 influenza, high-dose , quadrivalent vaccine (FLUZONE HIGH DOSE QUADRIVALENT) Ab Dunham MD Work Phone: [facility] 08-13-2019 influenza, high dose seasonal, preservative-free Ab Dunham MD Work Phone: [facility] 07-18-2018 influenza, high dose seasonal, preservative-free Ab Dunham MD Work Phone: [facility] 07-27-2017 influenza, high dose seasonal, preservative-free Ab Dunham MD Work Phone: [facility] 08-23-2016 influenza, high dose seasonal, preservative-free Ab Dunham MD Work Phone: [facility] 11-02-2015 pneumococcal conjuga te vaccine, 13 valent Ab Dunham MD Work Phone: [facility] Work Phone: 09-11-2015 influenza, high dose seasonal, preservative-free Ab Dunham MD Work Phone: [facility] 08-19-2013 influenza virus vacc ine, unspecified formulation Ab Dunham MD Work Phone: [facility] 08-30-2012 influenza virus vacc ine, whole virus Ab Dunham MD Work Phone: [facility] 07-10-2011 influenza virus vacc ine, unspecified formulation Ab Dunham MD Work Phone: [facility] Work Phone: 01-18-2009 zoster vaccine, live Ab Dunham MD Work Phone: [facility] 01-27-2007 pneumococcal polysaccharide vaccine, 23 valent Ab Dunham MD Work Phone: [facility] Payers Date Payer Category Payer Unknown ANTHJEFFERSON DILLARD [facility] S AND BLUE [facility] AQUILINO RAZA O [id number] 2021-[facility] [phone] [address] [place] [address] O [id number] 2021 Unknown ANTHEM BLUE CROS S AND BLUE SHIELD ANTHEM MEDIBLUE HMO [id number] 2021-Present [phone] [address] [place] [address] O [id number] 2021 Unknown [id number] 2016 Unknown ANTHEM ROMAEM [place] DICARE SUPPLEMENT [id number] 2016-Present [phone] [address] [place] [address] Indemnity [id number] 2005 Medicare MEDICARE MEDICAR E A AND B [id number] 2005-Present [phone] [place] [address] Medicare [id number] Social History Date Type Detail Facility Start: 04-30-2020 End: 04-30-2020 Assertion Unknown if ever smoked [facility] Work Phone: Start: 02-09-2015 End: 06-08-2022 Tobacco smoking status NHIS Never smoked tobacco [facility] Work Phone: Start: 10-05-2021 End: 02-09-2023 Alcohol intake Current drinker of alcohol (finding) [facility] Start: 1940 Sex Assigned At Not on file [facility] Start: 02-09-2015 End: 06-08-2022 Tobacco use and exposure Smokeless tobacco non-user [facility] Start: 05-29-2022 End: 09-11-2022 Exposure to SARS-CoV-2 (event) Not sure [facility] Start: 11-14-2022 End: 02-09-2023 History of Social function [facility] Work Phone: Start: 11-14-2022 End: 02-09-2023 Tobacco use panel [facility] Work Phone: Adult Depression Screening Assessment 0 [facility] Work Phone: NEGATED: Highlighted rowStart: 04-28-2020 End: 04-28-2020 Employment detail Employment detail [facility] Work Phone: Medical Equipment Procedure Code Equipment Code Equipment Origin al Text Equipment Identifier Dates Start: 09-06-2017 End: 04-12-2022 Clinical Notes 02-09-2015 to 10-10-2023 Evelyn Lazo - 10/10/2023 3:40 PM Jeannette Romano MA - 10/10/2023 9:56 AM Jeannette Romano MA - 08/09/2023 8:42 AM EDTTelephone Encounter - [facility] - 02/12/2023 3:24 PM EDT Note Date & Type Note Facility 10-10-2023 Note HNO ID: [id number] Author: Evelyn Laoz Service: ? Author Type: ? Type: Progress Notes Filed: 10/10/2023 3:40 PM Note Text: POPULATION HEALTH NAVIGATION OUTREACH Action/FYI Letter received and sent to be mailed Evelyn Lazo October 10, 2023 3:40 PM [facility] 10-10-2023 History of Present illness Narrative POPULATION [...] Gap or Scheduling/Wellness visits Payer: Payor: AQUILINO [facility] / Plan: AQUILINO RAZA HMO / Product [...] 2023 9:56 AM documented in this encounter [facility] 10-10-2023 Note Patient Outreach (NE TNAV) BRENDAN FLORES ([id number]) 1940 [facility] Date Time Provider Department [...] Gap or Scheduling/Wellness visits Payer: Payor: AQUILINO [employer] AND BLUE [employer] / Plan: AQUILINO RAZA HMO / Product [...] once daily. For blood pressure - Insulin [place], Disposable, (BD ULTRA-FINE VIMAL PEN NEEDLE) 32 [...] Encounter Status:Closed by JEANNETTE RODRIGUES on 10/10/23 [facility] 10-10-2023 Note HNO ID: [id number] Author: Jeannette Rodrigues MA Service: ? Author Type: Asset Protection Representative Type: Progress Notes Filed: 10/10/2023 2:46 PM [...] Care Gap or Scheduling/Wellness visits Payer: Payor: [employer] / Plan: [employer] HMO / Product Type: HMO / Care [...] Rodrigues MA October 10, 2023 9:56 AM [facility] 08-09-2023 Note Patient Outreach (DIDIER TNAV) BRENDAN FLORES ([id number]) 1940 M [place] [employer] Date Time Provider Department 08/09/23 JEANNETTE [...] Gap or Scheduling/Wellness visits Payer: Payor: AQUILINO [employer] AND [employer] / Plan: AQUILINO YANIQUEGILMA HMO / Product [...] Units subcutaneously daily at bedtime. - Insulin [place], Disposable, (BD ULTRA-FINE VIMAL PEN NEEDLE) 32 gauge x 5/32 USE ONCE DAILY - Lancets (TastemadeTOUCH ULTRASOFT LANCETS) lancets Test blood sugar(s) 3 [...] Encounter Status:Closed by JEANNETTE RODRIGUES on 08/09/23 [facility] 08-09-2023 Note HNO ID: [id number] Author: Jeannette Rodrigues MA Service: ? Author Type: Asset Protection Representative Type: Progress Notes Filed: 08/09/2023 1:44 PM Note Text: POPULATION HEALTH NAVIGATION OUTREACH Action/FYI LVM NO MYCHART [facility] Annual medicare wellness Advance Directive Discussion Never done HbA1C due on 05/11/2023 Influenza Vaccine(1) due on 06/29/2023 Patient Identified by Name and : NO Outreach Outcome/Action Unable to reach patient: Left message Did you use a PCP flex slot to schedule this appointment? No Reason for Outreach Care Gap or Scheduling/Wellness visits Payer: Payor: AQUILINO [employer] AND [employer] / Plan: ANTHEM MEDIBLUE HMO / Product [...] Rodrigues MA August 09, 2023 8:42 AM [facility] 08-09-2023 History of Present illness Narrative POPULATION HEALTH NAVIGATION OUTREACH Action/FYI LVM NO MYCKANGT [facility] Annual medicare wellness Advance Directive Discussion Never done HbA1C due on 05/11/2023 Influenza Vaccine(1) due on 06/29/2023 Patient Identified by Name and : NO Outreach Outcome/Action Unable to reach patient: Left message Did you use a PCP flex slot to schedule this appointment? No Reason for Outreach Care Gap or Scheduling/Wellness visits Payer: Payor: AQUILINO DILLARD [employer] AND [employer] / Plan: ANTHEM MEDIBLUE HMO / [...] 2023 8:42 AM documented in this encounter [facility] 05-09-2023 Miscellaneous Notes Received cbc, vit d, hep c results from [facility]. Placed in provider's inbox for review. Route to MA scanning. documented in this encounter [facility] 02-12-2023 Miscellaneous Notes Called and informed [...] AB DUNHAM MD documented in this encounter [facility] 02-09-2023 Note HNO ID: [id number] Author: Ab Dunham MD Service: ? Author [...] Abs Lymph 1.00 - 4.00 k/uL 1.26 Ziebach% % 7.6 Abs Ziebach <0.87 k/uL 0.64 Eosin% % 2.7 Abs [...] nephropathy, with long-term current use of insulin ([facility]) Comment: Patient does one insulin shot daily Plan: continue the insuilin, consider dose change/ addition of other med. (N18.31) Stage 3a chronic kidney disease ([facility]) Comment: Creatinine: 1.35 Plan: Continue to monitor (N18.30, D63.1) Anemia, chronic renal failure, stage 3 (moderate) ([facility]) Comment: RBC: 3.38 Plan:Continue to monitor (R07.89) Chest wall pain Comment: relates to abd straining some weeks back. Plan: observe this. (I10) Essential hypertension Comment: BP: repeat bp better. Plan: continue o (more content not included)... [facility] 02-09-2023 History of Present illness Narrative CHIEF [...] Abs Lymph 1.00 - 4.00 k/uL 1.26 Ziebach% % 7.6 Abs Ziebach <0.87 k/uL 0.64 Eosin% % 2.7 Abs [...] nephropathy, with long-term current use of insulin ([facility]) Comment: Patient does one insulin shot daily Plan: continue the insuilin, consider dose change/ addition of other med. (N18.31) Stage 3a chronic kidney disease ([facility]) Comment: Creatinine: 1.35 Plan: Continue to monitor (N18.30, D63.1) Anemia, chronic renal failure, stage 3 (moderate) ([facility]) Comment: RBC: 3.38 Plan:Continue to monitor (R07.89) [...] 2023 5:31 PM documented in this encounter [facility] 02-01-2023 Miscellaneous Notes The following approved [...] Shanel Dale Pss documented in this encounter [facility] 11-21-2022 Note HNO ID: [id number] Author: Jj Avila PT Service: ? Author [...] Time Minutes (timed/untimed): 40 Jj Avila, PT [facility] 11-21-2022 History of Present illness Narrative Episode [...] Jj Avila PT documented in this encounter [facility] 11-20-2022 Note HNO ID: [id number] Author: Rodger Elena MD Service: ? Author Type: Physician Type: Progress Notes Filed: 11/20/2022 9:49 AM Note Text: Ortho Knee Follow Up Note Narrative Referring Provider: Rodger Elena [address] [facility] [address] PCP: Ab Dunham MD IMPRESSION/PLAN: 82 year [...] Elena MD Completed by: Rodger Elena MD [facility] 11-20-2022 History of Present illness Narrative Images from the original note were not included. Ortho Knee Follow Up Note Narrative Referring Provider: Rodger Elena [address] [facility] [address] PCP: Ab Dunham MD IMPRESSION/PLAN: 82 year [...] Rodger Elena MD documented in this encounter [facility] 11-16-2022 Note HNO ID: [id number] Author: Jj Avila PT Service: ? Author [...] (timed/untimed): 41 Maeve Gallegos, JORGE Avila PT [facility] 11-14-2022 Note HNO ID: [id number] Author: Jj Avila PT Service: ? Author [...] manual over pressure for extension from therapist [id number]: Standing hip abdcution x10 B 8: [...] Treatment Time Minutes (timed/untimed): 45 Maeve Gallegos, CORRECTIONAL TREATMENT SPECIALIST Jj Avila, PT [facility] 11-14-2022 History of Present illness Narrative Episode [...] manual over pressure for extension from therapist [id number]: Standing hip abdcution x10 B 8: [...] JORGE Avila PT documented in this encounter [facility] 11-09-2022 Note HNO ID: [id number] Author: Jj Avila PT Service: ? Author [...] Time Minutes (timed/untimed): 40 Jj Avila, PT [facility] 11-09-2022 History of Present illness Narrative Episode [...] Jj Avila PT documented in this encounter [facility] 11-07-2022 Note HNO ID: [id number] Author: Jj Avila PT Service: ? Author [...] Time Minutes (timed/untimed): 40 Jj Avila PT [facility] 11-02-2022 Note HNO ID: [id number] Author: Jj Avila PT Service: ? Author [...] Treatment Time Minutes (timed/untimed): 45 Maeve Gallegos, CORRECTIONAL TREATMENT SPECIALIST Jj Avila, PT [facility] 11-02-2022 History of Present illness Narrative Episode [...] JORGE Avila PT documented in this encounter [facility] 10-31-2022 Note HNO ID: [id number] Author: Jj Avila PT Service: ? Author [...] of Care: created on 09/27/22 through 12/26/22 [place] in home exercise program. Met, continuing Patient [...] Patient to be seen for Therapeutic exercise (70862);Neuromuscular re-education (63028);Manual therapy (58802);Therapeutic activities (18963);Self-shelter management (78258);Patient/Family/Caregiver Education;Body Mechanics Training PLAN FOR NEXT VISIT: [...] home exercise program (more content not included)... [facility] 10-31-2022 History of Present illness Narrative Episode [...] of Care: created on 09/27/22 through 12/26/22 [place] in home exercise program. Met, continuing Patient [...] Patient to be seen for Therapeutic exercise (49517);Neuromuscular re-education (63013);Manual therapy (71751);Therapeutic activities (45720);Self-shelter management (62675);Patient/Family/Caregiver Education;Body Mechanics Training PLAN FOR NEXT VISIT: [...] Jj Avila PT documented in this encounter [facility] 10-27-2022 Note HNO ID: [id number] Author: Reinaldo Ash PT Service: ? Author [...] Treatment Time Minutes (timed/untimed): 40 Maeve Gallegos, CORRECTIONAL TREATMENT SPECIALIST Reinaldo Ash, PT [facility] 10-27-2022 History of Present illness Narrative Episode [...] Treatment Time Minutes (timed/untimed): 40 Maeve Gallegos, CORRECTIONAL TREATMENT SPECIALIST Reinaldo Ash PT documented in this encounter [facility] 10-24-2022 Note HNO ID: [id number] Author: Reinaldo Ash PT Service: ? Author [...] (timed/untimed): 43 Maeve Gallegos, JORGE Ash, PT [facility] 10-18-2022 Note HNO ID: [id number] Author: Jj Avila PT Service: ? Author [...] Time Minutes (timed/untimed): 40 Jj Avila, PT [facility] 10-18-2022 History of Present illness Narrative Episode [...] Jj Avila PT documented in this encounter [facility] 10-16-2022 Note HNO ID: [id number] Author: Jj Avila PT Service: ? Author [...] walker. Uses the cane mostly out in [facility] community, not using the cane [...] Treatment Time Minutes (timed/untimed): 43 Maeve El, CORRECTIONAL TREATMENT SPECIALIST Jj Austin, PT [facility] 10-16-2022 History of Present illness Narrative Episode [...] walker. 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 Self-Long-Term Management: 1: *Discussed use of Vitamin E [...] De Leon PT documented in this encounter [facility] 09-28-2022 History of Present illness Narrative [...] of Care: created on 09/27/22 through 12/26/22 [place] in home exercise program. Patient will decrease [...] Planned: 20 Planned Treatment Interventions: Therapeutic exercise (34414);Neuromuscular re-education (47348);Manual therapy (90128);Therapeutic activities (02973);Self-shelter management (92241);Gait Training (57814);Patient/Family/Caregiver Education;Body Mechanics Training PLAN FOR NEXT VISIT: [...] Training;Body Mechanics TREATMENT: PT Treatment Interventions: Therapeutic Exercise;Self-Long-Term Management Evaluation Therapeutic Exercise: 1: *Heel slides [...] facilitated with verbal, visual, and tactile cuing. Self-Long-Term Management: 1: Discussed contraindications and precautions due [...] Jj Avila PT documented in this encounter [facility] 09-27-2022 History of Present illness Narrative [...] Care Gap or Scheduling/Wellness visits Payer: Payor: [facility] [employer] [facility] / Plan: [employer] HMO / Product Type: HMO / Care [...] 2022 8:15 AM documented in this encounter [facility] 09-26-2022 History of Present illness Narrative [...] agree with all of its relevant components. Zka Diaz M.D. September 26, 2022 2:28 PM documented in this encounter [facility] 09-11-2022 History of Present illness Narrative Images from the original note were not included. Ortho Knee Follow Up Note Narrative Referring Provider: Rodger Elena [address] [facility] [address] PCP: Ab Dunham MD IMPRESSION/PLAN: 82 year [...] more. Xray 09/08/22. documented in this encounter [facility] 09-02-2022 Note HNO ID: [id number] Author: Paula Wiseman RN Service: Care Management Author Type: Registered Nurse Type: Care Mgt Progress Note Filed: 09/02/2022 1:07 PM Note Text: CARE MANAGEMENT DISCHARGE NOTE SERVICE DATE: 09/02/2022 SERVICE TIME: 1:03 PM LOS: 0 days Admission Date: 09/01/2022 DISCHARGE ARRANGEMENT (list agency and phone number) Discharge Arrangement: Home with Home Health Provider Name: [facility] Care CAREGIVER ASSESSMENT: Caregiver [...] Pt. at Home first week at Home. [facility] [phone] can do Home PT. TCC spoke with Jen Manager [employer] for [facility] and they will accept Pt. Sunday after his benefits are checked Discharge Information Row Name Admission (Current) from 09/01/[address] [facility] Care Start of Care -- As Per Policy SIGNATURE: Paula Wiseman RN,BSN, ACM PATIENT NAME: Brendan Flores DATE: September 02, 2022 TIME: 1:03 PM PAGER/CONTACT #: [phone] [facility] 09-02-2022 Note HNO ID: [id number] Author: Roberth Victor MD Service: General Internal [...] Discharge Med reviewed SIGNATURE: Roberth Victor MD [facility] 09-02-2022 Note HNO ID: [id number] Author: Panchito Gastelum MD Service: Orthopaedic Surgery [...] Gastelum MD Orthopaedic Surgery Adult reconstruction fellow [phone] September 02, 2022 6:40 AM Please pardon any typos or grammatical errors as this note was dictated using voice recognition software. Page [phone] after 5pm AND on weekends If Jewish patient, please page Jewish ortho call pager after hours and on weekends. [facility] 09-01-2022 Note HNO ID: [id number] Author: Rafy Powers MD Service: Anesthesiology Author [...] September 01, 2022 TIME: 11:15 AM CSN: [id number] [facility] 08-29-2022 Miscellaneous Notes Called and spoke with [...] needs a rx for and he can pick up operator at a supply store? Please advise. Columba Nye RN documented in this encounter [facility] 08-09-2022 Miscellaneous Notes TOTAL JOINT COMPLETE CARE PROGRAM PRE-OPERATIVE TEACHING Service Date: 08/09/2022 Service Time: 10:49 AM Date of : 1940 Gender: male Date of Surgery: 08/30/22 Procedure: Left Total Knee Replacement Complete Care Program was discussed with the patient: Child Therapist Identification: Patient identified a progressive care nurse to help when discharged to home: Home [...] Binder: Yes Patient plans discharge home with [facility]. SIGNATURE: ADÁN Pierre PATIENT NAME: Brendan Flores DATE: August 09, 2022 TIME: 10:43 AM documented in this encounter [facility] 08-09-2022 Miscellaneous Notes Received EKGs from [facility] medical records. Copy made for Karlene Limon CNP and original sent to wood drilling machine operator to scan. Nicole Sarmiento LPN Fax sent to [facility] medical records requesting patients EKG on 11/30/21. Nicole Sarmiento LPN documented in this encounter [facility] 08-09-2022 History and physical note HISTORY [...] year(s) interfering with activities which include doing water sponger, participating in family activities, walking, and climbing [...] METs) Total Joint Arthroplasty: Risk Calculator Brendan Folres has a 28.72% chance of NOT returning [...] +essential tremor. No history of TIA's, stroke, VALET RUNNER tumor, impaired sensorium, hemiplegia, paraplegia or quadraplegia. No neurological symptoms or problems. Respiratory: No history of current cough or dyspnea, or pneumonia in the past 6 weeks. No history of respiratory/pulmonary symptoms or problems. Cardiovascular: Positive for: hyperlipidemia (on rx) and hypertension (on rx) Negative for: anticoagulation therapy, arrhythmia, atrial fibrillation, CAD, chest pain, CHF, congenital heart defect, DVT/PE, recent MO, murmur/valvular heart disease, open heart surgery and [...] daily. For blood pressure Taking Yes Insulin Midd[place], Disposable, (BD ULTRA-FINE VIMAL PEN NEEDLE) 32 [...] or any previous visit (from the past 42095 hour(s)). Assessment Benign essential tremor Assessment: hx [...] equal to 35 kg/m^2 STOP-Bang Score: 4 [id number] Score: Age: >=75 Sex: male CHF history: No Hypertension history: Yes Stroke/TIA/thromboembolism history: No Vascular disease history: No Diabetes history: Yes [id number] Score: 4 ARISCAT Score: Age: >80 Preoperative [...] and stress test to be scanned into [facility] CONSULTS: Patient does not require consults [...] AM PAGER/CONTACT #: documented in this encounter [facility] 08-09-2022 Instructions Karlene Limon APRN.CNP - 08/09/2022 8:18 AM EDT PATIENT PREOPERATIVE INSTRUCTIONS Rodger Elena MD has scheduled you for your procedure at this surgery center: [facility]: [phone] -- [address] [place] [id number]. Please read below carefully for your personalized [...] Procedures: - YOU MUST HAVE A RESPONSIBLE AUTO BODY ESTIMATOR TAKE YOU HOME. A COAT OPERATOR INSULATOR OR BLENDING MACHINE FEEDER CANNOT BE MADE A RESPONSIBLE AUTO BODY ESTIMATOR. - We recommend that a responsible person [...] Advance Directive, please fax a copy to [phone] or email to for it to be [...] into your chart that day. Karlene Limon APRN.CORRECTIONAL NURSE documented in this encounter [facility] 07-28-2022 Miscellaneous Notes Surgery has been scheduled as requested. Surgical request completed for left robotic assisted total knee arthroplasty at [facility] on 08/30/2022. Post op appointments have been scheduled and mailed to patient. CT scan scheduled for 08/01/2022. Email sent to [facility] documented in this encounter [facility] 07-17-2022 Miscellaneous Notes Pharmacy verified in [...] No need to notify patient. Allison Ramos [facility] documented in this encounter [facility] 07-17-2022 History of Present illness Narrative CONSULT ORTHOPAEDIC: KNEE PRIMARY CARE PHYSICIAN: Ab Dunham MD REFERRING PROVIDER: Ab Dunham [address] [place] [address] [place] [address] ASSESSMENT & PLAN Impression: Left Knee Severe [...] year(s) interfering with activities which include doing water sponger, participating in family activities, walking, and climbing [...] Diabetes: Consult to the [facility] [place] ([facility]) recommended prior to surgery. Hemoglobin A1C [...] MG TAB Take one(1) tablet daily. Insulin Middleton, Disposable, (BD ULTRA-FINE VIMAL PEN NEEDLE) 32 [...] TIME: 9:07 AM documented in this encounter [facility] 06-08-2022 Instructions Ab Dunham MD - 06/08/2022 9:48 AM EDT Kidney function suddenly worse. StOP hydrochlorothiazide STOP Metformin ADD: Januvia 50 mg daily for sugar Amlodipine 5 mg daily for blood pressure. Increase insulin to 12 units daily Check bloodwork in 6 weeks. Ab Dunham MD documented in this encounter [facility] 06-08-2022 History of Present illness Narrative [...] 2022 3:22 PM documented in this encounter [facility] 05-25-2022 Miscellaneous Notes Called and informed pt. Pt confirmed his 06/08/22 appt with PCP. Please let patient know that his recent labs show worsening kidney function and diabetes. Please keep appointment coming up with Dr. Dunham in a couple weeks to discuss further. Cinthia Alcantar APRN.RACHEL documented in this encounter [facility] 05-15-2022 History of Present illness Narrative [...] Documentation 09/24/2017 01/13/2019 04/19/2022 Opts out of [facility] No No No Appointments Scheduled [...] Other Lita Flaherty documented in this encounter [facility] 04-12-2022 Miscellaneous Notes Patient has been identified by name and date of : Yes Pending Prescriptions Disp Refills PEN NEEDLE, DIABETIC 32 GAUGE X 100 Each 5 Sig: USE ONCE DAILY GARY: No RX INSTRUCTIONS: Patient aware RX will be sent to pharmacy. No need to notify patient. Shanel Dale Pss documented in this encounter [facility] 02-15-2022 Miscellaneous Notes Pharmacy verified in [facility] Patient has been identified by name and [...] Shae Suárez Pss documented in this encounter [facility] 01-30-2022 Miscellaneous Notes Last appointment: 10/05/21 Next appointment: n/a Pharmacy verified in [facility]. Refill(s) requested: Pending Prescriptions Disp Refills LISINOPRIL 40 MG TABLET 90 tablet 3 Sig: Take 1 tablet by mouth once daily. GARY: No Order(s) pended. Please advise. Ijeoma Allen LPN documented in this encounter [facility] 12-30-2021 Miscellaneous Notes The following approved medication requests have been transmitted electronically. Signed Prescriptions Disp Refills hydroCHLOROthiazide 12.5 mg capsule 90 capsule 2 Sig: Take 1 capsule by mouth once daily. GARY: No Authorizing Provider: AB DUNHAM MD Pharmacy verified in [facility] Patient has been identified by name and [...] advise. Brittney Franks LPN Pharmacy verified in [facility] Patient has been identified by name and [...] Shae Suárez Pss documented in this encounter [facility] documented as of this encounter (statuses as of 12/30/2021) [address] History of Past illness Narrative* Problem Noted Date Resolved Date DM2 (diabetes mellitus, type 2) 02/09/2015 09/05/2021 Patient Left without Being Seen 10/09/2009 02/16/2011 documented as of this encounter (statuses as of 01/30/2022) [address] History of Past illness Narrative* Problem Noted Date Resolved Date DM2 (diabetes mellitus, type 2) 02/09/2015 09/05/2021 Patient Left without Being Seen 10/09/2009 02/16/2011 documented as of this encounter (statuses as of 02/15/2022) [address] History of Past illness Narrative* Problem Noted Date Resolved Date DM2 (diabetes mellitus, type 2) 02/09/2015 09/05/2021 Patient Left without Being Seen 10/09/2009 02/16/2011 documented as of this encounter (statuses as of 04/12/2022) [address] History of Past illness Narrative* Problem Noted Date Resolved Date DM2 (diabetes mellitus, type 2) 02/09/2015 09/05/2021 Patient Left without Being Seen 10/09/2009 02/16/2011 documented as of this encounter (statuses as of 05/25/2022) [address] History of Past illness Narrative* Problem Noted Date Resolved Date DM2 (diabetes mellitus, type 2) 02/09/2015 09/05/2021 Patient Left without Being Seen 10/09/2009 02/16/2011 documented as of this encounter (statuses as of 06/08/2022) [address] History of Past illness Narrative* Problem Noted Date Resolved Date DM2 (diabetes mellitus, type 2) 02/09/2015 09/05/2021 Patient Left without Being Seen 10/09/2009 02/16/2011 documented as of this encounter (statuses as of 06/08/2022) [address] History of Past illness Narrative* Problem Noted Date Resolved Date DM2 (diabetes mellitus, type 2) 02/09/2015 09/05/2021 Patient Left without Being Seen 10/09/2009 02/16/2011 documented as of this encounter (statuses as of 07/17/2022) [address] History of Past illness Narrative* Problem Noted Date Resolved Date DM2 (diabetes mellitus, type 2) 02/09/2015 09/05/2021 Patient Left without Being Seen 10/09/2009 02/16/2011 documented as of this encounter (statuses as of 07/17/2022) [address] History of Past illness Narrative* Problem Noted Date Resolved Date DM2 (diabetes mellitus, type 2) 02/09/2015 09/05/2021 Patient Left without Being Seen 10/09/2009 02/16/2011 documented as of this encounter (statuses as of 07/28/2022) [address] History of Past illness Narrative* Problem Noted Date Resolved Date DM2 (diabetes mellitus, type 2) 02/09/2015 09/05/2021 Patient Left without Being Seen 10/09/2009 02/16/2011 documented as of this encounter (statuses as of 08/09/2022) [place] [id number] History of Past illness Narrative* Problem Noted Date Resolved Date DM2 (diabetes mellitus, type 2) 02/09/2015 09/05/2021 Patient Left without Being Seen 10/09/2009 02/16/2011 documented as of this encounter (statuses as of 08/09/2022) [address] History of Past illness Narrative* Problem Noted Date Resolved Date DM2 (diabetes mellitus, type 2) 02/09/2015 09/05/2021 Patient Left without Being Seen 10/09/2009 02/16/2011 documented as of this encounter (statuses as of 08/29/2022) [address] History of Past illness Narrative* Problem Noted Date Resolved Date DM2 (diabetes mellitus, type 2) 02/09/2015 09/05/2021 Patient Left without Being Seen 10/09/2009 02/16/2011 documented as of this encounter (statuses as of 09/04/2022) [address] History of Past illness Narrative* Problem Noted Date Resolved Date DM2 (diabetes mellitus, type 2) 02/09/2015 09/05/2021 Patient Left without Being Seen 10/09/2009 02/16/2011 documented as of this encounter (statuses as of 09/11/2022) [address] History of Past illness Narrative* Problem Noted Date Resolved Date DM2 (diabetes mellitus, type 2) 02/09/2015 09/05/2021 Patient Left without Being Seen 10/09/2009 02/16/2011 documented as of this encounter (statuses as of 09/27/2022) [address] History of Past illness Narrative* Problem Noted Date Resolved Date DM2 (diabetes mellitus, type 2) 02/09/2015 09/05/2021 Patient Left without Being Seen 10/09/2009 02/16/2011 documented as of this encounter (statuses as of 09/27/2022) [address] History of Past illness Narrative* Problem Noted Date Resolved Date DM2 (diabetes mellitus, type 2) 02/09/2015 09/05/2021 Patient Left without Being Seen 10/09/2009 02/16/2011 documented as of this encounter (statuses as of 09/28/2022) [address] History of Past illness Narrative* Problem Noted Date Resolved Date DM2 (diabetes mellitus, type 2) 02/09/2015 09/05/2021 Patient Left without Being Seen 10/09/2009 02/16/2011 documented as of this encounter (statuses as of 09/29/2022) [address] History of Past illness Narrative* Problem Noted Date Resolved Date DM2 (diabetes mellitus, type 2) 02/09/2015 09/05/2021 Patient Left without Being Seen 10/09/2009 02/16/2011 documented as of this encounter (statuses as of 10/03/2022) [address] History of Past illness Narrative* Problem Noted Date Resolved Date DM2 (diabetes mellitus, type 2) 02/09/2015 09/05/2021 Patient Left without Being Seen 10/09/2009 02/16/2011 documented as of this encounter (statuses as of 10/05/2022) [address] History of Past illness Narrative* Problem Noted Date Resolved Date DM2 (diabetes mellitus, type 2) 02/09/2015 09/05/2021 Patient Left without Being Seen 10/09/2009 02/16/2011 documented as of this encounter (statuses as of 10/09/2022) [address] History of Past illness Narrative* Problem Noted Date Resolved Date DM2 (diabetes mellitus, type 2) 02/09/2015 09/05/2021 Patient Left without Being Seen 10/09/2009 02/16/2011 documented as of this encounter (statuses as of 10/16/2022) [address] History of Past illness Narrative* Problem Noted Date Resolved Date DM2 (diabetes mellitus, type 2) 02/09/2015 09/05/2021 Patient Left without Being Seen 10/09/2009 02/16/2011 documented as of this encounter (statuses as of 10/18/2022) [address] History of Past illness Narrative* Problem Noted Date Resolved Date DM2 (diabetes mellitus, type 2) 02/09/2015 09/05/2021 Patient Left without Being Seen 10/09/2009 02/16/2011 documented as of this encounter (statuses as of 10/29/2022) [address] History of Past illness Narrative* Problem Noted Date Resolved Date DM2 (diabetes mellitus, type 2) 02/09/2015 09/05/2021 Patient Left without Being Seen 10/09/2009 02/16/2011 documented as of this encounter (statuses as of 11/01/2022) [address] History of Past illness Narrative* Problem Noted Date Resolved Date DM2 (diabetes mellitus, type 2) 02/09/2015 09/05/2021 Patient Left without Being Seen 10/09/2009 02/16/2011 documented as of this encounter (statuses as of 11/02/2022) [address] History of Past illness Narrative* Problem Noted Date Resolved Date DM2 (diabetes mellitus, type 2) 02/09/2015 09/05/2021 Patient Left without Being Seen 10/09/2009 02/16/2011 documented as of this encounter (statuses as of 11/03/2022) [address] History of Past illness Narrative* Problem Noted Date Resolved Date DM2 (diabetes mellitus, type 2) 02/09/2015 09/05/2021 Patient Left without Being Seen 10/09/2009 02/16/2011 documented as of this encounter (statuses as of 11/09/2022) [address] History of Past illness Narrative* Problem Noted Date Resolved Date DM2 (diabetes mellitus, type 2) 02/09/2015 09/05/2021 Patient Left without Being Seen 10/09/2009 02/16/2011 documented as of this encounter (statuses as of 11/14/2022) [address] History of Past illness Narrative* Problem Noted Date Resolved Date DM2 (diabetes mellitus, type 2) 02/09/2015 09/05/2021 Patient Left without Being Seen 10/09/2009 02/16/2011 documented as of this encounter (statuses as of 11/20/2022) [address] History of Past illness Narrative* Problem Noted Date Resolved Date DM2 (diabetes mellitus, type 2) 02/09/2015 09/05/2021 Patient Left without Being Seen 10/09/2009 02/16/2011 documented as of this encounter (statuses as of 11/21/2022) [address] History of Past illness Narrative* Problem Noted Date Resolved Date DM2 (diabetes mellitus, type 2) 02/09/2015 09/05/2021 Patient Left without Being Seen 10/09/2009 02/16/2011 documented as of this encounter (statuses as of 02/01/2023) [address] History of Past illness Narrative* Problem Noted Date Resolved Date DM2 (diabetes mellitus, type 2) 02/09/2015 09/05/2021 Patient Left without Being Seen 10/09/2009 02/16/2011 documented as of this encounter (statuses as of 02/10/2023) [address] History of Past illness Narrative* Problem Noted Date Resolved Date DM2 (diabetes mellitus, type 2) 02/09/2015 09/05/2021 Patient Left without Being Seen 10/09/2009 02/16/2011 documented as of this encounter (statuses as of 02/13/2023) [address] History of Past illness Narrative* Problem Noted Date Diagnosed Date Resolved Date DM2 (diabetes mellitus, type 2) 02/09/2015 09/05/2021 Patient Left without Being Seen 10/09/2009 02/16/2011 documented as of this encounter (statuses as of 05/09/2023) [facility] History of Past illness Narrative* Problem Noted Date Diagnosed Date Resolved Date DM2 (diabetes mellitus, type 2) 02/09/2015 09/05/2021 Patient Left without Being Seen 10/09/2009 02/16/2011 documented as of this encounter (statuses as of 08/09/2023) [facility] History of Past illness Narrative* Problem Noted Date Diagnosed Date Resolved Date DM2 (diabetes mellitus, type 2) 02/09/2015 09/05/2021 Patient Left without Being Seen 10/09/2009 02/16/2011 documented as of this encounter (statuses as of 10/11/2023) [facility] Diagnosis 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 [facility] Diagnosis Essential hypertension Unspecified essential hypertension [facility] Diagnosis Type 2 diabetes mellitus without complication, without long-term current use of insulin (HCC)- Primary Essential hypertension Unspecified essential hypertension [facility] Diagnosis Type 2 diabetes mellitus without [...] neoplasm of prostate [facility] Diagnosis Mixed hyperlipidemia [facility] Diagnosis Primary osteoarthritis of left knee- Primary Primary localized osteoarthrosis, lower leg Chronic pain of left knee Pain in joint, lower leg [facility] Diagnosis Primary osteoarthritis of left knee- Primary Primary localized osteoarthrosis, lower leg Primary osteoarthritis of left knee Primary localized osteoarthrosis, lower leg [facility] Diagnosis Pre-operative examination- Primary Preoperative [...] osteoarthrosis, lower leg [facility] Diagnosis Primary osteoarthritis of left knee- Primary Primary localized osteoarthrosis, lower leg Status post total left knee replacement [facility] Diagnosis Primary osteoarthritis of left knee- Primary Primary localized osteoarthrosis, lower leg [facility] Diagnosis Type 2 diabetes mellitus without complication, with long-term current use of insulin ([facility])- Primary [facility] Diagnosis Primary osteoarthritis of left knee- Primary Primary localized osteoarthrosis, lower leg [facility] Diagnosis Primary osteoarthritis of left knee- Primary Primary localized osteoarthrosis, lower leg [facility] Primary osteoarthritis of left knee- Primary Primary localized osteoarthrosis, lower leg [facility] Diagnosis Primary osteoarthritis of left knee- Primary Primary localized osteoarthrosis, lower leg [facility] Diagnosis Primary osteoarthritis of left knee- Primary Primary localized osteoarthrosis, lower leg [facility] Diagnosis Primary osteoarthritis of left knee- Primary Primary localized osteoarthrosis, lower leg [facility] Diagnosis Primary osteoarthritis of left knee- Primary Primary localized osteoarthrosis, lower leg [facility] Diagnosis Primary osteoarthritis of left knee- Primary Primary localized osteoarthrosis, lower leg [facility] Diagnosis Status post total left knee replacement- Primary [facility] Diagnosis Primary osteoarthritis of left knee- Primary Primary localized osteoarthrosis, lower leg [facility] Diagnosis Essential hypertension Unspecified essential hypertension [facility] Diagnosis Medication side effect- Primary Unspecified adverse effect of unspecified drug, medicinal and biological substance Nausea Nausea alone Type 2 diabetes mellitus with diabetic nephropathy, with long-term current use of insulin ([facility]) Stage 3a chronic kidney disease (HCC) Anemia, chronic renal failure, stage 3 (moderate) ([facility]) Chest wall pain Painful respiration Essential hypertension Unspecified essential hypertension Essential tremor Essential and other specified forms of tremor [facility] Diagnosis Type 2 diabetes mellitus without complication, without long-term current use of insulin (HCC) documented in this encounter [facility] for referral (narrative)* Diagnostic Procedure Only (Routine) - Pending Review Specialty Diagnoses / Procedures [facility] Referred To Contact XR IMAGING Diagnoses Primary osteoarthritis of left knee Status post total left knee replacement Procedures XR KNEE GENERAL 4V AP BOTH/PA BOTH/LAT/MERC LEFT RADIOLOGIC EXAM KNEE COMPLETE 4/MORE VIEWS Rodger Elena MD [address] [facility] [place] [address] Xr Imaging Referral ID Status Reason Start Date Expiration Date Visits Requested Visits Authorized [id number] Pending Review Auto-Generat ed Referral 09/04/2022 10/04/2023 1 1 [facility] for referral (narrative)* - Pending Review Specialty Diagnoses / Procedures Referred By Contac Referred To Contact Physical Therapy Diagnoses Primary osteoarthritis of left knee Procedures CONSULT TO PHYSICAL THERAPY Rosio Lechuga PA-C [address] [place] [address] Referral ID Status Reason Start Date Expiration Date V isits Requested Visits Authorized [id number] Pending Review 09/11/2022 12/10/[address] [facility] Chief Complaint Chief Complaint Description Start Date left knee pain Preliminary chief co mplaint data, not yet signed by the author as of Instructions Instruction Description Start Date CompletedPatient advised to follow-up with Primary Care Physician for BMI management. Advance Directives No Advanced Directives Records FoundDocuments on File Type Date Recorded Patient Errand Runner Expl anation Advance Directive(s) Advance Directive(s) 08/10/2020 1:33 PM Documents on File Type Date Recorded Patient Errand Runner Expl anation Advance Directive(s) 08/10/2020 1:33 PM Documents on File Type Date Recorded Patient Errand Runner Expl anation Advance Directive(s) 08/10/2020 1:33 PM [...] left knee Procedures CONSULT TO ORTHOPAEDICS OFFICE/OUTPATIENT [facility] 60-74 MINUTES Ab Dunham MD [address] [place] [address] [place] [address] Referral ID Status Reason Start Date Expiration Date Visits Requested Visits Authorized [id number] Pending Review PCP Requested Referral 06/08/2022 06/08/2023 1 1 Specialty Diagnoses / Procedures Referred By Contac t Referred To Contact CT IMAGING Diagnoses Primary osteoarthritis of left knee Chronic pain of left knee Procedures CT KNEE WO IVCON LT CT LOWER EXTREMITY W/O CONTRAST MATERIAL Rodger Elena MD [address] [place] [address] Ct Imaging Referral ID Status Reason Start Date Expiration Date Visits Requested Visits Authorized [id number] Authorized Auto-Generat ed Referral 07/17/2022 08/16/2023 1 1 Summary Purpose Additional Source Comments Reason for Visit (unrecogniz ed section and content) Specialty Diagnoses / Procedures Referred By Contac t Referred To Contact Physical Therapy Diagnoses Primary osteoarthritis of left knee Procedures CONSULT TO PHYSICAL THERAPY Rosio Lechuga PA-C [address] [place] [address] [facility] [address] [address] Referral ID Status Reason Start Date Expiration Date V isits Requested Visits Authorized [id number] Authorized 10/29/2021 10/28/2022 20 20 Reason For [...] Expiration Date Visits Re quested Visits Authorized [id number] Closed 10/29/2021 10/28/2022 20 20 Reason Comments PT Progress Note Specialty Diagnoses / Procedures Referred By Jay t Referred To Contact PHYSICAL THERAPY Diagnoses Primary osteoarthritis of left knee [M17.12] Procedures EST PATIENT VISIT LEVEL 1 Rodger Elena MD [address] [place] [address] Pt [facility] [address] [place] [address] Referral ID Status Reason Start Date Expiration Date V isits Requested Visits Authorized [id number] Authorized 10/31/2022 10/27/2023 20 20 Reason Comments Established Patient Follow Up Post Op Reason Onset Date Comments Refill Request 02/01/2023 Reason Comments Diabetes Pain in rib cage and abdomen 03/07, not taking januvia due to nausea. Reason Comments Outside Lab Results [facility] Reason Onset Date Comments Population Health Navigation [...] or prosecute any alcohol or drug abuse patient.[facility] HospitalIn the event this information is protected by the Federal Confidentiality of Alcohol and Drug Abuse Patient Records regulations: The Federal rules restrict any use of the information to criminally investigate or prosecute any alcohol or drug abuse patient.[facility] HospitalIn the event this information is protected by the Federal Confidentiality of Alcohol and Drug Abuse Patient Records regulations: The Federal rules restrict any use of the information to criminally investigate or prosecute any alcohol or drug abuse patient.[facility] HospitalIn the event this information is protected by the Federal Confidentiality of Alcohol and Drug Abuse Patient Records regulations: The Federal rules restrict any use of the information to criminally investigate or prosecute any alcohol or drug abuse patient.[facility] HospitalIn the event this information is protected by the Federal Confidentiality of Alcohol and Drug Abuse Patient Records regulations: The Federal rules restrict any use of the information to criminally investigate or prosecute any alcohol or drug abuse patient.[facility] HospitalIn the event this information is protected by the Federal Confidentiality of Alcohol and Drug Abuse Patient Records regulations: The Federal rules restrict any use of the information to criminally investigate or prosecute any alcohol or drug abuse patient.[facility] HospitalIn the event this information is protected by the Federal Confidentiality of Alcohol and Drug Abuse Patient Records regulations: The Federal rules restrict any use of the information to criminally investigate or prosecute any alcohol or drug abuse patient.[facility] HospitalIn the event this information is protected by the Federal Confidentiality of Alcohol and Drug Abuse Patient Records regulations: The Federal rules restrict any use of the information to criminally investigate or prosecute any alcohol or drug abuse patient.[facility] HospitalIn the event this information is protected by the Federal Confidentiality of Alcohol and Drug Abuse Patient Records regulations: The Federal rules restrict any use of the information to criminally investigate or prosecute any alcohol or drug abuse patient.[facility] HospitalIn the event this information is protected by the Federal Confidentiality of Alcohol and Drug Abuse Patient Records regulations: The Federal rules restrict any use of the information to criminally investigate or prosecute any alcohol or drug abuse patient.[facility] HospitalIn the event this information is protected by the Federal Confidentiality of Alcohol and Drug Abuse Patient Records regulations: The Federal rules restrict any use of the information to criminally investigate or prosecute any alcohol or drug abuse patient.[facility] HospitalIn the event this information is protected by the Federal Confidentiality of Alcohol and Drug Abuse Patient Records regulations: The Federal rules restrict any use of the information to criminally investigate or prosecute any alcohol or drug abuse patient.[facility] HospitalIn the event this information is protected by the Federal Confidentiality of Alcohol and Drug Abuse Patient Records regulations: The Federal rules restrict any use of the information to criminally investigate or prosecute any alcohol or drug abuse patient.[facility] HospitalIn the event this information is protected by the Federal Confidentiality of Alcohol and Drug Abuse Patient Records regulations: The Federal rules restrict any use of the information to criminally investigate or prosecute any alcohol or drug abuse patient.[facility] HospitalIn the event this information is protected by the Federal Confidentiality of Alcohol and Drug Abuse Patient Records regulations: The Federal rules restrict any use of the information to criminally investigate or prosecute any alcohol or drug abuse patient.[facility] HospitalIn the event this information is protected by the Federal Confidentiality of Alcohol and Drug Abuse Patient Records regulations: The Federal rules restrict any use of the information to criminally investigate or prosecute any alcohol or drug abuse patient.[facility] HospitalIn the event this information is protected by the Federal Confidentiality of Alcohol and Drug Abuse Patient Records regulations: The Federal rules restrict any use of the information to criminally investigate or prosecute any alcohol or drug abuse patient.[facility] HospitalIn the event this information is protected by the Federal Confidentiality of Alcohol and Drug Abuse Patient Records regulations: The Federal rules restrict any use of the information to criminally investigate or prosecute any alcohol or drug abuse patient.[facility] HospitalIn the event this information is protected by the Federal Confidentiality of Alcohol and Drug Abuse Patient Records regulations: The Federal rules restrict any use of the information to criminally investigate or prosecute any alcohol or drug abuse patient.[facility] HospitalIn the event this information is protected by the Federal Confidentiality of Alcohol and Drug Abuse Patient Records regulations: The Federal rules restrict any use of the information to criminally investigate or prosecute any alcohol or drug abuse patient.[facility] HospitalIn the event this information is protected by the Federal Confidentiality of Alcohol and Drug Abuse Patient Records regulations: The Federal rules restrict any use of the information to criminally investigate or prosecute any alcohol or drug abuse patient.[facility] HospitalIn the event this information is protected by the Federal Confidentiality of Alcohol and Drug Abuse Patient Records regulations: The Federal rules restrict any use of the information to criminally investigate or prosecute any alcohol or drug abuse patient.[facility] HospitalIn the event this information is protected by the Federal Confidentiality of Alcohol and Drug Abuse Patient Records regulations: The Federal rules restrict any use of the information to criminally investigate or prosecute any alcohol or drug abuse patient.[facility] HospitalIn the event this information is protected by the Federal Confidentiality of Alcohol and Drug Abuse Patient Records regulations: The Federal rules restrict any use of the information to criminally investigate or prosecute any alcohol or drug abuse patient.[facility] HospitalIn the event this information is protected by the Federal Confidentiality of Alcohol and Drug Abuse Patient Records regulations: The Federal rules restrict any use of the information to criminally investigate or prosecute any alcohol or drug abuse patient.[facility] HospitalIn the event this information is protected by the Federal Confidentiality of Alcohol and Drug Abuse Patient Records regulations: The Federal rules restrict any use of the information to criminally investigate or prosecute any alcohol or drug abuse patient.[facility] HospitalIn the event this information is protected by the Federal Confidentiality of Alcohol and Drug Abuse Patient Records regulations: The Federal rules restrict any use of the information to criminally investigate or prosecute any alcohol or drug abuse patient.[facility] HospitalIn the event this information is protected by the Federal Confidentiality of Alcohol and Drug Abuse Patient Records regulations: The Federal rules restrict any use of the information to criminally investigate or prosecute any alcohol or drug abuse patient.[facility] HospitalIn the event this information is protected by the Federal Confidentiality of Alcohol and Drug Abuse Patient Records regulations: The Federal rules restrict any use of the information to criminally investigate or prosecute any alcohol or drug abuse patient.[facility] HospitalIn the event this information is protected by the Federal Confidentiality of Alcohol and Drug Abuse Patient Records regulations: The Federal rules restrict any use of the information to criminally investigate or prosecute any alcohol or drug abuse patient.[facility] HospitalIn the event this information is protected by the Federal Confidentiality of Alcohol and Drug Abuse Patient Records regulations: The Federal rules restrict any use of the information to criminally investigate or prosecute any alcohol or drug abuse patient.[facility] HospitalIn the event this information is protected by the Federal Confidentiality of Alcohol and Drug Abuse Patient Records regulations: The Federal rules restrict any use of the information to criminally investigate or prosecute any alcohol or drug abuse patient.[facility] HospitalIn the event this information is protected by the Federal Confidentiality of Alcohol and Drug Abuse Patient Records regulations: The Federal rules restrict any use of the information to criminally investigate or prosecute any alcohol or drug abuse patient.[facility] HospitalIn the event this information is protected by the Federal Confidentiality of Alcohol and Drug Abuse Patient Records regulations: The Federal rules restrict any use of the information to criminally investigate or prosecute any alcohol or drug abuse patient.[facility] HospitalIn the event this information is protected by the Federal Confidentiality of Alcohol and Drug Abuse Patient Records regulations: The Federal rules restrict any use of the information to criminally investigate or prosecute any alcohol or drug abuse patient.[facility] HospitalIn the event this information is protected by the Federal Confidentiality of Alcohol and Drug Abuse Patient Records regulations: The Federal rules restrict any use of the information to criminally investigate or prosecute any alcohol or drug abuse patient.[facility] HospitalIn the event this information is protected by the Federal Confidentiality of Alcohol and Drug Abuse Patient Records regulations: The Federal rules restrict any use of the information to criminally investigate or prosecute any alcohol or drug abuse patient.[facility] HospitalIn the event this information is protected by the Federal Confidentiality of Alcohol and Drug Abuse Patient Records regulations: The Federal rules restrict any use of the information to criminally investigate or prosecute any alcohol or drug abuse patient.[facility] HospitalIn the event this information is protected by the Federal Confidentiality of Alcohol and Drug Abuse Patient Records regulations: The Federal rules restrict any use of the information to criminally investigate or prosecute any alcohol or drug abuse patient.[facility] Care Teams (unrecognized sec tion and content) Settlement Processor Relationship Specialty Start Date End Date Ab Dunham MD [address] [place] [address] PCP - General Family Practice 08/03/11 Settlement Processor Relationship Specialty Start Date End Date Ab Dunham MD [address] [place] [address] PCP - General Family Practice 08/03/11 Settlement Processor Relationship Specialty Start Date End Date Ab Dunham MD [facility] [place] [address] PCP - General Family Practice 08/03/11 Settlement Processor Relationship Specialty Start Date End Date Ab Dunham MD [facility] [place] [address] PCP - General Family Practice 08/03/11 Settlement Processor Relationship Specialty Start Date End Date Ab Dunham MD [facility] [place] [address] PCP - General Family Practice 08/03/11 Settlement Processor Relationship Specialty Start Date End Date Ab Dunham MD [facility] [place] [address] PCP - General Family Medicine 08/03/11 Johny Lawrence, [facility] [address] [place] [address] Specialty [facility] 07/26/22 10/12/22 Settlement Processor Relationship Specialty Start Date End Date Ab Dunham MD [address] [place] [address] PCP - General Family Medicine 08/03/11 Sissen, Johny, [facility] [address] [place] [address] Specialty [facility] 07/26/22 10/12/22 Settlement Processor Relationship Specialty Start Date End Date Ab Dunham MD [address] [place] [address] PCP - General Family Medicine 08/03/11 Sissen, Johny, [facility] [address] [place] [address] Specialty [facility] 07/26/22 10/12/22 Settlement Processor Relationship Specialty Start Date End Date Ab Dunham MD [address] [place] [address] PCP - General Family Medicine 08/03/11 Sissen, Johny, [facility] [address] [place] [address] Specialty [facility] 07/26/22 10/12/22 Settlement Processor Relationship Specialty Start Date End Date Ab Dunham MD [address] [place] [address] PCP - General Family Medicine 08/03/11 Sissen, Johny, [facility] [address] [place] [address] Specialty [facility] 07/26/22 10/12/22 Settlement Processor Relationship Specialty Start Date End Date Ab Dunham MD [address] [place] [address] PCP - General Family Medicine 08/03/11 Sissen, Johny, [facility] [address] [place] [address] Specialty [facility] 07/26/22 10/12/22 Settlement Processor Relationship Specialty Start Date End Date Ab Dunham MD [address] [place] [address] PCP - General Family Medicine 08/03/11 Sissen, Johny, [facility] [address] [place] [address] Specialty [facility] 07/26/22 10/12/22 Settlement Processor Relationship Specialty Start Date End Date Ab Dunham MD [address] [place] [address] PCP - General Family Medicine 08/03/11 Sissen, Johny, [facility] [address] [place] [address] Specialty [facility] 07/26/22 10/12/22 Settlement Processor Relationship Specialty Start Date End Date Ab Dunham MD [address] [place] [address] PCP - General Family Medicine 08/03/11 Sissen, Jonhy, [facility] [address] [place] [address] Specialty [facility] 07/26/22 10/12/22 Settlement Processor Relationship Specialty Start Date End Date Ab Dunham MD [address] [place] [address] PCP - General Family Medicine 08/03/11 Sissen, Johny, [facility] [address] [place] [address] Specialty [facility] 07/26/22 10/12/22 Settlement Processor Relationship Specialty Start Date End Date Ab Dunham MD [address] [place] [address] PCP - General Family Medicine 08/03/11 Settlement Processor Relationship Specialty Start Date End Date Ab Dunham MD [address] [place] [address] PCP - General Family Medicine 08/03/11 Settlement Processor Relationship Specialty Start Date End Date Ab Dunham MD [address] [place] [address] PCP - General Family Medicine 08/03/11 Settlement Processor Relationship Specialty Start Date End Date Ab Dunham MD [address] [place] [address] PCP - General Family Medicine 08/03/11 Settlement Processor Relationship Specialty Start Date End Date Ab Dunham MD [address] [place] [address] PCP - General Family Medicine 08/03/11 Settlement Processor Relationship Specialty Start Date End Date Ab Dunham MD [address] [place], [place] [id number] PCP - General Family Medicine 08/03/11 Settlement Processor Relationship Specialty Start Date End Date Ab Dunham MD [address] [place], [place] [address] PCP - General Family Medicine 08/03/11 Settlement Processor Relationship Specialty Start Date End Date Ab Dunham MD [address] [place], [place] [address] PCP - General Family Medicine 08/03/11 Settlement Processor Relationship Specialty Start Date End Date Ab Dunham MD [address] [place], [place] [address] PCP - General Family Medicine 08/03/11 Settlement Processor Relationship Specialty Start Date End Date Ab Dunham MD [address] [place] [address] PCP - General Family Medicine 08/03/11 (unrecognized sect ion and content) No Status Records FoundNo Status Records Found INFORMATION SOURCE (unrecogn ized section and content) DATE CREATED AUTHOR AUTHOR'S ORGANIZ ATION 10/13/2023 [facility] FOR RECORDS PERTAINING TO PATIENTS WHO ARE [...] BE BASED ON THE PRIMARY CLINICAL RECORDS. [facility]. provides no warranty or guarantee of the accuracy or completeness of information in this document.
[2023-12-12 07:15] VITALS: BP 167/75; PULSE 65; RESP 18; O2SAT 99; BMI 25.0
[2023-12-12] MEDS: 0.9% Saline Lock 10 ML Syringe IV (07:36)
[2023-12-12] MEDS: 0.9% Normal Saline (500mL Bag) 500 ML IV (07:36)
== END | disposition home or self-care (01) ==
LOC: CT 07:04
PROVIDERS: PCP Family Medicine Geriatric Medicine; Referring Provider Surgery; Visit Provider Surgery
DX: R10.12 Left upper quadrant pain (principal)
CPT/HCPCS: 74177; J7040; Q9967

== ENCOUNTER → 2024-02-12 | Outpatient (CLI) | payer MEDICARE, SELFPAY ==
[2024-02-12 11:25] LABS: Absolute Lymphocyte Count 1.26 X10^3/uL (0.83-4.51); Absolute Neutrophil Count 5.3 X10^3/uL (2.0-7.7); Basophil# 0.04 X10^3/uL; Basophil% 0.5 % (0-1); Eosinophil# 0.13 X10^3/uL; Eosinophils% 1.7 % (0-5); Hematocrit 43.1 % (40-54); Hemoglobin 14.1 g/dL (13.0-16.5); Lymphocyte # 1.26 X10^3/ul (0.83-4.51); Lymphocyte % 16.9 % (19-41); Mean Corp Hgb Conc 32.7 g/dL (32-36); Mean Corpuscular Hgb 31.4 pg (27.0-32.0); Monocyte# 0.68 X10^3/uL; Monocyte% 9.1 % (0-10); NRBC Flagged by Analyzer 0 % (0-5); Neutrophil # 5.32 X10^3/uL (2.7-7.7); Neutrophil % 71.5 % (47-70); Platelet Count 213 K/mm3 (150-450); RBC Distribution Width CV 14.3 % (11.6-14.6); RBC Distribution Width SD 50.5 fl (35.1-43.9); Red Blood Count 4.49 M/mm3 (4.6-6.2); White Blood Count 7.5 K/mm3 (4.4-11.0)
[2024-02-12 11:39] LABS: Vitamin D,25 Hydroxy 31.9 ng/mL
[2024-02-12 11:49] LABS: AST(SGOT) 21 U/L (15-37); Alanine Aminotransfer ALT/SGPT 23 U/L (16-61); Albumin, Serum 3.9 g/dL (3.2-5.0); Alkaline Phosphatase 108 U/L (45-117); Anion Gap 4 (5-15); BUN 28 mg/dL (7-18); BUN/Creat Ratio 18.8 RATIO (10-20); Calcium,Total 9.7 mg/dL (8.5-10.1); Chloride 107 mmol/L (98-107); Creatinine, Serum 1.49 mg/dL (0.70-1.30); EST Glomerular Filtration Rate 48 mL/min (>60); Est Glom Filt Rate - Afr Amer 58 mL/min (>60); Globulin 3.8 g/dL (2.2-4.2); Glucose 136 mg/dL (74-106); Potassium 4.7 mmol/L (3.5-5.1); Protein, Total 7.7 g/dL (6.4-8.2); Sodium Level 140 mmol/L (136-145); Thyroid Stim Hormone (TSH) 1.68 uIU/mL (0.358-3.74); Uric Acid 4.1 mg/dL (3.5-7.2)
== END | disposition home or self-care (01) ==
LOC: POLAB3 10:42
PROVIDERS: PCP Family Medicine Geriatric Medicine; Visit Provider Family Medicine Geriatric Medicine
DX: M10.9 Gout, unspecified (principal); E11.65 Type 2 diabetes mellitus with hyperglycemia; I10 Essential (primary) hypertension; E55.9 Vitamin D deficiency, unspecified
CPT/HCPCS: 36415; 80053; 82306; 84443; 84550; 85025

== ENCOUNTER → 2024-05-12 | Outpatient (CLI) | payer MEDICARE, SELFPAY ==
[2024-05-12 11:33] LABS: Absolute Lymphocyte Count 1.25 X10^3/uL (0.83-4.51); Absolute Neutrophil Count 4.6 X10^3/uL (2.0-7.7); Basophil# 0.05 X10^3/uL; Basophil% 0.8 % (0-1); Eosinophil# 0.15 X10^3/uL; Eosinophils% 2.3 % (0-5); Hematocrit 42.5 % (40-54); Hemoglobin 13.6 g/dL (13.0-16.5); Lymphocyte # 1.25 X10^3/ul (0.83-4.51); Lymphocyte % 18.9 % (19-41); Mean Corpuscular Hgb 31.1 pg (27.0-32.0); Mean Corpuscular Volume 97.3 fL (80-94); Mean Platelet Vol. 11.2 fl (6.2-12.0); Monocyte# 0.61 X10^3/uL; Monocyte% 9.2 % (0-10); NRBC Flagged by Analyzer 0 % (0-5); Neutrophil # 4.55 X10^3/uL (2.7-7.7); Neutrophil % 68.6 % (47-70); Platelet Count 202 K/mm3 (150-450); RBC Distribution Width CV 13.9 % (11.6-14.6); Red Blood Count 4.37 M/mm3 (4.6-6.2); White Blood Count 6.6 K/mm3 (4.4-11.0)
[2024-05-12 12:00] LABS: Vitamin D,25 Hydroxy 37.7 ng/mL
[2024-05-12 12:18] LABS: AST(SGOT) 23 U/L (15-37); Alanine Aminotransfer ALT/SGPT 23 U/L (16-61); Albumin, Serum 3.8 g/dL (3.2-5.0); Alkaline Phosphatase 96 U/L (45-117); Anion Gap 7 (5-15); BUN 33 mg/dL (7-18); BUN/Creat Ratio 24.1 RATIO (10-20); Calcium,Total 9.9 mg/dL (8.5-10.1); Chloride 106 mmol/L (98-107); Creatinine, Serum 1.37 mg/dL (0.70-1.30); EST Glomerular Filtration Rate 53 mL/min (>60); Est Glom Filt Rate - Afr Amer 64 mL/min (>60); Globulin 3.7 g/dL (2.2-4.2); Glucose 89 mg/dL (74-106); Potassium 4.7 mmol/L (3.5-5.1); Protein, Total 7.5 g/dL (6.4-8.2); Sodium Level 141 mmol/L (136-145); Thyroid Stim Hormone (TSH) 1.61 uIU/mL (0.358-3.74); Uric Acid 5.2 mg/dL (3.5-7.2)
== END | disposition home or self-care (01) ==
LOC: POLAB3 10:21
PROVIDERS: PCP Family Medicine Geriatric Medicine; Visit Provider Family Medicine Geriatric Medicine
DX: E11.65 Type 2 diabetes mellitus with hyperglycemia (principal); I10 Essential (primary) hypertension; M10.9 Gout, unspecified; E55.9 Vitamin D deficiency, unspecified
CPT/HCPCS: 36415; 80053; 82306; 84443; 84550; 85025

== ENCOUNTER → 2024-11-11 | Outpatient (CLI) | payer MEDICARE, SELFPAY ==
[2024-11-11 10:44] LABS: Absolute Lymphocyte Count 1.62 X10^3/uL (0.83-4.51); Absolute Neutrophil Count 5.1 X10^3/uL (2.0-7.7); Basophil# 0.04 X10^3/uL; Basophil% 0.5 % (0-1); Eosinophil# 0.09 X10^3/uL; Eosinophils% 1.2 % (0-5); Hematocrit 42.5 % (40-54); Hemoglobin 13.7 g/dL (13.0-16.5); Lymphocyte # 1.62 X10^3/ul (0.83-4.51); Lymphocyte % 21.5 % (19-41); Mean Corp Hgb Conc 32.2 g/dL (32-36); Mean Corpuscular Hgb 31.3 pg (27.0-32.0); Monocyte# 0.68 X10^3/uL; NRBC Flagged by Analyzer 0 % (0-5); Neutrophil # 5.08 X10^3/uL (2.7-7.7); Neutrophil % 67.5 % (47-70); Platelet Count 211 K/mm3 (150-450); RBC Distribution Width SD 50.3 fl (35.1-43.9); Red Blood Count 4.38 M/mm3 (4.6-6.2); White Blood Count 7.5 K/mm3 (4.4-11.0)
[2024-11-11 11:09] LABS: Vitamin D,25 Hydroxy 48.8 ng/mL
[2024-11-11 11:14] LABS: ALB/GLOB Ratio 1.1 RATIO (0.9-2.4); AST(SGOT) 22 U/L (15-37); Alanine Aminotransfer ALT/SGPT 20 U/L (16-61); Albumin, Serum 4.1 g/dL (3.2-5.0); Alkaline Phosphatase 91 U/L (45-117); Anion Gap 3 (5-15); BUN 35 mg/dL (7-18); BUN/Creat Ratio 20.6 RATIO (10-20); Calcium,Total 9.8 mg/dL (8.5-10.1); Chloride 106 mmol/L (98-107); EST Glomerular Filtration Rate 41 mL/min (>60); Est Glom Filt Rate - Afr Amer 50 mL/min (>60); Globulin 3.7 g/dL (2.2-4.2); Glucose 105 mg/dL (74-106); Potassium 4.4 mmol/L (3.5-5.1); Protein, Total 7.8 g/dL (6.4-8.2); Sodium Level 138 mmol/L (136-145); Uric Acid 4.6 mg/dL (3.5-7.2)
== END | disposition home or self-care (01) ==
LOC: POLAB3 10:13
PROVIDERS: PCP Family Medicine Geriatric Medicine; Visit Provider Family Medicine Geriatric Medicine
DX: E11.65 Type 2 diabetes mellitus with hyperglycemia (principal); I10 Essential (primary) hypertension; M10.9 Gout, unspecified; E55.9 Vitamin D deficiency, unspecified

== ENCOUNTER → 2025-05-13 | Outpatient (CLI) | payer MEDICARE, SELFPAY ==
[2025-05-13 10:47] LABS: Hematocrit 40.9 % (40-54); Hemoglobin 13.7 g/dL (13.0-16.5); Immature Granulocytes Count 0.030 X10^3/uL (0.0-0.0); Mean Corp Hgb Conc 33.5 g/dL (32-36); Mean Corpuscular Volume 95.6 fL (80-94); Mean Platelet Vol. 10.9 fl (6.2-12.0); NRBC Flagged by Analyzer 0 % (0-5); Platelet Count 198 K/mm3 (150-450); RBC Distribution Width CV 14.3 % (11.6-14.6); RBC Distribution Width SD 49.6 fl (35.1-43.9); Red Blood Count 4.28 M/mm3 (4.6-6.2); White Blood Count 8.2 K/mm3 (4.4-11.0)
[2025-05-13 14:26] LABS: AST(SGOT) 23 U/L (<=37); Alanine Aminotransfer ALT/SGPT 15 U/L (<=46); Albumin, Serum 4.2 g/dL (3.4-4.8); Alkaline Phosphatase 95 U/L (40-129); Anion Gap 12 (5-15); BUN 37 mg/dL (4-19); BUN/Creat Ratio 21.0 RATIO (10-20); Calcium,Total 9.9 mg/dL (7.6-11.0); Carbon Dioxide 24.8 mmol/L (21.0-32.0); Chloride 104 mmol/L (98-108); Globulin 3.2 g/dL (2.2-4.2); Glucose 133 mg/dL (70-99); Potassium 4.5 mmol/L (3.3-5.1); Uric Acid 4.1 mg/dL (3.5-7.2); Vitamin D,25 Hydroxy 44.6 ng/mL (30-100)
[2025-05-13 18:29] LABS: Xtra Tube Kwok EXTRA TUBE
== END | disposition home or self-care (01) ==
LOC: POLAB3 10:28
PROVIDERS: PCP Family Medicine Geriatric Medicine; Visit Provider Family Medicine Geriatric Medicine
DX: M10.9 Gout, unspecified (principal); E11.22 Type 2 diabetes mellitus with diabetic chronic kidney disease; I12.9 Hypertensive chronic kidney disease with stage 1 through stage 4 chronic kidney disease, or unspecified chronic kidney disease; E55.9 Vitamin D deficiency, unspecified; N18.9 Chronic kidney disease, unspecified
CPT/HCPCS: 36415; 80053; 82306; 84443; 84550; 85025